=== PATIENT | female | born 1950 | race Caucasian/White ===

== ENCOUNTER 2016-10-04 10:08 | Outpatient (RCR) | payer MEDICARE, MEDICAID ==
[2016-10-04 09:54] LABS: BASOPHILS % (AUTO) 1 % (0-10); EOSINOPHILS # (AUTO) 0.1 10^3/uL (0.0-0.3); EOSINOPHILS % (AUTO) 2 % (0-10); LYMPHOCYTES # (AUTO) 0.9 X 10^3 (1.0-4.0); LYMPHOCYTES % (AUTO) 16 % (12-44); MEAN CORPUSCULAR HEMOGLOBIN 27 PG (25-34); MEAN CORPUSCULAR HGB CONC 33 G/DL (32-36); MEAN CORPUSCULAR VOLUME 83 FL (80-99); MEAN PLATELET VOLUME 10.7 FL (7.4-10.4); MONOCYTES # (AUTO) 0.4 X 10^3 (0.0-1.0); MONOCYTES % (AUTO) 6 % (0-12); NEUTROPHILS # (AUTO) 4.6 X 10^3 (1.8-7.8); NEUTROPHILS % (AUTO) 76 % (42-75); PLATELET COUNT 217 10^3/uL (130-400); RED BLOOD COUNT 4.31 10^6/uL (4.35-5.85); RED CELL DISTRIBUTION WIDTH 15.3 % (10.0-14.5); WHITE BLOOD COUNT 6.1 10^3/uL (4.3-11.0)
[~2016-10-04 10:08] MED LIST: ANAS1TAB7 PO; APIX5TAB PO; ASP81TEC PO; ASPI-86; ASPI-983 PO; ATOR20TA66 PO; BENA1TAB12 PO; BENA1TAB3; BENA20TA2 PO; BNZ40T PO; CEPH500C PO; CITA20TA12 PO; CLOP75TA28 PO; CRESTOR40 MG; CYCL-97 PO; DEXA6TAB PO; DIAZ5TAB3 PO; DILT-10 PO; DILT240C PO; DILT240C86 PO; ERGO400C PO; FERR-84 PO; FISH1CAP15 PO; HYDR-3816 PO; HYDR1CAP2 PO; HYDR1TAB8 PO; HYDR25TA4 PO; IRON PO; MAGN500C15 PO; MECL-124 PO; METO100T5 PO; MULT-974 PO; NF-ESOM40C PO; NF-VITD400 PO; OMEP20CA12 PO; OMEP40CA36 PO; ONDA8TAB9 PO; OXYC-471 PO; POTA10CA43 PO; RABE20TA PO; ROSU10TA12 PO; SIMV20TA3 PO; SUCR1TAB PO; TRAM-21 PO; VNL37.5T PO; beta blocker
[2016-10-04 10:27] LABS: ALANINE AMINOTRANSFERASE 15 U/L (0-55); ALBUMIN 4.5 G/DL (3.2-4.5); ANION GAP 13 MMOL/L (5-14); ASPARTATE AMINO TRANSFERASE 14 U/L (5-34); BILIRUBIN,TOTAL 0.4 MG/DL (0.1-1.0); BLOOD UREA NITROGEN 30 MG/DL (7-18); BUN/CREATININE RATIO 39; CALCIUM 9.9 MG/DL (8.5-10.1); CARBON DIOXIDE 22 MMOL/L (21-32); CHLORIDE 103 MMOL/L (98-107); CREATININE SERUM 0.76 MG/DL (0.60-1.30); GFR ESTIMATED > 60; GLUCOSE 108 MG/DL (70-105); POTASSIUM 3.9 MMOL/L (3.6-5.0); SODIUM 138 MMOL/L (135-145); TOTAL PROTEIN 7.3 G/DL (6.4-8.2)
== END 2016-10-25 | disposition home or self-care (01) ==
LOC: ONC 10:08
PROVIDERS: ATTEND Internal Medicine Hematology & Oncology
DX: C50.111 Malignant neoplasm of central portion of right female breast (principal); Z17.0 Estrogen receptor positive status [ER+]; I10 Essential (primary) hypertension; E78.5 Hyperlipidemia, unspecified; F32.9 Major depressive disorder, single episode, unspecified; E66.9 Obesity, unspecified; Z68.41 Body mass index [BMI] 40.0-44.9, adult; Z45.2 Encounter for adjustment and management of vascular access device
CPT/HCPCS: 36591; 80053; 82728; 83540; 85025; 86300; 96523; 99213

== ENCOUNTER → 2016-11-15 | Outpatient (CLI) | payer MEDICARE, MEDICAID ==
[2016-11-15 11:36] LABS: ALANINE AMINOTRANSFERASE 12 U/L (0-55); ALBUMIN 4.4 G/DL (3.2-4.5); ANION GAP 12 MMOL/L (5-14); ASPARTATE AMINO TRANSFERASE 13 U/L (5-34); BILIRUBIN,TOTAL 0.5 MG/DL (0.1-1.0); BLOOD UREA NITROGEN 25 MG/DL (7-18); BUN/CREATININE RATIO 32; CALCIUM 9.9 MG/DL (8.5-10.1); CARBON DIOXIDE 26 MMOL/L (21-32); CHLORIDE 98 MMOL/L (98-107); CHOLESTEROL 206 MG/DL (< 200); CREATININE SERUM 0.77 MG/DL (0.60-1.30); DIRECT LDL 122 MG/DL (1-129); GFR ESTIMATED > 60; GLUCOSE 93 MG/DL (70-105); POTASSIUM 3.6 MMOL/L (3.6-5.0); SODIUM 136 MMOL/L (135-145); TOTAL PROTEIN 7.3 G/DL (6.4-8.2); TRIGLYCERIDES 69 MG/DL (<150); VLDL CHOLESTEROL 14 MG/DL (5-40)
== END ==
LOC: LAB 10:20
PROVIDERS: ATTEND Internal Medicine Cardiovascular Disease
DX: E78.2 Mixed hyperlipidemia (principal); I10 Essential (primary) hypertension; I48.0 Paroxysmal atrial fibrillation
CPT/HCPCS: 80053; 80061

== ENCOUNTER 2016-11-23 09:20 | Outpatient (CLI) | payer MEDICARE, MEDICAID | END 2016-11-23 10:00 | LOC: SLEEP 09:20 | PROVIDERS: ATTEND Nurse Practitioner Family | DX: G47.33 Obstructive sleep apnea (adult) (pediatric) (principal) ==

== ENCOUNTER → 2016-12-08 | Outpatient (CLI) | payer MEDICARE, MEDICAID ==
--- NOTE | 2016-12-08 14:50 | Diagnostic Imaging Report ---
Right breast ultrasound. INDICATION: Breast CA. FINDINGS: At the lumpectomy site, there is a 5.2 x 1.2 x 3.1 cm fluid collection with surrounding thickened hypoechoic rim of tissue. This is similar when compared to prior exams and slightly smaller in size compared to 06/14/2016. No adverse development. No internal vascularity with color Doppler. IMPRESSION: Slightly smaller minimally complicated seroma with thickened rim suggestive of scarring seen at the lumpectomy site. No adverse development. ACR BI-RADS Category 2: Benign findings. Dictated by: Dictated on workstation # [id number]
--- NOTE | 2016-12-08 16:05 | Diagnostic Imaging Report ---
EXAMINATION: Bilateral breast digital diagnostic mammogram with CAD. The current study was also evaluated with a Computer Aided Detection (CAD) system. INDICATION: Breast cancer, status post lumpectomy and radiation in the right breast. COMPARISON: 06/14/2016. FINDINGS: Post lumpectomy changes are seen in the right breast. The left breast demonstrates a port projecting over the upper-central aspect of the left breast. There is interval decrease in the relatively large asymmetry/density within the right breast probably related to postoperative seroma and scarring. IMPRESSION: Decreased changes at the lumpectomy site in the right breast likely related to seroma and scarring. Follow-up ultrasound evaluation is pending. ACR BI-RADS Category 0: Incomplete. (Needs additional imaging evaluation). Result letter will be mailed to the patient. Note: At least 10% of breast cancer is not imaged by mammography. Dictated by: Dictated on workstation # [id number]
== END ==
LOC: RAD 12:51
PROVIDERS: ATTEND Internal Medicine Hematology & Oncology
DX: C50.311 Malignant neoplasm of lower-inner quadrant of right female breast (principal)
CPT/HCPCS: 77066

== ENCOUNTER 2017-01-05 14:15 | Outpatient (CLI) | payer MEDICARE, MEDICAID ==
[~2017-01-05] VITALS: Ht 157.5 cm; Wt 91.2 kg
== END 2017-01-05 16:00 ==
LOC: PREOP 14:15
PROVIDERS: ATTEND Surgery
DX: Z01.818 Encounter for other preprocedural examination (principal); Z85.3 Personal history of malignant neoplasm of breast; I48.91 Unspecified atrial fibrillation

== ENCOUNTER 2017-01-07 07:30 | Day surgery (SDC) | payer MEDICARE, MEDICAID ==
[~2017-01-07] VITALS: Ht 157.5 cm; Wt 91.2 kg
--- NOTE | 2017-01-07 08:09 | Discharge Inst-Simple/Standard ---
Discharge Inst-Standard Patient Instructions/Follow Up Plan of Care/Instructions/FU: Follow up with Dr. Morillo in clinic in 2 weeks. Apply ice to area for 15 mins on and 15 mins off x 48 hours Activity as Tolerated: No Discharge Diet: No Restrictions Other Inst to Patient Follow up Appt: Make appointment for 2 weeks. Apply ice to area for 15 mins on and 15 mins off Instructions: No lifting greater than 10 pounds. No strenuous activity. May shower in 24 hours, no tub bath or soaking. Use incentive spirometer at home as directed. No Smoking Skin/Wound Care: May remove bandages. You need leave the wound glue over incision on they will fall off on their own. Symptoms to Report: Appetite Changes, Extremity Discoloration, Numbness/Tingling, Swelling Increased , Bleeding Excessive, Eyesight Changes, Pain Increased, Urine Color Change, Constipation(Persistent), Fever over 101 degree F, Pain/Pressure in chest, Urinating Difficulty, Cough Up/Vomit Blood, Heart Beat Irreg/Pounding, Pain/ Pressure in jaw, Vaginal Bleeding Increase, Cramps in feet or legs, Lightheadedness, Pain/Pressure in shoulder, Diarrhea(Persistent), Memory Changes Suddenly, Questions/Concerns, Weight gain consecutive days, Dizziness/ Fainting, Nausea/Vomiting, Shortness of Breath, Weight gain over 2 pounds If questions or concerns contact your physician Or seek help at emergency department. FLAQUITA BYRD APRN Jan 07, 2017 8:09 am
[2017-01-07] MEDS ORDERED: ceFAZolin 2 GM/NS 50 ML IV ONE (08:30)
[2017-01-07] MEDS ORDERED: CATHETER FLUSH 10 ML SYR IV PRN (08:30)
[2017-01-07] MEDS ORDERED: BUPIVACAINE 0.5% 30 ML (SENSORCAINE) VIAL ONE (08:31)
[2017-01-07] MEDS ORDERED: LIDOCAINE 1% INJ 20 ML (XYLOCAINE) VIAL ONE (08:31)
[2017-01-07] MEDS ORDERED: LACTATED RINGERS 1,000 ML IV PRN (08:41)
[2017-01-07 08:45] VITALS: BP 133/58
[2017-01-07] MEDS ORDERED: proPOfol 200 MG/20 ML (DIPRIVAN) VIAL IV ONE (09:46)
[2017-01-07] MEDS ORDERED: MIDAZOLAM 2 MG/2 ML (VERSED) VIAL ONE (09:47)
--- NOTE | 2017-01-07 09:51 | Progress Note-Pre Operative ---
Pre-Operative Progress Note H&P Reviewed The H&P was reviewed, patient examined and no changes noted. Date H&P Reviewed: Jan 07, 2017 Time H&P Reviewed: 09:51 Pre-Operative Diagnosis: HISTORY BREAST CANCER JAZMIN WHITING DO Jan 07, 2017 9:51 am
[2017-01-07] MEDS ORDERED: fentaNYL INJECTION 100 MCG/2 ML AMP ONE (10:26)
[2017-01-07] MEDS ORDERED: morphine INJ 10 MG/ML 1ML (SYR OR VIAL) IVP PRN (11:00)
[2017-01-07 11:25] VITALS: BP 120/54
[2017-01-07 11:55] VITALS: BP 130/58
[2017-01-07 12:25] VITALS: BP 130/58
--- NOTE | 2017-01-10 13:21 | OPERATIVE REPORT ---
PROCEDURE PHYSICIAN: JAZMIN MORILLO DATE OF PROCEDURE: 01/07/2017 PREOPERATIVE DIAGNOSIS: History of breast cancer. POSTOPERATIVE DIAGNOSIS: History of breast cancer. PROCEDURE: Removal of port, loop recorder removal. SURGEON: Dr. Morillo. ANESTHESIA: MAC with local. ESTIMATED BLOOD LOSS: Minimal. COMPLICATIONS: None. INDICATIONS: The patient is a 66-year-old female who wishes to have her port removed and also her loop recorder. Dr. Perdue has okayed for her loop recorder to be removed and oncology has okayed her port to be removed. The patient understands risks and benefits of the procedure and wished to proceed with procedure. Consent signed on the chart. PROCEDURE: The patient was taken to the operating suite. She was prepped and draped in sterile fashion. A surgical pause was performed. Local anesthetic of 0.5% Marcaine 1% lidocaine 50:50 ratio was used to dissect the areas. A 15 blade scalpel used to make a small incision to the loop recorder. Hemostat was used to dissect down to grasp it and remove it in its entirety. Local anesthetic was infiltrated around the port. A 10 blade scalpel was used to make an incision through the existing scar. Cautery was used to dissect down to the port, grasped and elevate, and remove it in its entirety. Hemostasis was achieved. The wounds were then irrigated. The subcutaneous tissues were reapproximated using 3-0 Vicryl. Skin was then closed using 4-0 Vicryl in a running subcuticular fashion. The area was then washed and dried. Mastisol and Steri-Strips were applied and sterile bandages were applied. The patient tolerated the procedure well without any complications. She was taken to recovery room in stable condition. Job ID: [id number] Dictated Date: 01/07/2017 11:10:39 Ultrasound Coordinator Date: 01/10/2017 13:14:46 / vega
== END 2017-01-07 12:25 | disposition home or self-care (01) ==
LOC: SDC 07:30
PROVIDERS: ATTEND Surgery
DX: Z08 Encounter for follow-up examination after completed treatment for malignant neoplasm (principal); Z85.3 Personal history of malignant neoplasm of breast; I48.91 Unspecified atrial fibrillation
CPT/HCPCS: 87081

== ENCOUNTER 2017-02-07 10:55 | Outpatient (RCR) | payer MEDICARE, MEDICAID | END 2017-02-13 | disposition home or self-care (01) | LOC: ONC 10:55 | PROVIDERS: ATTEND Internal Medicine Hematology & Oncology | DX: C50.111 Malignant neoplasm of central portion of right female breast (principal); Z17.0 Estrogen receptor positive status [ER+]; I10 Essential (primary) hypertension; E78.5 Hyperlipidemia, unspecified; F32.9 Major depressive disorder, single episode, unspecified; E66.9 Obesity, unspecified; Z68.41 Body mass index [BMI] 40.0-44.9, adult; Z45.2 Encounter for adjustment and management of vascular access device | CPT/HCPCS: 36591 ==

== ENCOUNTER 2017-03-21 08:23 | Outpatient (RCR) | payer MEDICARE, MEDICAID ==
[2017-03-21 08:46] LABS: BASOPHILS % (AUTO) 0 % (0-10); EOSINOPHILS # (AUTO) 0.1 10^3/uL (0.0-0.3); EOSINOPHILS % (AUTO) 2 % (0-10); LYMPHOCYTES # (AUTO) 0.8 X 10^3 (1.0-4.0); LYMPHOCYTES % (AUTO) 15 % (12-44); MEAN CORPUSCULAR HEMOGLOBIN 29 PG (25-34); MEAN CORPUSCULAR HGB CONC 33 G/DL (32-36); MEAN CORPUSCULAR VOLUME 87 FL (80-99); MEAN PLATELET VOLUME 11.3 FL (7.4-10.4); MONOCYTES # (AUTO) 0.3 X 10^3 (0.0-1.0); MONOCYTES % (AUTO) 6 % (0-12); NEUTROPHILS # (AUTO) 4.1 X 10^3 (1.8-7.8); NEUTROPHILS % (AUTO) 77 % (42-75); PLATELET COUNT 191 10^3/uL (130-400); RED BLOOD COUNT 4.13 10^6/uL (4.35-5.85); RED CELL DISTRIBUTION WIDTH 14.6 % (10.0-14.5); WHITE BLOOD COUNT 5.4 10^3/uL (4.3-11.0)
[2017-03-21 08:56] LABS: ALBUMIN 4.4 GM/DL (3.2-4.5); BILIRUBIN,TOTAL 0.4 MG/DL (0.1-1.0); CREATININE SERUM 0.97 MG/DL (0.60-1.30); ICTERUS 0.2 (-100-1.9); POTASSIUM 4.1 MMOL/L (3.6-5.0); TOTAL PROTEIN 7.9 GM/DL (6.4-8.2)
[2017-04-30] MEDS ORDERED: APIX5TAB PO (09:55)
== END 2017-06-19 | disposition home or self-care (01) ==
LOC: ONC 08:23
PROVIDERS: ATTEND Internal Medicine Hematology & Oncology
DX: C50.111 Malignant neoplasm of central portion of right female breast (principal); Z17.0 Estrogen receptor positive status [ER+]; I10 Essential (primary) hypertension; E78.5 Hyperlipidemia, unspecified; F32.9 Major depressive disorder, single episode, unspecified; E66.9 Obesity, unspecified; Z68.41 Body mass index [BMI] 40.0-44.9, adult; Z79.899 Other long term (current) drug therapy
CPT/HCPCS: 36415; 80053; 85025; 86300; 99213

== ENCOUNTER → 2017-05-19 | Outpatient (CLI) | payer MEDICARE, MEDICAID ==
[2017-05-19 11:31] LABS: ALBUMIN 4.4 GM/DL (3.2-4.5); BILIRUBIN,DIRECT 0.2 MG/DL (0.0-0.3); BILIRUBIN,INDIRECT 0.2 MG/DL; BILIRUBIN,TOTAL 0.4 MG/DL (0.1-1.0); TOTAL PROTEIN 7.7 GM/DL (6.4-8.2)
== END ==
LOC: LAB 10:13
PROVIDERS: ATTEND Physician Assistant
DX: E78.2 Mixed hyperlipidemia (principal)
CPT/HCPCS: 36415; 80061; 80076

== ENCOUNTER → 2017-08-23 | Outpatient (CLI) | payer MEDICARE, MEDICAID | LOC: CARD 13:41 | PROVIDERS: ATTEND Physician Assistant | DX: I25.10 Atherosclerotic heart disease of native coronary artery without angina pectoris (principal); E78.2 Mixed hyperlipidemia; I10 Essential (primary) hypertension; I48.0 Paroxysmal atrial fibrillation | CPT/HCPCS: 93306 ==

== ENCOUNTER → 2017-08-24 | Outpatient (CLI) | payer MEDICARE, MEDICAID ==
[~2017-08-24] VITALS: Ht 157.5 cm; Wt 99.8 kg
[~2017-08-24] MED LIST changes: +CATHETER FLUSH 10 ML SYR IV PRN; +REGADENOSON 0.4 MG/5 ML SYR (LEXISCAN) IV ONE
[2017-08-24 09:35] VITALS: BP 197/74
--- NOTE | 2017-08-24 22:21 | STRESS TEST ---
DATE OF SERVICE: 08/24/2017 LEXISCAN MYOVIEW STRESS TEST REPORT REFERRING PHYSICIAN: Alycia Carpio DO Baseline heart rate is 73. Baseline blood pressure 120/70. Baseline EKG is sinus rhythm with no ischemic changes. SUMMARY: The patient was injected with 10.73 mCi of technetium-99 Myoview and the resting images were obtained. Then, the patient received 0.4 mg of Lexiscan followed by 31.7 mCi of technetium-99 Myoview. Throughout the test, there were no significant EKG changes. The resting and stress images were reviewed and compared in the short axis, horizontal long axis and vertical long axis views. Review of the images showed decreased uptake involving the whole anterior wall, anterolateral wall and anterior septum with mild reversibility at the distal anteroapical segment and anterolateral wall. Calculated SSS is 13, SDS 3, TID value 1.17. On the gated images, the left ventricle appeared to be in normal size with normal contractility. Calculated ejection fraction 79%. CONCLUSION: 1. The patient tolerated Lexiscan well. 2. Breast attenuation affecting the quality of the images with fixed defect involving the whole anterior wall and anterolateral wall with questionable ischemia involving the anteroapical segment and anterolateral wall . 3. Normal left ventricular size with calculated ejection fraction 79%. Job ID: [id number] DocumentID: [id number] Dictated Date: 08/24/2017 16:06:36 Regulator Operator Date: 08/24/2017 20:06:40 Dictated By: GINGER MORA MD
== END ==
LOC: CARD 07:41
PROVIDERS: ATTEND Physician Assistant
DX: I25.10 Atherosclerotic heart disease of native coronary artery without angina pectoris (principal); I10 Essential (primary) hypertension; I48.0 Paroxysmal atrial fibrillation; E78.2 Mixed hyperlipidemia
CPT/HCPCS: 78452; 93017

== ENCOUNTER 2017-08-31 07:29 | Day surgery (SDC) | payer MEDICARE, MEDICAID ==
[2017-08-31] VITALS (12 sets, daily range): BP systolic 105–144; BP diastolic 56–84
[~2017-08-31] VITALS: Ht 157.5 cm; Wt 100.7 kg
[~2017-08-31 07:29] MED LIST changes: -CATHETER FLUSH 10 ML SYR IV PRN; -REGADENOSON 0.4 MG/5 ML SYR (LEXISCAN) IV ONE
[2017-08-31] MEDS ORDERED: LIDOCAINE 1% INJ 50 ML (XYLOCAINE) VIAL ONE (07:55)
[2017-08-31] MEDS ORDERED: HEParin (CATH LAB) 2,000 ML IV ONE (07:55)
[2017-08-31] MEDS ORDERED: NS IV 1000 ML 1,000 ML ONE (07:55)
[2017-08-31] MEDS ORDERED: NS IV 1000 ML 1,000 ML IV SCH ×3 (08:00→10:23)
[2017-08-31 08:28] LABS: BILIRUBIN,URINE NEGATIVE (NEGATIVE); KETONES,URINE NEGATIVE (NEGATIVE); LEUKOCYTE ESTERASE ,URINE 1+ (NEGATIVE); NITRITE,URINE NEGATIVE (NEGATIVE); PH,URINE 6 (5-9); PROTEIN,URINE NEGATIVE (NEGATIVE); UROBILINOGEN,URINE NORMAL (NORMAL)
[2017-08-31 08:28] LABS: MEAN PLATELET VOLUME 10.7 FL (7.4-10.4); RED BLOOD COUNT 4.36 10^6/uL (4.35-5.85); WHITE BLOOD COUNT 7.1 10^3/uL (4.3-11.0)
[2017-08-31 08:37] LABS: INR 0.8 (0.8-1.4); PROTHROMBIN TIME PATIENT 11.6 SEC (12.2-14.7)
[2017-08-31 08:40] LABS: SQUAMOUS EPITHELIAL CELL,UR RARE /HPF; WBC,URINE RARE /HPF
--- NOTE | 2017-08-31 08:43 | Diagnostic Imaging Report ---
Portable upright radiograph of the chest. INDICATION: Abnormal stress test. Dyspnea. FINDINGS: The heart size is borderline enlarged. There is minimal vascular congestion. No effusion or pneumothorax. The mediastinum and vicky appear unremarkable. IMPRESSION: Borderline cardiac size with minimal vascular congestion. Dictated by: Dictated on workstation # [id number]
[2017-08-31 08:47] LABS: ALANINE AMINOTRANSFERASE 19 U/L (0-55); ALBUMIN 4.4 GM/DL (3.2-4.5); ANION GAP 13 MMOL/L (5-14); ASPARTATE AMINO TRANSFERASE 13 U/L (5-34); BILIRUBIN,TOTAL 0.3 MG/DL (0.1-1.0); BLOOD UREA NITROGEN 35 MG/DL (7-18); BUN/CREATININE RATIO 43; CALCIUM 10.1 MG/DL (8.5-10.1); CARBON DIOXIDE 26 MMOL/L (21-32); CHLORIDE 103 MMOL/L (98-107); CHOLESTEROL 199 MG/DL (< 200); CREATININE SERUM 0.82 MG/DL (0.60-1.30); DIRECT LDL 107 MG/DL (1-129); GFR ESTIMATED > 60; GLUCOSE 121 MG/DL (70-105); POTASSIUM 4.2 MMOL/L (3.6-5.0); SODIUM 142 MMOL/L (135-145); TRIGLYCERIDES 65 MG/DL (<150); VLDL CHOLESTEROL 13 MG/DL (5-40)
[2017-08-31] MEDS ORDERED: HYDR25TA4 PO (08:49)
[2017-08-31] MEDS ORDERED: ATOR40TA70 PO (08:49)
[2017-08-31] MEDS ORDERED: MULT-878 PO (08:49)
[2017-08-31] MEDS ORDERED: ASPI-983 PO (08:50)
[2017-08-31] MEDS ORDERED: CHOL400C9 PO ×2 (08:50)
[2017-08-31] MEDS ORDERED: APIX5TAB PO (08:50)
[2017-08-31] MEDS ORDERED: MAGN250T13 PO (08:50)
[2017-08-31] MEDS ORDERED: OMG1KC PO ×2 (08:50→08:51)
--- NOTE | 2017-08-31 09:54 | Cardiac Procedure Note-CS/ASA ---
Pre-Procedure Note Pre-Op Procedure Note H&P Reviewed The H&P was reviewed, patient examined and no changes noted. Date H&P Reviewed: Aug 31, 2017 Time H&P Reviewed: 09:53 Conscious Sedation Pre-Proced Time Reviewed: 09:53 ASA Class: 3 Airway Mallampati Classification: (tunica-biloxi appropriate class) I. II. III, IV Lungs Heart ASA score ASA 1: a normal healthy patient ASA 2: a patient with a mild systemic disease (mid diabetes, controlled hypertension, obesity x ASA 3: a patient with a severe systemic disease that limits activity (angina , COPD, prior Myocardial infarction) ASA 4: a patient with an incapacitating disease that is a constant threat to life (CHF, renal failure) ASA 5: a moribund patient not expected to survive 24 hrs. (ruptured aneurysm) ASA 6: a declared brain patient whose organs are being harvested. For emergent operations, add the letter E after the classification Grade 3 Sedation Plan: Analgesia, Amnesia, Plan communicated to team members, Discussed options with patient/fam, Discussed risks with patient/fam Note The patient is an appropriate candidate to undergo the planned procedure, sedation, and anesthesia. The patient immediately re-assessed prior to indication. GINGER MORA MD Aug 31, 2017 09:54
[2017-08-31] MEDS ORDERED: fentaNYL INJECTION 100 MCG/2 ML AMP ONE (09:55)
[2017-08-31] MEDS ORDERED: MIDAZOLAM 2 MG/2 ML (VERSED) VIAL ONE (09:55)
--- NOTE | 2017-08-31 10:25 | Discharge Inst-Post CATH ---
Discharge Inst-CATH Post Cardiac Cath D/C Inst Follow Up/Plan Appointment with Dr. Perdue's office in 2-4 weeks CARDIAC CATH DISCHARGE INSTRUCTIONS *Hold Metformin for 48 hours post heart cath. ACTIVITY * Go Home directly and rest. * Limit activity of the leg (or wrist if it was used) for 7 days including aerobics, swimming, jogging, bicycling, etc. * Restrict stair-climbing for 7 days if possible, if not, climb up with your non -cath leg, then bring together on the same step. * Avoid lifting, pushing, pulling or excessive movement of the affected extremity for 7 days. * Customary sexual activity may be resumed after 2 days-use caution not to use a position that strains or causes pain to the affected extremity. * No driving for 24 hours. * NO SMOKING. * Avoid straining for bowel movements for 7 days. * Gentle walking on level ground is allowed. * Returning to work will depend on the type of procedure and the results. Your doctor will discuss this with you. CALL YOUR DOCTOR FOR ANY OF THE FOLLOWING: *If bleeding from the puncture site occurs- Apply gentle pressure to site with clean cloth and call your doctor or EMS. * If a knot or lump forms under the skin, increases in size, or causes pain. * If bruising appears to be worsening or moving further down your leg instead of disappearing. * Temperature above 101 F. CARE OF YOUR GROIN INCISION; * Bruising or purple discoloration of the skin near the puncture site is common. * You may shower only, no bathtub bathing for 5 days. Be careful to avoid slipping as your leg may feel stiff. * If a closure device was used on your femoral artery, please see the attached guide regarding care of the device and your leg. * REMOVE the dressing from your groin the next day after your procedure in the shower. CARE OF YOUR WRIST INCISION; * Bruising or purple discoloration of the skin near the puncture site is common. * You may shower. * DO NOT submerge wrist. * Remove dressing in 24 hours. GINGER PERDUE MD Aug 31, 2017 10:25
--- NOTE | 2017-08-31 10:29 | Cardiac Cath Report ---
Cardiac Cath Report Physician (s)/Field Health Officer (s) Physician GINGER MORA MD Pre-Procedure Diagnosis Pre-Procedure Diagnosis: coronary artery disease Post-Procedure Note Procedure Start Date: Aug 31, 2017 Name of Procedure: left heart catheterization, left ventricular pressure Aortic arch angiogram Findings/Procedure Note PROCEDURE NOTE: After explaining the procedure to the patient, all pros and cons were explained, all questions were answered. The patient signed the consent and then she was placed on the cardiac catheterization laboratory. The patient was placed on the cardiac catheterization laboratory. Groin was prepped SL fashion local anesthesia was used. Sheath placed in the right femoral artery. Mercedes right and left catheter were used to access the coronary system. Pigtail was used to access the left ventricular cavity. Left ventriculogram was not done, pressure was measured Aortic arch angiogram was done At the end of the procedure the sheath was removed. Closure device was used FINDINGS: Hemodynamics LV 138/17, end-diastolic pressure of 17 Aorta 138/59 mean of 90 ANATOMY: Left Main is free of obstructive disease Left Anterior Descending has a patent stent at the midportion with small vessel disease distally nonobstructive disease Left Circumflex has mild disease nonobstructive disease Right Coronory Artery is mildly calcified with mild disease nonobstructive disease LV Gram was not done, pressure was measured Aortic arch angiogram was done showing the aortic arch is normal in size, no dissection or aneurysm, origin of the innominate artery, right carotid, left carotid and left subclavian appeared normal, slightly tortuous CONCLUSION: 1. Patent stent in the mid LAD, mild disease distally small vessel disease nonobstructive disease 2. Mildly calcified right coronary artery with mild disease nonobstructive disease 3. Normal aortic arch and great neck vessels, mildly calcified right carotid artery nonobstructive disease DISCUSSION AND RECOMMENDATION: Continue to maximize medical therapy, no intervention is warranted Anesthesia Type: Conscious Sedation Estimated blood loss (mL): 5 ml Contrast Amount: 30 ml Total Radiation Dose: 183 mGy Post-Procedure Diagnosis Post-operative diagnosis: Coronary artery disease Hypertension Hyperlipidemia Paroxysmal atrial fibrillation GINGER MORA MD Aug 31, 2017 10:29
[2017-08-31] MEDS ORDERED: PATIENT MAY USE OWN MEDS, ALL PO SCH (10:30)
[2017-08-31] MEDS ORDERED: INFLUENZA TRIvalent 2017-2018 0.5 ML/45 MCG SYR IM ONE (10:30)
== END 2017-08-31 15:20 | disposition home or self-care (01) ==
LOC: CATH 07:29 → SURG 10:38 → CATH 15:20
PROVIDERS: ATTEND Internal Medicine Cardiovascular Disease
DX: I25.10 Atherosclerotic heart disease of native coronary artery without angina pectoris (principal); I48.0 Paroxysmal atrial fibrillation; I10 Essential (primary) hypertension; E78.5 Hyperlipidemia, unspecified; I65.23 Occlusion and stenosis of bilateral carotid arteries; D64.9 Anemia, unspecified; G47.30 Sleep apnea, unspecified; E66.01 Morbid (severe) obesity due to excess calories; Z68.41 Body mass index [BMI] 40.0-44.9, adult; Z85.3 Personal history of malignant neoplasm of breast; Z79.01 Long term (current) use of anticoagulants; Z79.82 Long term (current) use of aspirin; Z79.899 Other long term (current) drug therapy; Z87.891 Personal history of nicotine dependence
CPT/HCPCS: 36221; 36415; 71010; 80053; 80061; 81000; 85027; 85610; 85730; 87081; 93458

== ENCOUNTER 2017-09-06 08:51 | Outpatient (RCR) | payer MEDICARE, MEDICAID ==
[~2017-09-06 08:51] MED LIST changes: +ATOR40TA70 PO; +CHOL400C9 PO; +HYDR-34 PO; -HYDR-3816 PO; +MAGN250T13 PO; +MULT-878 PO; +OMG1KC PO
[2017-09-06 09:14] LABS: BASOPHILS # (AUTO) 0.1 10^3/uL (0.0-0.1); BASOPHILS % (AUTO) 1 % (0-10); EOSINOPHILS # (AUTO) 0.1 10^3/uL (0.0-0.3); EOSINOPHILS % (AUTO) 2 % (0-10); HEMATOCRIT 37 % (35-52); HEMOGLOBIN 11.8 G/DL (11.5-16.0); LYMPHOCYTES # (AUTO) 0.9 X 10^3 (1.0-4.0); LYMPHOCYTES % (AUTO) 17 % (12-44); MEAN CORPUSCULAR HEMOGLOBIN 28 PG (25-34); MEAN CORPUSCULAR HGB CONC 32 G/DL (32-36); MEAN CORPUSCULAR VOLUME 87 FL (80-99); MONOCYTES # (AUTO) 0.3 X 10^3 (0.0-1.0); MONOCYTES % (AUTO) 5 % (0-12); NEUTROPHILS # (AUTO) 4.1 X 10^3 (1.8-7.8); NEUTROPHILS % (AUTO) 75 % (42-75); PLATELET COUNT 190 10^3/uL (130-400); RED BLOOD COUNT 4.24 10^6/uL (4.35-5.85); RED CELL DISTRIBUTION WIDTH 13.9 % (10.0-14.5); WHITE BLOOD COUNT 5.4 10^3/uL (4.3-11.0)
[2017-09-06 09:39] LABS: ALANINE AMINOTRANSFERASE 13 U/L (0-55); ALBUMIN 4.4 GM/DL (3.2-4.5); ALKALINE PHOSPHATASE 118 U/L (40-136); BILIRUBIN,TOTAL 0.4 MG/DL (0.1-1.0); BUN/CREATININE RATIO 25; CALCIUM 9.5 MG/DL (8.5-10.1); CARBON DIOXIDE 24 MMOL/L (21-32); CHLORIDE 99 MMOL/L (98-107); CREATININE SERUM 0.84 MG/DL (0.60-1.30); GFR ESTIMATED > 60; GLUCOSE 96 MG/DL (70-105); POTASSIUM 4.4 MMOL/L (3.6-5.0); SODIUM 136 MMOL/L (135-145); TOTAL PROTEIN 7.1 GM/DL (6.4-8.2)
== END 2017-12-05 | disposition home or self-care (01) ==
LOC: ONC 08:51
PROVIDERS: ATTEND Internal Medicine Hematology & Oncology
DX: C50.111 Malignant neoplasm of central portion of right female breast (principal); Z17.0 Estrogen receptor positive status [ER+]; I10 Essential (primary) hypertension; E78.5 Hyperlipidemia, unspecified; F32.9 Major depressive disorder, single episode, unspecified; E66.9 Obesity, unspecified; Z68.41 Body mass index [BMI] 40.0-44.9, adult; Z79.899 Other long term (current) drug therapy
CPT/HCPCS: 36415; 80053; 85025; 86300; 99213

== ENCOUNTER 2017-10-03 13:14 | Emergency (ER) | payer MEDICARE, MEDICAID ==
[~2017-10-03] VITALS: Ht 157.5 cm; Wt 99.8 kg
[~2017-10-03 13:14] MED LIST changes: -HYDR-34 PO; +HYDR-3816 PO
--- OUTSIDE RECORDS SUMMARY | 2017-10-03 13:24 | XMS REPORT ---
Author Author NAZANIN PONCE [facility] Address [address] [place] [address] Care Team Providers Care Laser Engraver Name Role Phone NAZANIN PONCE Unavailable PROBLEMS Type Condition ICD9-CM Code QOH38-SK Code Onset Dates Condition Status SNOMED Code Problem Esophageal reflux K21.9 Active 084087022 Problem Vitamin D deficiency E55.9 Active 15886631 Problem Episodic mood disorder F39 Active 28548584 Problem Dysmetabolic syndrome X E88.81 Active 831416729 Problem Paroxysmal atrial fibrillation I48.0 Active 454334159 Problem Coronary artery disease involving [place] coronary artery of [place] heart without angina pectoris I25.10 Active 4873004886824 Problem Hypertension I10 Active 21274757 Problem Other chronic pain G89.29 Active 78630220 Problem Malignant neoplasm of right female breast, unspecified estrogen receptor status, unspecified site of breast C50.911 Active 364389827 Problem Hyperlipemia E78.5 Active 81141536 ALLERGIES No Known Allergies SOCIAL HISTORY Never Assessed PLAN OF CARE Activity Details Follow Up 6 Months Reason:hypertension VITAL SIGNS Height 62 in 2016-11-11 Weight 210.3 lbs 2016-11-11 Temperature 98.2 degrees Fahrenheit 2016-11-11 Heart Rate 74 bpm 2016-11-11 Respiratory Rate 20 2016-11-11 BMI 38.46 kg/m2 2016-11-11 Blood pressure systolic 128 mmHg 2016-11-11 Blood pressure diastolic 76 mmHg 2016-11-11 MEDICATIONS Medication Instructions Dosage Frequency Start Date End Date Duration Status Taztia XT 240 MG Orally Once a day 1 capsule 24h 30 Active Ondansetron 8 MG Orally as needed 1 tablet on the tongue and allow to dissolve Active Benazepril HCl 20 mg Orally Once a day 1 tablet 24h Active Omeprazole 40 mg Orally Once a day 1 capsule 24h Active Hydrochlorothiazide 25 MG 1 tablet 24h Active Multivitamins Orally once a day one 24h Active Iron 325 (65 Fe) MG Orally Once a day 1 tablet 24h Active Fluticasone Propionate 50 MCG/ACT Nasally Once a day 1 spray in each nostril 24h Oct, 30 day(s) Active Vitamin D3 2,000 unit Orally 3 times a day 1 Capsule by Oral route 1 time per day 8h January, Active Fish Oil 1000 MG Orally 3 times a day 1 capsule 8h Active Atorvastatin Calcium 20 MG Orally Once a day 1 tablet 24h Active Venlafaxine HCl 37.5 MG Orally Twice a day 1 tablet with food 12h Active Retin-A 0.05 % 1 application to affected area in the evening to face 24h Aug, Active Anastrozole 1 MG Orally Once a day 1 tablet 24h Active Aspirin Adult Low Dose 81 MG Orally Once a day 1 tablet 24h Active Clopidogrel Bisulfate 75 MG Orally Once a day 1 tablet 24h Active RESULTS No Results PROCEDURES No Known procedures IMMUNIZATIONS No Known Immunizations MEDICAL (GENERAL) HISTORY Type Description Date Medical History Hypertension Medical History Respiratory disorder sleep apnea wears cpap last sleep test 2008 Medical History Post Cholecystectomy 04/2011 Medical History Hyperlipidemia Medical History Endocrine disorder insulin resistant Medical History breast cancer(right breast) Surgical History Hysterectomy total 1996 Surgical History Lumpectomy(right breast) 04/2015 Surgical History cholecystectomy Surgical History stent placed in heart 10/2015 Surgical History Linq insertion Surgical History broke her toes in her left foot 02/2016 Hospitalization History Surgery Hospitalization History Afib
--- OUTSIDE RECORDS SUMMARY | 2017-10-03 13:31 | XMS REPORT | Continuity of Care Document ---
Author Author [facility] Address Unknown Phone Unavailable Allergies Active Description Code Type Severity Reaction Onset Reported/Identified Relationship to Patient Clinical Status Yes No Known Drug Allergies [id number] Drug Allergy Mild N/A 04/04/2009 Yes No Known Drug Allergies [id number] Drug Allergy Unknown N/A 05/14/2015 Medications There is no data. Problems Date Dx Coded Attending Type Code Diagnosis Diagnosed By 08/25/1430 GINGER MORA MD, Ot Z48.812 ENCNTR FOR SURGICAL AFTCR FOLLOWING SURG 08/25/1430 GINGER MORA MD, Ot Z95.5 PRESENCE OF CORONARY ANGIOPLASTY IMPLANT 08/04/2011 272.4 HYPERLIPIDEMIA 08/04/2011 278.00 OBESITY 08/04/2011 401.1 HYPERTENSION, BENIGN ESSENTIAL 08/04/2011 272.4 HYPERLIPIDEMIA 08/04/2011 278.00 OBESITY 08/04/2011 401.1 HYPERTENSION, BENIGN ESSENTIAL 08/04/2011 272.4 HYPERLIPIDEMIA 08/04/2011 278.00 OBESITY 08/04/2011 401.1 HYPERTENSION, BENIGN ESSENTIAL 08/04/2011 272.4 HYPERLIPIDEMIA 08/04/2011 278.00 OBESITY 08/04/2011 401.1 HYPERTENSION, BENIGN ESSENTIAL 08/04/2011 272.4 HYPERLIPIDEMIA 08/04/2011 278.00 OBESITY 08/04/2011 401.1 HYPERTENSION, BENIGN ESSENTIAL 08/04/2011 272.4 HYPERLIPIDEMIA 08/04/2011 278.00 OBESITY 08/04/2011 401.1 HYPERTENSION, BENIGN ESSENTIAL 08/04/2011 272.4 HYPERLIPIDEMIA 08/04/2011 278.00 OBESITY 08/04/2011 401.1 HYPERTENSION, BENIGN ESSENTIAL 08/04/2011 KEN KUNZ MD 272.4 HYPERLIPIDEMIA 08/04/2011 KEN KUNZ MD 278.00 OBESITY 08/04/2011 KEN KUNZ MD 401.1 HYPERTENSION, BENIGN ESSENTIAL 08/04/2011 NAZANIN PONCE APRN 272.4 HYPERLIPIDEMIA 08/04/2011 KRIS 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, NAZANIN T 278.00 OBESITY 08/04/2011 KRIS JENSENN, NAZANIN T 401.1 HYPERTENSION, BENIGN ESSENTIAL 08/04/2011 KRIS JENSENN, NAZANIN T 272.4 HYPERLIPIDEMIA 08/04/2011 KRIS JENSENN, NAZANIN T 278.00 OBESITY 08/04/2011 KRIS 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, NAZANIN T 401.1 HYPERTENSION, BENIGN ESSENTIAL 08/04/2011 KEN KUNZ MD 272.4 HYPERLIPIDEMIA 08/04/2011 KEN KUNZ MD 278.00 OBESITY 08/04/2011 KEN KUNZ MD 401.1 HYPERTENSION, BENIGN ESSENTIAL 08/04/2011 KRIS JENSENN, NAZANIN T 272.4 HYPERLIPIDEMIA 08/04/2011 KRIS JENSENN, NAZANIN T 278.00 OBESITY 08/04/2011 KRIS JENSENN, NAZANIN T 401.1 HYPERTENSION, BENIGN ESSENTIAL 08/04/2011 JUNG DO, DOTTY K 272.4 HYPERLIPIDEMIA 08/04/2011 JUNG DO, DOTTY K 278.00 OBESITY 08/04/2011 JUNG DO, DOTTY K 401.1 HYPERTENSION, BENIGN ESSENTIAL 08/04/2011 MAD 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, KAVON L 272.4 HYPERLIPIDEMIA 08/04/2011 MAD 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, KAVON L 278.00 OBESITY 08/04/2011 MADL 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, KAVON L 401.1 HYPERTENSION, BENIGN ESSENTIAL 08/04/2011 KRIS JENSENN, NAZANIN T 272.4 HYPERLIPIDEMIA 08/04/2011 KRIS JENSENN, NAZANIN T 278.00 OBESITY 08/04/2011 KRIS PORTER, NAZANIN T 401.1 HYPERTENSION, BENIGN ESSENTIAL 08/04/2011 KRIS PORTER, NAZANIN T 272.4 HYPERLIPIDEMIA 08/04/2011 KRIS PORTER, NAZANIN T 278.00 OBESITY 08/04/2011 KRIS JENSENN, NAZANIN T 401.1 HYPERTENSION, BENIGN ESSENTIAL 08/04/2011 KRIS JENSENN, NAZANIN T 272.4 HYPERLIPIDEMIA 08/04/2011 KRIS 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, NAZANIN T 278.00 OBESITY 08/04/2011 KRIS JENSENN, NAZANIN T 401.1 HYPERTENSION, BENIGN ESSENTIAL 08/04/2011 PENG 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, KASSIDY A 272.4 HYPERLIPIDEMIA 08/04/2011 PENG 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, KASSIDY A 278.00 OBESITY 08/04/2011 PENG 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, KASSIDY A 401.1 HYPERTENSION, BENIGN ESSENTIAL 08/04/2011 PENG 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, KASSIDY A 272.4 HYPERLIPIDEMIA 08/04/2011 PENG PORTER, KASSIDY A 278.00 OBESITY 08/04/2011 BARBARA KHOURY APRNIDI A 401.1 HYPERTENSION, BENIGN ESSENTIAL 08/04/2011 KEN KUNZ MD 272.4 HYPERLIPIDEMIA 08/04/2011 KEN KUNZ MD 278.00 OBESITY 08/04/2011 KEN KUNZ MD 401.1 HYPERTENSION, BENIGN ESSENTIAL 08/04/2011 NAZANIN PONCE APRN 272.4 HYPERLIPIDEMIA 08/04/2011 NAZANIN PONCE APRN 278.00 OBESITY 08/04/2011 NAZANIN PONCE APRN 401.1 HYPERTENSION, BENIGN ESSENTIAL 08/04/2011 GREEN DDS, ARNAUD L 272.4 HYPERLIPIDEMIA 08/04/2011 GREEN DDS, ARNAUD L 278.00 OBESITY 08/04/2011 GREEN DDS, ARNAUD L 401.1 HYPERTENSION, BENIGN ESSENTIAL 08/29/2011 Ot 401.9 HYPERTENSION NOS 08/29/2011 Ot V58.69 OTH MED,LT, CURRENT USE 11/17/2011 V81.1 HYPERTENSION SCREENING 11/17/2011 V81.1 HYPERTENSION SCREENING 11/17/2011 V81.1 HYPERTENSION SCREENING 11/17/2011 V81.1 HYPERTENSION SCREENING 11/17/2011 V81.1 HYPERTENSION SCREENING 11/17/2011 V81.1 HYPERTENSION SCREENING 11/17/2011 V81.1 HYPERTENSION SCREENING 11/17/2011 KEN KUNZ MD V81.1 HYPERTENSION SCREENING 11/17/2011 NAZANIN PONCE APRN V81.1 HYPERTENSION SCREENING 11/17/2011 NAZANIN PONCE APRN V81.1 HYPERTENSION SCREENING 11/17/2011 KEN KUNZ MD V81.1 HYPERTENSION SCREENING 11/17/2011 NAZANIN PONCE APRN V81.1 HYPERTENSION SCREENING 11/17/2011 DOTTY JUNG DO V81.1 HYPERTENSION SCREENING 11/17/2011 KAVON LADD APRN V81.1 HYPERTENSION SCREENING 11/17/2011 NAZANIN PONCE APRN V81.1 HYPERTENSION SCREENING 11/17/2011 NAZANIN PONCE APRN V81.1 HYPERTENSION SCREENING 11/17/2011 NAZANIN PONCE APRN V81.1 HYPERTENSION SCREENING 11/17/2011 KASSIDY KHOURY APRN A V81.1 HYPERTENSION SCREENING 11/17/2011 KASSIDY KHOURY APRN V81.1 HYPERTENSION SCREENING 11/17/2011 KEN KUNZ MD V81.1 HYPERTENSION SCREENING 11/17/2011 NAZANIN PONCE APRN V81.1 HYPERTENSION SCREENING 11/17/2011 MICAH RODRIGUEZWIN [employer]uzanne Bryson V81.1 HYPERTENSION SCREENING 11/23/2011 268.9 VITAMIN D DEFICIENCY 11/23/2011 724.5 BACK PAIN, GENERAL 11/23/2011 268.9 VITAMIN D DEFICIENCY 11/23/2011 724.5 BACK PAIN, GENERAL 11/23/2011 268.9 VITAMIN D DEFICIENCY 11/23/2011 724.5 BACK PAIN, GENERAL 11/23/2011 268.9 VITAMIN D DEFICIENCY 11/23/2011 724.5 BACK PAIN, GENERAL 11/23/2011 268.9 VITAMIN D DEFICIENCY 11/23/2011 724.5 BACK PAIN, GENERAL 11/23/2011 268.9 VITAMIN D DEFICIENCY 11/23/2011 724.5 BACK PAIN, GENERAL 11/23/2011 268.9 VITAMIN D DEFICIENCY 11/23/2011 724.5 BACK PAIN, GENERAL 11/23/2011 KEN KUNZ MD 268.9 VITAMIN D DEFICIENCY 11/23/2011 KEN KUNZ MD 724.5 BACK PAIN, GENERAL 11/23/2011 NAZANIN PONCE APRN 268.9 VITAMIN D DEFICIENCY 11/23/2011 NAZANIN PONCE APRN 724.5 BACK PAIN, GENERAL 11/23/2011 NAZANIN PONCE APRN 268.9 VITAMIN D DEFICIENCY 11/23/2011 NAZANIN PONCE APRN 724.5 BACK PAIN, GENERAL 11/23/2011 KEN KUNZ MD 268.9 VITAMIN D DEFICIENCY 11/23/2011 KEN KNUZ MD 724.5 BACK PAIN, GENERAL 11/23/2011 NAZANIN PONCE APRN 268.9 VITAMIN D DEFICIENCY 11/23/2011 NAZANIN PONCE APRN 724.5 BACK PAIN, GENERAL 11/23/2011 JUNG DO, DOTTY K 268.9 VITAMIN D DEFICIENCY 11/23/2011 JUNG DO, DOTTY K 724.5 BACK PAIN, GENERAL 11/23/2011 KAVON LADD APRN 268.9 VITAMIN D DEFICIENCY 11/23/2011 KAVON LADD APRN 724.5 BACK PAIN, GENERAL 11/23/2011 NAZANIN PONCE APRN 268.9 VITAMIN D DEFICIENCY 11/23/2011 NAZANIN PONCE APRN 724.5 BACK PAIN, GENERAL 11/23/2011 NAZANIN PONCE APRN 268.9 VITAMIN D DEFICIENCY 11/23/2011 NAZANIN PONCE APRN T 724.5 BACK PAIN, GENERAL 11/23/2011 NAZANIN PONCE APRN T 268.9 VITAMIN D DEFICIENCY 11/23/2011 NAZANIN PONCE APRN T 724.5 BACK PAIN, GENERAL 11/23/2011 PENGCHANTALE PORTER, KASSIDY A 268.9 VITAMIN D DEFICIENCY 11/23/2011 PENGCHANTALE PORTER, KASSIDY A 724.5 BACK PAIN, GENERAL 11/23/2011 PENGCHANTALE PORTER, KASSIDY A 268.9 VITAMIN D DEFICIENCY 11/23/2011 PEGNCHANTALE PORTER, KASSIDY A 724.5 BACK PAIN, GENERAL 11/23/2011 KEN KUNZ MD 268.9 VITAMIN D DEFICIENCY 11/23/2011 KEN KUNZ MD 724.5 BACK PAIN, GENERAL 11/23/2011 NAZANIN PONCE APRN 268.9 VITAMIN D DEFICIENCY 11/23/2011 NAZANIN PONCE APRN 724.5 BACK PAIN, GENERAL 11/23/2011 GREEN DDS, ARNAUD L 268.9 VITAMIN D DEFICIENCY 11/23/2011 GREEN DDS, ARNAUD L 724.5 BACK PAIN, GENERAL 03/28/2012 Ot 785.1 PALPITATIONS 04/18/2012 V76.10 BREAST CANCER SCREENING 04/18/2012 V76.10 BREAST CANCER SCREENING 04/18/2012 V76.10 BREAST CANCER SCREENING 04/18/2012 V76.10 BREAST CANCER SCREENING 04/18/2012 V76.10 BREAST CANCER SCREENING 04/18/2012 V76.10 BREAST CANCER SCREENING 04/18/2012 V76.10 BREAST CANCER SCREENING 04/18/2012 KEN KUNZ MD V76.10 BREAST CANCER SCREENING 04/18/2012 NAZANIN PONCE APRN V76.10 BREAST CANCER SCREENING 04/18/2012 NAZANIN PONCE APRN V76.10 BREAST CANCER SCREENING 04/18/2012 KEN KUNZ MD V76.10 BREAST CANCER SCREENING 04/18/2012 NAZANIN PONCE APRN V76.10 BREAST CANCER SCREENING 04/18/2012 DOTTY JUNG DO V76.10 BREAST CANCER SCREENING 04/18/2012 KAVON LADD APRN V76.10 BREAST CANCER SCREENING 04/18/2012 NAZANIN PONCE APRN V76.10 BREAST CANCER SCREENING 04/18/2012 NAZANIN PONCE APRN V76.10 BREAST CANCER SCREENING 04/18/2012 NAZANIN PONCE APRN V76.10 BREAST CANCER SCREENING 04/18/2012 KASSIDY KHOURY APRN A V76.10 BREAST CANCER SCREENING 04/18/2012 KASSIDY KHOURY APRN A V76.10 BREAST CANCER SCREENING 04/18/2012 KEN KUNZ MD V76.10 BREAST CANCER SCREENING 04/18/2012 NAZANIN PONCE APRN V76.10 BREAST CANCER SCREENING 04/18/2012 ARNAUD OBRIEN DDS V76.10 BREAST CANCER SCREENING 07/05/2012 719.46 PAIN IN JOINT INVOLVING LOWER LEG 07/05/2012 719.46 PAIN IN JOINT INVOLVING LOWER LEG 07/05/2012 719.46 PAIN IN JOINT INVOLVING LOWER LEG 07/05/2012 719.46 PAIN IN JOINT INVOLVING LOWER LEG 07/05/2012 719.46 PAIN IN JOINT INVOLVING LOWER LEG 07/05/2012 719.46 PAIN IN JOINT INVOLVING LOWER LEG 07/05/2012 719.46 PAIN IN JOINT INVOLVING LOWER LEG 07/05/2012 KEN KUNZ MD 719.46 PAIN IN JOINT INVOLVING LOWER LEG 07/05/2012 NAZANIN PONCE APRN 719.46 PAIN IN JOINT INVOLVING LOWER LEG 07/05/2012 NAZANIN PONCE APRN 719.46 PAIN IN JOINT INVOLVING LOWER LEG 07/05/2012 KEN KUNZ MD 719.46 PAIN IN JOINT INVOLVING LOWER LEG 07/05/2012 NAZANIN PONCE APRN 719.46 PAIN IN JOINT INVOLVING LOWER LEG 07/05/2012 DOTTY JUNG DO 719.46 PAIN IN JOINT INVOLVING LOWER LEG 07/05/2012 KAVON LADD APRN 719.46 PAIN IN JOINT INVOLVING LOWER LEG 07/05/2012 NAZANIN PONCE APRN 719.46 PAIN IN JOINT INVOLVING LOWER LEG 07/05/2012 NAZANIN PONCE APRN 719.46 PAIN IN JOINT INVOLVING LOWER LEG 07/05/2012 NAZANIN PONCE APRN 719.46 PAIN IN JOINT INVOLVING LOWER LEG 07/05/2012 KASSIDY KHOURY APRN A 719.46 PAIN IN JOINT INVOLVING LOWER LEG 07/05/2012 KASSIDY KHOURY APRN 719.46 PAIN IN JOINT INVOLVING LOWER LEG 07/05/2012 KEN KUNZ MD 719.46 PAIN IN JOINT INVOLVING LOWER LEG 07/05/2012 NAZANIN PONCE APRN 719.46 PAIN IN JOINT INVOLVING LOWER LEG 07/05/2012 ARNAUD OBRIEN DDS 719.46 PAIN IN JOINT INVOLVING LOWER LEG 10/02/2012 535.50 GASTRITIS UNSPEC 10/02/2012 535.50 GASTRITIS UNSPEC 10/02/2012 535.50 Gastritis Unspec 10/02/2012 535.50 Gastritis Unspec 10/02/2012 535.50 Gastritis Unspec 10/02/2012 535.50 Gastritis Unspec 10/02/2012 535.50 Gastritis Unspec 10/02/2012 KEN KUNZ MD 535.50 Gastritis Unspec 10/02/2012 NAZANIN PONCE APRN 535.50 Gastritis Unspec 10/02/2012 NAZANIN PONCE APRN 535.50 Gastritis Unspec 10/02/2012 KEN KUNZ MD 535.50 Gastritis Unspec 10/02/2012 NAZANIN PONCE APRN 535.50 Gastritis Unspec 10/02/2012 ERICH MORA DOTTY [place] 535.50 Gastritis Unspec 10/02/2012 HAYDEN LADD APRNNYSuzanne Bryson 535.50 Gastritis Unspec 10/02/2012 NAZANIN PONCE APRN 535.50 Gastritis Unspec 10/02/2012 NAZANIN PONCE APRN 535.50 Gastritis Unspec 10/02/2012 NAZANIN PONCE APRN 535.50 Gastritis Unspec 10/02/2012 KASSIDY KHOURY APRN 535.50 Gastritis Unspec 10/02/2012 KASSIDY KHOURY APRN 535.50 Gastritis Unspec 10/02/2012 KEN KUNZ MD 535.50 Gastritis Unspec 10/02/2012 NAZANIN PONCE APRN 535.50 Gastritis Unspec 01/23/2013 380.4 CERUMEN IMPACTION 01/23/2013 465.9 UPPER RESPIRATORY INFECTION 01/23/2013 380.4 CERUMEN IMPACTION 01/23/2013 465.9 UPPER RESPIRATORY INFECTION 01/23/2013 380.4 CERUMEN IMPACTION 01/23/2013 465.9 UPPER RESPIRATORY INFECTION 01/23/2013 380.4 CERUMEN IMPACTION 01/23/2013 465.9 UPPER RESPIRATORY INFECTION 01/23/2013 KEN KUNZ MD 380.4 CERUMEN IMPACTION 01/23/2013 KEN KUNZ MD 465.9 UPPER RESPIRATORY INFECTION 01/23/2013 KRIS PORTER NAZANIN T 380.4 CERUMEN IMPACTION 01/23/2013 KRIS PORTER, NAZANIN T 465.9 UPPER RESPIRATORY INFECTION 01/23/2013 KRIS PORTER NAZANIN T 380.4 CERUMEN IMPACTION 01/23/2013 KRIS PORTER NAZANIN T 465.9 UPPER RESPIRATORY INFECTION 01/23/2013 KEN KUNZ MD 380.4 CERUMEN IMPACTION 01/23/2013 KEN KUNZ MD 465.9 UPPER RESPIRATORY INFECTION 01/23/2013 KRIS PORTER NAZANIN T 380.4 CERUMEN IMPACTION 01/23/2013 KRIS PORTER, NAZANIN T 465.9 UPPER RESPIRATORY INFECTION 01/23/2013 JUNG DO, DOTTY K 380.4 CERUMEN IMPACTION 01/23/2013 JUNG DO, DOTTY K 465.9 UPPER RESPIRATORY INFECTION 01/23/2013 MADL 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, KAVON L 380.4 CERUMEN IMPACTION 01/23/2013 MADL 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, KAVON L 465.9 UPPER RESPIRATORY INFECTION 01/23/2013 KRIS PORTER, NAZANIN T 380.4 CERUMEN IMPACTION 01/23/2013 KRIS PORTER, NAZANIN T 465.9 UPPER RESPIRATORY INFECTION 01/23/2013 KRIS PORTER, NAZANIN T 380.4 CERUMEN IMPACTION 01/23/2013 KRIS PORTER, NAZANIN T 465.9 UPPER RESPIRATORY INFECTION 01/23/2013 KRIS PORTER, NAZANIN T 380.4 CERUMEN IMPACTION 01/23/2013 KRIS PORTER, NAZANIN T 465.9 UPPER RESPIRATORY INFECTION 01/23/2013 PENG PORTER, KASSIDY A 380.4 CERUMEN IMPACTION 01/23/2013 PENG APRN, KASSIDY A 465.9 UPPER RESPIRATORY INFECTION 01/23/2013 PENG PORTER, KASSIDY A 380.4 CERUMEN IMPACTION 01/23/2013 PENG PORTER, KASSIDY A 465.9 UPPER RESPIRATORY INFECTION 01/23/2013 KEN KUNZ MD 380.4 CERUMEN IMPACTION 01/23/2013 KEN KUNZ MD 465.9 UPPER RESPIRATORY INFECTION 01/23/2013 NAZANIN PONCE APRN T 380.4 CERUMEN IMPACTION 01/23/2013 NAZANIN PONCE APRN 465.9 UPPER RESPIRATORY INFECTION 03/01/2013 462 ACUTE PHARYNGITIS 03/01/2013 462 ACUTE PHARYNGITIS 03/01/2013 462 ACUTE PHARYNGITIS 03/01/2013 KEN KUNZ MD 462 ACUTE PHARYNGITIS 03/01/2013 NAZANIN PONCE APRN 462 ACUTE PHARYNGITIS 03/01/2013 NAZANIN PONCE APRN 462 ACUTE PHARYNGITIS 03/01/2013 KEN KUNZ MD 462 ACUTE PHARYNGITIS 03/01/2013 NAZANIN PONCE APRN 462 ACUTE PHARYNGITIS 03/01/2013 DOTTY JUNG DO K 462 ACUTE PHARYNGITIS 03/01/2013 KAVON LADD APRN 462 ACUTE PHARYNGITIS 03/01/2013 NAZANIN PONCE APRN 462 ACUTE PHARYNGITIS 03/01/2013 NAZANIN PONCE APRN 462 ACUTE PHARYNGITIS 03/01/2013 NAZANIN PONCE APRN 462 ACUTE PHARYNGITIS 03/01/2013 KASSIDY KHOURY APRN A 462 ACUTE PHARYNGITIS 03/01/2013 KASSIDY KHOURY APRN A 462 ACUTE PHARYNGITIS 03/01/2013 KEN KUNZ MD 462 ACUTE PHARYNGITIS 03/01/2013 NAZANIN PONCE APRN 462 ACUTE PHARYNGITIS 07/16/2013 KEN KUNZ MD 790.29 HYPERGLYCEMIA 07/16/2013 NAZANIN PONCE APRN 790.29 HYPERGLYCEMIA 07/16/2013 NAZANIN PONCE APRN 790.29 HYPERGLYCEMIA 07/16/2013 KEN KUNZ MD 790.29 HYPERGLYCEMIA 07/16/2013 NAZANIN PONCE APRN 790.29 HYPERGLYCEMIA 07/16/2013 JUNG DOTTY MORA K 790.29 HYPERGLYCEMIA 07/16/2013 KAVON LADD APRN 790.29 HYPERGLYCEMIA 07/16/2013 NAZANIN PONCE APRN 790.29 HYPERGLYCEMIA 07/16/2013 NAZANIN PONCE APRN 790.29 HYPERGLYCEMIA 07/16/2013 NAZANIN PONCE APRN 790.29 HYPERGLYCEMIA 07/16/2013 BARBARA KHOURY APRNIDI A 790.29 HYPERGLYCEMIA 07/16/2013 PENG PORTER, KASSIDY A 790.29 HYPERGLYCEMIA 07/16/2013 KEN KUNZ MD 790.29 HYPERGLYCEMIA 07/16/2013 NAZANIN PONCE APRN 790.29 HYPERGLYCEMIA 07/20/2013 NAZANIN PONCE APRN T 277.7 METABOLIC SYNDROME 07/20/2013 NAZANIN PONCE APRN T 277.7 METABOLIC SYNDROME 07/20/2013 KEN KUNZ MD 277.7 METABOLIC SYNDROME 07/20/2013 NAZANIN PONCE APRN 277.7 METABOLIC SYNDROME 07/20/2013 JUNG DO, DOTTY K 277.7 METABOLIC SYNDROME 07/20/2013 KAVON LADD APRN L 277.7 METABOLIC SYNDROME 07/20/2013 NAZANIN PONCE APRN 277.7 METABOLIC SYNDROME 07/20/2013 NAZANIN PONCE APRN 277.7 METABOLIC SYNDROME 07/20/2013 NAZANIN PONCE APRN 277.7 METABOLIC SYNDROME 07/20/2013 KASSIDY KHOURY APRN A 277.7 METABOLIC SYNDROME 07/20/2013 PENG PORTER KASSIDY A 277.7 METABOLIC SYNDROME 07/20/2013 KEN KUNZ MD 277.7 METABOLIC SYNDROME 07/20/2013 NAZANIN PONCE APRN 277.7 METABOLIC SYNDROME 10/08/2013 NAZANIN PONCE APRN 530.81 GERD 10/08/2013 NAZANIN PONCE APRN 706.1 ACNE 10/08/2013 KEN KUNZ MD 530.81 GERD 10/08/2013 KEN KUNZ MD 706.1 ACNE 10/08/2013 NAZANIN PONCE APRN 530.81 GERD 10/08/2013 NAZANIN PONCE APRN 706.1 ACNE 10/08/2013 JUNG DO, DOTTY K 530.81 GERD 10/08/2013 JUNG DO, DOTTY K 706.1 ACNE 10/08/2013 TOBI LADD APRNWNYA L 530.81 GERD 10/08/2013 TOBI LADD APRNWNYA L 706.1 ACNE 10/08/2013 NAZANIN PONCE APRN T 530.81 GERD 10/08/2013 NAZANIN POCNE APRN 706.1 ACNE 10/08/2013 NAZANIN PONCE APRN 530.81 GERD 10/08/2013 NAZANIN PONCE APRN 706.1 ACNE 10/08/2013 NAZANIN PONCE APRN T 530.81 GERD 10/08/2013 NAZANIN PONCE APRN T 706.1 ACNE 10/08/2013 PENG GERMAN, KASSIDY A 530.81 GERD 10/08/2013 PENG 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, KASSIDY A 706.1 ACNE 10/08/2013 PENG GERMAN, KASSIDY A 530.81 GERD 10/08/2013 PENG APRN, KASSIDY A 706.1 ACNE 10/08/2013 KEN KUNZ MD 530.81 GERD 10/08/2013 KEN KUNZ MD 706.1 ACNE 10/08/2013 KRIS NAZANIN PORTER T 530.81 GERD 10/08/2013 NAZANIN PONCE APRN T 706.1 ACNE 11/05/2013 KEN KUNZ MD 296.90 MOOD DISORDER 11/05/2013 NAZANIN PONCE APRN 296.90 MOOD DISORDER 11/05/2013 DOTTY JUNG DO K 296.90 MOOD DISORDER 11/05/2013 KAVON LADD APRN L 296.90 MOOD DISORDER 11/05/2013 NAZANIN PONCE APRN 296.90 MOOD DISORDER 11/05/2013 NAZANIN PONCE APRN 296.90 MOOD DISORDER 11/05/2013 NAZANIN PONCE APRN T 296.90 MOOD DISORDER 11/05/2013 PENGBARBARA KENYON APRNIDI A 296.90 MOOD DISORDER 11/05/2013 PENGCHANTALE PORTER KASSIDY A 296.90 MOOD DISORDER 11/05/2013 KEN KUNZ MD 296.90 MOOD DISORDER 11/05/2013 NAZANIN PONCE APRN 296.90 MOOD DISORDER 02/11/2014 DEAN JUNG DOA K 919.4 INSECT BITE NONVENOMOUS OF OTHER MULTIPLE AND UNSPECIFIED SITES WITHOUT INFECTION 02/11/2014 KAVON LADD APRN L 919.4 INSECT BITE NONVENOMOUS OF OTHER MULTIPLE AND UNSPECIFIED SITES WITHOUT INFECTION 02/11/2014 NAZANIN PONCE APRN 919.4 INSECT BITE NONVENOMOUS OF OTHER MULTIPLE AND UNSPECIFIED SITES WITHOUT INFECTION 02/11/2014 NAZANIN PONCE APRN 919.4 INSECT BITE NONVENOMOUS OF OTHER MULTIPLE AND UNSPECIFIED SITES WITHOUT INFECTION 02/11/2014 NAZANIN PONCE APRN 919.4 INSECT BITE NONVENOMOUS OF OTHER MULTIPLE AND UNSPECIFIED SITES WITHOUT INFECTION 02/11/2014 KASSIDY KHOURY APRN A 919.4 INSECT BITE NONVENOMOUS OF OTHER MULTIPLE AND UNSPECIFIED SITES WITHOUT INFECTION 02/11/2014 KASSIDY KHOURY APRN A 919.4 INSECT BITE NONVENOMOUS OF OTHER MULTIPLE AND UNSPECIFIED SITES WITHOUT INFECTION 02/11/2014 KEN KUNZ MD 919.4 INSECT BITE NONVENOMOUS OF OTHER MULTIPLE AND UNSPECIFIED SITES WITHOUT INFECTION 02/11/2014 NAZANIN PONCE APRN 919.4 INSECT BITE NONVENOMOUS OF OTHER MULTIPLE AND UNSPECIFIED SITES WITHOUT INFECTION 10/07/2014 NAZANIN PONCE APRN 338.29 PAIN - CHRONIC 10/07/2014 NAZANIN PONCE APRN 780.79 FATIGUE 10/07/2014 KASSIDY KHOURY APRN A 338.29 PAIN - CHRONIC 10/07/2014 KASSIDY KHOURY APRN A 780.79 FATIGUE 10/07/2014 KASSIDY KHOURY APRN A 338.29 PAIN - CHRONIC 10/07/2014 KASSIDY KHOURY APRN A 780.79 FATIGUE 10/07/2014 KEN KUNZ MD 338.29 PAIN - CHRONIC 10/07/2014 KEN KUNZ MD 780.79 FATIGUE 10/07/2014 NAZANIN PONCE APRN 338.29 PAIN - CHRONIC 10/07/2014 NAZANIN PONCE APRN 780.79 FATIGUE 10/15/2014 Ot V76.12 10/15/2014 NANCY BAZAN Ot 465.9 ACUTE URI NOS 10/15/2014 NANCY BAZAN Ot 780.4 DIZZINESS AND GIDDINESS 10/15/2014 NANCY BAZAN Ot 784.0 HEADACHE 10/21/2014 Ot V76.12 12/09/2014 KASSIDY KHOURY APRN A 611.72 BREAST LUMP OR MASS 12/09/2014 KASSIDY KHOURY APRN A 611.72 BREAST LUMP OR MASS 12/09/2014 KEN KUNZ MD 611.72 BREAST LUMP OR MASS 12/09/2014 NAZANIN PONCE APRN 611.72 BREAST LUMP OR MASS 12/16/2014 Ot V76.12 12/19/2014 KASSIDY KHOURY APRN Ot 611.72 12/24/2014 KASSIDY KHOURY APRN Ot 611.72 12/24/2014 KASSIDY 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 Ot 611.72 12/26/2014 KASSIDY KHOURY APRN 174.9 MALIGNANT NEOPLASM OF BREAST (FEMALE) UNSPECIFIED SITE 12/26/2014 KEN KUNZ MD 174.9 MALIGNANT NEOPLASM OF BREAST (FEMALE) UNSPECIFIED SITE 12/26/2014 NAZANIN PONCE APRN 174.9 MALIGNANT NEOPLASM OF BREAST (FEMALE) UNSPECIFIED SITE 01/02/2015 KEN KUNZ MD 300.00 ANXIETY STATE UNSPECIFIED 01/02/2015 KEN KUNZ MD 558.9 OTHER AND UNSPECIFIED NONINFECTIOUS GASTROENTERITIS AND COLITIS 01/02/2015 NAZANIN PONCE APRN 300.00 ANXIETY STATE UNSPECIFIED 01/02/2015 NAZANIN PONCE APRN 558.9 OTHER AND UNSPECIFIED NONINFECTIOUS GASTROENTERITIS AND COLITIS 01/03/2015 Ot V76.12 01/03/2015 KASSIDY KHOURY APRN Ot 611.72 01/03/2015 KASSIDY KHOURY APRN Ot 174.9 01/14/2015 LAVONNE HURTADO DO Ot 174.9 MALIGN NEOPL BREAST NOS 01/15/2015 KHOA BENITO, MILADYS Ot 174.1 01/15/2015 KHOA BENITO, MILADYS Ot 272.4 01/15/2015 KHOA BENITO, MILADYS Ot 278.00 01/15/2015 KHOA BENITO, MILADYS Ot 311 01/15/2015 KHOA BENITO, MILADYS Ot 401.9 01/15/2015 KHOA BENITO, MILADYS Ot V85.41 01/15/2015 KHOA BENITO, MILADYS Ot V86.0 01/15/2015 KASSIDY KHOURY APRN Ot 174.9 01/15/2015 KHOA BENITO, MILADYS Ot 174.1 01/15/2015 KHOA BENITO, LUANNE-ETTA Ot 272.4 01/15/2015 KHOA BENITO, LUANNE-ETTA Ot 278.00 01/15/2015 KHOA BENITO, LUANNE-ETTA Ot 311 01/15/2015 KHOA BENITO, MILADYS Ot 401.9 01/15/2015 KHOA BENITO, MILADYS Ot V85.41 01/15/2015 KHOA BENITO, STROUD-ETTA Ot V86.0 01/15/2015 Ot V76.12 01/15/2015 KASSIDY 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 Ot 611.72 01/15/2015 KASSIDY KHOURY 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 Ot 174.9 01/15/2015 KHOA BENITO, LUANNE-ETTA Ot 174.1 01/15/2015 KHOA BENITO, STROUD-ETTA Ot 272.4 01/15/2015 KHOA BENITO, STROUD-ETTA Ot 278.00 01/15/2015 KHOA BENITO, STROUD-ETTA Ot 311 01/15/2015 KHOA BENITO, STROUD-ETTA Ot 401.9 01/15/2015 KHOA BENITO, STROUD-ETTA Ot V85.41 01/15/2015 KHOA BENITO, STROUD-ETTA Ot V86.0 01/15/2015 KHOA BENITO, STROUD-ETTA Ot 174.9 01/15/2015 KHOA BENITO, STROUD-ETTA Ot 174.9 01/15/2015 [facility] 174.9 01/15/2015 [facility] Ot V72.83 01/15/2015 GENESIS , [facility] Ot V74.8 01/15/2015 KHOA BENITO, STROUD-ETTA Ot 174.9 01/15/2015 KHOA BENITO, STROUD-ETTA Ot 174.9 01/15/2015 KHOA BENITO, STROUD-ETTA Ot 174.9 01/15/2015 KHOA BENITO, STROUD-ETTA Ot 174.1 01/15/2015 KHOA BENITO, STROUD-ETTA Ot 272.4 01/15/2015 KHOA BENITO, STROUD-ETTA Ot 278.00 01/15/2015 KHOA BENITO, STROUD-ETTA Ot 311 01/15/2015 KHOA BENITO, STROUD-ETTA Ot 401.9 01/15/2015 KHOA BENITO, STROUD-ETTA Ot V85.41 01/15/2015 KHOA BENITO, STROUD-ETTA Ot V86.0 01/15/2015 KHOA BENITO, STROUD-ETTA Ot 174.9 01/27/2015 SHERI WAHL ASSEMBLER KNIFE Ot 174.1 01/27/2015 SHERI WAHL ASSEMBLER KNIFE Ot V86.0 01/27/2015 Ot V76.12 01/27/2015 KASSIDY KHOURY 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 Ot 611.72 01/27/2015 KASSIDY KHOURY 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 Ot 174.9 01/27/2015 KHOA BENITO, STROUD-ETTA Ot 174.1 01/27/2015 KHOA BENITO, STROUDMOHSEN Ot 272.4 01/27/2015 KHOA BENITO, STROUD-ETTA Ot 278.00 01/27/2015 KHOA BENITO, STROUD-ETTA Ot 311 01/27/2015 KHOA BENITO, STROUDMOHSEN Ot 401.9 01/27/2015 KHOA BENITO, MILADYS Ot V85.41 01/27/2015 KHOA BENITO, STROUD-ETTA Ot V86.0 01/27/2015 KHOA BENITO, STROUD-ETTA Ot 174.9 01/27/2015 KHOA BENITO, STORUD-ETTA Ot 174.9 01/27/[address] [facility] DO, [facility] Ot 174.9 01/27/2015 [facility], [facility] Ot V72.83 01/27/2015 [facility], [facility] Ot V74.8 01/27/2015 SHERI WAHL Ot 174.1 01/27/2015 SHERI WAHL Ot V86.0 01/27/2015 Ot V76.12 01/27/2015 KASSIDY KHOURY 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 Ot 611.72 01/27/2015 KASSIDY KHOURY APRN Ot 174.9 01/27/2015 KHOA BENITO, STROUDMOHSEN Ot 174.1 01/27/2015 KHOA BENITO, MARYLUETTA Ot 272.4 01/27/2015 KHOA BENITO, STROUDMOHSEN Ot 278.00 01/27/2015 KHOA BENITO, MILADYS Ot 311 01/27/2015 KHOA BENITO, MARYLUETTA Ot 401.9 01/27/2015 KHOA BENITO, MARYLUETTA Ot V85.41 01/27/2015 KHOA BENITO, MARYLUETTA Ot V86.0 01/27/2015 KHOA BENITO, LUANNE-ETTA Ot 174.9 01/27/2015 KHOA BENITO, STROUD-ETTA Ot 174.9 01/27/2015 [facility], CHANDROUTIE Ot 174.9 01/27/2015 [facility], CHANDROUTIE Ot V72.83 01/27/[address] [facility] DO, CHANDROUTIE Ot V74.8 01/27/2015 SHERI WAHL ASSEMBLER KNIFE Ot 174.1 01/27/2015 SHERI WAHL ASSEMBLER KNIFE Ot V86.0 01/27/2015 KHOA BENITO, STROUD-ETTA Ot 174.9 01/27/2015 KHOA BENITO, STROUD-ETTA Ot 174.9 01/27/2015 KHOA BENITO, STROUD-ETTA Ot 174.1 01/27/2015 KHOA BENITO, STROUD-ETTA Ot 272.4 01/27/2015 KHOA BENITO, STROUD-ETTA Ot 278.00 01/27/2015 KHOA BENITO, STROUD-ETTA Ot 311 01/27/2015 KHOA BENITO, STROUD-ETTA Ot 401.9 01/27/2015 KHOA BENITO, STROUD-ETTA Ot V85.41 01/27/2015 KHOA BENITO, STROUD-ETTA Ot V86.0 01/27/2015 KHOA BENITO, STROUD-ETTA Ot 174.1 01/27/2015 KHOA BENITO, STROUD-ETTA Ot 272.4 01/27/2015 KHOA BENITO, STROUD-ETTA Ot 278.00 01/27/2015 KHOA BENITO, STROUD-ETTA Ot 311 01/27/2015 KHOA BENITO, STROUD-ETTA Ot 401.9 01/27/2015 KHOA BENITO, STROUD-ETTA Ot V85.41 01/27/2015 KHOA BENITO, STROUD-ETTA Ot V86.0 01/27/2015 Ot V76.12 01/27/2015 KASSIDY KHOURY APRN Ot 611.72 01/27/2015 KASSIDY KHOURY APRN Ot 174.9 01/27/2015 KHOA BENITO, STROUD-ETTA Ot 174.1 01/27/2015 KHOA BENITO, STROUD-ETTA Ot 272.4 01/27/2015 KHOA BENITO, STROUD-ETTA Ot 278.00 01/27/2015 KHOA BENITO, STROUD-ETTA Ot 311 01/27/2015 KHOA BENITO, STROUD-ETTA Ot 401.9 01/27/2015 KHOA BENITO, STROUD-ETTA Ot V85.41 01/27/2015 KHOA BENITO, STROUD-ETTA Ot V86.0 01/27/2015 KHOA BENITO, STROUD-ETTA Ot 174.9 01/27/2015 KHOA BENITO, STROUD-ETTA Ot 174.9 01/27/2015 LAVONNE HURTADO DO Ot 174.9 01/27/2015 LAVONNE HURTADO DO Ot V72.83 01/27/2015 [facility], [facility] Ot V74.8 01/27/2015 SHERI WAHL ASSEMBLER KNIFE Ot 174.1 01/27/2015 SHERI WAHL ASSEMBLER KNIFE Ot V86.0 01/27/2015 KHOA BENITO, MILADYS Ot 174.9 01/27/2015 KHOA BENITO, MILADYS Ot 174.9 01/27/2015 KHOA BENITO, MILADYS Ot 174.9 02/22/2015 SHERI WAHL ASSEMBLER KNIFE Ot 174.1 02/22/2015 SHERI WAHL ASSEMBLER KNIFE Ot V86.0 02/26/2015 Ot V76.12 02/26/2015 KASSIDY KHOURY 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 Ot 611.72 02/26/2015 KASSIDY KHOURY 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 Ot 174.9 02/26/2015 KHOA BENITO, MILADYS Ot 174.1 02/26/2015 KHOA BENITO, MILADYS Ot 272.4 02/26/2015 KHOA BENITO, MILADYS Ot 278.00 02/26/2015 KHOA BENITO, MILADYS Ot 311 02/26/2015 KHOA BENITO, MILADYS Ot 401.9 02/26/2015 KHOA BENITO, MILADYS Ot V85.41 02/26/2015 KHOA BENITO, MILADYS Ot V86.0 02/26/2015 KHOA BENITO, MILADYS Ot 174.9 02/26/2015 KHOA BENITO, MILADYS Ot 174.9 02/26/2015 [facility], [facility] Ot 174.9 02/26/2015 [facility], [facility] Ot V72.83 02/26/2015 [facility] Ot V74.8 02/26/2015 SHERI WAHL ASSEMBLER KNIFE Ot 174.1 02/26/2015 SHERI WAHL ASSEMBLER KNIFE Ot V86.0 02/26/2015 KHOA BENITO, MILADYS Ot 174.1 02/26/2015 KHOA BENITO, MILADYS Ot 272.4 02/26/2015 KHOA BENITO, MILADYS Ot 278.00 02/26/2015 KHOA BENITO, MILADYS Ot 311 02/26/2015 KHOA BENITO, MILADYS Ot 401.9 02/26/2015 KHOA BENITO, MILADYS Ot V85.41 02/26/2015 KHOA BENITO, LUANNE-ETTA Ot V86.0 03/06/2015 KHOA BENITO, LUANNE-ETTA Ot 174.1 03/06/2015 KHOA BENITO, LUANNE-ETTA Ot 272.4 03/06/2015 KHOA BENITO, LUANNE-ETTA Ot 278.00 03/06/2015 KHOA BENITO, LUANNE-ETTA Ot 311 03/06/2015 KHOA BENITO, MILADYS Ot 401.9 03/06/2015 KHOA BENITO, MILADYS Ot V85.41 03/06/2015 KHOA BENITO, LUANNE-ETTA Ot V86.0 03/11/2015 KHOA BENITO, MILADYS Ot 174.9 03/12/2015 KHOA BENITO, MILADYS Ot 174.9 03/31/2015 KHOA BENITO, MILADYS Ot 174.9 03/31/2015 KHOA BENITO, MILADYS Ot V58.69 03/31/2015 KHOA BENITO, MILADYS Ot V58.83 03/31/2015 KHOA BENITO, MILADYS Ot 174.9 04/03/2015 KHOA BENITO, MILADYS Ot 174.1 MAL JOSE L BREAST-CENTRAL 04/03/2015 KHOA BENITO, MILADYS Ot 272.4 HYPERLIPIDEMIA NEC/NOS 04/03/2015 KHOA BENITO, MILADYS Ot 278.00 OBESITY, NOS 04/03/2015 KHOA BENITO, MILADYS Ot 311 DEPRESSIVE DISORDER NEC 04/03/2015 KHOA BENITO, MILADYS Ot 401.9 HYPERTENSION NOS 04/03/2015 KHOA BENITO, MILADYS Ot V58.11 ENCOUNTER FOR ANTINEOPLASTIC CHEMOTHERAP 04/03/2015 KHOA BENITO, MILADYS Ot V85.41 BODY MASS INDEX 40.0-44.9, ADULT 04/03/2015 KHOA BENITO, MILADYS Ot V86.0 ESTROGEN RECEPTOR POSITIVE STATUS [ER+] 04/08/2015 KHOA BENITO, MILADYS Ot 174.1 04/08/2015 KHOA BENITO, MILADYS Ot 272.4 04/08/2015 KHOA BENITO, MILADYS Ot 278.00 04/08/2015 KHOA BENITO, MILADYS Ot 311 04/08/2015 KHOA BENITO, MILADYS Ot 401.9 04/08/2015 KHOA BENITO, STROUD-ETTA Ot V85.41 04/08/2015 KHOA BENITO, STROUD-ETTA Ot V86.0 04/09/2015 KHOA BENITO, STROUD-ETTA Ot 174.1 04/09/2015 KHOA BENITO, STROUD-ETTA Ot 272.4 04/09/2015 KHOA BENITO, STROUD-ETTA Ot 278.00 04/09/2015 KHOA BENITO, STROUD-ETTA Ot 311 04/09/2015 KHOA BENITO, STROUD-ETTA Ot 401.9 04/09/2015 KHOA BENITO, STROUD-ETTA Ot V85.41 04/09/2015 KHOA BENITO, STROUD-ETTA Ot V86.0 04/09/2015 KHOA BENITO, STROUD-ETTA Ot 174.1 04/09/2015 KHOA BENITO, STROUD-ETTA Ot 272.4 04/09/2015 KHOA BENITO, STROUD-ETTA Ot 278.00 04/09/2015 KHOA BENTIO, STROUD-ETTA Ot 311 04/09/2015 KHOA BENITO, STROUD-ETTA Ot 401.9 04/09/2015 KHOA BENITO, STROUD-ETTA Ot V85.41 04/09/2015 KHOA BENITO, STROUD-ETTA Ot V86.0 04/10/2015 KHOA BENITO, STROUD-ETTA Ot 174.1 04/10/2015 KHOA BENITO, STROUD-ETTA Ot 272.4 04/10/2015 KHOA BENITO, STROUD-ETTA Ot 278.00 04/10/2015 KHOA BENITO, STROUD-ETTA Ot 311 04/10/2015 KHOA BENITO, STROUD-ETTA Ot 401.9 04/10/2015 KHOA BENITO, STROUD-ETTA Ot V85.41 04/10/2015 KHOA BENITO, STROUD-ETTA Ot V86.0 04/11/2015 KHOA BENITO, STROUD-ETTA Ot 174.9 04/11/2015 KHOA BENITO, STROUD-ETTA Ot V58.69 04/11/2015 KHOA BENITO, STROUD-ETTA Ot V58.83 04/16/2015 KHOA BENITO, STROUD-ETTA Ot 174.1 04/16/2015 KHOA BENITO, STROUD-ETTA Ot 272.4 04/16/2015 KHOA BENITO, STROUD-ETTA Ot 278.00 04/16/2015 KHOA BENITO, STROUD-ETTA Ot 311 04/16/2015 KHOA BENITO, STROUD-ETTA Ot 401.9 04/16/2015 KHOA BENITO, STROUD-ETTA Ot V85.41 04/16/2015 KHOA BENITO, LUANNE-ETTA Ot V86.0 04/25/2015 KHOA BENITO, ULANNE-ETTA Ot 174.9 04/25/2015 KHOA BENITO, LUANNE-ETTA Ot V58.69 04/25/2015 KHOA BENITO, LUANNE-ETTA Ot V58.83 04/27/2015 ASHIA BENITO, SURAJ [place] Ot 174.9 MALIGN NEOPL BREAST NOS 04/27/2015 ASHIA BENITO, SURAJ [place] Ot 401.9 HYPERTENSION NOS 04/27/2015 ASHIA BENITO, SURAJ [place] Ot 427.31 ATRIAL FIBRILLATION 04/27/2015 ASHIA BENITO, SURAJ [place] Ot 785.1 PALPITATIONS 04/27/2015 ASHIA BENITO, SURAJ [place] Ot V58.69 OT MED,LT,CURRENT USE 05/13/2015 Ot V76.12 05/13/2015 KASSIDY KHOURY 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 Ot 611.72 05/13/2015 KASSIDY KHOURY 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 Ot 174.9 05/13/2015 KHOA BENITO, MILADYS Ot 174.9 05/13/2015 KHOA BENITO, MILADYS Ot 174.9 05/13/2015 LAVONNE HRUTADO DO Ot 174.9 05/13/2015 LASHAWN HURTADO DOROUTIE Ot V72.83 05/13/2015 GENESIS DO, CHANDROUTIE Ot V74.8 05/13/2015 SHERI WAHL ASSEMBLER KNIFE Ot 174.1 05/13/2015 SHERI WAHL ASSEMBLER KNIFE Ot V86.0 05/13/2015 KHOA BENITO, MILADYS Ot 174.9 05/13/2015 KHOA BENITO, MILADYS Ot V58.69 05/13/2015 KHOA BENITO, LUANNE-ETTA Ot V58.83 05/13/2015 KHOA BENITO, LUANNE-ETTA Ot 174.9 05/13/2015 KHOA BENITO, LUANNE-ETTA Ot 174.9 05/13/2015 KHOA BENITO, MILADYS Ot V58.69 05/13/2015 KHOA BENITO, LUANNE-ETTA Ot V58.83 05/13/2015 KHOA BENITO, MILADYS Ot 174.1 05/13/2015 KHOA BENITO, MILADYS Ot 272.4 05/13/2015 KHOA BENITO, MILADYS Ot 278.00 05/13/2015 KHOA BENITO, LUANNE-ETTA Ot 311 05/13/2015 KHOA BENITO, LUANNE-ETTA Ot 401.9 05/13/2015 HKOA BENITO, LUANNE-ETTA Ot V85.41 05/13/2015 KHOA BENITO, MILADYS Ot V86.0 05/13/2015 KHOA BENITO, MILADYS Ot 174.1 05/13/2015 KHOA BENITO, STROUDETTA Ot 272.4 05/13/2015 KHOA BENITO, LUANNE-ETTA Ot 278.00 05/13/2015 KHOA BENITO, LUANNE-ETTA Ot 311 05/13/2015 KHOA BENITO, MILADYS Ot 401.9 05/13/2015 KHOA BENITO, STROUDETTA Ot V85.41 05/13/2015 KHOA BENITO, STROUDETTA Ot V86.0 05/15/2015 LAVONNE HURTADO DO Ot 174.9 MALIGN NEOPL BREAST NOS 05/15/2015 LAVONNE HURTADO DO Ot 272.4 HYPERLIPIDEMIA NEC/NOS 05/15/2015 GENESISLAVONNE FLOREZ DO Ot 401.9 HYPERTENSION NOS 05/15/2015 GENESIS , BRYCETIE Ot 427.31 ATRIAL FIBRILLATION 05/15/2015 GENESISBRYCE FLOREZ DOTIE Ot V15.82 HISTORY OF TOBACCO USE 05/19/2015 Ot V76.12 05/19/2015 KASSIDY KHOURY 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 Ot 611.72 05/19/2015 KASSIDY KHOURY 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 Ot 174.9 05/19/2015 KHOA BENITO, MILADYS Ot 174.9 05/19/2015 [facility]9 05/19/2015 GENESISBRYCE FLOREZ DOTIE Ot 174.9 05/19/2015 GENESISLAVONNE FLOREZ DO Ot V72.83 05/19/2015 GENESISLAVONNE FLOREZ DO Ot V74.8 05/19/2015 SHERI WAHL ASSEMBLER KNIFE Ot 174.1 05/19/2015 SHERI WAHL ASSEMBLER KNIFE Ot V86.0 05/19/2015 KHOA BENITO, MILADYS Ot 174.9 05/19/2015 KHOA BENITO, MILADYS Ot V58.69 05/19/2015 KHOA BENITO, [facility] Ot V58.83 05/19/2015 KHOA BENITO, STROUD-ETTA Ot 174.9 05/19/2015 KHOA BENITO, STROUD-ETTA Ot 174.9 05/19/2015 KHOA BENITO, STROUD-ETTA Ot V58.69 05/19/2015 KHOA BENITO, STROUD-ETTA Ot V58.83 05/19/2015 KHOA BENITO, STROUD-ETTA Ot 174.1 05/19/2015 KHOA BENITO, STROUD-ETTA Ot 272.4 05/19/2015 KHOA BENITO, STROUD-ETTA Ot 278.00 05/19/2015 KHOA BENITO, STROUD-ETTA Ot 311 05/19/2015 KHOA BENITO, STROUD-ETTA Ot 401.9 05/19/2015 KHOA BENITO, STROUD-ETTA Ot V85.41 05/19/2015 KHOA BENITO, STROUD-ETTA Ot V86.0 06/10/2015 KHOA BENITO, STROUD-ETTA Ot 174.1 06/10/2015 KHOA BENITO, STROUD-ETTA Ot 272.4 06/10/2015 KHOA BENITO, LUANNE-ETTA Ot 278.00 06/10/2015 KHOA BENITO, STROUD-ETTA Ot 311 06/10/2015 KHOA BENITO, STROUD-ETTA Ot 401.9 06/10/2015 KHOA BENITO, STROUD-ETTA Ot V85.41 06/10/2015 KHOA BENITO, LUANNE-ETTA Ot V86.0 06/10/2015 KHOA BENITO, STROUD-ETTA Ot 174.1 06/10/2015 KHOA BENITO, STROUD-ETTA Ot 272.4 06/10/2015 KHOA BENITO, STROUD-ETTA Ot 278.00 06/10/2015 KHOA BENITO, STROUD-ETTA Ot 311 06/10/2015 KHOA BENITO, STROUD-ETTA Ot 401.9 06/10/2015 KHOA BENITO, STROUD-ETTA Ot V85.41 06/10/2015 KHOA BENITO, STROUD-ETTA Ot V86.0 06/25/2015 KHOA BENITO, LUANNE-ETTA Ot 174.1 MAL JOSE L BREAST-CENTRAL 06/25/2015 KHOA BENITO, LUANNE-ETTA Ot 272.4 HYPERLIPIDEMIA NEC/NOS 06/25/2015 KHOA BENITO, STROUD-ETTA Ot 278.00 OBESITY, NOS 06/25/2015 KHOA BENITO, STROUD-ETTA Ot 311 DEPRESSIVE DISORDER NEC 06/25/2015 KHOA BENITO, STROUD-ETTA Ot 401.9 HYPERTENSION NOS 06/25/2015 KHOA BENITO, STROUD-ETTA Ot V58.11 ENCOUNTER FOR ANTINEOPLASTIC CHEMOTHERAP 06/25/2015 KHOA BENITO, MILADYS Ot V85.41 BODY MASS INDEX 40.0-44.9, ADULT 06/25/2015 KHOA BENITO, MILADYS Ot V86.0 ESTROGEN RECEPTOR POSITIVE STATUS [ER+] 07/15/2015 KHOA BENITO, MILADYS Ot 174.1 07/15/2015 KHOA BENITO, MILADYS Ot 272.4 07/15/2015 KHOA BENITO, MILADYS Ot 278.00 07/15/2015 KHOA BENITO, MILADYS Ot 311 07/15/2015 KHOA BENITO, MILADYS Ot 401.9 07/15/2015 KHOA BENITO, MILADYS Ot V85.41 07/15/2015 KHOA BENITO, MILADYS Ot V86.0 08/01/2015 KHOA BENITO, MILADYS Ot 174.1 08/01/2015 KHOA BENITO, MILADYS Ot 272.4 08/01/2015 KHOA BENITO, MILADYS Ot 278.00 08/01/2015 KHOA BENITO, MILADYS Ot 311 08/01/2015 KHOA BENITO, MILADYS Ot 401.9 08/01/2015 KHOA BENITO, MILADYS Ot V85.41 08/01/2015 KHOA BENITO, MILADYS Ot V86.0 08/01/2015 Ot V76.12 08/01/2015 KASSIDY KHOURY APRN Ot 611.72 08/01/2015 KASSIDY KHOURY APRN Ot 174.9 08/01/2015 KHOA BENITO, MILADYS Ot 174.9 08/01/2015 KHOA BENITO, MILADYS Ot 174.9 08/01/2015 LAVONNE HURTADO DO Ot 174.9 08/01/2015 LAVONNE HURTADO DO Ot V72.83 08/01/2015 LAVONNE HURTADO DO Ot V74.8 08/01/2015 SHERI WAHL ASSEMBLER KNIFE Ot 174.1 08/01/2015 SHERI WAHL Ot V86.0 08/01/2015 KHOA BENITO, MILADYS Ot 174.9 08/01/2015 KHOA BENITO, MILADYS Ot V58.69 08/01/2015 KHOA BENITO, MILADYS Ot V58.83 08/01/2015 KHOA BENITO, MILADYS Ot 174.9 08/01/2015 KHOA BENITO, MILADYS Ot 174.9 08/01/2015 KHOA BENITO, MILADYS Ot V58.69 08/01/2015 KHOA BENITO, MILADYS Ot V58.83 08/01/2015 GENESIS DO, BRYCETIE Ot 174.9 08/01/[address] [facility] LAVONNE MORA Ot V72.84 08/01/2015 KHOA BENITO, MILADYS Ot C50.119 08/01/2015 KHOA BENITO, MILADYS Ot E66.9 08/01/2015 KHOA BENITO, MARYLUETTA Ot E78.5 08/01/2015 KHOA BENITO, MILADYS Ot F32.9 08/01/2015 KHOA BENITO, MILADYS Ot I10 08/01/2015 KHOA BENITO, MILADYS Ot Z17.0 08/01/2015 KHOA BENITO, MILADYS Ot Z51.0 08/01/2015 KHOA BENITO, MILADYS Ot Z51.11 08/01/2015 KHOA BENITO, MARYLUETTA Ot Z68.41 08/01/2015 SHERI WAHLP Ot C50.911 08/01/2015 SHERI WAHL ASSEMBLER KNIFE Ot C77.3 08/01/2015 SHERI WAHLP Ot I48.91 08/01/2015 SHERI WAHLP Ot Z17.0 08/01/2015 SHERI WAHL ASSEMBLER KNIFE Ot Z79.899 08/01/2015 Ot V76.12 08/01/2015 KASSIDY KHOURY APRN Ot 611.72 08/01/2015 KASSIDY KHOURY 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 Ot 174.9 08/01/2015 KHOA BENITO, MILADYS Ot 174.9 08/01/2015 KHOA BENITO, MILADYS Ot 174.9 08/01/2015 LAVONNE HURTADO DO Ot 174.9 08/01/2015 LAVONNE HURTADO DO Ot V72.83 08/01/[address] [facility] LAVONNE MORA Ot V74.8 08/01/2015 SHERI WAHLP Ot 174.1 08/01/2015 SHERI WAHL ASSEMBLER KNIFE Ot V86.0 08/01/2015 KHOA BENITO, MILADYS Ot 174.9 08/01/2015 KHOA BENITO, MILADYS Ot V58.69 08/01/2015 KHOA BENITO, MILADYS Ot V58.83 08/01/2015 KHOA BENITO, MILADYS Ot 174.9 08/01/2015 KHOA BENITO, MILADYS Ot 174.9 08/01/2015 KHOA BENITO, MILADYS Ot V58.69 08/01/2015 KHOA BENITO, MILADYS Ot V58.83 08/01/[address] [facility] DO, BRYCETIE Ot 174.9 08/01/[address] [facility] , [facility] Ot V72.84 08/01/2015 KHOA BENITO, MILADYS Ot C50.119 08/01/2015 KHOA BENITO, MARYLUETTA Ot E66.9 08/01/2015 KHOA BENITO, MARYLUETTA Ot E78.5 08/01/2015 KHOA BENITO, MILADYS Ot F32.9 08/01/2015 KHOA BENITO, MILADYS Ot I10 08/01/2015 KHOA BENITO, MILADYS Ot Z17.0 08/01/2015 KHOA BENITO, MILADYS Ot Z51.0 08/01/2015 KHOA BENITO, MILADYS Ot Z51.11 08/01/2015 KHOA BENITO, MILADYS Ot Z68.41 08/01/2015 SHERI WAHLP Ot C50.911 08/01/2015 SHERI WAHLP Ot C77.3 08/01/2015 SHERI WAHL ASSEMBLER KNIFE Ot I48.91 08/01/2015 SHERI WAHL ASSEMBLER KNIFE Ot Z17.0 08/01/2015 SHERI WAHLP Ot Z79.899 08/02/2015 DOTTY JUNG DO Ot C50.911 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 08/02/2015 DOTTY JUNG DO Ot D64.81 ANEMIA DUE TO ANTINEOPLASTIC CHEMOTHERAP 08/02/2015 DOTTY JUNG DO Ot E66.9 OBESITY, UNSPECIFIED 08/02/2015 DOTTY JUNG DO Ot E78.5 HYPERLIPIDEMIA, UNSPECIFIED 08/02/2015 DOTTY JUNG DO Ot F32.9 MAJOR DEPRESSIVE DISORDER, SINGLE EPISOD 08/02/2015 DOTTY JUNG DO Ot F41.9 ANXIETY DISORDER, UNSPECIFIED 08/02/2015 DOTTY JUNG DO Ot I10 ESSENTIAL (PRIMARY) HYPERTENSION 08/02/2015 DOTTY JUNG DO Ot I48.91 UNSPECIFIED ATRIAL FIBRILLATION 08/02/2015 DOTTY JUNG DO Ot K21.9 GASTRO-ESOPHAGEAL REFLUX DISEASE WITHOUT 08/02/2015 DOTTY JUNG DO Ot R73.09 OTHER ABNORMAL GLUCOSE 08/02/2015 DOTTY JUNG DO Ot Z68.42 BODY MASS INDEX (BMI) 45.0-49.9, ADULT 08/02/2015 DOTTY JUNG DO Ot Z79.899 OTHER FIBERGLASS INSULATION INSTALLER (CURRENT) DRUG THERAPY 08/02/2015 DOTTY JUNG DO Ot Z87.891 PERSONAL HISTORY OF NICOTINE DEPENDENCE 08/04/2015 SHERI WAHL ASSEMBLER KNIFE Ot C50.911 08/04/2015 SHERI WAHL ASSEMBLER KNIFE Ot C77.3 08/04/2015 SHERI WAHL ASSEMBLER KNIFE Ot I48.91 08/04/2015 SHERI WAHLP Ot Z17.0 08/04/2015 SHERI WAHL ASSEMBLER KNIFE Ot Z79.899 08/19/2015 KHOA BENITO, MILADYS Ot C50.119 08/19/2015 KHOA BENITO, MILADYS Ot E66.9 08/19/2015 KHOA BENITO, MILADYS Ot E78.5 08/19/2015 KHOA BENITO, MILADYS Ot F32.9 08/19/2015 KHOA BENITO, MILADYS Ot I10 08/19/2015 KHOA BENITO, MILADYS Ot Z17.0 08/19/2015 KHOA BENITO, MILADYS Ot Z51.0 08/19/2015 KHOA BENITO, MILADYS Ot Z51.11 08/19/2015 KHOA BENITO, MILADYS Ot Z68.41 08/27/2015 GINGER MORA MD Ot C50.919 MALIGNANT NEOPLASM OF UNSP SITE OF UNSPE 08/27/2015 GINGER MORA MD Ot D64.81 ANEMIA DUE TO ANTINEOPLASTIC CHEMOTHERAP 08/27/2015 GINGER MORA MD Ot E66.9 OBESITY, UNSPECIFIED 08/27/2015 GINGER MORA MD Ot E78.5 HYPERLIPIDEMIA, UNSPECIFIED 08/27/2015 GINGER MORA MD Ot I10 ESSENTIAL (PRIMARY) HYPERTENSION 08/27/2015 GINGER MORA MD Ot I48.0 PAROXYSMAL ATRIAL FIBRILLATION 08/27/2015 GINGER MORA MD Ot Z68.42 BODY MASS INDEX (BMI) 45.0-49.9, ADULT 08/27/2015 GINGER MORA MD Ot Z79.899 OTHER HALFWAY (CURRENT) DRUG THERAPY 08/27/2015 GINGER MORA MD, Ot Z87.891 PERSONAL HISTORY OF NICOTINE DEPENDENCE 09/22/2015 Ot V76.12 09/22/2015 KASSIDY KHOURY 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 Ot 611.72 09/22/2015 KASSIDY KHOURY 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 Ot 174.9 09/22/2015 KHOA BENITO, MILADYS Ot 174.9 09/22/2015 MILADYS COUCH MD Ot 174.9 09/22/2015 LAVONNE HURTADO DO Ot 174.9 09/22/2015 LAVONNE HURTADO DO Ot V72.83 09/22/2015 LAVONNE HURTADO DO Ot V74.8 09/22/2015 SHERI WAHL ASSEMBLER KNIFE Ot 174.1 09/22/2015 SHERI WAHL ASSEMBLER KNIFE Ot V86.0 09/22/2015 MILADYS COUCH MD Ot 174.9 09/22/2015 MILADYS COUCH MD Ot V58.69 09/22/2015 MILADYS COUCH MD Ot V58.83 09/22/2015 KHOA BENITO, MILADYS Ot 174.9 09/22/2015 MILADYS COUCH MD Ot 174.9 09/22/2015 MILADYS COUCH MD Ot V58.69 09/22/2015 MILADYS COUCH MD Ot V58.83 09/22/2015 LAVONNE HURTADO DO Ot 174.9 09/22/2015 LAVONNE HURTADO DO Ot V72.84 09/22/2015 MILADYS COUCH MD Ot C50.119 09/22/2015 KHOA BENITO, MILADYS Ot E66.9 09/22/2015 KHOA BENITO, MILADYS Ot E78.5 09/22/2015 KHOA BENITO, MILADYS Ot F32.9 09/22/2015 KHOA BENITO, MILADYS Ot I10 09/22/2015 KHOA BENITO, MILADYS Ot Z17.0 09/22/2015 KHOA BENITO, MILADYS Ot Z51.0 09/22/2015 KHOA BENITO, MILADYS Ot Z51.11 09/22/2015 KHOA BENITO, MILADYS Ot Z68.41 09/22/2015 SHERI WAHLP Ot C50.911 09/22/2015 SHERI WAHLP Ot C77.3 09/22/2015 SHERI WAHLP Ot I48.91 09/22/2015 SHERI WAHLP Ot Z17.0 09/22/2015 SHERI WAHLP Ot Z79.899 09/24/2015 KHOA BENITO, MILADYS Ot C50.119 MALIGNANT NEOPLASM OF CENTRAL PORTION OF 09/24/2015 KHOA BENITO, MILADYS Ot C50.411 MALIG NEOPLM OF UPPER-OUTER QUADRANT OF 09/24/2015 MILADYS COUCH MD Ot E66.9 OBESITY, UNSPECIFIED 09/24/2015 KHOA BENITO, MILADYS Ot E78.5 HYPERLIPIDEMIA, UNSPECIFIED 09/24/2015 KHOA BENITO, MILADYS Ot F32.9 MAJOR DEPRESSIVE DISORDER, SINGLE EPISOD 09/24/2015 MILADYS COUCH MD Ot I10 ESSENTIAL (PRIMARY) HYPERTENSION 09/24/2015 MILADYS COUCH MD Ot Z17.0 ESTROGEN RECEPTOR POSITIVE STATUS [ER+] 09/24/2015 MILADYS COUCH MD Ot Z51.0 ENCOUNTER FOR ANTINEOPLASTIC RADIATION T 09/24/2015 MILADYS COUCH MD Ot Z51.11 ENCOUNTER FOR ANTINEOPLASTIC CHEMOTHERAP 09/24/2015 MILADYS COUCH MD Ot Z68.41 BODY MASS INDEX (BMI) 40.0-44.9, ADULT 10/16/2015 HUGO PEACE Ot E78.5 10/16/2015 HUGO PEACE Ot I10 10/16/2015 HUGO PEACE Ot I48.91 10/16/2015 HUGO PEACE Ot R06.00 10/16/2015 GINGER MORA MD, Ot C50.911 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 10/16/2015 GINGER MORA MD Ot E66.9 OBESITY, UNSPECIFIED 10/16/2015 GINGER MORA MD, Ot E78.5 HYPERLIPIDEMIA, UNSPECIFIED 10/16/2015 GINGER MORA MD Ot I10 ESSENTIAL (PRIMARY) HYPERTENSION 10/16/2015 GINGER MORA MD, Ot I25.10 ATHSCL HEART DISEASE OF [place] CORONARY 10/16/2015 GINGER MORA MD, Ot I25.84 CORONARY ATHEROSCLEROSIS DUE TO CALCIFIE 10/16/2015 GINGER MORA MD, Ot I48.0 PAROXYSMAL ATRIAL FIBRILLATION 10/16/2015 GINGER MORA MD Ot R94.39 ABNORMAL RESULT OF OTHER CARDIOVASCULAR 10/16/2015 GINGER MORA MD Ot Z68.42 BODY MASS INDEX (BMI) 45.0-49.9, ADULT 10/16/2015 GINGER MORA MD, Ot Z79.01 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 10/16/2015 GINGER MORA MD, Ot Z79.899 OTHER HALFWAY (CURRENT) DRUG THERAPY 10/16/2015 GINGER MORA MD, Ot Z87.891 PERSONAL HISTORY OF NICOTINE DEPENDENCE 10/16/2015 GINGER MORA MD Ot Z92.3 PERSONAL HISTORY OF IRRADIATION 10/22/2015 MILADYS COUCH MD Ot C50.119 10/22/2015 MILADYS COUCH MD Ot E66.9 10/22/2015 KHOA BENITO, MILADYS Ot E78.5 10/22/2015 MILADYS COUCH MD Ot F32.9 10/22/2015 MILADYS COUCH MD Ot I10 10/22/2015 HKOA BENITO, MILADYS Ot Z17.0 10/22/2015 KHOA BENITO, MILADYS Ot Z51.0 10/22/2015 MILADYS COUCH MD Ot Z68.41 10/27/2015 HUGO PEACE Ot E78.5 10/27/2015 JOSÉ PUGA, HUGO [place] Ot I10 10/27/2015 JOSÉ PUGA, HUGO [place] Ot I48.91 10/27/2015 JOSÉ PUGA, HUGO [place] Ot R06.00 10/29/2015 Ot C50.911 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 10/29/2015 Ot R00.2 PALPITATIONS 10/29/2015 Ot Z79.02 FIBERGLASS INSULATION INSTALLER ( CURRENT) USE OF ANTITHROMBOTI 10/29/2015 Ot Z79.82 HALFWAY ( CURRENT) USE OF ASPIRIN 10/29/2015 Ot Z79.899 OTHER FIBERGLASS INSULATION INSTALLER (CURRENT) DRUG THERAPY 11/07/2015 KHOA BENITO, MILADYS Ot C50.119 11/07/2015 KHOA BENITO, LUANNE-ETTA Ot E66.9 11/07/2015 KHOA BENITO, LUANNE-ETTA Ot E78.5 11/07/2015 KHOA BENITO, MILADYS Ot F32.9 11/07/2015 KHOA BENITO, LUANNE-ETTA Ot I10 11/07/2015 KHOA BENITO, LUANNE-ETTA Ot Z17.0 11/07/2015 KHOA BENITO, STROUD-ETTA Ot Z51.0 11/07/2015 KHOA BENITO, LUANNE-ETTA Ot Z68.41 11/18/2015 KHOA BENITO, MILADYS Ot C50.119 11/18/2015 KHOA BENITO, LUANNE-ETTA Ot E66.9 11/18/2015 KHOA BENITO, LUANNE-ETTA Ot E78.5 11/18/2015 KHOA BENITO, LUANNE-ETTA Ot F32.9 11/18/2015 KHOA BENITO, LUANNE-ETTA Ot I10 11/18/2015 KHOA BENITO, LUANNE-ETTA Ot Z17.0 11/18/2015 KHOA BENITO, LUANNE-ETTA Ot Z51.0 11/18/2015 KHOA BENITO, LUANNE-ETTA Ot Z68.41 11/18/2015 KHOA BENITO, MILADYS Ot C50.119 11/18/2015 KHOA BENITO, LUANNE-ETTA Ot E66.9 11/18/2015 KHOA BENITO, LUANNE-ETTA Ot E78.5 11/18/2015 KHOA BENITO, LUANNE-ETTA Ot F32.9 11/18/2015 KHOA BENITO, MILADYS Ot I10 11/18/2015 KHOA BENITO, MILADYS Ot Z17.0 11/18/2015 KHOA BENITO, MILADYS Ot Z51.0 11/18/2015 KHOA BENITO, MILADYS Ot Z68.41 11/24/2015 Ot V76.12 11/24/2015 KASSIDY KHOURY 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 Ot 611.72 11/24/2015 KASSIDY KHOURY 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 Ot 174.9 11/24/2015 KHOA BENITO, MILADYS Ot 174.9 11/24/2015 KHOA BENITO, MILADYS Ot 174.9 11/24/2015 [facility] Ot 174.9 11/24/[address] [facility] LASHAWN MORAROUTIE Ot V72.83 11/24/[address] [facility] LASHAWN MORAROUTIE Ot V74.8 11/24/2015 SHERI WAHL ASSEMBLER KNIFE Ot 174.1 11/24/2015 SHERI WAHLP Ot V86.0 11/24/2015 KHOA BENITO, MILADYS Ot 174.9 11/24/2015 KHOA BENITO, MILADYS Ot V58.69 11/24/2015 KHOA BENITO, MILADYS Ot V58.83 11/24/2015 KHOA BENITO, MILADYS Ot 174.9 11/24/2015 KHOA BENITO, MILADYS Ot 174.9 11/24/2015 KHOA BENITO, MILADYS Ot V58.69 11/24/2015 KHOA BENITO, MILADYS Ot V58.83 11/24/2015 GENESIS LASHAWN MORAROUTIE Ot 174.9 11/24/2015 GENESISLASHAWN FLOREZ DOROUTIE Ot V72.84 11/24/2015 SHERI WAHLP Ot C50.911 11/24/2015 SHERI WAHLP Ot C77.3 11/24/2015 SHERI WAHLP Ot I48.91 11/24/2015 SHERI WAHLP Ot Z17.0 11/24/2015 SHERI WAHL ASSEMBLER KNIFE Ot Z79.899 11/24/2015 HUGO PEACE Ot E78.5 11/24/2015 HUGO PEACE Ot I10 11/24/2015 JOSÉ PUGA, HUGO [place] Ot I48.91 11/24/2015 JOSÉ PUGA, HUGO [place] Ot R06.00 11/24/2015 KHOA BENITO, MILADYS Ot C50.111 11/24/2015 KHOA BENITO, MILADYS Ot E66.9 11/24/2015 KHOA BENITO, MARYLUETTA Ot E78.5 11/24/2015 KHOA BENITO, MILADYS Ot F32.9 11/24/2015 KHOA BENITO, MILADYS Ot I10 11/24/2015 KHOA BENITO, MARYLUETTA Ot Z17.0 11/24/2015 KHOA BENITO, MARYLUETTA Ot Z51.0 11/24/2015 KHOA BENITO, MILADYS Ot Z68.41 11/27/2015 Ot V76.12 11/27/2015 KASSIDY KHOURY 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 Ot 611.72 11/27/2015 KASSIDY KHOURY 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 Ot 174.9 11/27/2015 KHOA BENITO, MILADYS Ot 174.9 11/27/2015 KHOA BENITO, MILADYS Ot 174.9 11/27/2015 LAVONNE HURTADO DO Ot 174.9 11/27/2015 LAVONNE HURTADO DO Ot V72.83 11/27/2015 LAVONNE HURTADO DO Ot V74.8 11/27/2015 SHERI WAHL ASSEMBLER KNIFE Ot 174.1 11/27/2015 SHERI WAHL Ot V86.0 11/27/2015 KHOA BENITO, MILADYS Ot 174.9 11/27/2015 KHOA BENITO, MARYLUETTA Ot V58.69 11/27/2015 KHOA BENITO, MILADYS Ot V58.83 11/27/2015 KHOA BENITO, MILADYS Ot 174.9 11/27/2015 KHOA BENITO, STROUD-ETTA Ot 174.9 11/27/2015 KHOA BENITO, MILADYS Ot V58.69 11/27/2015 KHOA BENITO, MILADYS Ot V58.83 11/27/2015 LAVONNE HURTADO DO Ot 174.9 11/27/2015 LAVONNE HURTADO DO Ot V72.84 11/27/2015 SHERI WAHL ASSEMBLER KNIFE Ot C50.911 11/27/2015 VISHSHERI ASSEMBLER KNIFE Ot C77.3 11/27/2015 VISHSHERI ASSEMBLER KNIFE Ot I48.91 11/27/2015 WAHLSHERI SotoP Ot Z17.0 11/27/2015 VISHSHERIP Ot Z79.899 11/27/2015 JOSÉ PA, HUGO [place] Ot E78.5 11/27/2015 JOSÉ PA, HUGO K Ot I10 11/27/2015 JOSÉ PA, HUGO K Ot I48.91 11/27/2015 JOSÉ PA, HUGO K Ot R06.00 11/27/2015 KHOA BENITO, MILADYS Ot C50.111 11/27/2015 KHOA BENITO, LUANNE-ETTA Ot E66.9 11/27/2015 KHOA BENITO, LUANNE-ETTA Ot E78.5 11/27/2015 KHOA BENITO, LUANNE-ETTA Ot F32.9 11/27/2015 KHOA BENITO, LUANNE-ETTA Ot I10 11/27/2015 KHOA BENITO, LUANNE-ETTA Ot Z17.0 11/27/2015 KHOA BENITO, LUANNE-ETTA Ot Z51.0 11/27/2015 KHOA BENITO, LUANNE-ETTA Ot Z68.41 11/27/2015 ABBY BENITO, GINGER Gandara Ot Z48.812 11/27/2015 ABBY BENITO, GINGER Gandara Ot Z95.5 12/08/2015 Ot V76.12 12/08/2015 KASSIDY KHOURY APRN Ot 611.72 12/08/2015 KASSIDY KHOURY APRN Ot 174.9 12/08/2015 KHOA BENITO, LUANNE-ETTA Ot 174.9 12/08/2015 KHOA BENITO, STROUD-ETTA Ot 174.9 12/08/2015 LAVONNE HURTADO DO Ot 174.9 12/08/2015 LAVONNE HURTADO DO Ot V72.83 12/08/2015 LAVONNE HURTADO DO Ot V74.8 12/08/2015 SHERI WAHLP Ot 174.1 12/08/2015 VISH SHERI Soto ASSEMBLER KNIFE Ot V86.0 12/08/2015 KHOA BENITO, MILADYS Ot 174.9 12/08/2015 KHOA BENITO, MILADYS Ot V58.69 12/08/2015 KHOA BENITO, MILADYS Ot V58.83 12/08/2015 KHOA BENITO, MLIADYS Ot 174.9 12/08/2015 KHOA BENITO, MILADYS Ot 174.9 12/08/2015 KHOA BENITO, MILADYS Ot V58.69 12/08/2015 KHOA BENITO, MILADYS Ot V58.83 12/08/2015 GENESIS DO, BRYCETIE Ot 174.9 12/08/[address] [facility] DO, [facility] Ot V72.84 12/08/2015 SHERI WAHLP Ot C50.911 12/08/2015 SHERI WAHL ASSEMBLER KNIFE Ot C77.3 12/08/2015 SHERI WAHLP Ot I48.91 12/08/2015 SHERI WAHLP Ot Z17.0 12/08/2015 SHERI WAHL ASSEMBLER KNIFE Ot Z79.899 12/08/2015 HUGO PEACE Ot E78.5 12/08/2015 JOSÉ PUGA, HUGO Milan Ot I10 12/08/2015 JOSÉ PUGA, HUGO K Ot I48.91 12/08/2015 JOSÉ PUGA, HUGO Milan Ot R06.00 12/08/2015 KHOA BENITO, MILADYS Ot C50.111 12/08/2015 KHOA BENITO, MILADYS Ot E66.9 12/08/2015 KHOA BENITO, MILADYS Ot E78.5 12/08/2015 KHOA BENITO, MILADYS Ot F32.9 12/08/2015 KHOA BENITO, STROUD-ETTA Ot I10 12/08/2015 KHOA BENITO, MARYLUETTA Ot Z17.0 12/08/2015 KHOA BENITO, STROUDMOHSEN Ot Z51.0 12/08/2015 KHOA BENITO, STROUD-ETTA Ot Z68.41 12/08/2015 ABBY BENITO, GINGER Gandara Ot Z48.812 12/08/2015 ABBY BENITO, GINGER Gandara Ot Z95.5 12/14/2015 KHOA BENITO, MILADYS Ot C50.311 12/22/2015 ABBY BENITO, GINGER Gandara Ot Z48.812 12/22/2015 ABBY BENITO, GINGER Gandara Ot Z95.5 12/24/2015 KHOA BENITO, MILADYS Ot C50.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 12/24/2015 KHOA BENITO, MILADYS Ot E66.9 OBESITY, UNSPECIFIED 12/24/2015 KHOA BENITO, MILADYS Ot E78.5 HYPERLIPIDEMIA, UNSPECIFIED 12/24/2015 KHOA BENITO, MILADYS Ot F32.9 MAJOR DEPRESSIVE DISORDER, SINGLE EPISOD 12/24/2015 KHOA BENITO, MILADYS Ot I10 ESSENTIAL (PRIMARY) HYPERTENSION 12/24/2015 KHOA BENITO, MILADYS Ot Z17.0 ESTROGEN RECEPTOR POSITIVE STATUS [ER+] 12/24/2015 KHOA BENITO, MILADYS Ot Z51.0 ENCOUNTER FOR ANTINEOPLASTIC RADIATION T 12/24/2015 MILADYS COUCH MD Ot Z68.41 BODY MASS INDEX (BMI) 40.0-44.9, ADULT 12/29/2015 Ot V76.12 12/29/2015 KASSIDY KHOURY 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 Ot 611.72 12/29/2015 KASSIDY KHOURY 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 Ot 174.9 12/29/2015 KHOA BENITO, MILADYS Ot 174.9 12/29/2015 KHOA BENITO, MILADYS Ot 174.9 12/29/[address] [facility] LAVONNE MORA Ot 174.9 12/29/[address] [facility] LAVONNE MORA Ot V72.83 12/29/[address] [facility] LAVONNE MORA Ot V74.8 12/29/2015 SHERI WAHL ASSEMBLER KNIFE Ot 174.1 12/29/2015 SHERI WAHL ASSEMBLER KNIFE Ot V86.0 12/29/2015 KHOA BENITO, MILADYS Ot 174.9 12/29/2015 KHOA BENITO, MILADYS Ot V58.69 12/29/2015 KHOA BENITO, MILADYS Ot V58.83 12/29/2015 KHOA BENITO, MILADYS Ot 174.9 12/29/2015 KHOA BENITO, MILADYS Ot 174.9 12/29/2015 KHOA BENITO, MILADYS Ot V58.69 12/29/2015 KHOA BENITO, MILADYS Ot V58.83 12/29/2015 BRYCE HURTADO DOLINDA Ot 174.9 12/29/2015 GENESISLAVONNE ROBERTS DO Ot V72.84 12/29/2015 WAHLSHERI SotoP Ot C50.911 12/29/2015 WAHLSHERI Soto ASSEMBLER KNIFE Ot C77.3 12/29/2015 VISHSHERIP Ot I48.91 12/29/2015 VISHSHERIP Ot Z17.0 12/29/2015 VISHSHERI ASSEMBLER KNIFE Ot Z79.899 12/29/2015 JOSÉ PUGA, HUGO Milan Ot E78.5 12/29/2015 JOSÉ PUGA, HUGO K Ot I10 12/29/2015 JOSÉ PUGA, HUGO K Ot I48.91 12/29/2015 JOSÉ PUGA, HUGO K Ot R06.00 12/29/2015 ABBY BENITO, GINGER Gandara Ot Z48.812 12/29/2015 ABBY BENITO, GINGER Gandara Ot Z95.5 12/29/2015 KHOA BENITO, MILADYS Ot C50.311 12/29/2015 KHOA BENITO, MILADYS Ot C50.111 12/29/2015 KHOA BENITO, MILADYS Ot E66.9 12/29/2015 KHOA BENITO, MILADYS Ot E78.5 12/29/2015 KHOA BENITO, MILADYS Ot F32.9 12/29/2015 KHOA BENITO, LUANNE-TETA Ot I10 12/29/2015 KHOA BENITO, MILADYS Ot Z17.0 12/29/2015 KHOA BENITO, MILADYS Ot Z51.0 12/29/2015 KHOA BENITO, MILADYS Ot Z68.41 12/29/2015 ABBY BENITO, GINGER Gandara Ot Z48.812 12/29/2015 ABBY BENITO, GINGER Gandara Ot Z95.5 12/30/2015 KHOA BENITO, MILADYS Ot C50.311 01/07/2016 KHOA BENITO, MILADYS Ot C50.311 02/18/2016 KHOA BENITO, MILADYS Ot C50.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 02/18/2016 MILADYS COUCH MD Ot E66.9 OBESITY, UNSPECIFIED 02/18/2016 MILADYS COUCH MD Ot E78.5 HYPERLIPIDEMIA, UNSPECIFIED 02/18/2016 MILADYS COUCH MD, Ot F32.9 MAJOR DEPRESSIVE DISORDER, SINGLE EPISOD 02/18/2016 MILADYS COUCH MD Ot I10 ESSENTIAL (PRIMARY) HYPERTENSION 02/18/2016 MILADYS COUCH MD Ot Z17.0 ESTROGEN RECEPTOR POSITIVE STATUS [ER+] 02/18/2016 MILADYS COUCH MD Ot Z45.2 ENCOUNTER FOR ADJUSTMENT AND MANAGEMENT 02/18/2016 MILADYS COUCH MD Ot Z68.41 BODY MASS INDEX (BMI) 40.0-44.9, ADULT 02/22/2016 GINGER MORA MD Ot Z48.812 ENCNTR FOR SURGICAL AFTCR FOLLOWING SURG 02/22/2016 GINGER MORA MD Ot Z95.5 PRESENCE OF CORONARY ANGIOPLASTY IMPLANT 02/25/2016 GINGER MORA MD Ot Z48.812 ENCNTR FOR SURGICAL AFTCR FOLLOWING SURG 02/25/2016 GINGER MORA MD Ot Z95.5 PRESENCE OF CORONARY ANGIOPLASTY IMPLANT 02/25/2016 GINGER MORA MD Ot Z48.812 ENCNTR FOR SURGICAL AFTCR FOLLOWING SURG 02/25/2016 GINGER MORA MD Ot Z95.5 PRESENCE OF CORONARY ANGIOPLASTY IMPLANT 02/25/2016 Ot V76.12 OTH SCREEN MAMMO-MALIGN NEOPLASM OF INGRID 02/25/2016 KASSIDY KHOURY APRN Ot 611.72 LUMP OR MASS IN BREAST 02/25/2016 KASSIDY KHOURY APRN Ot 174.9 MALIGN NEOPL BREAST NOS 02/25/2016 MILADYS COUCH MD Ot 174.9 MALIGN NEOPL BREAST NOS 02/25/2016 MILADYS COUCH MD Ot 174.9 MALIGN NEOPL BREAST NOS 02/25/2016 LAVONNE HURTADO DO Ot 174.9 MALIGN NEOPL BREAST NOS 02/25/2016 LAVONNE HURTADO DO Ot V72.83 EXAM PRE-OPERATIVE NEC 02/25/2016 LAVONNE HURTADO DO Ot V74.8 SCREEN-BACTERIAL DIS NEC 02/25/2016 WAHL, HILAH S ASSEMBLER KNIFE Ot 174.1 MAL JOSE L BREAST-CENTRAL 02/25/2016 SHERI WAHL ASSEMBLER KNIFE Ot V86.0 ESTROGEN RECEPTOR POSITIVE STATUS [ER+] 02/25/2016 MILADYS COUCH MD Ot 174.9 MALIGN NEOPL BREAST NOS 02/25/2016 MILADYS COUCH MD, Ot V58.69 OTH MED,LT,CURRENT USE 02/25/2016 MILADYS COUCH MD, Ot V58.83 ENCOUNTER FOR THERAPEUTIC DRUG MONITORIN 02/25/2016 MILADYS COUCH MD Ot 174.9 MALIGN NEOPL BREAST NOS 02/25/2016 MILADYS COUCH MD Ot 174.9 MALIGN NEOPL BREAST NOS 02/25/2016 MILADYS COUCH MD, Ot V58.69 OTH MED,LT,CURRENT USE 02/25/2016 MILADYS COUCH MD, Ot V58.83 ENCOUNTER FOR THERAPEUTIC DRUG MONITORIN 02/25/2016 LAVONNE HURTADO DO Ot 174.9 MALIGN NEOPL BREAST NOS 02/25/2016 LAVONNE HURTADO DO Ot V72.84 EXAM PRE-OPERATIVE NOS 02/25/2016 SHERI WAHLP Ot C50.911 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 02/25/2016 SHERI WAHLP Ot C77.3 SEC AND UNSP MALIG NEOPLASM OF AXILLA AN 02/25/2016 SHERI WAHL ASSEMBLER KNIFE Ot I48.91 UNSPECIFIED ATRIAL FIBRILLATION 02/25/2016 SHERI WAHL ASSEMBLER KNIFE Ot Z17.0 ESTROGEN RECEPTOR POSITIVE STATUS [ER+] 02/25/2016 SHERI WAHL ASSEMBLER KNIFE Ot Z79.899 OTHER HALFWAY (CURRENT) DRUG THERAPY 02/25/2016 HUGO PEACE Ot E78.5 HYPERLIPIDEMIA, UNSPECIFIED 02/25/2016 HUGO PEACE Ot I10 ESSENTIAL (PRIMARY) HYPERTENSION 02/25/2016 HUGO PEACE Ot I48.91 UNSPECIFIED ATRIAL FIBRILLATION 02/25/2016 HUGO PEACE Ot R06.00 DYSPNEA, UNSPECIFIED 02/25/2016 MILADYS COUCH MD Ot 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 02/25/2016 MILADYS COUCH MD, Ot C50.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 02/25/2016 MILADYS COUCH MD, Ot E66.9 OBESITY, UNSPECIFIED 02/25/2016 MILADYS COUCH MD, Ot E78.5 HYPERLIPIDEMIA, UNSPECIFIED 02/25/2016 MILADYS COUCH MD, Ot F32.9 MAJOR DEPRESSIVE DISORDER, SINGLE EPISOD 02/25/2016 MILADYS COUCH MD, Ot I10 ESSENTIAL (PRIMARY) HYPERTENSION 02/25/2016 MILADYS COUCH MD, Ot Z17.0 ESTROGEN RECEPTOR POSITIVE STATUS [ER+] 02/25/2016 MILADYS COUCH MD, Ot Z45.2 ENCOUNTER FOR ADJUSTMENT AND MANAGEMENT 02/25/2016 MILADYS COUCH MD, Ot Z68.41 BODY MASS INDEX (BMI) 40.0-44.9, ADULT 02/25/2016 GINGER MORA MD Ot Z48.812 ENCNTR FOR SURGICAL AFTCR FOLLOWING SURG 02/25/2016 GINGER MORA MD Ot Z95.5 PRESENCE OF CORONARY ANGIOPLASTY IMPLANT 02/25/2016 GINGER MORA MD Ot Z48.812 ENCNTR FOR SURGICAL AFTCR FOLLOWING SURG 02/25/2016 GINGER MORA MD Ot Z95.5 PRESENCE OF CORONARY ANGIOPLASTY IMPLANT 02/25/2016 GINGER MORA MD Ot Z48.812 ENCNTR FOR SURGICAL AFTCR FOLLOWING SURG 02/25/2016 GINGER MORA MD Ot Z95.5 PRESENCE OF CORONARY ANGIOPLASTY IMPLANT 02/26/2016 NIRAV PENA DO, Ot S92.222A DISP FX OF LATERAL CUNEIFORM OF LEFT BENNETT 02/26/2016 NIRAV PENA DO, Ot S92.242A DISP FX OF MEDIAL CUNEIFORM OF LEFT FOOT 02/26/2016 NIRAV PENA DO, Ot S93.325A DISLOCATION OF TARSOMETATARSAL JOINT OF 02/26/2016 NIRAV PENA DO, Ot X58.XXXA EXPOSURE TO OTHER SPECIFIED FACTORS, INI 02/26/2016 NIRAV PENA DO, Ot Y93.K1 ACTIVITY, WALKING AN ANIMAL 02/26/2016 NIRAV PENA DO, Ot Y99.8 OTHER EXTERNAL CAUSE STATUS 02/27/2016 JEAN DO, NIRAV K Ot S92.222A DISP FX OF LATERAL CUNEIFORM OF LEFT BENNETT 02/27/2016 JEAN DO, NIRAV Milan Ot S92.242A DISP FX OF MEDIAL CUNEIFORM OF LEFT FOOT 02/27/2016 JEAN , NIRAV Bjorn Ot S93.325A DISLOCATION OF TARSOMETATARSAL JOINT OF 02/27/2016 JEAN MORA, NIRAV Milan Ot X58.XXXA EXPOSURE TO OTHER SPECIFIED FACTORS, INI 02/27/2016 JEAN MORA, NIRAV Bjorn Ot Y93.K1 ACTIVITY, WALKING AN ANIMAL 02/27/2016 JEAN MORA, NIRAV Milan Ot Y99.8 OTHER EXTERNAL CAUSE STATUS 03/03/2016 PHILLIPHO DPM, KEN Velasquez Ot S92.902A UNSP FRACTURE OF LEFT FOOT, INIT ENCNTR 03/03/2016 PHILLIPHO DPBob, KEN Velasquez Ot X58.XXXA EXPOSURE TO OTHER SPECIFIED FACTORS, INI 03/03/2016 PHILLIPHO DPMKEN Ot Y99.8 OTHER EXTERNAL CAUSE STATUS 03/03/2016 PHILLIPHO ANNETTE, KEN Velasquez Ot Z01.818 ENCOUNTER FOR OTHER PREPROCEDURAL EXAMIN 03/06/2016 MILADYS COUCH MD Ot C50.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 03/06/2016 MILADYS COUCH MD Ot E66.9 OBESITY, UNSPECIFIED 03/06/2016 MILADYS COUCH MD Ot E78.5 HYPERLIPIDEMIA, UNSPECIFIED 03/06/2016 MILADYS COUCH MD Ot F32.9 MAJOR DEPRESSIVE DISORDER, SINGLE EPISOD 03/06/2016 MILADYS COUCH MD Ot I10 ESSENTIAL (PRIMARY) HYPERTENSION 03/06/2016 MILADYS COUCH MD Ot Z17.0 ESTROGEN RECEPTOR POSITIVE STATUS [ER+] 03/06/2016 MILADYS COUCH MD Ot Z45.2 ENCOUNTER FOR ADJUSTMENT AND MANAGEMENT 03/06/2016 MILADYS COUCH MD Ot Z68.41 BODY MASS INDEX (BMI) 40.0-44.9, ADULT 03/06/2016 PHILLIPHO DPM, KEN Velasquez Ot S92.222A DISP FX OF LATERAL CUNEIFORM OF LEFT BENNETT 03/06/2016 PHILLIPHO DPKEN Rojas Ot S92.242A DISP FX OF MEDIAL CUNEIFORM OF LEFT FOOT 03/06/2016 BLANCHO DPM, KEN Velasquez Ot S93.325A DISLOCATION OF TARSOMETATARSAL JOINT OF 03/06/2016 PHILLIPHO DPM, KEN Velasquez Ot X58.XXXA EXPOSURE TO OTHER SPECIFIED FACTORS, INI 03/06/2016 PHILLIPHO DPM, KEN Velasquez Ot Y93.K1 ACTIVITY, WALKING AN ANIMAL 03/06/2016 BLAELMERHO DPM, KEN Velasquez Ot Y99.8 OTHER EXTERNAL CAUSE STATUS 03/09/2016 SPARKLENCHO DPM, KEN Velasquez Ot S92.902A UNSP FRACTURE OF LEFT FOOT, INIT ENCNTR 03/09/2016 PHILLIPHO DPM, KEN Velasquez Ot X58.XXXA EXPOSURE TO OTHER SPECIFIED FACTORS, INI 03/09/2016 PHILLIPHO DPM, KNE Velasquez Ot Y99.8 OTHER EXTERNAL CAUSE STATUS 03/09/2016 PHILLIPHO DPM, KEN Velasquez Ot Z01.818 ENCOUNTER FOR OTHER PREPROCEDURAL EXAMIN 03/15/2016 MILADYS COUCH MD Ot C50.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 03/15/2016 MILADYS COUCH MD Ot E66.9 OBESITY, UNSPECIFIED 03/15/2016 MILADYS COUCH MD Ot E78.5 HYPERLIPIDEMIA, UNSPECIFIED 03/15/2016 MILADYS COUCH MD Ot F32.9 MAJOR DEPRESSIVE DISORDER, SINGLE EPISOD 03/15/2016 MILADYS COUCH MD Ot I10 ESSENTIAL (PRIMARY) HYPERTENSION 03/15/2016 MILADYS COUCH MD Ot Z17.0 ESTROGEN RECEPTOR POSITIVE STATUS [ER+] 03/15/2016 MILADYS COUCH MD Ot Z45.2 ENCOUNTER FOR ADJUSTMENT AND MANAGEMENT 03/15/2016 MILADYS COUCH MD Ot Z68.41 BODY MASS INDEX (BMI) 40.0-44.9, ADULT 03/24/2016 BLANCHO DPM, KEN Velasquez Ot S92.222A DISP FX OF LATERAL CUNEIFORM OF LEFT BENNETT 03/24/2016 BLANCHO DPM, KEN Ron Ot S92.242A DISP FX OF MEDIAL CUNEIFORM OF LEFT FOOT 03/24/2016 BLANCHO DPM, KEN Velasquez Ot S93.325A DISLOCATION OF TARSOMETATARSAL JOINT OF 03/24/2016 SPARKELNCHO DPM, KEN Velasquez Ot X58.XXXA EXPOSURE TO OTHER SPECIFIED FACTORS, INI 03/24/2016 SPARKLENCHO DPM, KEN Velasquez Ot Y93.K1 ACTIVITY, WALKING AN ANIMAL 03/24/2016 BLANCHO DPM, KEN Velasquez Ot Y99.8 OTHER EXTERNAL CAUSE STATUS 03/24/2016 SPARKLENCHO DPM, KEN Velasquez Ot S92.222A DISP FX OF LATERAL CUNEIFORM OF LEFT BENNETT 03/24/2016 BLANCHO DPM, KEN Velasquez Ot S92.242A DISP FX OF MEDIAL CUNEIFORM OF LEFT FOOT 03/24/2016 BLANCHO DPM, KEN Velasquez Ot S93.325A DISLOCATION OF TARSOMETATARSAL JOINT OF 03/24/2016 BLANCHO DPM, KEN Velasquez Ot X58.XXXA EXPOSURE TO OTHER SPECIFIED FACTORS, INI 03/24/2016 BLANCHO DPM, KEN Velasquez Ot Y93.K1 ACTIVITY, WALKING AN ANIMAL 03/24/2016 PHILLIPHO DPM, KEN Velasquez Ot Y99.8 OTHER EXTERNAL CAUSE STATUS 04/04/2016 MILADYS COUCH MD, Ot C50.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 04/04/2016 MILADYS COUCH MD, Ot E66.9 OBESITY, UNSPECIFIED 04/04/2016 MILADYS COUCH MD, Ot E78.5 HYPERLIPIDEMIA, UNSPECIFIED 04/04/2016 MILADYS COUCH MD, Ot F32.9 MAJOR DEPRESSIVE DISORDER, SINGLE EPISOD 04/04/2016 MILADYS COUCH MD, Ot I10 ESSENTIAL (PRIMARY) HYPERTENSION 04/04/2016 MILADYS CUOCH MD, Ot Z17.0 ESTROGEN RECEPTOR POSITIVE STATUS [ER+] 04/04/2016 MILADYS COUCH MD, Ot Z45.2 ENCOUNTER FOR ADJUSTMENT AND MANAGEMENT 04/04/2016 MILADYS COUCH MD, Ot Z68.41 BODY MASS INDEX (BMI) 40.0-44.9, ADULT 04/08/2016 MILADYS COUCH MD, Ot C50.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 04/08/2016 MILADYS COUCH MD, Ot E66.9 OBESITY, UNSPECIFIED 04/08/2016 MILADYS COUCH MD, Ot E78.5 HYPERLIPIDEMIA, UNSPECIFIED 04/08/2016 MILADYS COUCH MD, Ot F32.9 MAJOR DEPRESSIVE DISORDER, SINGLE EPISOD 04/08/2016 MILADYS COUCH MD, Ot I10 ESSENTIAL (PRIMARY) HYPERTENSION 04/08/2016 MILADYS COUCH MD Ot Z17.0 ESTROGEN RECEPTOR POSITIVE STATUS [ER+] 04/08/2016 MILADYS COUCH MD Ot Z45.2 ENCOUNTER FOR ADJUSTMENT AND MANAGEMENT 04/08/2016 MILADYS COUCH MD Ot Z68.41 BODY MASS INDEX (BMI) 40.0-44.9, ADULT 05/19/2016 GINGER MORA MD Ot E78.2 MIXED HYPERLIPIDEMIA 05/19/2016 GINGER MORA MD Ot G47.33 OBSTRUCTIVE SLEEP APNEA (ADULT) (PEDIATR 05/19/2016 GINGER MORA MD Ot I10 ESSENTIAL (PRIMARY) HYPERTENSION 05/19/2016 GINGER MORA MD Ot I48.0 PAROXYSMAL ATRIAL FIBRILLATION 05/21/2016 MILADYS COUCH MD Ot C50.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 05/21/2016 MILADYS COUCH MD Ot E66.9 OBESITY, UNSPECIFIED 05/21/2016 MILADYS COUCH MD, Ot E78.5 HYPERLIPIDEMIA, UNSPECIFIED 05/21/2016 MILADYS COUCH MD Ot F32.9 MAJOR DEPRESSIVE DISORDER, SINGLE EPISOD 05/21/2016 MILADYS COUCH MD Ot I10 ESSENTIAL (PRIMARY) HYPERTENSION 05/21/2016 MILADYS COUCH MD Ot Z17.0 ESTROGEN RECEPTOR POSITIVE STATUS [ER+] 05/21/2016 MILADYS COUCH MD Ot Z68.41 BODY MASS INDEX (BMI) 40.0-44.9, ADULT 05/25/2016 GINGER MORA MD Ot E78.2 MIXED HYPERLIPIDEMIA 05/25/2016 GINGER MORA MD Ot G47.33 OBSTRUCTIVE SLEEP APNEA (ADULT) (PEDIATR 05/25/2016 GINGER MORA MD Ot I10 ESSENTIAL (PRIMARY) HYPERTENSION 05/25/2016 GINGER MORA MD Ot I48.0 PAROXYSMAL ATRIAL FIBRILLATION 05/25/2016 GINGER MORA MD Ot E78.2 MIXED HYPERLIPIDEMIA 05/25/2016 ABBY BENITO, GINGER J Ot G47.33 OBSTRUCTIVE SLEEP APNEA (ADULT) (PEDIATR 05/25/2016 GINGER MORA MD J Ot I10 ESSENTIAL (PRIMARY) HYPERTENSION 05/25/2016 ABBY BENITO, GINGER J Ot I48.0 PAROXYSMAL ATRIAL FIBRILLATION 05/25/2016 GINGER MORA MD Ot E78.2 MIXED HYPERLIPIDEMIA 05/25/2016 GINGER MORA MD Ot G47.33 OBSTRUCTIVE SLEEP APNEA (ADULT) (PEDIATR 05/25/2016 GINGER MORA MD Ot I10 ESSENTIAL (PRIMARY) HYPERTENSION 05/25/2016 GINGER MORA MD Ot I48.0 PAROXYSMAL ATRIAL FIBRILLATION 05/25/2016 GINGER MORA MD Ot E78.2 MIXED HYPERLIPIDEMIA 05/25/2016 ABBY BENITO, GINGER Gandara Ot G47.33 OBSTRUCTIVE SLEEP APNEA (ADULT) (PEDIATR 05/25/2016 GINGER MORA MD Ot I10 ESSENTIAL (PRIMARY) HYPERTENSION 05/25/2016 GINGER MORA MD Ot I48.0 PAROXYSMAL ATRIAL FIBRILLATION 05/25/2016 GINGER MORA MD Ot E78.2 MIXED HYPERLIPIDEMIA 05/25/2016 ABBY BENITO, GINGER Gandara Ot G47.33 OBSTRUCTIVE SLEEP APNEA (ADULT) (PEDIATR 05/25/2016 GINGER MORA MD Ot I10 ESSENTIAL (PRIMARY) HYPERTENSION 05/25/2016 ABBY BENITO, GINGER Gandara Ot I48.0 PAROXYSMAL ATRIAL FIBRILLATION 06/02/2016 MILADYS COUCH MD Ot C50.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 06/02/2016 MILADYS COUCH MD Ot E66.9 OBESITY, UNSPECIFIED 06/02/2016 MILADYS COUCH MD Ot E78.5 HYPERLIPIDEMIA, UNSPECIFIED 06/02/2016 MILADYS COUCH MD Ot F32.9 MAJOR DEPRESSIVE DISORDER, SINGLE EPISOD 06/02/2016 MILADYS COUCH MD Ot I10 ESSENTIAL (PRIMARY) HYPERTENSION 06/02/2016 MILADYS COUCH MD Ot Z17.0 ESTROGEN RECEPTOR POSITIVE STATUS [ER+] 06/02/2016 MILADYS COUCH MD Ot Z68.41 BODY MASS INDEX (BMI) 40.0-44.9, ADULT 06/11/2016 GINGER MORA MD Ot E78.2 MIXED HYPERLIPIDEMIA 06/11/2016 GINGER MORA MD Ot G47.33 OBSTRUCTIVE SLEEP APNEA (ADULT) (PEDIATR 06/11/2016 GINGER MORA MD Ot I10 ESSENTIAL (PRIMARY) HYPERTENSION 06/11/2016 ABBY BENITO, GINGER Gandara Ot I48.0 PAROXYSMAL ATRIAL FIBRILLATION 06/15/2016 MILADYS COUCH MD Ot 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 06/15/2016 MILADYS COUCH MD, Ot 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 06/17/2016 GINGER MORA MD Ot E78.2 MIXED HYPERLIPIDEMIA 06/17/2016 ABBY BENITO, GINGER Gandara Ot G47.33 OBSTRUCTIVE SLEEP APNEA (ADULT) (PEDIATR 06/17/2016 GINGER MORA MD Ot I10 ESSENTIAL (PRIMARY) HYPERTENSION 06/17/2016 GINGER MORA MD Ot I48.0 PAROXYSMAL ATRIAL FIBRILLATION 06/24/2016 MILADYS COUCH MD, Ot 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 07/05/2016 MILADYS COUCH MD Ot C50.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 07/05/2016 MILADYS COUCH MD Ot E66.9 OBESITY, UNSPECIFIED 07/05/2016 MILADYS COUCH MD Ot E78.5 HYPERLIPIDEMIA, UNSPECIFIED 07/05/2016 MILADYS COUCH MD Ot F32.9 MAJOR DEPRESSIVE DISORDER, SINGLE EPISOD 07/05/2016 MILADYS COUCH MD Ot I10 ESSENTIAL (PRIMARY) HYPERTENSION 07/05/2016 MILADYS COUCH MD Ot Z17.0 ESTROGEN RECEPTOR POSITIVE STATUS [ER+] 07/05/2016 MILADYS COUCH MD Ot Z68.41 BODY MASS INDEX (BMI) 40.0-44.9, ADULT 07/07/2016 MILADYS COUCH MD Ot C50.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 07/07/2016 MILADYS COUCH MD Ot E66.9 OBESITY, UNSPECIFIED 07/07/2016 MILADYS COUCH MD Ot E78.5 HYPERLIPIDEMIA, UNSPECIFIED 07/07/2016 MILADYS COUCH MD Ot F32.9 MAJOR DEPRESSIVE DISORDER, SINGLE EPISOD 07/07/2016 MILADYS COUCH MD Ot I10 ESSENTIAL (PRIMARY) HYPERTENSION 07/07/2016 MILADYS COUCH MD Ot Z17.0 ESTROGEN RECEPTOR POSITIVE STATUS [ER+] 07/07/2016 MILADYS COUCH MD Ot Z68.41 BODY MASS INDEX (BMI) 40.0-44.9, ADULT 07/11/2016 MILADYS COUCH MD Ot C50.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 07/11/2016 MILADYS COUCH MD Ot E66.9 OBESITY, UNSPECIFIED 07/11/2016 KHOA BENITO, MILADYS Ot E78.5 HYPERLIPIDEMIA, UNSPECIFIED 07/11/2016 MILADYS COUCH MD Ot F32.9 MAJOR DEPRESSIVE DISORDER, SINGLE EPISOD 07/11/2016 MILADYS COUCH MD Ot I10 ESSENTIAL (PRIMARY) HYPERTENSION 07/11/2016 MILADYS COUCH MD Ot Z17.0 ESTROGEN RECEPTOR POSITIVE STATUS [ER+] 07/11/2016 MILADYS COUCH MD Ot Z68.41 BODY MASS INDEX (BMI) 40.0-44.9, ADULT 07/15/2016 MILADYS COUCH MD Ot C50.411 MALIG NEOPLM OF UPPER-OUTER QUADRANT OF 07/15/2016 MILADYS COUCH MD Ot E66.9 OBESITY, UNSPECIFIED 07/15/2016 MILADYS COUCH MD Ot E78.5 HYPERLIPIDEMIA, UNSPECIFIED 07/15/2016 MILADYS COUCH MD Ot F32.9 MAJOR DEPRESSIVE DISORDER, SINGLE EPISOD 07/15/2016 MILADYS COUCH MD Ot I10 ESSENTIAL (PRIMARY) HYPERTENSION 07/15/2016 MILADYS COUCH MD Ot Z17.0 ESTROGEN RECEPTOR POSITIVE STATUS [ER+] 07/15/2016 MILADYS COUCH MD Ot Z51.0 ENCOUNTER FOR ANTINEOPLASTIC RADIATION T 07/15/2016 MILADYS COUCH MD Ot Z51.11 ENCOUNTER FOR ANTINEOPLASTIC CHEMOTHERAP 07/15/2016 MILADYS COUCH MD Ot Z68.41 BODY MASS INDEX (BMI) 40.0-44.9, ADULT 09/09/2016 MILADYS COUCH MD Ot 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 09/23/2016 MILADYS COUCH MD Ot C50.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 09/23/2016 MILADYS COUCH MD Ot E66.9 OBESITY, UNSPECIFIED 09/23/2016 MILADYS COUCH MD Ot E78.5 HYPERLIPIDEMIA, UNSPECIFIED 09/23/2016 MILADYS COUCH MD Ot F32.9 MAJOR DEPRESSIVE DISORDER, SINGLE EPISOD 09/23/2016 MILADYS COUCH MD Ot I10 ESSENTIAL (PRIMARY) HYPERTENSION 09/23/2016 MILADYS COUCH MD Ot Z17.0 ESTROGEN RECEPTOR POSITIVE STATUS [ER+] 09/23/2016 MILADYS COUCH MD Ot Z45.2 ENCOUNTER FOR ADJUSTMENT AND MANAGEMENT 09/23/2016 MILADYS COUCH MD Ot Z68.41 BODY MASS INDEX (BMI) 40.0-44.9, ADULT 09/23/2016 MILADYS COUCH MD, Ot C50.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 09/23/2016 MILADYS COUCH MD Ot E66.9 OBESITY, UNSPECIFIED 09/23/2016 MILADYS COUCH MD Ot E78.5 HYPERLIPIDEMIA, UNSPECIFIED 09/23/2016 MILADYS COUCH MD Ot F32.9 MAJOR DEPRESSIVE DISORDER, SINGLE EPISOD 09/23/2016 MILADYS COUCH MD Ot I10 ESSENTIAL (PRIMARY) HYPERTENSION 09/23/2016 MILADYS COUCH MD Ot Z17.0 ESTROGEN RECEPTOR POSITIVE STATUS [ER+] 09/23/2016 MILADYS COUCH MD Ot Z45.2 ENCOUNTER FOR ADJUSTMENT AND MANAGEMENT 09/23/2016 MILADYS COUCH MD Ot Z68.41 BODY MASS INDEX (BMI) 40.0-44.9, ADULT 10/25/2016 MILADYS COUCH MD, Ot C50.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 10/25/2016 MILADYS COUCH MD Ot E66.9 OBESITY, UNSPECIFIED 10/25/2016 MILADYS COUCH MD Ot E78.5 HYPERLIPIDEMIA, UNSPECIFIED 10/25/2016 MILADYS COUCH MD Ot F32.9 MAJOR DEPRESSIVE DISORDER, SINGLE EPISOD 10/25/2016 MILADYS COUCH MD Ot I10 ESSENTIAL (PRIMARY) HYPERTENSION 10/25/2016 MILADYS COUCH MD Ot Z17.0 ESTROGEN RECEPTOR POSITIVE STATUS [ER+] 10/25/2016 MILADYS COUCH MD Ot Z45.2 ENCOUNTER FOR ADJUSTMENT AND MANAGEMENT 10/25/2016 MILADYS COUCH MD Ot Z68.41 BODY MASS INDEX (BMI) 40.0-44.9, ADULT 11/15/2016 GINGER MORA MD Ot E78.2 MIXED HYPERLIPIDEMIA 11/15/2016 GINGER MORA MD Ot E78.2 MIXED HYPERLIPIDEMIA 11/15/2016 GINGER MORA MD Ot E78.2 MIXED HYPERLIPIDEMIA 11/15/2016 GINGER MORA MD Ot E78.2 MIXED HYPERLIPIDEMIA 11/16/2016 MILADYS COUCH MD, Ot C50.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 11/16/2016 MILADYS COUCH MD Ot E66.9 OBESITY, UNSPECIFIED 11/16/2016 MILADYS COUCH MD, Ot E78.5 HYPERLIPIDEMIA, UNSPECIFIED 11/16/2016 MILADYS COUCH MD, Ot F32.9 MAJOR DEPRESSIVE DISORDER, SINGLE EPISOD 11/16/2016 MILADYS COUCH MD, Ot I10 ESSENTIAL (PRIMARY) HYPERTENSION 11/16/2016 MILADYS COUCH MD, Ot Z17.0 ESTROGEN RECEPTOR POSITIVE STATUS [ER+] 11/16/2016 MILADYS COUCH MD, Ot Z45.2 ENCOUNTER FOR ADJUSTMENT AND MANAGEMENT 11/16/2016 MILADYS COUCH MD, Ot Z68.41 BODY MASS INDEX (BMI) 40.0-44.9, ADULT 11/23/2016 MARICEL RODRIGEZ Ot G47.33 OBSTRUCTIVE SLEEP APNEA (ADULT) (PEDIATR 11/23/2016 Ot V76.12 OTH SCREEN MAMMO-MALIGN NEOPLASM OF INGRID 11/23/2016 KASSIDY KHOURY APRN Ot 611.72 LUMP OR MASS IN BREAST 11/23/2016 KASSIDY KHOURY 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 Ot 174.9 MALIGN NEOPL BREAST NOS 11/23/2016 MILADYS COUCH MD Ot 174.9 MALIGN NEOPL BREAST NOS 11/23/2016 MILADYS COUCH MD Ot 174.9 MALIGN NEOPL BREAST NOS 11/23/2016 LAVONNE HURTADO DO Ot 174.9 MALIGN NEOPL BREAST NOS 11/23/2016 LAVONNE HURTADO DO Ot V72.83 EXAM PRE-OPERATIVE NEC 11/23/2016 LAVONNE HURTADO DO Ot V74.8 SCREEN-BACTERIAL DIS NEC 11/23/2016 SHERI WAHL ASSEMBLER KNIFE Ot 174.1 MAL JOSE L BREAST-CENTRAL 11/23/2016 SHERI WAHLP Ot V86.0 ESTROGEN RECEPTOR POSITIVE STATUS [ER+] 11/23/2016 MILADYS COUCH MD Ot 174.9 MALIGN NEOPL BREAST NOS 11/23/2016 MILADYS COUCH MD, Ot V58.69 OTH MED,LT,CURRENT USE 11/23/2016 MILADYS COUCH MD Ot V58.83 ENCOUNTER FOR THERAPEUTIC DRUG MONITORIN 11/23/2016 MILADYS COUCH MD Ot 174.9 MALIGN NEOPL BREAST NOS 11/23/2016 MILADYS COUCH MD Ot 174.9 MALIGN NEOPL BREAST NOS 11/23/2016 MILADYS COUCH MD, Ot V58.69 OTH MED,LT,CURRENT USE 11/23/2016 MILADYS COUCH MD Ot V58.83 ENCOUNTER FOR THERAPEUTIC DRUG MONITORIN 11/23/2016 LAVONNE HURTADO DO Ot 174.9 MALIGN NEOPL BREAST NOS 11/23/2016 LAVONNE HURTADO DO Ot V72.84 EXAM PRE-OPERATIVE NOS 11/23/2016 SHERI WAHL Ot C50.911 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 11/23/2016 SHERI WAHLP Ot C77.3 SEC AND UNSP MALIG NEOPLASM OF AXILLA AN 11/23/2016 SHERI WAHL Ot I48.91 UNSPECIFIED ATRIAL FIBRILLATION 11/23/2016 SHERI WAHLP Ot Z17.0 ESTROGEN RECEPTOR POSITIVE STATUS [ER+] 11/23/2016 SHERI WAHLP Ot Z79.899 OTHER FIBERGLASS INSULATION INSTALLER (CURRENT) DRUG THERAPY 11/23/2016 HUGO PEACE Ot E78.5 HYPERLIPIDEMIA, UNSPECIFIED 11/23/2016 HUGO PEACE Ot I10 ESSENTIAL (PRIMARY) HYPERTENSION 11/23/2016 HUGO PEACE Ot I48.91 UNSPECIFIED ATRIAL FIBRILLATION 11/23/2016 HUGO PEACE Ot R06.00 DYSPNEA, UNSPECIFIED 11/23/2016 MILADYS COUCH MD Ot 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 11/23/2016 MILADYS COUCH MD Ot 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 11/23/2016 GINGER MORA MD Ot E78.2 MIXED HYPERLIPIDEMIA 11/23/2016 GINGER MORA MD Ot G47.33 OBSTRUCTIVE SLEEP APNEA (ADULT) (PEDIATR 11/23/2016 GINGER MORA MD Ot I10 ESSENTIAL (PRIMARY) HYPERTENSION 11/23/2016 GINGER MORA MD Ot I48.0 PAROXYSMAL ATRIAL FIBRILLATION 11/23/2016 MILADYS COUCH MD Ot C50.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 11/23/2016 MILADYS COUCH MD, Ot E66.9 OBESITY, UNSPECIFIED 11/23/2016 MILADYS COUCH MD, Ot E78.5 HYPERLIPIDEMIA, UNSPECIFIED 11/23/2016 MILADYS COUCH MD, Ot F32.9 MAJOR DEPRESSIVE DISORDER, SINGLE EPISOD 11/23/2016 MILADYS COUCH MD, Ot I10 ESSENTIAL (PRIMARY) HYPERTENSION 11/23/2016 MILADYS COUCH MD, Ot Z17.0 ESTROGEN RECEPTOR POSITIVE STATUS [ER+] 11/23/2016 MILADYS COUCH MD, Ot Z45.2 ENCOUNTER FOR ADJUSTMENT AND MANAGEMENT 11/23/2016 MILADYS COUCH MD, Ot Z68.41 BODY MASS INDEX (BMI) 40.0-44.9, ADULT 11/23/2016 GINGER MORA MD Ot E78.2 MIXED HYPERLIPIDEMIA 11/23/2016 GINGER MORA MD Ot I10 ESSENTIAL (PRIMARY) HYPERTENSION 11/23/2016 GINGER MORA MD Ot I48.0 PAROXYSMAL ATRIAL FIBRILLATION 11/24/2016 MARICEL RODRIGEZP Ot G47.33 OBSTRUCTIVE SLEEP APNEA (ADULT) (PEDIATR 11/29/2016 MARICEL RODRIGEZP Ot G47.33 OBSTRUCTIVE SLEEP APNEA (ADULT) (PEDIATR 12/07/2016 GINGER MORA MD Ot E78.2 MIXED HYPERLIPIDEMIA 12/07/2016 GINGER MORA MD Ot I10 ESSENTIAL (PRIMARY) HYPERTENSION 12/07/2016 GINGER MORA MD Ot I48.0 PAROXYSMAL ATRIAL FIBRILLATION 12/08/2016 MILADYS COUCH MD, Ot 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 12/09/2016 MILADYS COUCH MD, Ot 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 12/09/2016 MILADYS COUCH MD, Ot 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 12/29/2016 MILADYS COUCH MD, Ot 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 01/06/2017 MILADYS COUCH MD, Ot C50.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 01/06/2017 MILADYS COUCH MD, Ot E66.9 OBESITY, UNSPECIFIED 01/06/2017 MILADYS COUCH MD, Ot E78.5 HYPERLIPIDEMIA, UNSPECIFIED 01/06/2017 MILADYS COUCH MD, Ot F32.9 MAJOR DEPRESSIVE DISORDER, SINGLE EPISOD 01/06/2017 MILADYS COUCH MD, Ot I10 ESSENTIAL (PRIMARY) HYPERTENSION 01/06/2017 MILADYS COUCH MD, Ot Z17.0 ESTROGEN RECEPTOR POSITIVE STATUS [ER+] 01/06/2017 MILADYS COUCH MD, Ot Z45.2 ENCOUNTER FOR ADJUSTMENT AND MANAGEMENT 01/06/2017 MILADYS COUCH MD, Ot Z68.41 BODY MASS INDEX (BMI) 40.0-44.9, ADULT 01/07/2017 Ot V76.12 OTH SCREEN MAMMO-MALIGN NEOPLASM OF INGRID 01/07/2017 KASSIDY KHOURY 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 Ot 611.72 LUMP OR MASS IN BREAST 01/07/2017 KASSIDY KHOURY 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 Ot 174.9 MALIGN NEOPL BREAST NOS 01/07/2017 MILADYS COUCH MD Ot 174.9 MALIGN NEOPL BREAST NOS 01/07/2017 MILADYS COUCH MD Ot 174.9 MALIGN NEOPL BREAST NOS 01/07/2017 LAVONNE HURTADO DO Ot 174.9 MALIGN NEOPL BREAST NOS 01/07/2017 LAVONNE HURTADO DO Ot V72.83 EXAM PRE-OPERATIVE NEC 01/07/2017 LAVONNE HURTADO DO Ot V74.8 SCREEN-BACTERIAL DIS NEC 01/07/2017 SHERI WAHL Ot 174.1 MAL JOSE L BREAST-CENTRAL 01/07/2017 SHERI WAHL Ot V86.0 ESTROGEN RECEPTOR POSITIVE STATUS [ER+] 01/07/2017 MILADYS COUCH MD Ot 174.9 MALIGN NEOPL BREAST NOS 01/07/2017 MILADYS COUCH MD, Ot V58.69 OTH MED,LT,CURRENT USE 01/07/2017 MILADYS COUCH MD Ot V58.83 ENCOUNTER FOR THERAPEUTIC DRUG MONITORIN 01/07/2017 MILADYS COUCH MD Ot 174.9 MALIGN NEOPL BREAST NOS 01/07/2017 MILADYS COUCH MD Ot 174.9 MALIGN NEOPL BREAST NOS 01/07/2017 MILADYS COUCH MD Ot V58.69 OT MED,LT,CURRENT USE 01/07/2017 MILADYS COUCH MD Ot V58.83 ENCOUNTER FOR THERAPEUTIC DRUG MONITORIN 01/07/2017 LAVONNE HURTADO DO Ot 174.9 MALIGN NEOPL BREAST NOS 01/07/2017 LAVONNE HURTADO DO Ot V72.84 EXAM PRE-OPERATIVE NOS 01/07/2017 SHERI WAHLP Ot C50.911 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 01/07/2017 SHERI WAHLP Ot C77.3 SEC AND UNSP MALIG NEOPLASM OF AXILLA AN 01/07/2017 SHERI WAHL ASSEMBLER KNIFE Ot I48.91 UNSPECIFIED ATRIAL FIBRILLATION 01/07/2017 SHERI WAHL ASSEMBLER KNIFE Ot Z17.0 ESTROGEN RECEPTOR POSITIVE STATUS [ER+] 01/07/2017 SHERI WAHL ASSEMBLER KNIFE Ot Z79.899 OTHER HALFWAY (CURRENT) DRUG THERAPY 01/07/2017 HUGO PEACE Ot E78.5 HYPERLIPIDEMIA, UNSPECIFIED 01/07/2017 HUGO PEACE Ot I10 ESSENTIAL (PRIMARY) HYPERTENSION 01/07/2017 HUGO PEACE Ot I48.91 UNSPECIFIED ATRIAL FIBRILLATION 01/07/2017 HUGO PEACE Ot R06.00 DYSPNEA, UNSPECIFIED 01/07/2017 MILADYS COUCH MD Ot 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 01/07/2017 MILADYS COUCH MD Ot 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 01/07/2017 GINGER MORA MD Ot E78.2 MIXED HYPERLIPIDEMIA 01/07/2017 GINGER MORA MD Ot G47.33 OBSTRUCTIVE SLEEP APNEA (ADULT) (PEDIATR 01/07/2017 ABBY MD, BASHAR J Ot I10 ESSENTIAL (PRIMARY) HYPERTENSION 01/07/2017 ABBY BENITO, GINGER Gandara Ot I48.0 PAROXYSMAL ATRIAL FIBRILLATION 01/07/2017 MILADYS COUCH MD Ot C50.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 01/07/2017 MILADYS COUCH MD Ot E66.9 OBESITY, UNSPECIFIED 01/07/2017 MILADYS COUCH MD Ot E78.5 HYPERLIPIDEMIA, UNSPECIFIED 01/07/2017 MILADYS COUCH MD, Ot F32.9 MAJOR DEPRESSIVE DISORDER, SINGLE EPISOD 01/07/2017 MILADYS COUCH MD, Ot I10 ESSENTIAL (PRIMARY) HYPERTENSION 01/07/2017 MILADYS COUCH MD, Ot Z17.0 ESTROGEN RECEPTOR POSITIVE STATUS [ER+] 01/07/2017 MILADYS COUCH MD, Ot Z45.2 ENCOUNTER FOR ADJUSTMENT AND MANAGEMENT 01/07/2017 MILADYS COUCH MD Ot Z68.41 BODY MASS INDEX (BMI) 40.0-44.9, ADULT 01/07/2017 GINGER MORA MD Ot E78.2 MIXED HYPERLIPIDEMIA 01/07/2017 GINGER MORA MD J Ot I10 ESSENTIAL (PRIMARY) HYPERTENSION 01/07/2017 ABBY BENITO, GINGER Gandara Ot I48.0 PAROXYSMAL ATRIAL FIBRILLATION 01/07/2017 MILADYS COUCH MD Ot 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 01/07/2017 JAZMIN WHITING DO Ot I48.91 UNSPECIFIED ATRIAL FIBRILLATION 01/07/2017 JAZMIN WHITING DO Ot Z08 ENCNTR FOR FOLLOW-UP EXAM AFTER TRTMT FO 01/07/2017 JAZMIN WHITING DO Ot Z85.3 PERSONAL HISTORY OF MALIGNANT NEOPLASM O 01/11/2017 JAZMIN WHITING DO Ot I48.91 UNSPECIFIED ATRIAL FIBRILLATION 01/11/2017 JAZMIN WHITING DO Ot Z08 ENCNTR FOR FOLLOW-UP EXAM AFTER TRTMT FO 01/11/2017 JAZMIN WHITING DO Ot Z85.3 PERSONAL HISTORY OF MALIGNANT NEOPLASM O 01/13/2017 MILADYS COUCH MD Ot 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 01/13/2017 MILADYS COUCH MD, Ot 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 01/21/2017 MILADYS COUCH MD, Ot C50.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 01/21/2017 MILADYS COUCH MD, Ot E66.9 OBESITY, UNSPECIFIED 01/21/2017 MILADYS COUCH MD Ot E78.5 HYPERLIPIDEMIA, UNSPECIFIED 01/21/2017 MILADYS COUCH MD, Ot F32.9 MAJOR DEPRESSIVE DISORDER, SINGLE EPISOD 01/21/2017 MILADYS COUCH MD Ot I10 ESSENTIAL (PRIMARY) HYPERTENSION 01/21/2017 MILADYS COUCH MD, Ot Z17.0 ESTROGEN RECEPTOR POSITIVE STATUS [ER+] 01/21/2017 MILADYS COUCH MD, Ot Z45.2 ENCOUNTER FOR ADJUSTMENT AND MANAGEMENT 01/21/2017 MILADYS COUCH MD, Ot Z68.41 BODY MASS INDEX (BMI) 40.0-44.9, ADULT 02/13/2017 MILADYS COUCH MD, Ot C50.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 02/13/2017 MILADYS COUCH MD, Ot E66.9 OBESITY, UNSPECIFIED 02/13/2017 MILADYS COUCH MD, Ot E78.5 HYPERLIPIDEMIA, UNSPECIFIED 02/13/2017 MILADYS COUCH MD, Ot F32.9 MAJOR DEPRESSIVE DISORDER, SINGLE EPISOD 02/13/2017 MILADYS COUCH MD, Ot I10 ESSENTIAL (PRIMARY) HYPERTENSION 02/13/2017 MILADYS COUCH MD, Ot Z17.0 ESTROGEN RECEPTOR POSITIVE STATUS [ER+] 02/13/2017 MILADYS COUCH MD, Ot Z45.2 ENCOUNTER FOR ADJUSTMENT AND MANAGEMENT 02/13/2017 MILADYS COUCH MD, Ot Z68.41 BODY MASS INDEX (BMI) 40.0-44.9, ADULT 03/18/2017 MILADYS COUCH MD, Ot C50.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 03/18/2017 MILADYS COUCH MD, Ot E66.9 OBESITY, UNSPECIFIED 03/18/2017 MILADYS COUCH MD, Ot E78.5 HYPERLIPIDEMIA, UNSPECIFIED 03/18/2017 MILADYS COUCH MD Ot F32.9 MAJOR DEPRESSIVE DISORDER, SINGLE EPISOD 03/18/2017 MILADYS COUCH MD Ot I10 ESSENTIAL (PRIMARY) HYPERTENSION 03/18/2017 XUN MD, STROUD-ETTA Ot Z17.0 ESTROGEN RECEPTOR POSITIVE STATUS [ER+] 03/18/2017 MILADYS COUCH MD, Ot Z45.2 ENCOUNTER FOR ADJUSTMENT AND MANAGEMENT 03/18/2017 MILADYS COUCH MD, Ot Z68.41 BODY MASS INDEX (BMI) 40.0-44.9, ADULT 03/22/2017 MILADYS COUCH MD, Ot C50.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 03/22/2017 MILADYS COUCH MD Ot E66.9 OBESITY, UNSPECIFIED 03/22/2017 MILADYS COUCH MD Ot E78.5 HYPERLIPIDEMIA, UNSPECIFIED 03/22/2017 MILADYS COUCH MD Ot F32.9 MAJOR DEPRESSIVE DISORDER, SINGLE EPISOD 03/22/2017 MILADYS COUCH MD, Ot I10 ESSENTIAL (PRIMARY) HYPERTENSION 03/22/2017 MILADYS COUCH MD, Ot Z17.0 ESTROGEN RECEPTOR POSITIVE STATUS [ER+] 03/22/2017 MILADYS COUCH MD, Ot Z45.2 ENCOUNTER FOR ADJUSTMENT AND MANAGEMENT 03/22/2017 MILADYS COUCH MD, Ot Z68.41 BODY MASS INDEX (BMI) 40.0-44.9, ADULT 03/22/2017 MILADYS COUCH MD, Ot C50.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 03/22/2017 MILADYS COUCH MD, Ot E66.9 OBESITY, UNSPECIFIED 03/22/2017 MILADYS COUCH MD Ot E78.5 HYPERLIPIDEMIA, UNSPECIFIED 03/22/2017 MILADYS COUCH MD, Ot F32.9 MAJOR DEPRESSIVE DISORDER, SINGLE EPISOD 03/22/2017 MILADYS COUCH MD Ot I10 ESSENTIAL (PRIMARY) HYPERTENSION 03/22/2017 MILADYS COUCH MD Ot Z17.0 ESTROGEN RECEPTOR POSITIVE STATUS [ER+] 03/22/2017 MILADYS COUCH MD, Ot Z45.2 ENCOUNTER FOR ADJUSTMENT AND MANAGEMENT 03/22/2017 MILADYS COUCH MD, Ot Z68.41 BODY MASS INDEX (BMI) 40.0-44.9, ADULT 03/24/2017 GINGER MORA MD Ot E78.2 MIXED HYPERLIPIDEMIA 03/24/2017 GINGER MORA MD Ot I10 ESSENTIAL (PRIMARY) HYPERTENSION 03/24/2017 GINGER MORA MD Ot I48.0 PAROXYSMAL ATRIAL FIBRILLATION 04/01/2017 MILADYS COUCH MD, Ot C50.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 04/01/2017 MILADYS COUCH MD Ot E66.9 OBESITY, UNSPECIFIED 04/01/2017 MILADYS COUCH MD Ot E78.5 HYPERLIPIDEMIA, UNSPECIFIED 04/01/2017 MILADYS COUCH MD Ot F32.9 MAJOR DEPRESSIVE DISORDER, SINGLE EPISOD 04/01/2017 MILADYS CUOCH MD Ot I10 ESSENTIAL (PRIMARY) HYPERTENSION 04/01/2017 MILADYS COUCH MD Ot Z17.0 ESTROGEN RECEPTOR POSITIVE STATUS [ER+] 04/01/2017 MILADYS COUCH MD, Ot Z68.41 BODY MASS INDEX (BMI) 40.0-44.9, ADULT 04/01/2017 MILADYS COUCH MD, Ot Z79.899 OTHER HALFWAY (CURRENT) DRUG THERAPY 04/22/2017 MILADYS COUCH MD, Ot C50.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 04/22/2017 MILADYS COUCH MD Ot E66.9 OBESITY, UNSPECIFIED 04/22/2017 MILADYS COUCH MD Ot E78.5 HYPERLIPIDEMIA, UNSPECIFIED 04/22/2017 MILADYS COUCH MD, Ot F32.9 MAJOR DEPRESSIVE DISORDER, SINGLE EPISOD 04/22/2017 MILADYS COUCH MD Ot I10 ESSENTIAL (PRIMARY) HYPERTENSION 04/22/2017 MILADYS COUCH MD Ot Z17.0 ESTROGEN RECEPTOR POSITIVE STATUS [ER+] 04/22/2017 MILADYS COUCH MD Ot Z68.41 BODY MASS INDEX (BMI) 40.0-44.9, ADULT 04/22/2017 MILADYS COUCH MD, Ot Z79.899 OTHER HALFWAY (CURRENT) DRUG THERAPY 04/30/2017 TOR BOLDEN MD Ot E66.9 OBESITY, UNSPECIFIED 04/30/2017 TOR BOLDEN MD Ot E78.5 HYPERLIPIDEMIA, UNSPECIFIED 04/30/2017 TOR BOLDEN MD Ot F32.9 MAJOR DEPRESSIVE DISORDER, SINGLE EPISOD 04/30/2017 TOR BOLDEN MD Ot F41.9 ANXIETY DISORDER, UNSPECIFIED 04/30/2017 TOR BOLDEN MD Ot G47.30 SLEEP APNEA, UNSPECIFIED 04/30/2017 TOR BOLDEN MD, Ot I10 ESSENTIAL (PRIMARY) HYPERTENSION 04/30/2017 TOR BOLDEN MD, Ot I25.10 ATHSCL HEART DISEASE OF [place] CORONARY 04/30/2017 TOR BOLDEN MD, Ot I48.0 PAROXYSMAL ATRIAL FIBRILLATION 04/30/2017 TOR BOLDEN MD, Ot K21.9 GASTRO-ESOPHAGEAL REFLUX DISEASE WITHOUT 04/30/2017 TOR BOLDEN MD, Ot Z68.39 BODY MASS INDEX (BMI) 39.0-39.9, ADULT 04/30/2017 TOR BOLDEN MD, Ot Z85.3 PERSONAL HISTORY OF MALIGNANT NEOPLASM O 04/30/2017 TOR BOLDEN MD, Ot Z87.891 PERSONAL HISTORY OF NICOTINE DEPENDENCE 04/30/2017 TOR BOLDEN MD, Ot Z95.5 PRESENCE OF CORONARY ANGIOPLASTY IMPLANT 05/02/2017 MILADYS COUCH MD, Ot C50.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 05/02/2017 MILADYS COUCH MD, Ot E66.9 OBESITY, UNSPECIFIED 05/02/2017 MILADYS COUCH MD Ot E78.5 HYPERLIPIDEMIA, UNSPECIFIED 05/02/2017 MILADYS COUCH MD, Ot F32.9 MAJOR DEPRESSIVE DISORDER, SINGLE EPISOD 05/02/2017 MILADYS COUCH MD, Ot I10 ESSENTIAL (PRIMARY) HYPERTENSION 05/02/2017 MILADYS COUCH MD, Ot Z17.0 ESTROGEN RECEPTOR POSITIVE STATUS [ER+] 05/02/2017 MILADYS COUCH MD, Ot Z68.41 BODY MASS INDEX (BMI) 40.0-44.9, ADULT 05/02/2017 MILADYS COUCH MD, Ot Z79.899 OTHER HALFWAY (CURRENT) DRUG THERAPY 05/02/2017 MILADYS COUCH MD, Ot C50.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 05/02/2017 MILADYS COUCH MD, Ot E66.9 OBESITY, UNSPECIFIED 05/02/2017 MILADYS COUCH MD, Ot E78.5 HYPERLIPIDEMIA, UNSPECIFIED 05/02/2017 MILADYS COUCH MD, Ot F32.9 MAJOR DEPRESSIVE DISORDER, SINGLE EPISOD 05/02/2017 MILADYS COUCH MD, Ot I10 ESSENTIAL (PRIMARY) HYPERTENSION 05/02/2017 MILADYS COUCH MD Ot Z17.0 ESTROGEN RECEPTOR POSITIVE STATUS [ER+] 05/02/2017 MILADYS COUCH MD Ot Z68.41 BODY MASS INDEX (BMI) 40.0-44.9, ADULT 05/02/2017 MILADYS COUCH MD Ot Z79.899 OTHER FIBERGLASS INSULATION INSTALLER (CURRENT) DRUG THERAPY 05/23/2017 MILADYS COUCH MD Ot C50.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 05/23/2017 MLIADYS COUCH MD Ot E66.9 OBESITY, UNSPECIFIED 05/23/2017 KHOA BENITO, MILADYS Ot E78.5 HYPERLIPIDEMIA, UNSPECIFIED 05/23/2017 MILADYS COUCH MD Ot F32.9 MAJOR DEPRESSIVE DISORDER, SINGLE EPISOD 05/23/2017 MILADYS COUCH MD Ot I10 ESSENTIAL (PRIMARY) HYPERTENSION 05/23/2017 MILADYS COUCH MD Ot Z17.0 ESTROGEN RECEPTOR POSITIVE STATUS [ER+] 05/23/2017 MILADYS COUCH MD Ot Z68.41 BODY MASS INDEX (BMI) 40.0-44.9, ADULT 05/23/2017 MILADYS COUCH MD Ot Z79.899 OTHER HALFWAY (CURRENT) DRUG THERAPY 06/10/2017 HUGO PEACE Ot E78.2 MIXED HYPERLIPIDEMIA 06/19/2017 MILADYS COUCH MD Ot C50.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 06/19/2017 MILADYS COUCH MD Ot E66.9 OBESITY, UNSPECIFIED 06/19/2017 MILADYS COUCH MD Ot E78.5 HYPERLIPIDEMIA, UNSPECIFIED 06/19/2017 MILADYS COUCH MD Ot F32.9 MAJOR DEPRESSIVE DISORDER, SINGLE EPISOD 06/19/2017 MILADYS COUCH MD Ot I10 ESSENTIAL (PRIMARY) HYPERTENSION 06/19/2017 MILADYS COUCH MD Ot Z17.0 ESTROGEN RECEPTOR POSITIVE STATUS [ER+] 06/19/2017 MILADYS COUCH MD Ot Z68.41 BODY MASS INDEX (BMI) 40.0-44.9, ADULT 06/19/2017 MILADYS COUCH MD Ot Z79.899 OTHER HALFWAY (CURRENT) DRUG THERAPY 06/20/2017 HUGO PEACE Ot E78.2 MIXED HYPERLIPIDEMIA 06/20/2017 MILADYS COUCH MD Ot C50.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 06/20/2017 MILADYS COUCH MD, Ot E66.9 OBESITY, UNSPECIFIED 06/20/2017 MILADYS COUCH MD, Ot E78.5 HYPERLIPIDEMIA, UNSPECIFIED 06/20/2017 MILADYS COUCH MD Ot F32.9 MAJOR DEPRESSIVE DISORDER, SINGLE EPISOD 06/20/2017 MILADYS COUCH MD Ot I10 ESSENTIAL (PRIMARY) HYPERTENSION 06/20/2017 MILADYS COUCH MD, Ot Z17.0 ESTROGEN RECEPTOR POSITIVE STATUS [ER+] 06/20/2017 MILADYS COUCH MD, Ot Z68.41 BODY MASS INDEX (BMI) 40.0-44.9, ADULT 06/20/2017 MILADYS COUCH MD, Ot Z79.899 OTHER FIBERGLASS INSULATION INSTALLER (CURRENT) DRUG THERAPY 08/26/2017 HUGO PEACE Ot E78.2 MIXED HYPERLIPIDEMIA 08/26/2017 HUGO PEACE Ot I10 ESSENTIAL (PRIMARY) HYPERTENSION 08/26/2017 HUGO PEACE Ot I25.10 ATHSCL HEART DISEASE OF [place] CORONARY 08/26/2017 HUGO PEACE Ot I48.0 PAROXYSMAL ATRIAL FIBRILLATION 08/31/2017 GINGER MORA MD Ot D64.9 ANEMIA, UNSPECIFIED 08/31/2017 GINGER MORA MD Ot E66.01 MORBID (SEVERE) OBESITY DUE TO EXCESS CA 08/31/2017 GINGER MORA MD Ot E78.5 HYPERLIPIDEMIA, UNSPECIFIED 08/31/2017 GINGER MORA MD Ot G47.30 SLEEP APNEA, UNSPECIFIED 08/31/2017 GINGER MORA MD Ot I10 ESSENTIAL (PRIMARY) HYPERTENSION 08/31/2017 GINGER MORA MD Ot I25.10 ATHSCL HEART DISEASE OF [place] CORONARY 08/31/2017 GINGER MORA MD Ot I48.0 PAROXYSMAL ATRIAL FIBRILLATION 08/31/2017 GINGER MORA MD Ot 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 08/31/2017 GINGER MORA MD Ot Z68.41 BODY MASS INDEX (BMI) 40.0-44.9, ADULT 08/31/2017 GINGER MORA MD Ot Z79.01 HALFWAY (CURRENT) USE OF ANTICOAGULANT 08/31/2017 GINGER MORA MD Ot Z79.82 FIBERGLASS INSULATION INSTALLER (CURRENT) USE OF ASPIRIN 08/31/2017 GINGER MORA MD Ot Z79.899 OTHER HALFWAY (CURRENT) DRUG THERAPY 08/31/2017 GINGER MORA MD Ot Z85.3 PERSONAL HISTORY OF MALIGNANT NEOPLASM O 08/31/2017 GINGER MORA MD Ot Z87.891 PERSONAL HISTORY OF NICOTINE DEPENDENCE 09/05/2017 GINGER MORA MD Ot D64.9 ANEMIA, UNSPECIFIED 09/05/2017 GINGER MORA MD Ot E66.01 MORBID (SEVERE) OBESITY DUE TO EXCESS CA 09/05/2017 GINGER MORA MD Ot E78.5 HYPERLIPIDEMIA, UNSPECIFIED 09/05/2017 GINGER MORA MD Ot G47.30 SLEEP APNEA, UNSPECIFIED 09/05/2017 GINGER MORA MD Ot I10 ESSENTIAL (PRIMARY) HYPERTENSION 09/05/2017 GINGER MORA MD Ot I25.10 ATHSCL HEART DISEASE OF [place] CORONARY 09/05/2017 GINGER MORA MD Ot I48.0 PAROXYSMAL ATRIAL FIBRILLATION 09/05/2017 GINGER MORA MD Ot 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 09/05/2017 GINGER MORA MD Ot Z68.41 BODY MASS INDEX (BMI) 40.0-44.9, ADULT 09/05/2017 GINGER MORA MD Ot Z79.01 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 09/05/2017 GINGER MORA MD Ot Z79.82 HALFWAY (CURRENT) USE OF ASPIRIN 09/05/2017 GINGER MORA MD, Ot Z79.899 OTHER HALFWAY (CURRENT) DRUG THERAPY 09/05/2017 GINGER MORA MD Ot Z85.3 PERSONAL HISTORY OF MALIGNANT NEOPLASM O 09/05/2017 GINGER MORA MD, Ot Z87.891 PERSONAL HISTORY OF NICOTINE DEPENDENCE 09/08/2017 MILADYS COUCH MD Ot C50.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 09/08/2017 MILADYS COUCH MD Ot E66.9 OBESITY, UNSPECIFIED 09/08/2017 MILADYS COUCH MD Ot E78.5 HYPERLIPIDEMIA, UNSPECIFIED 09/08/2017 MILADYS COUCH MD Ot F32.9 MAJOR DEPRESSIVE DISORDER, SINGLE EPISOD 09/08/2017 MILADYS COUCH MD Ot I10 ESSENTIAL (PRIMARY) HYPERTENSION 09/08/2017 MILADYS COUCH MD Ot Z17.0 ESTROGEN RECEPTOR POSITIVE STATUS [ER+] 09/08/2017 MILADYS COUCH MD Ot Z68.41 BODY MASS INDEX (BMI) 40.0-44.9, ADULT 09/08/2017 MILADYS COUCH MD Ot Z79.899 OTHER FIBERGLASS INSULATION INSTALLER (CURRENT) DRUG THERAPY 09/13/2017 HUGO PEACE K Ot E78.2 MIXED HYPERLIPIDEMIA 09/13/2017 JOSÉ PUGA HUGO K Ot I10 ESSENTIAL (PRIMARY) HYPERTENSION 09/13/2017 JOAO PEACEDITH K Ot I25.10 ATHSCL HEART DISEASE OF [place] CORONARY 09/13/2017 JOSÉ PUGA HUGO K Ot I48.0 PAROXYSMAL ATRIAL FIBRILLATION 09/14/2017 JOSÉ PUGA HUGO K Ot E78.2 MIXED HYPERLIPIDEMIA 09/14/2017 JOSÉ PUGA HUGO K Ot I10 ESSENTIAL (PRIMARY) HYPERTENSION 09/14/2017 JOSÉ PUGA HUGO K Ot I25.10 ATHSCL HEART DISEASE OF [place] CORONARY 09/14/2017 JOSÉ PUGA HUGO K Ot I48.0 PAROXYSMAL ATRIAL FIBRILLATION 09/23/2017 JOSÉ PUGA HUGO K Ot E78.2 MIXED HYPERLIPIDEMIA 09/23/2017 JOSÉ PUGA, HUGO K Ot I10 ESSENTIAL (PRIMARY) HYPERTENSION 09/23/2017 JOSÉ PUGA HUGO K Ot I25.10 ATHSCL HEART DISEASE OF [place] CORONARY 09/23/2017 JOSÉ PUGA HUGO K Ot I48.0 PAROXYSMAL ATRIAL FIBRILLATION 09/23/2017 JOSÉ PUGA HUGO K Ot E78.2 MIXED HYPERLIPIDEMIA 09/23/2017 JOSÉ PUGA, HUGO K Ot I10 ESSENTIAL (PRIMARY) HYPERTENSION 09/23/2017 JOSÉ PUGA HUGO K Ot I25.10 ATHSCL HEART DISEASE OF [place] CORONARY 09/23/2017 HUGO PEACE Ot I48.0 PAROXYSMAL ATRIAL FIBRILLATION Procedures Code Description [place] [id number] H PYLORI (IN-HOUSE) 10/02/2012 [id number] ROUTINE VENIPUNCTURE 11/13/2012 17415 CBC 11/13/2012 44112 LIPID PANEL 11/13/2012 38081 CMP 11/13/2012 [id number] GFR CALC (RESULT ONLY) 11/13/2012 97126 TSH 11/13/2012 55409 CERUMEN REMOVAL 01/23/2013 51540 STREP A (IN-HOUSE) 03/01/2013 24265 ROUTINE VENIPUNCTURE 03/14/2013 37425 A1C (IN-HOUSE) 03/14/2013 35853 CBC 03/14/2013 39617 CMP 03/14/2013 67739 LIPID PANEL 03/14/2013 11859 VITAMIN D 25-HYDROXY (D2,D3 , TOTAL) 03/14/2013 55667 TSH 03/14/2013 34867 ROUTINE VENIPUNCTURE 07/16/2013 82038 A1C (IN-HOUSE) 07/16/2013 27595 ROUTINE VENIPUNCTURE 04/15/2014 37284 VITAMIN D 25-HYDROXY (D2,D3 , TOTAL) 04/15/2014 13498 TSH 04/15/2014 11235 CBC 04/15/2014 18474 CMP 04/15/2014 70758 LIPID PANEL 04/15/2014 [id number] GFR CALC (RESULT ONLY) 04/15/2014 60589 ROUTINE VENIPUNCTURE 10/07/2014 43080 CPK 10/07/2014 13293 A1C (RML) 10/07/2014 18455 MYOGLOBIN 10/07/2014 54302 TSH 10/07/2014 91432 CRP 10/07/2014 70979 CBC 10/07/2014 [id number] GFR CALC (RESULT ONLY) 10/07/2014 25952 CMP 10/07/2014 25904 LIPID PANEL 10/07/2014 28081 US GUIDE FOR BIOPSY 12/18/2014 MEDICAL O VIA [facility], 12/26/2014 Results Test Result Range Liver function panel (serum or plasma alk phos, alb, total and direct bili, total protein, ALT, AST) - 05/18/16 10:10 Serum or plasma total bilirubin measurement (mass/volume) 0.3 mg/dL 0.1-1.0 Serum or plasma alkaline phosphatase measurement (enzymatic activity/volume) 104 U/L 40-136 Serum or plasma aspartate aminotransferase measurement (enzymatic activity/ volume) 13 U/L 5-34 Serum or plasma alanine aminotransferase measurement (enzymatic activity/volume ) 16 U/L 0-55 Serum or plasma protein measurement (mass/volume) 7.4 g/dL 6.4-8.2 Serum or plasma albumin measurement (mass/volume) 4.4 g/dL 3.2-4.5 Bilirubin direct 0.1 mg/dL 0.0-0.3 Serum or plasma indirect bilirubin measurement (mass/volume) 0.2 mg/ dL [facility] Lipid 1996 panel - 05/18/16 10:10 Serum or plasma triglyceride measurement (mass/volume) 104 mg/dL <150 Serum or plasma cholesterol measurement (mass/volume) 197 mg/dL < 200 Serum or plasma cholesterol in HDL measurement (mass/volume) 57 mg/ dL 40-60 Cholesterol in LDL [mass/volume] in serum or plasma by direct assay 117 mg/dL 1-129 Serum or plasma cholesterol in VLDL measurement (mass/volume) 21 mg/ dL 5-40 Methicillin resistant Staphylococcus aureus (MRSA) screening culture - 08:30 Methicillin resistant Staphylococcus aureus (MRSA) screening culture NEG [facility] Complete blood count (CBC) with automated white blood cell (WBC) differential - 04/29/17 13:35 Blood leukocytes automated count (number/volume) 8.0 10*3/uL 4.3-11.0 Blood erythrocytes automated count (number/volume) 4.33 10*6/uL 4.35-5.85 Venous blood hemoglobin measurement (mass/volume) 12.1 g/dL 11.5-16.0 Blood hematocrit (volume fraction) 38 % 35-52 Automated erythrocyte mean corpuscular volume 88 [foz_us] 80-99 Automated erythrocyte mean corpuscular hemoglobin (mass per erythrocyte) 28 pg 25-34 Automated erythrocyte mean corpuscular hemoglobin concentration measurement ( mass/volume) 32 g/dL 32-36 Automated erythrocyte distribution width ratio 14.1 % 10.0-14.5 Automated blood platelet count (count/volume) 201 10*3/uL 130-400 Automated blood platelet mean volume measurement 11.1 [foz_us] 7.4-10.4 Automated blood neutrophils/100 leukocytes 76 % 42-75 Automated blood lymphocytes/100 leukocytes 15 % 12-44 Blood monocytes/100 leukocytes 7 % 0-12 Automated blood eosinophils/100 leukocytes 2 % 0-10 Automated blood basophils/100 leukocytes 0 % 0-10 Blood neutrophils automated count (number/volume) 6.1 10*3 1.8-7.8 Blood lymphocytes automated count (number/volume) 1.2 10*3 1.0-4.0 Blood monocytes automated count (number/volume) 0.5 10*3 0.0-1.0 Automated eosinophil count 0.1 10*3/uL 0.0-0.3 Automated blood basophil count (count/volume) 0.0 10*3/uL 0.0-0.1 Comprehensive metabolic panel - 04/29/17 13:35 Serum or plasma sodium measurement (moles/volume) 142 mmol/L 135-145 Serum or plasma potassium measurement (moles/volume) 3.5 mmol/L 3.6-5.0 Serum or plasma chloride measurement (moles/volume) 106 mmol/L 98-107 Carbon dioxide 21 mmol/L 21-32 Serum or plasma anion gap determination (moles/volume) 15 mmol/L 5-14 Serum or plasma urea nitrogen measurement (mass/volume) 27 mg/dL 7-18 Serum or plasma creatinine measurement (mass/volume) 0.77 mg/dL 0.60-1.30 Serum or plasma urea nitrogen/creatinine mass ratio 35 NRG Serum or plasma creatinine measurement with calculation of estimated glomerular filtration rate > NRG Serum or plasma glucose measurement (mass/volume) 96 mg/dL 70-105 Serum or plasma calcium measurement (mass/volume) 10.3 mg/dL 8.5-10.1 Serum or plasma total bilirubin measurement (mass/volume) 0.5 mg/dL 0.1-1.0 Serum or plasma alkaline phosphatase measurement (enzymatic activity/volume) 105 U/L 40-136 Serum or plasma aspartate aminotransferase measurement (enzymatic activity/ volume) 14 U/L 5-34 Serum or plasma alanine aminotransferase measurement (enzymatic activity/volume ) 14 U/L 0-55 Serum or plasma protein measurement (mass/volume) 7.5 g/dL 6.4-8.2 Serum or plasma albumin measurement (mass/volume) 4.5 g/dL 3.2-4.5 Magnesium - 04/29/17 13:35 Magnesium 1.6 mg/dL 1.8-2.4 PT panel in platelet poor plasma by coagulation assay - 04/29/17 13:35 Prothrombin time (PT) in platelet poor plasma by coagulation assay 12.3 s 12.2-14.7 INR in platelet poor plasma or blood by coagulation assay 0.9 0.8-1.4 Activated partial thromboplastin time (aPTT) in platelet poor plasma bycoagulation assay - 04/29/17 13:35 Activated partial thromboplastin time (aPTT) in platelet poor plasma bycoagulation assay 31 s 24-35 Serum or plasma troponin i.cardiac measurement (mass/volume) - 04/29/17 13:35 Serum or plasma troponin i.cardiac measurement (mass/volume) < ng/ mL <0.30 Serum or plasma lithium measurement (moles/volume) - 04/29/17 13:35 BNP level 112.6 pg/mL <100.0 Serum or plasma troponin i.cardiac measurement (mass/volume) - 04/29/17 19:54 Serum or plasma troponin i.cardiac measurement (mass/volume) < ng/ mL <0.30 Serum or plasma troponin i.cardiac measurement (mass/volume) - 04/30/17 01:41 Serum or plasma troponin i.cardiac measurement (mass/volume) < ng/ mL <0.30 Complete blood count (CBC) with automated white blood cell (WBC) differential - 04/30/17 03:21 Blood leukocytes automated count (number/volume) 5.7 10*3/uL 4.3-11.0 Blood erythrocytes automated count (number/volume) 4.03 10*6/uL 4.35-5.85 Venous blood hemoglobin measurement (mass/volume) 11.4 g/dL 11.5-16.0 Blood hematocrit (volume fraction) 35 % 35-52 Automated erythrocyte mean corpuscular volume 88 [foz_us] 80-99 Automated erythrocyte mean corpuscular hemoglobin (mass per erythrocyte) 28 pg 25-34 Automated erythrocyte mean corpuscular hemoglobin concentration measurement ( mass/volume) 32 g/dL 32-36 Automated erythrocyte distribution width ratio 13.9 % 10.0-14.5 Automated blood platelet count (count/volume) 189 10*3/uL 130-400 Automated blood platelet mean volume measurement 11.1 [foz_us] 7.4-10.4 Automated blood neutrophils/100 leukocytes 72 % 42-75 Automated blood lymphocytes/100 leukocytes 19 % 12-44 Blood monocytes/100 leukocytes 7 % 0-12 Automated blood eosinophils/100 leukocytes 2 % 0-10 Automated blood basophils/100 leukocytes 1 % 0-10 Blood neutrophils automated count (number/volume) 4.1 10*3 1.8-7.8 Blood lymphocytes automated count (number/volume) 1.1 10*3 1.0-4.0 Blood monocytes automated count (number/volume) 0.4 10*3 0.0-1.0 Automated eosinophil count 0.1 10*3/uL 0.0-0.3 Automated blood basophil count (count/volume) 0.0 10*3/uL 0.0-0.1 Comprehensive metabolic panel - 04/30/17 03:21 Serum or plasma sodium measurement (moles/volume) 141 mmol/L 135-145 Serum or plasma potassium measurement (moles/volume) 3.8 mmol/L 3.6-5.0 Serum or plasma chloride measurement (moles/volume) 107 mmol/L 98-107 Carbon dioxide 22 mmol/L 21-32 Serum or plasma anion gap determination (moles/volume) 12 mmol/L 5-14 Serum or plasma urea nitrogen measurement (mass/volume) 22 mg/dL 7-18 Serum or plasma creatinine measurement (mass/volume) 0.64 mg/dL 0.60-1.30 Serum or plasma urea nitrogen/creatinine mass ratio 34 NRG Serum or plasma creatinine measurement with calculation of estimated glomerular filtration rate > NRG Serum or plasma glucose measurement (mass/volume) 97 mg/dL 70-105 Serum or plasma calcium measurement (mass/volume) 9.8 mg/dL 8.5-10.1 Serum or plasma total bilirubin measurement (mass/volume) 0.5 mg/dL 0.1-1.0 Serum or plasma alkaline phosphatase measurement (enzymatic activity/volume) 93 U/L 40-136 Serum or plasma aspartate aminotransferase measurement (enzymatic activity/ volume) 13 U/L 5-34 Serum or plasma alanine aminotransferase measurement (enzymatic activity/volume ) 14 U/L 0-55 Serum or plasma protein measurement (mass/volume) 6.8 g/dL 6.4-8.2 Serum or plasma albumin measurement (mass/volume) 3.9 g/dL 3.2-4.5 Magnesium - 04/30/17 03:21 Magnesium 1.9 mg/dL 1.8-2.4 Lipid 1996 panel - 04/30/17 03:21 Serum or plasma triglyceride measurement (mass/volume) 71 mg/dL <150 Serum or plasma cholesterol measurement (mass/volume) 189 mg/dL < 200 Serum or plasma cholesterol in HDL measurement (mass/volume) 59 mg/ dL 40-60 Cholesterol in LDL [mass/volume] in serum or plasma by direct assay 110 mg/dL 1-129 Serum or plasma cholesterol in VLDL measurement (mass/volume) 14 mg/ dL 5-40 Complete urinalysis with reflex to culture - 08/31/17 08:06 Urine color determination YELLOW NRG Urine clarity determination CLEAR NRG Urine pH measurement by test strip 6 5-9 Specific gravity of urine by test strip 1.015 1.016- 1.022 Urine protein assay by test strip, semi-quantitative NEGATIVE NEGATIVE Urine glucose detection by automated test strip NEGATIVE NEGATIVE Erythrocytes detection in urine sediment by light microscopy NEGATIVE NEGATIVE Urine ketones detection by automated test strip NEGATIVE NEGATIVE Urine nitrite detection by test strip NEGATIVE NEGATIVE Urine total bilirubin detection by test strip NEGATIVE NEGATIVE Urine urobilinogen measurement by automated test strip (mass/volume) NORMAL NORMAL Urine leukocyte esterase detection by dipstick 1+ NEGATIVE Automated urine sediment erythrocyte count by microscopy (number/high power field) NONE NRG Automated urine sediment leukocyte count by microscopy (number/high power field ) RARE NRG Bacteria detection in urine sediment by light microscopy NEGATIVE NRG Squamous epithelial cells detection in urine sediment by light microscopy RARE NRG Crystals detection in urine sediment by light microscopy NONE NRG Casts detection in urine sediment by light microscopy NONE NRG Mucus detection in urine sediment by light microscopy NEGATIVE NRG Complete urinalysis with reflex to culture NO NRG Automated blood complete blood count (hemogram) panel - 08/31/17 08:16 Blood leukocytes automated count (number/volume) 7.1 10*3/uL 4.3-11.0 Blood erythrocytes automated count (number/volume) 4.36 10*6/uL 4.35-5.85 Venous blood hemoglobin measurement (mass/volume) 12.2 g/dL 11.5-16.0 Blood hematocrit (volume fraction) 37 % 35-52 Automated erythrocyte mean corpuscular volume 86 [foz_us] 80-99 Automated erythrocyte mean corpuscular hemoglobin (mass per erythrocyte) 28 pg 25-34 Automated erythrocyte mean corpuscular hemoglobin concentration measurement ( mass/volume) 33 g/dL 32-36 Automated erythrocyte distribution width ratio 14.0 % 10.0-14.5 Automated blood platelet count (count/volume) 214 10*3/uL 130-400 Automated blood platelet mean volume measurement 10.7 [foz_us] 7.4-10.4 PT panel in platelet poor plasma by coagulation assay - 08/31/17 08:16 Prothrombin time (PT) in platelet poor plasma by coagulation assay 11.6 s 12.2-14.7 INR in platelet poor plasma or blood by coagulation assay 0.8 0.8-1.4 Activated partial thromboplastin time (aPTT) in platelet poor plasma bycoagulation assay - 08/31/17 08:16 Activated partial thromboplastin time (aPTT) in platelet poor plasma bycoagulation assay 32 s 24-35 Comprehensive metabolic panel - 08/31/17 08:16 Serum or plasma sodium measurement (moles/volume) 142 mmol/L 135-145 Serum or plasma potassium measurement (moles/volume) 4.2 mmol/L 3.6-5.0 Serum or plasma chloride measurement (moles/volume) 103 mmol/L 98-107 Carbon dioxide 26 mmol/L 21-32 Serum or plasma anion gap determination (moles/volume) 13 mmol/L 5-14 Serum or plasma urea nitrogen measurement (mass/volume) 35 mg/dL 7-18 Serum or plasma creatinine measurement (mass/volume) 0.82 mg/dL 0.60-1.30 Serum or plasma urea nitrogen/creatinine mass ratio 43 NRG Serum or plasma creatinine measurement with calculation of estimated glomerular filtration rate > NRG Serum or plasma glucose measurement (mass/volume) 121 mg/dL 70-105 Serum or plasma calcium measurement (mass/volume) 10.1 mg/dL 8.5-10.1 Serum or plasma total bilirubin measurement (mass/volume) 0.3 mg/dL 0.1-1.0 Serum or plasma alkaline phosphatase measurement (enzymatic activity/volume) 116 U/L 40-136 Serum or plasma aspartate aminotransferase measurement (enzymatic activity/ volume) 13 U/L 5-34 Serum or plasma alanine aminotransferase measurement (enzymatic activity/volume ) 19 U/L 0-55 Serum or plasma protein measurement (mass/volume) 8.0 g/dL 6.4-8.2 Serum or plasma albumin measurement (mass/volume) 4.4 g/dL 3.2-4.5 Lipid 1996 panel - 08/31/17 08:16 Serum or plasma triglyceride measurement (mass/volume) 65 mg/dL <150 Serum or plasma cholesterol measurement (mass/volume) 199 mg/dL < 200 Serum or plasma cholesterol in HDL measurement (mass/volume) 69 mg/ dL 40-60 Cholesterol in LDL [mass/volume] in serum or plasma by direct assay 107 mg/dL 1-129 Serum or plasma cholesterol in VLDL measurement (mass/volume) 13 mg/ dL 5-40 Methicillin resistant Staphylococcus aureus (MRSA) screening culture - 08:16 Methicillin resistant Staphylococcus aureus (MRSA) screening culture NEG NRG Encounters ACCT No. Visit Date/Time Discharge Status Pt. Type Provider Facility Loc./Unit Complaint [id number] 01/10/2015 09:44:00 01/10/2015 23:59:59 CLS Outpatient NAZANIN PONCE APRN [id number] 01/02/2015 10:35:00 01/02/2015 23:59:59 CLS Outpatient KEN KUNZ MD [id number] 12/26/2014 10:38:00 12/26/2014 23:59:59 CLS Outpatient KASSIDY KHOURY APRN [id number] 12/10/2014 10:16:00 12/10/2014 23:59:59 CLS Outpatient KASSIDY KHOURY APRN [id number] 10/07/2014 08:48:00 10/07/2014 23:59:59 CLS Outpatient NAZANIN PONCE APRN [id number] 08/26/2014 08:28:00 08/26/2014 23:59:59 CLS Outpatient NAZANIN PONCE APRN [id number] 04/19/2014 12:21:00 04/19/2014 23:59:59 CLS Outpatient NAZANIN PONCE APRN [id number] 04/15/2014 08:06:00 04/15/2014 23:59:59 CLS Outpatient KAVON LADD APRN [id number] 02/11/2014 09:04:00 02/11/2014 23:59:59 CLS Outpatient DOTTY JUNG DO [id number] 12/03/2013 11:11:00 12/03/2013 23:59:59 CLS Outpatient NAZANIN PONCE APRN [id number] 11/05/2013 08:47:00 11/05/2013 23:59:59 CLS Outpatient KEN KUNZ MD [id number] 10/08/2013 14:39:00 10/08/2013 23:59:59 CLS Outpatient NAZANIN PONCE APRN [id number] 07/20/2013 09:05:00 07/20/2013 23:59:59 CLS Outpatient KRIS JENSENBrigida NAZANIN Unique [id number] 07/16/2013 08:19:00 07/16/2013 23:59:59 CLS Outpatient KEN KUNZ MD [id number] 11/15/2012 14:39:00 11/15/2012 23:59:59 CLS Outpatient [id number] 11/13/2012 09:19:00 11/13/2012 23:59:59 CLS Outpatient [id number] 10/02/2012 11:09:00 10/02/2012 23:59:59 CLS Outpatient [id number] 08/02/2012 12:58:00 08/02/2012 23:59:59 CLS Outpatient ARNAUD OBRIEN DDS [id number] 03/20/2013 15:34:00 Document Registration [id number] 03/14/2013 08:34:00 Document Registration [id number] 03/01/2013 09:37:00 Document Registration [id number] 01/23/2013 15:38:00 Document Registration [id number] 09/06/2017 08:51:00 09/06/2017 23:59:59 CLS Outpatient KHOA BENITO, MILADYS [facility] ONC [id number] 08/31/2017 07:29:00 08/31/2017 15:20:00 DIS Outpatient ABBY BENITO, GINGER Gandara [facility] CATH ABNORMAL STRESS TEST, DYSPNEA,CAD,HTN [id number] 08/24/2017 07:41:00 08/24/2017 23:59:59 CLS Outpatient HUGO PEACE [facility] CARD PAF [id number] 08/23/2017 13:41:00 08/23/2017 23:59:59 CLS Outpatient HUGO PEACE [facility] CARD PAF [id number] 03/21/2017 08:23:00 06/19/2017 00:01:00 DIS Outpatient MILADYS COUCH MD [facility] ONC [id number] 05/19/2017 10:13:00 05/19/2017 23:59:59 CLS Outpatient HUGO PEACE [facility] LAB [id number] 04/29/2017 14:15:00 04/30/2017 12:50:00 DIS Inpatient TOR BOLDEN MD [facility] ICU A-FIB W RVR [id number] 02/07/2017 10:55:00 02/13/2017 00:01:00 DIS Outpatient MILADYS COUCH MD [facility] ONC [id number] 01/07/2017 07:30:00 01/07/2017 12:25:00 DIS Outpatient JAZMIN WHITING DO [facility] SDC HISTORY OF BREAST CARCINOMA [id number] 01/05/2017 14:15:00 01/05/2017 16:00:00 DIS Outpatient JAZMIN WHITING DO [facility] PREOP HX BREAST CA [id number] 01/05/2017 09:30:00 01/05/2017 09:30:00 CAN Preadmit GINGER MORA MD [facility] CATH PRE SURGICAL REMOVAL, HTN,HLP [id number] 12/08/2016 12:51:00 12/08/2016 23:59:59 CLS Outpatient MILADYS COUCH MD [facility] RAD BREAST CA [id number] 11/23/2016 09:20:00 11/23/2016 10:00:00 DIS Outpatient MARICEL RODRIGEZ 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 DEVELOPER MANAGER [facility] SLEEP DEDE [id number] 11/15/2016 10:20:00 11/15/2016 23:59:59 CLS Outpatient GINGER MORA MD [facility] LAB [id number] 10/04/2016 10:08:00 10/25/2016 00:01:00 DIS Outpatient MILADYS COUCH MD [facility] ONC [id number] 06/18/2016 09:41:00 07/05/2016 00:01:00 DIS Outpatient MILADYS COUCH MD [facility] ONC [id number] 06/14/2016 09:19:00 06/14/2016 23:59:59 CLS Outpatient MILADYS COUCH MD [facility] RAD BREAST CA [id number] 05/18/2016 10:04:00 05/18/2016 23:59:59 CLS Outpatient GINGER MORA MD [facility] LAB [id number] 02/24/2016 08:46:00 04/04/2016 00:01:00 DIS Outpatient MILADYS COUCH MD [facility] ONC [id number] 03/05/2016 10:33:00 03/06/2016 11:37:00 DIS Outpatient BLANCHO DPMKEN [facility] SDC LEFT FOOT FX [id number] 03/03/2016 10:27:00 03/03/2016 10:56:00 DIS Outpatient BLANCHO DPMKEN [facility] PREOP LEFT FOOT FX [id number] 02/26/2016 13:16:00 02/26/2016 17:40:00 DIS Emergency NIRAV PENA DO [facility] ER FALL/LEFT FOOT INJURY [id number] 02/25/2016 07:17:00 02/25/2016 14:31:00 DIS Outpatient GINGER MORA MD [facility] CR PTCA [id number] 02/20/2016 11:57:00 02/22/2016 00:01:00 DIS Outpatient GINGER MORA MD [facility] CR PTCA [id number] 11/24/2015 09:15:00 12/24/2015 00:01:00 DIS Outpatient MILADYS COUCH MD [facility] ONC [id number] 12/08/2015 13:49:00 12/08/2015 23:59:59 CLS Outpatient MILADYS COUCH MD [facility] RAD BREAST CA [id number] 10/15/2015 06:45:00 10/15/2015 23:59:59 CLS Outpatient GINGER MORA MD [facility] CATH ABNORMAL STRESS TEST,HTN ,HLP,AFIB [id number] 09/24/2015 08:24:00 09/24/2015 00:01:00 DIS Outpatient MILADYS COUCH MD [facility] ONC [id number] 09/22/2015 08:00:00 09/22/2015 23:59:59 CLS Outpatient HUGO PEACE [facility] CARD A-FIB [id number] 08/27/2015 07:54:00 08/27/2015 10:15:00 DIS Outpatient GINGER MORA MD [facility] CATH PAF [id number] 08/01/2015 19:30:00 08/02/2015 16:15:00 DIS Inpatient DOTTY JUNG DO [facility] ICU PAROXYSMAL ATRIAL FIBRILLATION [id number] 07/15/2015 14:10:00 07/15/2015 23:59:59 CLS Outpatient SHERI WAHL [facility] ONC [id number] 06/24/2015 10:43:00 06/25/2015 00:01:00 DIS Outpatient MILADYS COUCH MD [facility] ONC [id number] 05/14/2015 06:40:00 05/15/2015 13:20:00 DIS Outpatient LAVONNE HURTADO DO [facility] RAD RIGHT BREAST CANCER [id number] 05/12/2015 13:59:00 05/12/2015 23:59:59 CLS Outpatient LAVONNE HURTADO DO [facility] PREOP RIGHT BREAST CANCER [id number] 04/27/2015 09:42:00 04/27/2015 12:18:00 DIS Emergency SURAJ ANG MD [facility] ER IRR HEART RATE [id number] 04/10/2015 14:00:00 04/10/2015 23:59:59 CLS Outpatient MILADYS COUCH MD [facility] CARD BREAST CA, MONITORING CARDIOTOXIC CHEMO [id number] 04/02/2015 13:26:00 04/03/2015 00:01:00 DIS Outpatient MILADYS COUCH MD [facility] ONC [id number] 03/11/2015 13:55:00 03/11/2015 23:59:59 CLS Outpatient MILADYS COUCH MD [facility] RAD BREAST CANCER [id number] 03/10/2015 12:51:00 03/10/2015 23:59:59 CLS Outpatient MILADYS COUCH MD [facility] CARD BREAST CANCER CARDIOTOXIC CHEMO [id number] 01/16/2015 10:06:00 01/16/2015 23:59:59 CLS Outpatient SHERI WAHL [facility] ONC [id number] 01/14/2015 11:00:00 01/14/2015 16:07:00 DIS Outpatient LAVONNE HURTADO DO [facility] SDC BREAST CANCER [id number] 01/10/2015 12:08:00 01/10/2015 23:59:59 CLS Outpatient LAVONNE HURTADO DO [facility] PREOP BREAST CANCER [id number] 01/08/2015 12:34:00 01/08/2015 23:59:59 CLS Outpatient MILADYS COUCH MD [facility] CARD BREAST CANCER [id number] 01/07/2015 11:36:00 01/07/2015 23:59:59 CLS Outpatient MILADYS COUCH MD [facility] RAD BREAST CANCER [id number] 12/18/2014 08:41:00 12/18/2014 23:59:59 CLS Outpatient KASSIDY KHOURY APRN [facility] RAD RT BREAST [id number] 12/17/2014 12:29:00 12/17/2014 23:59:59 CLS Outpatient KASSIDY KHOURY APRN [facility] RAD RIGHT BREAST LUMP [id number] 10/15/2014 14:51:00 10/15/2014 16:39:00 DIS Emergency NANCY BAZAN [facility] ER DIZZINESS/HEADACHE [id number] 10/29/2015 21:53:00 Document Registration [id number] 04/19/2012 10:02:00 Document Registration [id number] 03/28/2012 15:17:00 Document Registration [id number] 08/29/2011 12:23:00 Document Registration
[2017-10-03] MEDS ORDERED: meTOprolol 5 MG/5 ML (LOPRESSOR) VIAL IV ONE ×2 (13:45→15:00)
[2017-10-03] MEDS ORDERED: NS IV 500 ML 500 ML IV SCH (13:45)
--- NOTE | 2017-10-03 13:45 | ED Cardiac General ---
History of Present Illness General Stated Complaint: A-FIB Source: patient Exam Limitations: no limitations History of Present Illness Time seen by provider: 13:44 Initial Comments To ER with reports of atrial fibrillation. Patient has known atrial fibrillation and is on Cardizem and Eliquis she denies chest pain or shortness of breath and feels her heart beating quickly. She has not missed any doses of medications. She states she does not want to stay in the hospital she only wants her heart rate down. Timing/Duration: changing over time Severity: moderate Prior CP/Workup: cardiac cath NTG SL [employer]ER TENDERS SUPERVISOR: No ASA po B[employer] TEND[employer] SUPERVISOR: No Associated Systoms: No Chest Pain, No Cough Allergies and Home Medications Allergies Coded Allergies: No Known Drug Allergies (Unverified , 05/14/15) Home Medications Anastrozole 1 Mg Tablet, 1 MG PO HS, (Reported) Apixaban 5 Mg Tablet, 5 MG PO BID, (Reported) Aspirin 81 Mg Tablet.dr, 81 MG PO DAILY, (Reported) Atorvastatin Calcium 40 Mg Tablet, 40 MG PO HS, (Reported) Benazepril HCl 20 Mg Tablet, 20 MG PO DAILY, (Reported) Cholecalciferol (Vitamin D3) 400 Unit Capsule, 800 UNIT PO DAILY, (Reported) Cholecalciferol (Vitamin D3) 400 Unit Capsule, 400 UNIT PO HS, (Reported) Diltiazem HCl 240 Mg Capsule.er, 240 MG PO DAILY, (Reported) Ferrous Sulfate 325 Mg Tablet, 325 MG PO DAILY, (Reported) Hydrochlorothiazide 25 Mg Tablet, 25 MG PO DAILY, (Reported) Magnesium Oxide 250 Mg Tablet, 250 MG PO DAILY, (Reported) Multivitamins-Min/FA/Ginkgo 1 Each Tablet, 1 TAB PO DAILY, (Reported) [place] 3 Polyunsat Fatty Acids 1,000 Mg Cap, 1,000 MG PO HS, (Reported) [place] 3 Polyunsat Fatty Acids 1,000 Mg Cap, 2,000 MG PO DAILY, (Reported) Omeprazole 40 Mg Capsule.dr, 40 MG PO DAILY, (Reported) Venlafaxine HCl 37.5 Mg Tab, 37.5 MG PO BID, (Reported) Review of Systems Constitutional: see HPI EENTM: No Symptoms Reported Respiratory: See HPI, Cough Cardiovascular: Denies See HPI, Denies Chest Pain, Denies Irregular Heart Rate , Denies Palpitations Gastrointestinal: No Symptoms Reported Genitourinary: No Symptoms Reported Musculoskeletal: no symptoms reported Skin: no symptoms reported Psychiatric/Neurological: No Symptoms Reported Endocrine: No Symptoms Reported Past Bdgzqzm-Jzahbw-Dqsjzl Hx Patient Social History Type Used: Cigarettes Former Smoker, Quit: Aug 31, 2015 2nd Hand Smoke Exposure: No Recent Foreign Travel: No Contact w/Someone Who Travel: No Recent Hopitalizations: No Immunizations Up To Date Tetanus Booster (TDap): Unknown Date of Pneumonia Vaccine: Aug 31, 2009 Seasonal Allergies Seasonal Allergies: No Surgeries History of Surgeries: Yes (breast lumpectomy, port, loop recorder, foot sx) Surgeries: Breast, Cardiac, Coronary Stent, Gallbladder, Hysterectomy, Lumpectomy, Oophorectomy, Vascular Surgery Respiratory History of Respiratory Disorde: Yes Respiratory Disorders: Sleep Apnea Currently Using CPAP: Yes Cardiovascular History of Cardiac Disorders: Yes (STENT X 1) Cardiac Disorders: Atrial Fibrillation, Coronary Artery Disease, High Cholesterol, Hypertension, Palpitations Neurological History of Neurological Disord: No Reproductive System Hx Reproductive Disorders: No Sexually Transmitted Disease: No CORE SHAPER SIDES History: Hysterectomy Gastrointestinal History of Gastrointestinal Di: Yes Gastrointestinal Disorders: Gastroesophageal Reflux Musculoskeletal History of Musculoskeletal Dis: Yes Musculoskeletal Disorders: Arthritis Endocrine History of Endocrine Disorders: Yes ("PRE-DIABETIC" ; ) HEENT Loss of Vision: Denies Hearing Impairment: Denies Cancer History of Cancer: Yes (DX 12/2014--S/P RIGHT LUMPECTOMY, CHEMO AND RADIATION) Cancer: Breast Psychosocial History of Psychiatric Problem: Yes Behavioral Health Disorders: Anxiety, Depression Integumentary History of Skin or Integumenta: No Blood Transfusions History of Blood Disorders: Yes (anemia) Adverse Reaction to a Blood Tr: No Family Medical History Significant Family History: Heart Disease, Diabetes Family Medial History: Cardiovascular disease 19 MOTHER Cataracts G8 SISTER Diabetes mellitus 19 FATHER G8 SISTER Hypertrophic cardiomyopathy 19 MOTHER Thyroid disease G8 SISTER Physical Exam Vital Signs Vital Sign - Last 12Hours 10/03/17 13:25 Temp 98.0 Pulse 159 Resp 18 B/P (MAP) 137/68 (91) Pulse Ox 95 O2 Delivery Room Air Capillary Refill : General Appearance: No Apparent Distress, WD/WN HEENT: PERRL/EOMI, TMs Normal Neck: Full Range of Motion, Normal Inspection Respiratory: Normal Breath Sounds, No Accessory Muscle Use, No Respiratory Distress Cardiovascular: Normal Peripheral Pulses, Irregularly Irregular (rate of 140) Gastrointestinal: Non Tender, Soft Extremity: Normal Capillary Refill, Normal Inspection Neurologic/Psychiatric: Alert, Oriented x3, No Motor/Sensory Deficits Progress/Results/Core Measures Results/Orders Lab Results Laboratory Tests Test 10/03/17 13:45 Range/Units White Blood Count 5.2 4.3-11.0 10^3/uL Red Blood Count 4.14 L 4.35-5.85 10^6/uL Hemoglobin 11.2 L 11.5-16.0 G/DL Hematocrit 38 35-52 % Mean Corpuscular Volume 92 80-99 FL Mean Corpuscular Hemoglobin 27 25-34 PG Mean Corpuscular Hemoglobin Concent 30 L 32-36 G/DL Red Cell Distribution Width 14.5 10.0-14.5 % Platelet Count 170 130-400 10^3/uL Mean Platelet Volume 11.4 H 7.4-10.4 FL Neutrophils (%) (Auto) 71 42-75 % Lymphocytes (%) (Auto) 18 12-44 % Monocytes (%) (Auto) 8 0-12 % Eosinophils (%) (Auto) 3 0-10 % Basophils (%) (Auto) 1 0-10 % Neutrophils # (Auto) 3.7 1.8-7.8 X 10^3 Lymphocytes # (Auto) 0.9 L 1.0-4.0 X 10^3 Monocytes # (Auto) 0.4 0.0-1.0 X 10^3 Eosinophils # (Auto) 0.1 0.0-0.3 10^3/uL Basophils # (Auto) 0.0 0.0-0.1 10^3/uL Sodium Level 141 135-145 MMOL/L Potassium Level 4.0 3.6-5.0 MMOL/L Chloride Level 102 98-107 MMOL/L Carbon Dioxide Level 24 21-32 MMOL/L Anion Gap 15 H 5-14 MMOL/L Blood Urea Nitrogen 33 H 7-18 MG/DL Creatinine 0.80 0.60-1.30 MG/DL Estimat Glomerular Filtration Rate > 60 BUN/Creatinine Ratio 41 Glucose Level 99 70-105 MG/DL Calcium Level 9.9 8.5-10.1 MG/DL Magnesium Level 1.6 L 1.8-2.4 MG/DL Total Bilirubin 0.3 0.1-1.0 MG/DL Aspartate Amino Transf (AST/SGOT) 18 5-34 U/L Alanine Aminotransferase (ALT/SGPT) 20 0-55 U/L Alkaline Phosphatase 96 40-136 U/L Troponin I < 0.30 <0.30 NG/ML Total Protein 7.3 6.4-8.2 GM/DL Albumin 4.1 3.2-4.5 GM/DL Thyroid Stimulating Hormone (TSH) 4.15 0.35-4.94 UIU/ML My Orders Orders - MOLLY DUBOSE APRN Cbc With Automated Diff (10/03/17 13:32) Comprehensive Metabolic Panel (10/03/17 13:32) Magnesium (10/03/17 13:32) Thyroid Stimulating Hormone (10/03/17 13:32) Troponin I (10/03/17 13:32) Ekg Tracing (10/03/17 13:32) Metoprolol Tartrate Injection (Lopressor (10/03/17 13:45) Ns Iv 500 Ml (Sodium Chloride 0.9%) (10/03/17 13:45) Diltiazem Cd 24 Hr Capsule (Cardizem Cd (10/03/17 14:30) Ekg Tracing (10/03/17 14:33) Medications Given in ED Current Medications Medications Dose Ordered Sig/Aletha Route Start Time Stop Time Status Last Admin Dose Admin Metoprolol Tartrate 5 mg ONCE ONCE IV 10/03/17 13:45 10/03/17 13:46 DC 10/03/17 13:55 5 MG Vital Signs/I&O Vital Sign - Last 12Hours 10/03/17 13:25 Temp 98.0 Pulse 159 Resp 18 B/P (MAP) 137/68 (91) Pulse Ox 95 O2 Delivery Room Air Departure Communication (Admissions) Progress Notes 1437- was given 5 mg of Lopressor IV. Heart rate slowed from 148 down to 100. She was given an extra Cardizem CD 120 mg. I spoke with Dr. Perdue. He agrees with plan of care and will see the patient in his clinic tomorrow morning. Impression Impression: Primary Impression: Atrial fibrillation with rapid ventricular response Disposition: HOME, SELF-CARE Condition: Improved Departure-Patient Inst. Decision time for Depature: 14:52 Referrals: DOTTY JUNG DO (PCP/Family) Primary Care Physician Patient Instructions: Atrial Fibrillation (DC) Add. Discharge Instructions: 1. Return to ER for any concerns 2. Otherwise see Dr. Perdue tomorrow morning in his clinic. Call today to make an appointment to be seen. Copy Copies To 1: GINGER PERDUE MD, PETER J APRN Oct 03, 2017 13:45
[2017-10-03 14:08] LABS: HEMATOCRIT 38 % (35-52); HEMOGLOBIN 11.2 G/DL (11.5-16.0); MEAN CORPUSCULAR HEMOGLOBIN 27 PG (25-34); MEAN CORPUSCULAR VOLUME 92 FL (80-99); RED BLOOD COUNT 4.14 10^6/uL (4.35-5.85); WHITE BLOOD COUNT 5.2 10^3/uL (4.3-11.0)
[2017-10-03 14:09] LABS: BASOPHILS % (AUTO) 1 % (0-10); EOSINOPHILS # (AUTO) 0.1 10^3/uL (0.0-0.3); EOSINOPHILS % (AUTO) 3 % (0-10); LYMPHOCYTES # (AUTO) 0.9 X 10^3 (1.0-4.0); LYMPHOCYTES % (AUTO) 18 % (12-44); MEAN CORPUSCULAR HGB CONC 30 G/DL (32-36); MEAN PLATELET VOLUME 11.4 FL (7.4-10.4); MONOCYTES # (AUTO) 0.4 X 10^3 (0.0-1.0); MONOCYTES % (AUTO) 8 % (0-12); NEUTROPHILS # (AUTO) 3.7 X 10^3 (1.8-7.8); NEUTROPHILS % (AUTO) 71 % (42-75); PLATELET COUNT 170 10^3/uL (130-400); RED CELL DISTRIBUTION WIDTH 14.5 % (10.0-14.5)
[2017-10-03 14:24] LABS: ALANINE AMINOTRANSFERASE 20 U/L (0-55); ALBUMIN 4.1 GM/DL (3.2-4.5); ALKALINE PHOSPHATASE 96 U/L (40-136); BILIRUBIN,TOTAL 0.3 MG/DL (0.1-1.0); BUN/CREATININE RATIO 41; CALCIUM 9.9 MG/DL (8.5-10.1); CARBON DIOXIDE 24 MMOL/L (21-32); CHLORIDE 102 MMOL/L (98-107); GFR ESTIMATED > 60; GLUCOSE 99 MG/DL (70-105); MAGNESIUM 1.6 MG/DL (1.8-2.4); SODIUM 141 MMOL/L (135-145); TOTAL PROTEIN 7.3 GM/DL (6.4-8.2)
[2017-10-03] MEDS ORDERED: DILTIAZEM 120 MG (CARDIZEM CD) CAP PO SCH (14:30)
[2017-10-03 15:33] VITALS: BP 130/72
== END 2017-10-03 15:33 | disposition home or self-care (01) ==
LOC: EDUNIT# 13:14 → ER 13:16
DX: I48.0 Paroxysmal atrial fibrillation (principal); G47.30 Sleep apnea, unspecified; I25.10 Atherosclerotic heart disease of native coronary artery without angina pectoris; E78.00 Pure hypercholesterolemia, unspecified; I10 Essential (primary) hypertension; K21.9 Gastro-esophageal reflux disease without esophagitis; F41.9 Anxiety disorder, unspecified; F32.9 Major depressive disorder, single episode, unspecified; Z82.49 Family history of ischemic heart disease and other diseases of the circulatory system; Z79.01 Long term (current) use of anticoagulants; Z79.82 Long term (current) use of aspirin; Z90.11 Acquired absence of right breast and nipple; Z92.21 Personal history of antineoplastic chemotherapy; Z87.891 Personal history of nicotine dependence; Z95.5 Presence of coronary angioplasty implant and graft; Z90.710 Acquired absence of both cervix and uterus
CPT/HCPCS: 36415; 80053; 83735; 84443; 84484; 85025; 93005; 96374; 96376

== ENCOUNTER → 2017-12-12 | Outpatient (CLI) | payer MEDICARE, MEDICAID ==
[~2017-12-12] MED LIST changes: +HYDR-34 PO; -HYDR-3816 PO
--- NOTE | 2017-12-12 09:53 | Diagnostic Imaging Report ---
INDICATION: Right breast carcinoma status post lumpectomy. Correlation is made with prior exam from 12/08/2016 and 06/14/2016. The current study was also evaluated with a Computer Aided Detection (CAD) system. Architectural distortion and post-lumpectomy changes in the right breast appear stable. There are some benign calcifications at the lumpectomy site. No new mass is identified. The axillae are unremarkable. Previously noted port on the left has been removed. IMPRESSION: No mammographic features suspicious for malignancy are identified. ACR BI-RADS Category 2: Benign findings. Result letter will be mailed to the patient. Note: At least 10% of breast cancer is not imaged by mammography. Dictated by: Dictated on workstation # [id number]
== END ==
LOC: RAD 08:24
PROVIDERS: ATTEND Internal Medicine Hematology & Oncology
DX: Z85.3 Personal history of malignant neoplasm of breast (principal); Z90.12 Acquired absence of left breast and nipple
CPT/HCPCS: 77066

== ENCOUNTER → 2018-02-21 | Outpatient (CLI) | payer MEDICARE, MEDICAID ==
--- NOTE | 2018-02-21 12:50 | Diagnostic Imaging Report ---
INDICATION: Shortness of breath COMPARISON: 08/31/2017 FINDINGS: Two views of the chest were obtained. Heart size is normal. The pulmonary vessels appear unremarkable. There is no pneumothorax, mediastinal widening or pleural fluid. The lungs are clear. There is no acute osseous abnormality. IMPRESSION: No radiographic evidence of an acute cardiopulmonary abnormality. No interval change from the prior study. Dictated by: Dictated on workstation # [id number]
== END ==
LOC: RAD 08:47
PROVIDERS: ATTEND Internal Medicine Hematology & Oncology
DX: R06.02 Shortness of breath (principal)
CPT/HCPCS: 71046

== ENCOUNTER 2018-04-26 09:04 | Outpatient (RCR) | payer MEDICARE, MEDICAID ==
[2018-02-14 11:12] LABS: BASOPHILS % (AUTO) 0 % (0-10); EOSINOPHILS # (AUTO) 0.1 10^3/uL (0.0-0.3); EOSINOPHILS % (AUTO) 2 % (0-10); HEMATOCRIT 34 % (35-52); HEMOGLOBIN 11.2 G/DL (11.5-16.0); LYMPHOCYTES % (AUTO) 18 % (12-44); MEAN CORPUSCULAR HEMOGLOBIN 28 PG (25-34); MEAN CORPUSCULAR HGB CONC 33 G/DL (32-36); MEAN CORPUSCULAR VOLUME 85 FL (80-99); MEAN PLATELET VOLUME 10.6 FL (7.4-10.4); MONOCYTES # (AUTO) 0.4 X 10^3 (0.0-1.0); MONOCYTES % (AUTO) 7 % (0-12); NEUTROPHILS # (AUTO) 4.1 X 10^3 (1.8-7.8); NEUTROPHILS % (AUTO) 73 % (42-75); PLATELET COUNT 185 10^3/uL (130-400); RED BLOOD COUNT 4.01 10^6/uL (4.35-5.85); RED CELL DISTRIBUTION WIDTH 14.1 % (10.0-14.5); WHITE BLOOD COUNT 5.6 10^3/uL (4.3-11.0)
[2018-02-14 11:37] LABS: ALANINE AMINOTRANSFERASE 16 U/L (0-55); ALBUMIN 4.3 GM/DL (3.2-4.5); ALKALINE PHOSPHATASE 119 U/L (40-136); BILIRUBIN,TOTAL 0.4 MG/DL (0.1-1.0); BUN/CREATININE RATIO 23; CARBON DIOXIDE 21 MMOL/L (21-32); CHLORIDE 100 MMOL/L (98-107); CREATININE SERUM 0.75 MG/DL (0.60-1.30); GFR ESTIMATED > 60; GLUCOSE 100 MG/DL (70-105); POTASSIUM 4.2 MMOL/L (3.6-5.0); SODIUM 134 MMOL/L (135-145); TOTAL PROTEIN 7.3 GM/DL (6.4-8.2)
[2018-04-26 09:32] LABS: BASOPHILS % (AUTO) 1 % (0-10); EOSINOPHILS # (AUTO) 0.2 10^3/uL (0.0-0.3); EOSINOPHILS % (AUTO) 3 % (0-10); HEMATOCRIT 36 % (35-52); HEMOGLOBIN 11.8 G/DL (11.5-16.0); LYMPHOCYTES # (AUTO) 1.1 X 10^3 (1.0-4.0); LYMPHOCYTES % (AUTO) 19 % (12-44); MEAN CORPUSCULAR HEMOGLOBIN 28 PG (25-34); MEAN CORPUSCULAR HGB CONC 33 G/DL (32-36); MEAN CORPUSCULAR VOLUME 86 FL (80-99); MONOCYTES # (AUTO) 0.4 X 10^3 (0.0-1.0); MONOCYTES % (AUTO) 6 % (0-12); NEUTROPHILS # (AUTO) 4.1 X 10^3 (1.8-7.8); NEUTROPHILS % (AUTO) 71 % (42-75); PLATELET COUNT 202 10^3/uL (130-400); RED BLOOD COUNT 4.17 10^6/uL (4.35-5.85); RED CELL DISTRIBUTION WIDTH 14.3 % (10.0-14.5); WHITE BLOOD COUNT 5.7 10^3/uL (4.3-11.0)
[2018-04-26 09:55] LABS: ALANINE AMINOTRANSFERASE 17 U/L (0-55); ALBUMIN 4.4 GM/DL (3.2-4.5); ALKALINE PHOSPHATASE 106 U/L (40-136); BILIRUBIN,TOTAL 0.4 MG/DL (0.1-1.0); BUN/CREATININE RATIO 21; CARBON DIOXIDE 26 MMOL/L (21-32); CHLORIDE 101 MMOL/L (98-107); CREATININE SERUM 0.76 MG/DL (0.60-1.30); GFR ESTIMATED > 60; GLUCOSE 118 MG/DL (70-105); POTASSIUM 4.1 MMOL/L (3.6-5.0); SODIUM 138 MMOL/L (135-145); TOTAL PROTEIN 7.4 GM/DL (6.4-8.2)
== END 2018-05-09 10:17 | disposition home or self-care (01) ==
LOC: ONC 09:04
PROVIDERS: ATTEND Internal Medicine Hematology & Oncology
DX: C50.111 Malignant neoplasm of central portion of right female breast (principal); Z17.0 Estrogen receptor positive status [ER+]; I10 Essential (primary) hypertension; E78.5 Hyperlipidemia, unspecified; F32.9 Major depressive disorder, single episode, unspecified; E66.9 Obesity, unspecified; Z68.41 Body mass index [BMI] 40.0-44.9, adult; Z79.899 Other long term (current) drug therapy
CPT/HCPCS: 36415; 80053; 85025; 99213

== ENCOUNTER → 2018-04-26 | Outpatient (CLI) | payer MEDICARE, MEDICAID ==
[~2018-04-26] MED LIST changes: -BENA20TA2 PO; +BENA20TA7 PO
[2018-04-26 10:10] LABS: ALANINE AMINOTRANSFERASE 18 U/L (0-55); ALBUMIN 4.4 GM/DL (3.2-4.5); ALKALINE PHOSPHATASE 107 U/L (40-136); BILIRUBIN,TOTAL 0.4 MG/DL (0.1-1.0); BUN/CREATININE RATIO 21; CARBON DIOXIDE 26 MMOL/L (21-32); CHLORIDE 101 MMOL/L (98-107); CHOLESTEROL 179 MG/DL (< 200); CREATININE SERUM 0.76 MG/DL (0.60-1.30); GFR ESTIMATED > 60; GLUCOSE 119 MG/DL (70-105); HDL CHOLESTEROL 63 MG/DL (40-60); POTASSIUM 4.1 MMOL/L (3.6-5.0); SODIUM 138 MMOL/L (135-145); TOTAL PROTEIN 7.4 GM/DL (6.4-8.2); TRIGLYCERIDES 68 MG/DL (<150); VLDL CHOLESTEROL 14 MG/DL (5-40)
== END ==
LOC: LAB 09:06
PROVIDERS: ATTEND Internal Medicine Cardiovascular Disease
DX: I10 Essential (primary) hypertension (principal); E78.2 Mixed hyperlipidemia
CPT/HCPCS: 36415; 80053; 80061

== ENCOUNTER 2018-05-09 10:23 | Outpatient (RCR) | payer MEDICARE, MEDICAID ==
[2018-05-09 11:10] LABS: BASOPHILS % (AUTO) 0 % (0-10); EOSINOPHILS # (AUTO) 0.1 10^3/uL (0.0-0.3); EOSINOPHILS % (AUTO) 3 % (0-10); HEMATOCRIT 37 % (35-52); HEMOGLOBIN 11.6 G/DL (11.5-16.0); LYMPHOCYTES # (AUTO) 0.8 X 10^3 (1.0-4.0); LYMPHOCYTES % (AUTO) 17 % (12-44); MEAN CORPUSCULAR HEMOGLOBIN 27 PG (25-34); MEAN CORPUSCULAR HGB CONC 32 G/DL (32-36); MEAN CORPUSCULAR VOLUME 86 FL (80-99); MEAN PLATELET VOLUME 10.8 FL (7.4-10.4); MONOCYTES # (AUTO) 0.3 X 10^3 (0.0-1.0); MONOCYTES % (AUTO) 6 % (0-12); NEUTROPHILS # (AUTO) 3.3 X 10^3 (1.8-7.8); NEUTROPHILS % (AUTO) 74 % (42-75); PLATELET COUNT 176 10^3/uL (130-400); RED BLOOD COUNT 4.24 10^6/uL (4.35-5.85); RED CELL DISTRIBUTION WIDTH 14.7 % (10.0-14.5); WHITE BLOOD COUNT 4.5 10^3/uL (4.3-11.0)
[2018-05-09 11:31] LABS: ALANINE AMINOTRANSFERASE 17 U/L (0-55); ALBUMIN 4.3 GM/DL (3.2-4.5); ALKALINE PHOSPHATASE 122 U/L (40-136); BILIRUBIN,TOTAL 0.4 MG/DL (0.1-1.0); BUN/CREATININE RATIO 31; CALCIUM 10.2 MG/DL (8.5-10.1); CARBON DIOXIDE 23 MMOL/L (21-32); CHLORIDE 105 MMOL/L (98-107); CREATININE SERUM 0.77 MG/DL (0.60-1.30); GFR ESTIMATED > 60; GLUCOSE 103 MG/DL (70-105); POTASSIUM 3.8 MMOL/L (3.6-5.0); SODIUM 140 MMOL/L (135-145); TOTAL PROTEIN 7.5 GM/DL (6.4-8.2)
== END 2018-05-26 | disposition home or self-care (01) ==
LOC: ONC 10:23
PROVIDERS: ATTEND Internal Medicine Hematology & Oncology
DX: C50.111 Malignant neoplasm of central portion of right female breast (principal); Z17.0 Estrogen receptor positive status [ER+]; I10 Essential (primary) hypertension; E78.5 Hyperlipidemia, unspecified; F32.9 Major depressive disorder, single episode, unspecified; E66.9 Obesity, unspecified; Z68.41 Body mass index [BMI] 40.0-44.9, adult; Z79.899 Other long term (current) drug therapy
CPT/HCPCS: 80053; 85025; 99213

== ENCOUNTER → 2018-07-19 | Outpatient (CLI) | payer MEDICARE, MEDICAID ==
--- NOTE | 2018-07-19 20:06 | Diagnostic Imaging Report ---
INDICATION: Palpable lump in the right breast. Patient does have history of right breast carcinoma status post lumpectomy. COMPARISON: Correlation is made with prior mammograms from 12/12/2017 through 12/08/2016. EXAMINATION: 2D and 3D unilateral right diagnostic mammography was performed. A BB marker was placed at the area of palpable abnormality in the upper right breast. There is post therapeutic changes of lumpectomy in the right breast with architectural distortion and benign calcifications. No discrete mass is seen. No malignant appearing microcalcifications are identified. The right axilla is unremarkable. IMPRESSION: Stable right mammogram with no mammographic features suspicious for malignancy. Even so, directed sonographic interrogation of the area of palpable abnormality in the right breast is recommended and will be performed this morning. ACR BI-RADS Category 0: Incomplete. (Needs additional imaging evaluation). Result letter will be mailed to the patient. Note: At least 10% of breast cancer is not imaged by mammography. Dictated by: Dictated on workstation # [id number]
--- NOTE | 2018-07-19 20:07 | Diagnostic Imaging Report ---
INDICATION: Right breast carcinoma status post lumpectomy. Patient feels new lump in the right breast. FINDINGS: Sonographic interrogation over the area of lump at the 12 o'clock location was performed. This corresponds to the patient's scar. There is an area of elongated hypoechogenicity measuring 4.6 x 0.9 x 1.1 cm. No internal vascularity is seen. This is suggestive of scar. No fluid collection is seen. IMPRESSION: Probable scar tissue is seen at the area of palpable abnormality at the 12 o'clock location of the right breast. Even so, follow-up right mammogram and right breast ultrasound in six months is recommended to confirm stability. ACR BI-RADS Category 3: Probably benign findings. Dictated by: Dictated on workstation # [id number]
== END ==
LOC: RAD 08:33
PROVIDERS: ATTEND Internal Medicine Hematology & Oncology
DX: C50.411 Malignant neoplasm of upper-outer quadrant of right female breast (principal); Z90.11 Acquired absence of right breast and nipple

== ENCOUNTER → 2018-11-30 | Outpatient (CLI) | payer MEDICARE, MEDICAID | LOC: CARD 11:48 | PROVIDERS: ATTEND Physician Assistant | DX: I25.10 Atherosclerotic heart disease of native coronary artery without angina pectoris (principal); E78.5 Hyperlipidemia, unspecified; I10 Essential (primary) hypertension; I48.0 Paroxysmal atrial fibrillation; I08.0 Rheumatic disorders of both mitral and aortic valves | CPT/HCPCS: 93306 ==

== ENCOUNTER → 2018-12-13 | Outpatient (CLI) | payer MEDICARE, MEDICAID ==
--- NOTE | 2018-12-13 12:57 | Diagnostic Imaging Report ---
INDICATION: Right breast carcinoma. Correlation is made with prior mammograms from 07/19/2018 and 12/12/2017. Bilateral 2-D and 3-D diagnostic mammography was performed with Computer-Aided Detection (CAD) system. FINDINGS: Scattered fibroglandular densities are identified bilaterally. There are post lumpectomy changes in the right breast. Lumpectomy site appears to be stable. There are dystrophic calcifications at the lumpectomy site. Benign calcifications in both breasts are seen. No malignant-appearing microcalcifications are identified. No discrete mass is seen. Axillae are unremarkable. IMPRESSION: Stable bilateral mammograms with post lumpectomy changes on the right. Ultrasound of the right breast to further evaluate previously noted region of scarring and hypoechogenicity is recommended and will be performed today. ACR BI-RADS Category 0: Incomplete. (Needs additional imaging evaluation). Result letter will be mailed to the patient. Note: At least 10% of breast cancer is not imaged by mammography. Dictated by: Dictated on workstation # [id number]
--- NOTE | 2018-12-13 14:15 | Diagnostic Imaging Report ---
INDICATION: Right breast carcinoma. COMPARISON: Correlation is made with the prior right breast ultrasound from 07/19/2018 as well as the diagnostic mammogram from earlier this same day. FINDINGS: The previously noted area of elongated hypoechogenicity at the 12 o'clock location of the right breast persists. This measures identical to the prior exam at approximately 4.6 x 0.9 x 1.1 cm. No internal vascularity is seen. This most likely represents an area of scarring from prior lumpectomy. IMPRESSION: Stable right breast ultrasound when compared with the examination from 07/19/2018 with a probable area of scarring at the 12 o'clock location. Continued followup of the right breast ultrasound and diagnostic mammogram in 6 months is recommended to show continued stability. ACR BI-RADS Category 3: Probably benign findings. Dictated by: Dictated on workstation # [id number]
== END ==
LOC: RAD 08:48
PROVIDERS: ATTEND Internal Medicine Hematology & Oncology
DX: C50.411 Malignant neoplasm of upper-outer quadrant of right female breast (principal); Z98.890 Other specified postprocedural states
CPT/HCPCS: 77066

== ENCOUNTER → 2018-12-13 | Outpatient (CLI) | payer MEDICARE, MEDICAID ==
[~2018-12-13] VITALS: Ht 157.5 cm; Wt 115.2 kg
[~2018-12-13] MED LIST changes: +CATHETER FLUSH 10 ML SYR IV PRN; +REGADENOSON 0.4 MG/5 ML SYR (LEXISCAN) IV ONE
[2018-12-13 10:12] LABS: ALANINE AMINOTRANSFERASE 14 U/L (0-55); ALBUMIN 4.4 GM/DL (3.2-4.5); ALKALINE PHOSPHATASE 99 U/L (40-136); BILIRUBIN,TOTAL 0.4 MG/DL (0.1-1.0); BUN/CREATININE RATIO 30; CALCIUM 10.1 MG/DL (8.5-10.1); CARBON DIOXIDE 25 MMOL/L (21-32); CHLORIDE 104 MMOL/L (98-107); CHOLESTEROL 177 MG/DL (< 200); CREATININE SERUM 0.79 MG/DL (0.60-1.30); GFR ESTIMATED > 60; GLUCOSE 113 MG/DL (70-105); HDL CHOLESTEROL 55 MG/DL (40-60); POTASSIUM 4.1 MMOL/L (3.6-5.0); SODIUM 141 MMOL/L (135-145); TOTAL PROTEIN 7.6 GM/DL (6.4-8.2); TRIGLYCERIDES 105 MG/DL (<150); VLDL CHOLESTEROL 21 MG/DL (5-40)
[2018-12-13 13:00] VITALS: BP 145/54
[2018-12-13 13:04] VITALS: BP 156/59
--- NOTE | 2018-12-13 17:09 | STRESS TEST ---
DATE OF SERVICE: 12/13/2018 LEXISCAN MYOVIEW STRESS TEST REPORT REFERRING PHYSICIAN: Dr. Alycia Carpio. Baseline heart rate is 77, baseline blood pressure 156/80. Baseline EKG is sinus rhythm with no ischemic changes. In summary, the patient was injected with 10.06 mCi of technetium-99 Myoview and the resting images were obtained. Then, the patient received 0.4 mg of Lexiscan, followed by 29.7 mCi of technetium-99 Myoview. Throughout the test, there were no EKG changes. The resting and stress images were reviewed and compared in the short axis, horizontal long axis, and vertical long axis views. Review of the images showed breast attenuation with mild decreased uptake involving the mid to apical anterior wall and anterolateral wall with mild reversibility. SSS is 9, SDS 2, TID value 1.37, which is increased. On the gated images, the left ventricle appeared to be normal in size with normal contractility. Calculated ejection fraction 72%. CONCLUSION: 1. The patient tolerated Lexiscan well. 2. Breast attenuation with reversible ischemia involving the mid to apical anterior wall and anterolateral wall. 3. Transient ischemic dilatation with TID value 1.37. 4. Normal left ventricular size with normal contractility. Calculated ejection fraction 72%. Job ID: [id number] DocumentID: [id number] Dictated Date: 12/13/2018 15:34:29 [employer] Machine Date: 12/13/2018 17:09:22 Dictated By: GINGER MORA MD
== END ==
LOC: CARD 08:50
PROVIDERS: ATTEND Physician Assistant
DX: E78.5 Hyperlipidemia, unspecified (principal); I25.10 Atherosclerotic heart disease of native coronary artery without angina pectoris; I10 Essential (primary) hypertension
CPT/HCPCS: 36415; 78452; 80053; 80061; 93017

== ENCOUNTER 2018-12-27 06:39 | Day surgery (SDC) | payer MEDICARE, MEDICAID ==
[~2018-12-27] VITALS: Ht 157.5 cm; Wt 115.2 kg
[2018-12-27] VITALS (13 sets, daily range): BP systolic 143–160; BP diastolic 52–83
[~2018-12-27 06:39] MED LIST changes: -CATHETER FLUSH 10 ML SYR IV PRN; -REGADENOSON 0.4 MG/5 ML SYR (LEXISCAN) IV ONE
--- OUTSIDE RECORDS SUMMARY | 2018-12-27 06:43 | XMS REPORT ---
Author Author Migration, Doctor Organization [facility] Address Unknown Phone Unavailable Care Team Providers [employer]ricator Name Role Phone Migration, Doctor Unavailable Unavailable PROBLEMS Type Condition ICD9-CM Code YNH38-GM Code Onset Dates Condition Status SNOMED Code Problem Other chronic pain G89.29 Active 26504585 Problem Esophageal reflux K21.9 Active 014269446 Problem Episodic mood disorder F39 Active 52521250 Problem Paroxysmal atrial fibrillation I48.0 Active 656433245 Problem Vitamin D deficiency E55.9 Active 86460750 Problem Arthritis M19.90 Active 0245410 Problem Dysmetabolic syndrome X E88.81 Active 060195101 Problem Hyperlipemia E78.5 Active 75089983 Problem Hypertension I10 Active 16568963 Problem Malignant neoplasm of right female breast, unspecified estrogen receptor status, unspecified site of breast C50.911 Active 702594880 Problem 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 Active [id number] ALLERGIES No Information ENCOUNTERS Encounter Location Date Diagnosis [place] [id number] [place] [address] Dec, [place] [address] [id number] [address] Oct, [place] [address] [place] [id number] [place] [address] 02147- 1039 Jun, Arthritis M19.90 [place] [address] [place] [id number] [place] [address] 82141- 7865 13 Feb, 2018 Medicare annual wellness visit, initial Z00.00 ; Hyperlipemia E78.5 ; Hypertension I10 ; Paroxysmal atrial fibrillation I48.0 ; Malignant neoplasm of right female breast, unspecified estrogen receptor status , unspecified site of breast C50.911 ; Episodic mood disorder F39 and Esophageal reflux K21.9 [place] [address] [id number] [place] [address] Nov, 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 and Paroxysmal atrial fibrillation I48.0 [place] [address] [place] [id number] [place] [address]10- 8222 Sep, BMI 40.0-44.9, adult Z68.41 [place] [address] [address] Jul, BMI 40.0-44.9, adult Z68.41 ; 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 ; Hypertension I10 and Episodic mood disorder F39 [place] [address] [place] [id number] [place] [address] 18204- 5535 Jul, Hypertension I10 [place] [address] [place] [address] [id number] [place] [address] 10121- 9335 Jun, Hypertension I10 and Malignant neoplasm of female breast, unspecified laterality, unspecified site of breast C50.919 [place] [address] [place] [id number] [place] [address] 99691- 5234 May, [place] [address] [place] [address] [id number] [place] [address] 86237- 7864 Oct, Hypertension I10 [place] [address] [place] [address] [id number] [place] [address] 49790- 8066 Nov, Malignant neoplasm of female breast, unspecified laterality , unspecified site of breast C50.919 [place] [id number] [place] [address] 30360- 0239 Aug, [place] [address] [place] [id number] [place] [address] 66562- 2901 Jul, [place] [address] [place] [id number] [place] [address] 24626- 4038 11 May, 2015 Tachycardia 785.0 [place] [address] [address]- [address] May, [facility] [place] [facility] [address] [id number] [place] [address] Apr, [facility] [place] [facility] [address] [id number] [place] [address]- 7094 Apr, [facility] [place] [facility] [address] [id number] [place] [address] 6966 January, [facility] [place] [facility] [address] [id number] [place] [address]- 6639 Dec, [facility] [place] [facility] [address] [id number] [place] [address]- 7528 Dec, [facility] [place] [facility] [address] [id number] [place] [address]- 4629 Nov, [facility] [place] [facility] [address] [id number] [place] [address]- 1066 Nov, [facility] [place] [facility] [address] [id number] [place] [address]- 5409 Nov, [facility] [place] [facility] [address] [id number] [place] [address]- 6799 Nov, [facility] [place] [facility] [address] [id number] [place] [address]- 4573 Nov, [facility] [place] [facility] [address] [id number] [place] [address]- 2353 Nov, [facility] [place] [facility] [address] [id number] [place] [address]- 7045 Sep, [facility] [place] [facility] [address] [id number] [place] [address]- 6710 Sep, [facility] [place] [facility] [address] [id number] [place] [address]- 3657 Sep, [facility] [place] [facility] [address] [id number] [place] [address]- 5138 Sep, [facility] [place] [facility] [address] [id number] [place] [address]- 3845 Sep, [facility] [place] [facility] [address] [id number] [place] [address] Aug, [facility] [place] [facility] [address] [id number] [place] [address]- 4832 Aug, [facility] [place] [facility] [address] [id number] [place] [address]- 8915 Aug, [facility] [place] [facility] [address] [id number] [place] [address]- 2304 Aug, [facility] [place] [facility] [address] [id number] [place] [address]- 9990 May, [facility] [place] [facility] [address] [id number] [place] [address]- 6177 May, [facility] [place] [facility] [address] [id number] [place] [address]- 9498 Mar, [facility] [place] [facility] [address] [id number] [place] [address]- 0065 Mar, [facility] [place] [facility] [address] [id number] [place] [address]- 7929 Mar, [facility] [place] [facility] [address] [id number] [place] [address]- 6032 Mar, [facility] [place] [facility] [address] [id number] [place] [address]- 1234 Mar, [facility] [place] [facility] [address] [id number] [place] [address]- 9822 Mar, [facility] [place] [facility] [address] [id number] [place] [address]- 3906 Mar, [facility] [place] [facility] [address] [id number] [place] [address]- 2316 Mar, [facility] [place] [facility] [address] [id number] [place] [address]- 9089 Feb, [facility] [place] [facility] [address] [id number] [place] [address]- 0740 Feb, [facility] [place] [facility] [address] [id number] [place] [address]- 0044 January, [facility] [place] [facility] [address] [id number] [place] [address]- 1649 January, [facility] [place] [facility] [address] [id number] [place] [address]- 5735 Dec, [facility] [place] [facility] [address] [id number] [place] [address]- 3278 Dec, [facility] [place] [facility] [address] [id number] [place] [address]- 3011 Nov, [facility] [place] [facility] [address] [id number] [place] [address]- 3300 Nov, [facility] [place] [facility] [address] [id number] [place] [address]- 2106 Oct, [facility] [place] [facility] [address] [id number] [place] [address]- 6622 Oct, [facility] [place] [facility] [address] [id number] [place] [address]- 2479 Oct, [facility] [place] [facility] [address] [id number] [place] [address]- 6090 Oct, [facility] [place] [facility] [address] [id number], [place] [address]- 1612 Sep, [facility] [place] [facility] [address] [id number] [place] [address]- 2282 Sep, [facility] [place] [facility] [address] [id number] [address] Jun, [facility] [place] [facility] [address] [id number] [place] [address]- 4938 Jun, [facility] [place] [facility] [address] [id number] [place] [address]- 0792 Jun, [facility] [address] [id number] [place] [address]- 3008 Jun, [facility] [place] [facility] [address] [id number] [place] [address]- 0536 Jun, [facility] [address] [id number] [place] [address]- 2128 Jun, [facility] [place] [facility] [address] [id number] [place] [address]- 5144 Jun, [facility] [place] [facility] [address] [id number] [place] [address]- 9480 Feb, [facility] [place] [facility] [address] [id number] [place] [address]- 5545 Feb, [facility] [place] [facility] [address] [id number] [place] [address]- 7437 Feb, [facility] [place] [facility] [address] [id number] [place] [address]- 8429 Feb, [facility] [place] [facility] [address] [id number] [place] [address]- 2472 Dec, [facility] [place] [facility] [address] [facility] [id number] [place] [address]- 1729 Oct, [facility] [place] [facility] [address] [id number] [place] [address]- 5764 Oct, [facility] [place] [facility] [address] [id number] [place] [address]- 0824 Sep, [facility] [place] [facility] [address] [id number] [place] [address] Jul, [facility] [place] [facility] [address] [id number] [place] [address]- 5710 Jul, [facility] [place] [facility] [address] [id number] [place] [address]- 2484 16 Jul, 2012 [facility] [place] [facility] [address] [id number] [place] [address]- 7741 16 Jul, 2012 [facility] [place] [facility] [address] [id number] [place] [address]- 9772 10 Jun, 2012 [facility] [place] [facility] [address] [id number] [place] [address]- 5033 10 Jun, 2012 [facility] [place] [facility] [address] [id number] [place] [address]- 2667 05 Jun, 2012 [facility] [place] [facility] [address] [id number] [place] [address]- 6370 24 May, 2012 [facility] [place] [facility] [address] [id number] [place] [address]- 7214 May, [facility] [place] [facility] [address] [id number] [place] [address]- 5667 Mar, [facility] [place] [facility] [address] [id number] [place] [address]- 3951 Mar, [facility] [place] [facility] [address] [id number] [place] [address]- 5994 Mar, [facility] [place] [facility] [address] [id number] [place] [address]- 9312 Feb, [facility] [place] [facility] [address] [id number] [place] [address]- 8533 Feb, [facility] [place] [facility] [address] [id number], [place] [address]- 9033 Dec, [facility] [place] [facility] [address] [id number] [place] [address]- 7266 Oct, [facility] [place] [facility] [address] [id number] [place] [address]- 2926 Oct, [facility] [place] [facility] [address] [id number] [place] [address]- 3516 Oct, [facility] [place] [facility] [address] [id number], [place] [address]- 1662 14 Oct, 2011 [facility] [address] [facility] [id number], [place] [address]- 1379 Oct, [facility] [address] [facility] [id number], [place] [address]- 4172 Oct, [facility] [address] [facility] [id number], [place] [address]- 3741 Aug, [facility] [address] [facility] [id number][id number] 6[address] Jul, IMMUNIZATIONS No Known Immunizations SOCIAL HISTORY Never Assessed REASON FOR VISIT EMR-[facility] PLAN OF CARE VITAL SIGNS MEDICATIONS Unknown Medications RESULTS No Results PROCEDURES No Known procedures INSTRUCTIONS MEDICATIONS ADMINISTERED No Known Medications MEDICAL (GENERAL) HISTORY Type Description Date Medical History Hypertension Medical History Respiratory disorder sleep apnea wears cpap last sleep test 2008 Medical History Post Cholecystectomy 04/2011 Medical History Hyperlipidemia Medical History Endocrine disorder insulin resistant Medical History breast cancer(right breast) Medical History Afib Surgical History Hysterectomy total 1996 Surgical History Lumpectomy(right breast) 04/2015 Surgical History cholecystectomy Surgical History stent placed in heart 10/2015 Surgical History Linq insertion Surgical History broke her toes in her left foot 02/2016 Hospitalization History Surgery Hospitalization History Afib 04/2017
--- OUTSIDE RECORDS SUMMARY | 2018-12-27 06:43 | XMS REPORT ---
Author Author NAZANIN PONCE Organization [facility] Address [address] [place] [address] Care Team Providers Care Defensive Line Coach Name Role Phone NAZANIN PONCE Unavailable PROBLEMS Type Condition ICD9-CM Code VNY91-XL Code Onset Dates Condition Status SNOMED Code Problem Other chronic pain G89.29 Active 95536183 Problem Episodic mood disorder F39 Active 48457844 Problem Esophageal reflux K21.9 Active 396852756 Problem Dysmetabolic syndrome X E88.81 Active 167737556 Problem Vitamin D deficiency E55.9 Active 46847560 Problem Arthritis M19.90 Active 3227135 Problem Paroxysmal atrial fibrillation I48.0 Active 643786841 Problem Hypertension I10 Active 12404334 Problem Hyperlipemia E78.5 Active 03606360 Problem Coronary 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 Active 2038682011683 Problem Malignant neoplasm of right female breast, unspecified estrogen receptor status, unspecified site of breast C50.911 Active 858318325 ALLERGIES No Known Allergies ENCOUNTERS Encounter Location Date Diagnosis [facility] [id number] [place] [address] 51028- 2356 Jun, Arthritis M19.90 [place] [id number] [place] [id number] [place] [address] 98690- 1766 Feb, Medicare annual wellness visit, initial Z00.00 ; Hyperlipemia E78.5 ; Hypertension I10 ; Paroxysmal atrial fibrillation I48.0 ; Malignant neoplasm of right female breast, unspecified estrogen receptor status , unspecified site of breast C50.911 ; Episodic mood disorder F39 and Esophageal reflux K21.9 [place] [id number] [place] [address] 20767- 1412 Nov, Coronary 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 and Paroxysmal atrial fibrillation I48.0 [place] [address] [place] [id number] [place] [address] 78985- 1170 Sep, BMI 40.0-44.9, adult Z68.41 [place] [address] [place] [id number] [place] [address] 09914- 0699 Jul, BMI 40.0-44.9, adult Z68.41 ; Coronary 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 ; Hypertension I10 and Episodic mood disorder F39 [place] [address] [place] [id number] [place] [address] 60465- 2858 Jul, Hypertension I10 [place] [address] [place] [id number] [place] [address] 36680- 7635 Jun, Hypertension I10 and Malignant neoplasm of female breast, unspecified laterality, unspecified site of breast C50.919 [place] [address] [place] [id number] [place] [address] 03063- 8905 May, [place] [address] [place] [id number] [place] [address] 57483- 7117 Oct, Hypertension I10 [place] [address] [place] [id number] [place] [address] 80798- 5690 Nov, Malignant neoplasm of female breast, unspecified laterality , unspecified site of breast C50.919 [place] [address] [place] [id number] [place] [address] 13356- 3838 Aug, [place] [address] [place] [id number] [place] [address] 20988- 1286 Jul, [place] [address] [place] [id number] [place] [address] 16509- 8433 May, Tachycardia 785.0 [place] [address] [place] [id number] [place] [address] 82499- 3472 May, [place] [address] [place] [id number] [place] [address] 50052- 4913 Apr, [facility] [place] [facility] [address] [id number] [place] [address] 0243 Apr, [facility] [place] [facility] [address] [id number] [place] [address] 4118 January, [facility] [place] [facility] [address] [id number] [place] [address]- 6607 Dec, [facility] [place] [facility] [address] [id number] [place] [address]- 0101 Dec, [facility] [place] [facility] [address] [id number] [place] [address]- 4257 Nov, [facility] [place] [facility] [address] [id number] [place] [address]- 7125 24 Nov, 2014 [facility] [place] [facility] [address] [id number] [place] [address]- 8988 Nov, [facility] [place] [facility] [address] [id number] [place] [address]- 3950 Nov, [facility] [place] [facility] [address] [id number] [place] [address]- 4232 Nov, [facility] [place] [facility] [address] [id number] [place] [address]- 4047 Nov, [facility] [place] [facility] [address] [id number] [place] [address]- 6928 Sep, [facility] [place] [facility] [address] [id number] [place] [address]- 1542 Sep, [facility] [place] [facility] [address] [id number] [place] [address]- 1956 Sep, [facility] [place] [facility] [address] [id number] [place] [address]- 3887 Sep, [facility] [place] [facility] [address] [id number] [place] [address]- 2504 Sep, [facility] [place] [facility] [address] [id number] [place] [address] Aug, [facility] [place] [facility] [address] [id number] [place] [address]- 0390 Aug, [facility] [place] [facility] [address] [id number] [place] [address]- 0758 Aug, [facility] [place] [facility] [address] [id number] [place] [address] Aug, [facility] [place] [facility] [address] [id number] [place] [address] May, [facility] [place] [facility] [address] [id number] [place] [address]- 4251 May, [facility] [place] [facility] [address] [id number] [place] [address]- 7294 Mar, [facility] [place] [facility] [address] [id number] [place] [address]- 8956 Mar, [facility] [place] [facility] [address] [id number] [place] [address]- 6491 Mar, [facility] [place] [facility] [address] [id number] [place] [address]- 4318 Mar, [facility] [place] [facility] [address] [id number] [place] [address]- 2116 Mar, [facility] [place] [facility] [address] [id number] [place] [address]- 3763 Mar, [facility] [place] [facility] [address] [id number] [place] [address]- 0615 Mar, [facility] [place] [facility] [address] [id number] [place] [address]- 3860 Mar, [facility] [place] [facility] [address] [id number] [place] [address]- 2074 Feb, [facility] [place] [facility] [address] [id number] [place] [address]- 0080 Feb, [facility] [place] [facility] [address] [id number] [place] [address]- 9525 January, [facility] [place] [facility] [address] [id number] [place] [address]- 2528 January, [facility] [place] [facility] [address] [id number] [place] [address]- 6386 Dec, [facility] [place] [facility] [address] [id number] [place] [address]- 6296 Dec, [facility] [place] [facility] [address] [id number] [place] [address]- 5513 Nov, [facility] [place] [facility] [address] [id number] [place] [address]- 7997 Nov, [facility] [place] [facility] [address] [id number] [place] [address]- 1844 Oct, [facility] [place] [facility] [address] [id number] [place] [address]- 5206 Oct, [facility] [place] [facility] [address] [id number] [place] [address]- 2020 Oct, [facility] [place] [facility] [address] [id number] [place] [address]- 9757 Oct, [facility] [place] [facility] [address] [id number] [place] [address]- 6283 Sep, [facility] [place] [facility] [address] [id number] [place] [address]- 9824 Sep, [facility] [place] [facility] [address] [id number] [place] [address]- 2272 Jun, [facility] [place] [facility] [address] [id number] [place] [address]- 3066 Jun, [facility] [place] [facility] [address] [id number] [place] [address]- 8317 Jun, [facility] [place] [facility] [address] [id number] [place] [address]- 7701 Jun, [facility] [place] [facility] [address] [id number] [place] [address]- 4074 Jun, [facility] [place] [facility] [address] [id number] [place] [address]- 0681 Jun, [facility] [place] [facility] [address] [id number] [place] [address]344 Jun, [facility] [place] [facility] [address] [id number] [place] [address]- 0686 Feb, [facility] [place] [facility] [address] [id number] [place] [address]- 4108 Feb, [facility] [place] [facility] [address] [id number] [place] [address]- 9885 Feb, [facility] [place] [facility] [address] [id number] [place] [address]- 0108 Feb, [facility] [place] [facility] [address] [id number] [place] [address]- 1364 Dec, [facility] [place] [facility] [address] [id number] [place] [address]- 9612 Oct, [facility] [place] [facility] [address] [id number] [place] [address]- 4957 Oct, [facility] [place] [facility] [address] [id number], [place] [address]- 5578 Sep, [facility] [place] [facility] [address] [id number], [place] [address]- 4778 Jul, [facility] [place] [facility] [address] [id number] [place] [address]- 8746 Jul, [facility] [place] [facility] [address] [id number] [place] 8708 Jul, [facility] [place] [facility] [address] [id number] [place] [address]991 Jul, [facility] [place] [facility] [address] [id number] [place] [address]- 9565 10 Jun, 2012 [facility] [place] [facility] [address] [id number] [place] [address]- 1116 10 Jun, 2012 [facility] [place] [facility] [address] [id number] [place] [address] 2546 05 Jun, 2012 [facility] [place] [facility] [address] [id number] [place] [address]- 2971 24 May, 2012 [facility] [place] [facility] [address] [id number] [place] [address]- 8341 18 May, 2012 [facility] [place] [facility] [address] [id number] [place] [address]- 0636 Mar, [facility] [place] [facility] [address] [id number] [place] [address]- 6488 Mar, [facility] [place] [facility] [address] [id number] [place] [address]- 9212 Mar, [facility] [place] [facility] [address] [id number] [place] [address]- 6145 Feb, [facility] [place] [facility] [address] [id number] [place] [address]- 3660 Feb, [facility] [place] [facility] [address] [facility] [id number] [place] [address]- 8883 Dec, [facility] [place] [facility] [address] [id number] [place] [address]- 0285 28 Oct, 2011 [facility] [place] [facility] [address] [id number] [place] [address]- 4276 27 Oct, 2011 [facility] [place] [facility] [address] [id number] [place] [address]- 7276 22 Oct, 2011 [facility] [place] [facility] [address] [id number] [place] [address]- 3596 14 Oct, 2011 [facility] [place] [facility] [address] [id number] [place] [address]- 2522 Oct, [facility] [address] [facility] [id number] [place] [address]- 2546 Oct, [facility] [address] [facility] [id number], [place] [address]- 2546 Aug, [facility] [address] [facility] [id number] [place] [address]- 2546 Jul, IMMUNIZATIONS No Known Immunizations SOCIAL HISTORY Never Assessed REASON FOR VISIT Mood disorder -Arnav [place] PLAN OF CARE VITAL SIGNS Height 62 in 2018-07-26 Weight 228 lbs 2018-07-26 Temperature 97.7 degrees Fahrenheit 2018-07-26 Heart Rate 76 bpm 2018-07-26 Respiratory Rate 20 2018-07-26 Oximetry 97 % 2018-07-26 BMI 41.70 kg/m2 2018-07-26 Blood pressure systolic 130 mmHg 2018-07-26 Blood pressure diastolic 68 mmHg 2018-07-26 MEDICATIONS Medication Instructions Dosage Frequency Start Date End Date Duration Status Venlafaxine HCl 37.5 MG Orally Twice a day 1 tablet with food 12h Active Clopidogrel Bisulfate 75 MG Orally Once a day 1 tablet 24h Active Retin-A 0.05 % Externally Once a day 1 application to affected area in the evening to face 24h Aug, 30 days Active Atorvastatin Calcium 20 MG Orally Once a day 1 tablet 24h Active Omeprazole 40 MG TAKE ONE CAPSULE BY MOUTH ONCE DAILY 90 Active Ondansetron 8 MG Orally as needed 1 tablet on the tongue and allow to dissolve Not-Taking Vitamin D3 2,000 unit Orally 3 times a day 1 Capsule by Oral route 1 time per day 8h January, Active Hydrochlorothiazide 25 MG Orally Once a day 1 tablet 24h 90 days Active Benazepril HCl 20 mg Orally Once a day 1 tablet 24h Active Taztia XT 240 MG Orally Once a day 1 capsule 24h 30 days Active Multivitamins Orally once a day one 24h Active Iron 325 (65 Fe) MG Orally Once a day 1 tablet 24h Active Eliquis 5 MG Orally 2 times a day 1 tablet 12h Active Aspirin Adult Low Dose 81 MG Orally Once a day 1 tablet 24h Active Fish Oil 1000 MG Orally 3 times a day 1 capsule 8h Active Anastrozole 1 MG Orally Once a day 1 tablet 24h Active Fluticasone Propionate 50 MCG/ACT Nasally Once a day 1 spray in each nostril 24h Oct, 30 day(s) Not-Taking RESULTS No Results PROCEDURES Procedure Date Ordered Result Body Site [facility] VISIT ESTABLISHED PATIENT Jul 26, 2018 INSTRUCTIONS MEDICATIONS ADMINISTERED No Known Medications MEDICAL [...]
--- OUTSIDE RECORDS SUMMARY | 2018-12-27 06:43 | XMS REPORT ---
Author Author Migration, Doctor Organization [facility] Address Unknown Phone Unavailable Care Team Providers Care Physics Tutor Name Role Phone Migration, Doctor Unavailable Unavailable PROBLEMS Type Condition ICD9-CM Code AIF04-YH Code Onset Dates Condition Status SNOMED Code Problem Other chronic pain G89.29 Active 97571422 Problem Esophageal reflux K21.9 Active 177331705 Problem Episodic mood disorder F39 Active 52010790 Problem Paroxysmal atrial fibrillation I48.0 Active 303090120 Problem Vitamin D deficiency E55.9 Active 33919427 Problem Arthritis M19.90 Active 3293115 Problem Dysmetabolic syndrome X E88.81 Active 383536363 Problem Hyperlipemia E78.5 Active 84149345 Problem Hypertension I10 Active 90524218 Problem Malignant neoplasm of right female breast, unspecified estrogen receptor status, unspecified site of breast C50.911 Active 501735653 Problem Coronary artery disease involving [place] coronary artery of [place] heart without angina pectoris I25.10 Active [id number] ALLERGIES No Information ENCOUNTERS Encounter Location Date Diagnosis [place] [id number] [place] [address]35[address] Dec, [place] [address] [place] [id number] [address] Oct, [place] [address] [place] [id number] [place] [address] 97882- 2273 Jun, Arthritis M19.90 [place] [address] [id number] [place] [address]239- 3326 13 Feb, 2018 Medicare annual wellness visit, initial Z00.00 ; Hyperlipemia E78.5 ; Hypertension I10 ; Paroxysmal atrial fibrillation I48.0 ; Malignant neoplasm of right female breast, unspecified estrogen receptor status , unspecified site of breast C50.911 ; Episodic mood disorder F39 and Esophageal reflux K21.9 [place] [address] [place] [id number] [place] [address] Nov, Coronary artery disease involving [place] coronary artery of [place] heart without angina pectoris I25.10 and Paroxysmal atrial fibrillation I48.0 [place] [address] [place] [id number] [place] [address]36- 9081 Sep, BMI 40.0-44.9, adult Z68.41 [place] [address] [address] Jul, BMI 40.0-44.9, adult Z68.41 ; Coronary artery disease involving [place] coronary artery of [place] heart without angina pectoris I25.10 ; Hypertension I10 and Episodic mood disorder F39 [place] [address] [place] [id number] [place] [address] 40706- 7571 Jul, Hypertension I10 [place] [address] [place] [id number] [place] [address] 69[address]- 9229 Jun, Hypertension I10 and Malignant neoplasm of female breast, unspecified laterality, unspecified site of breast C50.919 [place] [address] [place] [id number] [place] [address] 78416- 2962 May, [place] [address] [place] [id number] [place] [address] 53265- 2077 Oct, Hypertension I10 [place] [address] [place] [id number] [place] [address] 68061- 8432 Nov, Malignant neoplasm of female breast, unspecified laterality , unspecified site of breast C50.919 [place] [id number] [place] [address] 51652- 1433 Aug, [place] [address] [place] [id number] [place] [address] 59234- 6998 Jul, [place] [address] [place] [id number] [place] [address] 18928- 0909 11 May, 2015 Tachycardia 785.0 [place] [address] [address]- [address] May, [facility] [place] [facility] [address] [id number] [place] [address] Apr, [facility] [place] [facility] [address] [id number] [place] [address]- 5800 Apr, [facility] [place] [facility] [address] [id number] [place] [address]- 1681 January, [facility] [place] [facility] [address] [id number] [place] [address]- 6649 Dec, [facility] [place] [facility] [address] [id number] [place] [address]- 4212 Dec, [facility] [place] [facility] [address] [id number] [place] [address]- 0546 Nov, [facility] [place] [facility] [address] [id number] [place] [address]- 4872 Nov, [facility] [place] [facility] [address] [id number] [place] [address]- 2335 Nov, [facility] [place] [facility] [address] [id number] [place] [address]- 6189 Nov, [facility] [place] [facility] [address] [id number] [place] [address]- 3993 Nov, [facility] [place] [facility] [address] [id number] [place] [address]- 0287 Nov, [facility] [place] [facility] [address] [id number] [place] [address]- 8011 Sep, [facility] [place] [facility] [address] [id number] [place] [address]- 3071 Sep, [facility] [place] [facility] [address] [id number] [place] [address]- 9493 Sep, [facility] [place] [facility] [address] [id number] [place] [address]- 9215 Sep, [facility] [place] [facility] [address] [id number] [place] [address]- 9315 Sep, [facility] [place] [facility] [address] [id number] [place] [address] Aug, [facility] [place] [facility] [address] [id number] [place] [address]- 0604 Aug, [facility] [place] [facility] [address] [id number] [place] [address]- 4775 Aug, [facility] [place] [facility] [address] [id number] [place] [address]- 5177 Aug, [facility] [place] [facility] [address] [id number] [place] [address]- 0133 May, [facility] [place] [facility] [address] [id number] [place] [address]- 2362 May, [facility] [place] [facility] [address] [id number] [place] [address]- 0881 Mar, [facility] [place] [facility] [address] [id number] [place] [address]- 0897 Mar, [facility] [place] [facility] [address] [id number] [place] [address]- 7735 Mar, [facility] [place] [facility] [address] [id number] [place] [address]- 7540 Mar, [facility] [place] [facility] [address] [id number] [place] [address]- 4524 Mar, [facility] [place] [facility] [address] [id number] [place] [address]- 7532 Mar, [facility] [place] [facility] [address] [id number] [place] [address]- 1458 Mar, [facility] [place] [facility] [address] [id number] [place] [address]- 9211 Mar, [facility] [place] [facility] [address] [id number] [place] [address]- 1577 Feb, [facility] [place] [facility] [address] [id number] [place] [address]- 5049 Feb, [facility] [place] [facility] [address] [id number] [place] [address]- 7148 January, [facility] [place] [facility] [address] [id number] [place] [address]- 9432 January, [facility] [place] [facility] [address] [id number] [place] [address]- 0236 Dec, [facility] [place] [facility] [address] [id number] [place] [address]- 6640 Dec, [facility] [place] [facility] [address] [id number] [place] [address]- 5047 Nov, [facility] [place] [facility] [address] [id number] [place] [address]- 8247 Nov, [facility] [place] [facility] [address] [id number] [place] [address]- 5065 Oct, [facility] [place] [facility] [address] [id number] [place] [address]- 5161 Oct, [facility] [place] [facility] [address] [id number] [place] [address]- 1327 Oct, [facility] [place] [facility] [address] [id number] [place] [address]- 5939 Oct, [facility] [place] [facility] [address] [id number], [place] [address]- 6333 Sep, [facility] [place] [facility] [address] [id number] [place] [address]- 6273 Sep, [facility] [place] [facility] [address] [id number] [address] Jun, [facility] [place] [facility] [address] [id number] [place] [address]- 3019 Jun, [facility] [place] [facility] [address] [id number] [place] [address]- 9142 Jun, [facility] [address] [id number] [place] [address]- 6804 Jun, [facility] [place] [facility] [address] [id number] [place] [address]- 9580 Jun, [facility] [address] [id number] [place] [address]- 4985 Jun, [facility] [place] [facility] [address] [id number] [place] [address]- 1154 Jun, [facility] [place] [facility] [address] [id number] [place] [address]- 7559 Feb, [facility] [place] [facility] [address] [id number] [place] [address]- 5359 Feb, [facility] [place] [facility] [address] [id number] [place] [address]- 6196 Feb, [facility] [place] [facility] [address] [id number] [place] [address]- 0199 Feb, [facility] [place] [facility] [address] [id number] [place] [address]- 7496 Dec, [facility] [place] [facility] [address] [facility] [id number] [place] [address]- 8131 Oct, [facility] [place] [facility] [address] [id number] [place] [address]- 8465 Oct, [facility] [place] [facility] [address] [id number] [place] [address]- 6307 Sep, [facility] [place] [facility] [address] [id number] [place] [address] Jul, [facility] [place] [facility] [address] [id number] [place] [address]- 0744 Jul, [facility] [place] [facility] [address] [id number] [place] [address]- 3741 16 Jul, 2012 [facility] [place] [facility] [address] [id number] [place] [address]- 3138 16 Jul, 2012 [facility] [place] [facility] [address] [id number] [place] [address]- 9992 10 Jun, 2012 [facility] [place] [facility] [address] [id number] [place] [address]- 4893 10 Jun, 2012 [facility] [place] [facility] [address] [id number] [place] [address]- 8199 05 Jun, 2012 [facility] [place] [facility] [address] [id number] [place] [address]- 2853 24 May, 2012 [facility] [place] [facility] [address] [id number] [place] [address]- 1993 May, [facility] [place] [facility] [address] [id number] [place] [address]- 0415 Mar, [facility] [place] [facility] [address] [id number] [place] [address]- 8653 Mar, [facility] [place] [facility] [address] [id number] [place] [address]- 9550 Mar, [facility] [place] [facility] [address] [id number] [place] [address]- 1530 Feb, [facility] [place] [facility] [address] [id number] [place] [address]- 3094 Feb, [facility] [place] [facility] [address] [id number], [place] [address]- 5588 Dec, [facility] [place] [facility] [address] [id number] [place] [address]- 4379 Oct, [facility] [place] [facility] [address] [id number] [place] [address]- 7496 Oct, [facility] [place] [facility] [address] [id number] [place] [address]- 7796 Oct, [facility] [place] [facility] [address] [id number], [place] [address]- 6457 14 Oct, 2011 [facility] [address] [facility] [id number] 5314 Oct, [facility] [address] [facility] [id number], [place] [address]- 6830 13 Oct, 2011 [facility] [address] [facility] [id number], [place] [address]- 3408 Aug, [facility] [address] [facility] [id number] [address]47 Jul, IMMUNIZATIONS No Known Immunizations SOCIAL HISTORY Never Assessed REASON FOR VISIT [facility] PLAN OF CARE VITAL SIGNS MEDICATIONS Medication Instructions Dosage Frequency Start Date End Date Duration Status Vitamin D3 2,000 unit 1 Capsule by Oral route 1 time per day January, Active Aciphex 20 mg 1 tablet by Oral route 1 time per day Mar, Active Nasonex 50 mcg/actuation spray 2 sprays in each nostril by intranasal route once daily in each nostril Jun, Active Doxycycline Hyclate 100 mg 1 tablet by Oral route 2 times per day for 14 days VOUCHER January, Active Retin-A 0.05 % apply 1 application to the affected area(s) by Topical route 1 time per day Aug, Active Proctosol HC 2.5 % apply 1 Application to the affected area(s) by Topical route 2 times per day 114 grams Aug, Active benazepril 40 mg 1 tablet by Oral route 1 time per day Mar, Active Augmentin 875-125 mg 1 tablet by Oral route 2 times per day for 10 day(s) Feb, Active Celexa 20 mg 1 tablet by Oral route 1 time per day Nov, Active RESULTS No Results PROCEDURES No Known [...]
--- OUTSIDE RECORDS SUMMARY | 2018-12-27 06:44 | XMS REPORT ---
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 Name Role Phone NAZANIN PONCE Unavailable PROBLEMS Type Condition ICD9-CM Code YLW94-NV Code Onset Dates Condition Status SNOMED Code Problem Esophageal reflux K21.9 Active 304508876 Problem Vitamin D deficiency E55.9 Active 99955766 Problem Episodic mood disorder F39 Active 09626447 Problem Dysmetabolic syndrome X E88.81 Active 335367241 Problem Paroxysmal atrial fibrillation I48.0 Active 064606311 Problem Coronary artery disease involving [place] coronary artery of [place] heart without angina pectoris I25.10 Active 1226906582184 Problem Hypertension I10 Active 39709491 Problem Other chronic pain G89.29 Active 66778392 Problem Malignant neoplasm of right female breast, unspecified estrogen receptor status, unspecified site of breast C50.911 Active 261900128 Problem Hyperlipemia E78.5 Active 21398566 ALLERGIES No Known Allergies ENCOUNTERS Encounter Location Date Diagnosis [place] [id number] [place] [address]17- 2872 Feb, [place] [address] [place] [id number] [place] [address] 00619- 0718 Nov, Coronary artery disease involving [place] coronary artery of [place] heart without angina pectoris I25.10 and Paroxysmal atrial fibrillation I48.0 [place] [id number] [place] [address] 80444- 6970 Sep, BMI 40.0-44.9, adult Z68.41 [place] [address] [place] [id number] [place] [address] 05978- 5426 Jul, BMI 40.0-44.9, adult Z68.41 ; Coronary artery disease involving [place] coronary artery of [place] heart without angina pectoris I25.10 ; Hypertension I10 and Episodic mood disorder F39 [facility] [place] [address] [address] 1140 Jul, Hypertension I10 [facility] [place] [address] [place] [id number] [place] [address] 03222- 0427 Jun, Hypertension I10 and Malignant neoplasm of female breast, unspecified laterality, unspecified site of breast C50.919 [facility] [place] [address] [place] [id number] [place] [address] 15042- 9135 May, [facility] [place] [address] [place] [id number] [place] [address] 06479- 4209 Oct, Hypertension I10 [facility] [place] [address] [place] [address] [id number] [place] [address] 47528- 2636 Nov, Malignant neoplasm of female breast, unspecified laterality , unspecified site of breast C50.919 [facility] [place] [address] [place] [address] [id number] [place] [address] 49511- 8637 Aug, [facility] [place] [address] [place] [address] [id number] [place] [address] 68469- 9178 Jul, [facility] [place] [address] [place] [address] [id number] [place] [address] 11997- 4216 May, Tachycardia 785.0 [facility] [place] [address] [place] [address] [id number] [place] [address] 34838- 0457 May, [facility] [place] [address] [place] [address] [id number] [place] [address] 70823- 3828 Apr, [facility] [place] [address] [place] [address] 43757- 1668 Apr, [facility] [place] [address] [place] [id number] [place] [address] 385950- 7186 January, [facility] [place] [address] [address] Dec, [facility] [place] [address] [place] [address] [id number] [place] [address] 87504- 8088 13 Dec, 2014 [facility] [place] [facility] [address] [id number] [place] [address]- 9627 24 Nov, 2014 [facility] [place] [facility] [address] [id number] [place] [address]- 7793 24 Nov, 2014 [facility] [place] [facility] [address] [id number] [place] [address]- 1642 17 Nov, 2014 [facility] [place] [facility] [address] [id number] [place] [address]- 2707 17 Nov, 2014 [facility] [place] [facility] [address] [id number] [place] [address]- 8788 16 Nov, 2014 [facility] [place] [facility] [address] [id number] [place] [address]- 0580 16 Nov, 2014 [facility] [place] [facility] [address] [id number] [place] [address]- 4510 Sep, [facility] [place] [facility] [address] [id number] [place] [address]- 2468 Sep, [facility] [place] [facility] [address] [id number] [place] [address]- 4677 Sep, [facility] [place] [facility] [address] [facility] [id number] [place] [address]- 4910 Sep, [facility] [place] [facility] [address] [id number] [place] [address]- 1472 Sep, [facility] [place] [facility] [address] [id number], [place] [address] 9678 Aug, [facility] [place] [facility] [address] [id number] [place] [address]- 1343 Aug, [facility] [place] [facility] [address] [facility] [id number] [place] [address]- 4893 Aug, [facility] [place] [facility] [address] [facility] [id number] [place] [address]- 9997 Aug, [facility] [place] [facility] [address] [id number] [place] [address]- 9302 May, [facility] [place] [facility] [address] [id number] [place] [address]105 May, [facility] [place] [facility] [address] [id number] [place] [address]- 0000 Mar, [facility] [place] [facility] [address] [id number] [place] [address]- 0348 Mar, [facility] [place] [facility] [address] [id number] [place] [address]- 2123 Mar, [facility] [place] [facility] [address] [id number] [place] [address]- 2283 Mar, [facility] [place] [facility] [address] [id number] [place] [address]- 6984 Mar, [facility] [place] [facility] [address] [id number] [place] [address]- 9177 Mar, [facility] [place] [facility] [address] [id number] [place] [address]- 3564 Mar, [facility] [place] [facility] [address] [id number] [place] [address]- 9521 Mar, [facility] [place] [facility] [address] [id number] [place] [address]- 0605 Feb, [facility] [place] [facility] [address] [id number] [place] [address]- 3733 Feb, [facility] [place] [facility] [address] [id number] [place] [address]- 7919 January, [facility] [place] [facility] [address] [id number] [place] [address]- 0077 January, [facility] [place] [facility] [address] [id number] [place] [address]- 6375 Dec, [facility] [place] [facility] [address] [id number] [place] [address]- 6485 Dec, [facility] [place] [facility] [address] [id number] [place] [address]- 3628 Nov, [facility] [place] [facility] [address] [id number] [place] [address]- 3616 Nov, [facility] [place] [facility] [address] [id number] [place] [address]- 5162 Oct, [facility] [place] [facility] [address] [id number] [place] [address]- 0295 Oct, [facility] [place] [facility] [address] [id number] [place] [address]- 1211 Oct, [facility] [place] [facility] [address] [id number] [place] [address]- 2602 Oct, [facility] [place] [facility] [address] [id number] [place] [address]- 6882 Sep, [facility] [place] [facility] [address] [id number] [place] [address]- 2302 Sep, [facility] [place] [facility] [address] [id number] [place] [address]- 0924 Jun, [facility] [place] [facility] [address] [id number] [place] [address]- 9054 Jun, [facility] [place] [facility] [address] [id number] [place] [address]- 9943 Jun, [facility] [place] [facility] [address] [id number], [place] [address]- 2174 Jun, [facility] [place] [facility] [address] [id number] [place] [address]- 3027 Jun, [facility] [place] [facility] [address] [id number] [place] [address]- 6624 Jun, [facility] [place] [facility] [address] [id number] [place] [address]- 3947 Jun, [facility] [place] [facility] [address] [id number] [place] [address]- 7396 Feb, [facility] [place] [facility] [address] [id number] [place] [address]- 6992 Feb, [facility] [place] [facility] [address] [id number] [place] [address]- 3721 Feb, [facility] [place] [facility] [address] [id number] [place] [address]- 9553 Feb, [facility] [place] [facility] [address] [id number] [place] [address]- 6882 Dec, [facility] [place] [facility] [address] [id number] [place] [address]- 0428 Oct, [facility] [place] [facility] [address] [facility] [id number] [place] [address]- 6373 Oct, [facility] [place] [facility] [address] [id number] [place] [address]- 9860 Sep, [facility] [place] [facility] [address] [id number] [place] [address]- 8293 Jul, [facility] [place] [facility] [address] [id number] [place] [address]- 7844 Jul, [facility] [place] [facility] [address] [facility] [id number] [place] [address]- 7989 Jul, [facility] [place] [facility] [address] [id number] [place] [address]- 0672 Jul, [facility] [place] [facility] [address] [id number] [place] [address]- 7388 Jun, [facility] [place] [facility] [address] [id number] [place] [address]- 6326 Jun, [facility] [place] [facility] [address] [facility] [id number] [place] [address] 2546 05 Jun, 2012 [facility] [place] [facility] [address] [id number] [place] [address]- 1820 24 May, 2012 [facility] [address] [place] [address]- 6419 18 May, 2012 [facility] [id number] [place] [address]- 2346 Mar, [facility] [id number] [place] [address]- 9677 Mar, [facility] [address], [place] [address]- 2282 Mar, [facility] [id number] 4700 Feb, [facility] [address], [place] [address]- 9526 Feb, [facility] [id number] [place] [address]- 6146 Dec, [facility] [address] [address]- 4227 28 Oct, 2011 [facility] [address] [address]22 Oct, [facility] [address] [address] [address] 22 Oct, 2011 [facility] [place] [address] [place] [address]- 1215 14 Oct, 2011 [facility] [address], [place] [address]- 9150 Oct, [facility] [address] [place] [address]- 2496 Oct, [facility] [address] [place] [address]- 1226 Aug, [facility] [address] [place] [address]- 0386 Jul, IMMUNIZATIONS No Known Immunizations SOCIAL HISTORY Never Assessed REASON FOR VISIT mood disorder, sinus problems, throat scratchy, ears sore. CBrumbackRN PLAN OF CARE VITAL SIGNS Height 62 in 2017-08-22 Weight 226.9 lbs 2017-08-22 Temperature 98.3 degrees Fahrenheit 2017-08-22 Heart Rate 74 bpm 2017-08-22 Respiratory Rate 18 2017-08-22 BMI 41.50 kg/m2 2017-08-22 Blood pressure systolic 116 mmHg 2017-08-22 Blood pressure diastolic 76 mmHg 2017-08-22 MEDICATIONS Medication Instructions Dosage Frequency Start Date End Date Duration Status Ondansetron 8 MG Orally as needed 1 tablet on the tongue and allow to dissolve Not-Taking Multivitamins Orally once a day one 24h Active Hydrochlorothiazide 25 MG Orally Once a day 1 tablet 24h 90 days Active Iron 325 (65 Fe) MG Orally Once a day 1 tablet 24h Active Benazepril HCl 20 mg Orally Once a day 1 tablet 24h Active Venlafaxine HCl 37.5 MG Orally Twice a day 1 tablet with food 12h Active Atorvastatin Calcium 20 MG Orally Once a day 1 tablet 24h Active Taztia XT 240 MG Orally Once a day 1 capsule 24h 90 days Active Clopidogrel Bisulfate 75 MG Orally Once a day 1 tablet 24h Not- Taking Anastrozole 1 MG Orally Once a day 1 tablet 24h Active Vitamin D3 2,000 unit Orally 3 times a day 1 Capsule by Oral route 1 time per day 8h January, Active Eliquis 5 MG Orally 2 times a day 1 tablet 12h Active Fluticasone Propionate 50 MCG/ACT Nasally Once a day 1 spray in each nostril 24h Oct, 30 day(s) Active Fish Oil 1000 MG Orally 3 times a day 1 capsule 8h Active Retin-A 0.05 % Externally Once a day 1 application to affected area in the evening to face 24h Aug, 30 days Active Omeprazole 40 mg Orally Once a day 1 capsule 24h Active Aspirin Adult Low Dose 81 [...]
--- OUTSIDE RECORDS SUMMARY | 2018-12-27 06:44 | XMS REPORT ---
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 Name Role Phone NAZANIN PONCE Unavailable PROBLEMS Type Condition ICD9-CM Code KDZ85-FO Code Onset Dates Condition Status SNOMED Code Problem Esophageal reflux K21.9 Active 238609988 Problem Vitamin D deficiency E55.9 Active 46710975 Problem Episodic mood disorder F39 Active 30302136 Problem Dysmetabolic syndrome X E88.81 Active 379096530 Problem Paroxysmal atrial fibrillation I48.0 Active 312779549 Problem Coronary artery disease involving circle coronary artery of circle heart without angina pectoris I25.10 Active 3439735572641 Problem Hypertension I10 Active 92108848 Problem Other chronic pain G89.29 Active 14792245 Problem Malignant neoplasm of right female breast, unspecified estrogen receptor status, unspecified site of breast C50.911 Active 845899191 Problem Hyperlipemia E78.5 Active 11998170 ALLERGIES No Known Allergies ENCOUNTERS Encounter Location Date Diagnosis [place] [id number] [place] [address]- [address] Feb, Medicare annual wellness visit, initial Z00.00 ; Hyperlipemia E78.5 ; Hypertension I10 ; Paroxysmal atrial fibrillation I48.0 ; Malignant neoplasm of right female breast, unspecified estrogen receptor status , unspecified site of breast C50.911 ; Episodic mood disorder F39 and Esophageal reflux K21.9 [facility] [id number] [place] [address]- [address]339 Nov, Coronary artery disease involving circle coronary artery of circle heart without angina pectoris I25.10 and Paroxysmal atrial fibrillation I48.0 [place] [address] [place] [id number] [address] Sep, BMI 40.0-44.9, adult Z68.41 [facility] [id number] [address] Jul, 2017 BMI 40.0-44.9, adult Z68.41 ; Coronary artery disease involving circle coronary artery of circle heart without angina pectoris I25.10 ; Hypertension I10 and Episodic mood disorder F39 [facility] [address] [id number] [place] [address] 41900- 4960 Jul, Hypertension I10 [facility] [id number] [place] [address] 18260- 6118 Jun, Hypertension I10 and Malignant neoplasm of female breast, unspecified laterality, unspecified site of breast C50.919 [facility] [address] [place] [id number] [place] [address] 65520- 6882 May, [facility] [address] [id number] [place] [address] 69471- 8107 Oct, Hypertension I10 [facility] [id number] [place] [address] 68436- 1343 Nov, Malignant neoplasm of female breast, unspecified laterality , unspecified site of breast C50.919 [facility] [address] [place] [id number] [place] [address] 32374- 7149 Aug, [facility] [id number] [address] Jul, [facility] [address] [place] [id number] [place] [address] 13250- 7218 May, Tachycardia 785.0 [facility] [address] [id number] [place] [address] 84171- 2659 May, [facility] [address] [id number] [place] [address] 33521- 0804 Apr, [facility] [address] [place] [id number] [place] [address] 69308- 3711 Apr, [facility] [address] [place] [address] January, [facility] [place] [facility] [address] [id number] [place] [address]752 14 Dec, 2014 [facility] [place] [facility] [address] [id number] [place] [address] 5977 Dec, [facility] [place] [facility] [address] [id number] [place] [address]- 7520 24 Nov, 2014 [facility] [place] [facility] [address] [id number] [place] [address]- 4573 24 Nov, 2014 [facility] [place] [facility] [address] [id number] [place] [address] 3323 17 Nov, 2014 [facility] [place] [facility] [address] [id number] [place] [address]- 6522 17 Nov, 2014 [facility] [place] [facility] [address] [id number] [place] [address]- 3871 16 Nov, 2014 [facility] [place] [facility] [address] [id number] [place] [address]- 5254 16 Nov, 2014 [facility] [place] [facility] [address] [id number] [place] [address]- 6404 Sep, [facility] [place] [facility] [address] [id number] [place] [address]- 8883 Sep, [facility] [place] [facility] [address] [id number] [place] [address]- 6694 Sep, [facility] [place] [facility] [address] [id number] [place] [address]- 0474 Sep, [facility] [place] [facility] [address] [id number] [place] [address]- 3412 Sep, [facility] [place] [facility] [address] [id number] [place] [address]- 8672 Aug, [facility] [place] [facility] [address] [id number] [place] [address]- 6659 Aug, [facility] [place] [facility] [address] [id number] [place] [address]- 0289 Aug, [facility] [place] [facility] [address] [id number] [place] [address]- 2329 Aug, [facility] [place] [facility] [address] [id number] [place] [address]- 6208 May, [facility] [place] [facility] [address] [id number] [place] [address]- 7412 May, [facility] [place] [facility] [address] [id number] [place] [address]- 9487 Mar, [facility] [place] [facility] [address] [id number] [place] [address]- 8768 Mar, [facility] [place] [facility] [address] [id number] [place] [address]- 9935 Mar, [facility] [place] [facility] [address] [id number] [place] [address]- 5642 Mar, [facility] [place] [facility] [address] [id number] [place] [address]- 2519 Mar, [facility] [place] [facility] [address] [id number] [place] [address]- 3484 Mar, [facility] [place] [facility] [address] [id number] [place] [address]- 2560 Mar, [facility] [place] [facility] [address] [id number] [place] [address]- 0333 Mar, [facility] [place] [facility] [address] [id number] [place] [address]- 6479 Feb, [facility] [place] [facility] [address] [id number] [place] [address]- 2390 Feb, [facility] [place] [facility] [address] [id number] [place] [address]- 2581 January, [facility] [place] [facility] [address] [id number], [place] [address] 1847 January, [facility] [place] [facility] [address] [id number] [place] [address]- 9927 Dec, [facility] [place] [facility] [address] [id number] [place] [address] Dec, [facility] [place] [facility] [address] [facility] [id number] [place] [address]- 9170 Nov, [facility] [place] [facility] [address] [id number] [place] [address]- 1991 Nov, [facility] [place] [facility] [address] [id number] [place] [address]- 8074 Oct, [facility] [place] [facility] [address] [id number] [place] [address]- 2716 Oct, [facility] [place] [facility] [address] [facility] [id number] [place] [address]- 2744 Oct, [facility] [place] [facility] [address] [id number] [place] [address]- 2550 Oct, [facility] [place] [facility] [address] [facility] [id number] [place] [address]- 2748 Sep, [facility] [place] [facility] [address] [facility] [id number] [place] [address]- 3632 Sep, [facility] [place] [facility] [address] [id number], [place] [address]- 2194 Jun, [facility] [place] [facility] [address] [id number], [place] [address]- 3814 Jun, [facility] [place] [facility] [address] [id number] [place] [address]- 7152 Jun, [facility] [place] [facility] [address] [id number] [place] [address]- 4138 Jun, [facility] [place] [facility] [address] [facility] [id number] [place] [address]- 3814 Jun, [facility] [place] [facility] [address] [id number] [place] [address]- 2226 Jun, [facility] [place] [facility] [address] [id number] [place] [address]- 6938 Jun, [facility] [place] [facility] [address] [id number] [place] [address]- 0416 Feb, [facility] [place] [facility] [address] [id number] [place] [address]- 8296 Feb, [facility] [place] [facility] [address] [id number] [place] [address]- 7411 Feb, [facility] [place] [facility] [address] [id number] [place] [address]- 7846 Feb, [facility] [place] [facility] [address] [id number] [place] [address]- 0788 Dec, [facility] [place] [facility] [address] [id number] [place] [address]- 0520 Oct, [facility] [place] [facility] [address] [id number] [place] [address]- 1883 Oct, [facility] [place] [facility] [address] [id number] [place] [address]- 6489 Sep, [facility] [place] [facility] [address] [id number] [place] [address]- 9139 Jul, [facility] [place] [facility] [address] [id number] [place] [address]- 0695 Jul, [facility] [place] [facility] [address] [id number] [place] [address]- 2986 16 Jul, 2012 [facility] [place] [facility] [address] [id number] [place] [address] 2546 16 Jul, 2012 [facility] [place] [facility] [address] [id number] [place] [address] 2544 10 Jun, 2012 [facility] [place] [facility] [address] [id number] [place] [address]- 8765 10 Jun, 2012 [facility] [place] [facility] [address] [id number] [place] [address]- 0342 05 Jun, 2012 [facility] [place] [facility] [address] [id number] [place] [address]- 4266 24 May, 2012 [facility] [place] [facility] [address] [facility] [id number] [place] [address]- 8866 18 May, 2012 [facility] [place] [facility] [address] [id number] [place] [address]- 7732 Mar, [facility] [place] [facility] [address] [id number] [place] [address]- 6148 Mar, [facility] [place] [facility] [address] [facility] [id number] [place] [address]- 3089 Mar, [facility] [place] [facility] [address] [facility] [id number] [place] [address]- 8873 Feb, [facility] [place] [facility] [address] [facility] [id number] [place] [address]- 9479 04 Feb, 2012 [facility] [place] [facility] [address] [place] [id number] [place] [address]- 7182 Dec, [facility] [place] [facility] [address] [facility] [id number] [place] [address]- 5452 28 Oct, 2011 [facility] [place] [facility] [address] [place] [id number] [place] [address]- 0955 27 Oct, 2011 [facility] [place] [facility] [address] [facility] [id number] [place] [address]- 5613 22 Oct, 2011 [facility] [place] [facility] [address] [id number] [place] [address]- 1656 14 Oct, 2011 [facility] [place] [facility] [address] [facility] [id number] [place] [address]- 4273 13 Oct, 2011 [facility] [place] [facility] [address] [facility] [id number] [place] [address]- 3256 13 Oct, 2011 [facility] [place] [facility] [address] [facility] [id number] [place] [address]- 9742 Aug, [facility] [address] [facility] [id number], [place] [address]- 5285 Jul, IMMUNIZATIONS No Known Immunizations SOCIAL HISTORY Never Assessed REASON FOR VISIT Medicare AWV - Initial Visit -Arnav POMPA PLAN OF CARE Activity Details Follow Up 1 Year Reason: VITAL SIGNS Height 62 in 2018-03-08 Weight 231.8 lbs 2018-03-08 Temperature 97.1 degrees Fahrenheit 2018-03-08 Heart Rate 78 bpm 2018-03-08 Respiratory Rate 20 2018-03-08 Oximetry on room air:97 % 2018-03-08 BMI 42.39 kg/m2 2018-03-08 Blood pressure systolic 130 mmHg 2018-03-08 Blood pressure diastolic 72 mmHg 2018-03-08 MEDICATIONS Medication Instructions Dosage Frequency Start Date End Date Duration Status Taztia XT 240 MG Orally Once a day 1 capsule 24h 30 days Active Fish Oil 1000 MG Orally 3 times a day 1 capsule 8h Active Ondansetron 8 MG Orally as needed 1 tablet on the tongue and allow to dissolve Not-Taking Fluticasone Propionate 50 MCG/ACT Nasally Once a day 1 spray in each nostril 24h Oct, 30 day(s) Not-Taking Iron 325 (65 Fe) MG Orally Once a day 1 tablet 24h Active Eliquis 5 MG Orally 2 times a day 1 tablet 12h Active Retin-A 0.05 % Externally Once a day 1 application to affected area in the evening to face 24h Aug, 30 days Active Vitamin D3 2,000 unit Orally 3 times a day 1 Capsule by Oral route 1 time per day 8h January, Active Anastrozole 1 MG Orally Once a day 1 tablet 24h Active Multivitamins Orally once a day one 24h Active Benazepril HCl 20 mg Orally Once a day 1 tablet 24h Active Aspirin Adult Low Dose 81 MG Orally Once a day 1 tablet 24h Active Omeprazole 40 MG TAKE ONE CAPSULE BY MOUTH ONCE DAILY 90 Active Clopidogrel Bisulfate 75 MG Orally Once a day 1 tablet 24h Active Atorvastatin Calcium 20 MG Orally Once a day 1 tablet 24h Active Hydrochlorothiazide 25 MG Orally Once a day 1 tablet 24h 90 days Active Venlafaxine HCl 37.5 MG Orally Twice a day 1 tablet with food 12h Active RESULTS No Results PROCEDURES Procedure Date Ordered Result Body Site [facility] VISIT IPPE/AWV March 08, 2018 ANNUAL HARRY VST; PERSNL PPS INIT March 08, 2018 PT TOBACCO SCREEN RCVD TLK March 08, 2018 FALL RISK ASSESSMENT DOCD March 08, 2018 NEG SCR D PT NOT ELIG F/U/PLN DOC March 08, 2018 INSTRUCTIONS MEDICATIONS ADMINISTERED No Known Medications [...]
--- OUTSIDE RECORDS SUMMARY | 2018-12-27 06:44 | XMS REPORT ---
Author Author NAZANIN PONCE Organization [facility] Address [address] [place] [address] Care Team Providers Care Railroad Hand Name Role Phone NAZANIN PONCE Unavailable PROBLEMS Type Condition ICD9-CM Code VJT89-OF Code Onset Dates Condition Status SNOMED Code Problem Esophageal reflux K21.9 Active 784259969 Problem Vitamin D deficiency E55.9 Active 32625250 Problem Episodic mood disorder F39 Active 23490036 Problem Dysmetabolic syndrome X E88.81 Active 957799807 Problem Paroxysmal atrial fibrillation I48.0 Active 854466181 Problem Coronary artery disease involving [place] coronary artery 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.10 Active 5788211780616 Problem Hypertension I10 Active 50019704 Problem Other chronic pain G89.29 Active 08934987 Problem Malignant neoplasm of right female breast, unspecified estrogen receptor status, unspecified site of breast C50.911 Active 115155068 Problem Hyperlipemia E78.5 Active 79030038 ALLERGIES No Known Allergies ENCOUNTERS Encounter Location Date Diagnosis [place] [id number] [place] [address]23- 3836 Feb, Medicare annual wellness visit, initial Z00.00 ; Hyperlipemia E78.5 ; Hypertension I10 ; Paroxysmal atrial fibrillation I48.0 ; Malignant neoplasm of right female breast, unspecified estrogen receptor status , unspecified site of breast C50.911 ; Episodic mood disorder F39 and Esophageal reflux K21.9 [facility] [id number] [place] [address] 93002- 5535 Nov, Coronary artery disease involving [place] coronary artery 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.10 and Paroxysmal atrial fibrillation I48.0 [place] [address] [place] [id number] [address] Sep, BMI 40.0-44.9, adult Z68.41 [facility] [id number] [address] Jul, 2017 BMI 40.0-44.9, adult Z68.41 ; Coronary artery disease involving [place] coronary artery 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.10 ; Hypertension I10 and Episodic mood disorder F39 [facility] [id number] [place] [address] 53897- 0228 Jul, Hypertension I10 [facility] [id number] [place] [address] 30220- 6477 Jun, Hypertension I10 and Malignant neoplasm of female breast, unspecified laterality, unspecified site of breast C50.919 [facility] [id number] [place] [address] 36420- 0433 May, [facility] [id number] [place] [address] 76822- 4930 Oct, Hypertension I10 [facility] [id number] [place] [address] 65684- 7758 Nov, Malignant neoplasm of female breast, unspecified laterality , unspecified site of breast C50.919 [facility] [id number] [place] [address] 14090- 7170 Aug, [facility] [id number] [address]- 2299 Jul, [facility] [id number] [place] [address] 23618- 7121 May, Tachycardia 785.0 [facility] [id number] [place] [address] 44677- 8996 May, [facility] [id number] [place] [address] 37184- 0561 Apr, [facility] [id number] [place] [address] 32317- 9609 Apr, [facility] [address] [place] [address] 50[address] January, [facility] [place] [facility] [address] [id number] [place] [address]- 9812 14 Dec, 2014 [facility] [place] [facility] [address] [id number] [place] [address]- 7118 Dec, [facility] [place] [facility] [address] [id number] [place] [address]- 6965 24 Nov, 2014 [facility] [place] [facility] [address] [id number] [place] [address]- 5713 24 Nov, 2014 [facility] [place] [facility] [address] [id number] [place] [address]- 2931 17 Nov, 2014 [facility] [place] [facility] [address] [id number] [place] [address]- 6014 17 Nov, 2014 [facility] [place] [facility] [address] [id number] [place] [address]- 5880 16 Nov, 2014 [facility] [place] [facility] [address] [id number] [place] [address]- 0254 16 Nov, 2014 [facility] [place] [facility] [address] [id number] [place] [address]- 8675 Sep, [facility] [place] [facility] [address] [id number] [place] [address]- 6287 Sep, [facility] [place] [facility] [address] [id number] [place] [address]- 7611 Sep, [facility] [place] [facility] [address] [id number] [place] [address]- 9536 Sep, [facility] [place] [facility] [address] [id number] [place] [address]- 2109 Sep, [facility] [place] [facility] [address] [id number] [place] [address]- 8207 Aug, [facility] [place] [facility] [address] [id number] [place] [address]- 1882 Aug, [facility] [place] [facility] [address] [id number] [place] [address]- 0849 Aug, [facility] [place] [facility] [address] [id number] [place] [address]- 2768 Aug, [facility] [place] [facility] [address] [id number] [place] [address]- 6111 May, [facility] [place] [facility] [address] [id number] [place] [address]- 2854 May, [facility] [place] [facility] [address] [id number] [place] [address]- 3635 Mar, [facility] [place] [facility] [address] [id number] [place] [address]- 3085 Mar, [facility] [place] [facility] [address] [id number] [place] [address]- 3403 Mar, [facility] [place] [facility] [address] [id number] [place] [address]- 5582 Mar, [facility] [place] [facility] [address] [id number] [place] [address]- 6561 Mar, [facility] [place] [facility] [address] [id number] [place] [address]- 8641 Mar, [facility] [place] [facility] [address] [id number] [place] [address]- 7883 Mar, [facility] [place] [facility] [address] [id number] [place] [address]- 6276 Mar, [facility] [place] [facility] [address] [id number] [place] [address]- 2494 Feb, [facility] [place] [facility] [address] [id number] [place] [address]- 5738 Feb, [facility] [place] [facility] [address] [id number] [place] [address]- 8275 January, [facility] [place] [facility] [address] [id number], [place] [address]- 0113 January, [facility] [place] [facility] [address] [id number] [place] [address]- 9282 Dec, [facility] [place] [facility] [address] [id number] [place] [address] Dec, [facility] [place] [facility] [address] [facility] [id number] [place] [address]- 3553 Nov, [facility] [place] [facility] [address] [id number] [place] [address]- 5482 Nov, [facility] [place] [facility] [address] [id number] [place] [address]- 8514 Oct, [facility] [place] [facility] [address] [id number] [place] [address]- 2218 Oct, [facility] [place] [facility] [address] [facility] [id number] [place] [address]- 2705 Oct, [facility] [place] [facility] [address] [id number] [place] [address]- 4386 Oct, [facility] [place] [facility] [address] [facility] [id number] [place] [address]- 8662 Sep, [facility] [place] [facility] [address] [facility] [id number] [place] [address]- 8807 Sep, [facility] [place] [facility] [address] [id number], [place] [address]- 3419 Jun, [facility] [place] [facility] [address] [id number], [place] [address]- 8843 Jun, [facility] [place] [facility] [address] [id number] [place] [address]- 4328 Jun, [facility] [place] [facility] [address] [id number] [place] [address]- 0722 Jun, [facility] [place] [facility] [address] [facility] [id number] [place] [address]- 6228 Jun, [facility] [place] [facility] [address] [id number] [place] [address]- 7166 Jun, [facility] [place] [facility] [address] [id number] [place] [address]- 6637 Jun, [facility] [place] [facility] [address] [id number] [place] [address]- 2867 Feb, [facility] [place] [facility] [address] [id number] [place] [address]- 6848 Feb, [facility] [place] [facility] [address] [id number] [place] [address]- 2093 Feb, [facility] [place] [facility] [address] [id number] [place] [address]- 5738 Feb, [facility] [place] [facility] [address] [id number] [place] [address]- 1664 Dec, [facility] [place] [facility] [address] [id number] [place] [address]- 6968 Oct, [facility] [place] [facility] [address] [id number] [place] [address]- 6856 Oct, [facility] [place] [facility] [address] [id number] [place] [address]- 9791 Sep, [facility] [place] [facility] [address] [id number] [place] [address]- 2757 Jul, [facility] [place] [facility] [address] [id number] [place] [address]- 4188 Jul, [facility] [place] [facility] [address] [id number] [place] [address]- 8323 16 Jul, 2012 [facility] [place] [facility] [address] [id number] [place] [address] 2546 16 Jul, 2012 [facility] [place] [facility] [address] [id number] [place] [address] 254 10 Jun, 2012 [facility] [place] [facility] [address] [id number] [place] [address]- 7543 10 Jun, 2012 [facility] [place] [facility] [address] [id number] [place] [address]- 2196 05 Jun, 2012 [facility] [place] [facility] [address] [id number] [place] [address]- 3356 24 May, 2012 [facility] [place] [facility] [address] [facility] [id number] [place] [address]- 6436 18 May, 2012 [facility] [place] [facility] [address] [id number] [place] [address]- 5781 Mar, [facility] [place] [facility] [address] [id number] [place] [address]- 7721 Mar, [facility] [place] [facility] [address] [facility] [id number] [place] [address]- 0436 Mar, [facility] [place] [facility] [address] [facility] [id number] [place] [address]- 9150 Feb, [facility] [place] [facility] [address] [facility] [id number] [place] [address]- 0339 04 Feb, 2012 [facility] [place] [facility] [address] [id number] [address]- 5559 Dec, [facility] [place] [facility] [address] [facility] [id number] [place] [address]- 7663 28 Oct, 2011 [facility] [place] [facility] [address] [place] [id number] [address]- 7991 27 Oct, 2011 [facility] [place] [facility] [address] [facility] [id number] [place] [address]- 7617 22 Oct, 2011 [facility] [place] [facility] [address] [id number] [place] [address]- 7116 14 Oct, 2011 [facility] [place] [facility] [address] [facility] [id number] [place] [address]- 6725 13 Oct, 2011 [facility] [place] [facility] [address] [facility] [id number] [place] [address]- 2106 13 Oct, 2011 [facility] [place] [facility] [address] [facility] [id number] [place] [address]- 2546 Aug, [facility] [address] [facility] [id number], [place] [address]- 2326 Jul, IMMUNIZATIONS No Known Immunizations SOCIAL HISTORY Never Assessed REASON FOR VISIT mood follow up -Arnav POMPA PLAN OF CARE VITAL SIGNS Height 62 in 2017-11-28 Weight 233.4 lbs 2017-11-28 Temperature 98.5 degrees Fahrenheit 2017-11-28 Heart Rate 64 bpm 2017-11-28 Respiratory Rate 20 2017-11-28 BMI 42.68 kg/m2 2017-11-28 Blood pressure systolic 115 mmHg 2017-11-28 Blood pressure diastolic 75 mmHg 2017-11-28 MEDICATIONS Medication Instructions Dosage Frequency Start Date End Date Duration Status Multivitamins Orally once a day one 24h Active Retin-A 0.05 % Externally Once a day 1 application to affected area in the evening to face 24h Aug, 30 days Active Atorvastatin Calcium 20 MG Orally Once a day 1 tablet 24h Active Anastrozole 1 MG Orally Once a day 1 tablet 24h Active Eliquis 5 MG Orally 2 times a day 1 tablet 12h Active Taztia XT 240 MG Orally Once a day 1 capsule 24h 30 days Active Ondansetron 8 MG Orally as needed 1 tablet on the tongue and allow to dissolve Not-Taking Omeprazole 40 mg Orally Once a day 1 capsule 24h Active Fluticasone Propionate 50 MCG/ACT Nasally Once a day 1 spray in each nostril 24h Oct, 30 day(s) Not-Taking Venlafaxine HCl 37.5 MG Orally Twice a day 1 tablet with food 12h Active Vitamin D3 2,000 unit Orally 3 times a day 1 Capsule by Oral route 1 time per day 8h January, Active Hydrochlorothiazide 25 MG Orally Once a day 1 tablet 24h 90 days Active Aspirin Adult Low Dose 81 MG Orally Once a day 1 tablet 24h Active Iron 325 (65 Fe) MG Orally Once a day 1 tablet 24h Active Benazepril HCl 20 mg Orally Once a day 1 tablet 24h Active Fish Oil 1000 MG Orally 3 times a day 1 capsule 8h Active Clopidogrel Bisulfate 75 MG Orally Once [...]
[2018-12-27] MEDS ORDERED: NS IV 1000 ML 1,000 ML IV SCH ×2 (06:45→09:54)
--- OUTSIDE RECORDS SUMMARY | 2018-12-27 06:45 | XMS REPORT ---
Author Author NAZANIN PONCE Organization [facility] Address [address] [place] [address] Care Team Providers Care Pediatric Assistant Name Role Phone NAZANIN PONCE Unavailable PROBLEMS Type Condition ICD9-CM Code LSG33-UC Code Onset Dates Condition Status SNOMED Code Problem Esophageal reflux K21.9 Active 189391610 Problem Vitamin D deficiency E55.9 Active 55528048 Problem Episodic mood disorder F39 Active 90893224 Problem Dysmetabolic syndrome X E88.81 Active 939535272 Problem Paroxysmal atrial fibrillation I48.0 Active 235030868 Problem Coronary artery disease involving [place] coronary artery of [place] heart without angina pectoris I25.10 Active 3287017210898 Problem Hypertension I10 Active 00281013 Problem Other chronic pain G89.29 Active 57668483 Problem Malignant neoplasm of right female breast, unspecified estrogen receptor status, unspecified site of breast C50.911 Active 925999904 Problem Hyperlipemia E78.5 Active 05153477 ALLERGIES No Information ENCOUNTERS Encounter Location Date Diagnosis [place] [id number] [place] [address] 26478- 6443 Nov, Coronary artery disease involving [place] coronary artery of [place] heart without angina pectoris I25.10 and Paroxysmal atrial fibrillation I48.0 [facility] [address] [place] [address] 10120- 8865 Sep, BMI 40.0-44.9, adult Z68.41 [place] [address] [place] [id number] [place] [address] 91105- 1651 Jul, BMI 40.0-44.9, adult Z68.41 ; Coronary artery disease involving [place] coronary artery of [place] heart without angina pectoris I25.10 ; Hypertension I10 and Episodic mood disorder F39 [place] [address] [place] [id number] [place] [address] 43126- 1936 Jul, Hypertension I10 [facility] [id number] [place] [address] 38358- 0494 Jun, Hypertension I10 and Malignant neoplasm of female breast, unspecified laterality, unspecified site of breast C50.919 [facility] [address], [place] [address]- 8006 May, [facility] [id number] [place] [address] 84192- 1603 Oct, Hypertension I10 [facility] [id number] [place] [address] 70094- 2262 Nov, Malignant neoplasm of female breast, unspecified laterality , unspecified site of breast C50.919 [facility] [id number] [place] [address] 30744- 6336 Aug, [facility] [id number] [place] [address] 23198- 9104 Jul, [facility] [id number] [place] [address] 34810- 6796 May, Tachycardia 785.0 [facility] [id number] [place] [address] 92967- 0524 May, [facility] [address], [place] [address]- 2749 Apr, [facility] [id number] [place] [address] 72583- 1469 Apr, [facility] [address] [place] [address] 67558- 4976 January, [facility] [id number] [place] [address] 48352- 9746 14 Dec, 2014 [facility] [address] [address]- 0716 13 Dec, 2014 [facility] [id number] [place] [address] 67795- 2609 24 Nov, 2014 [facility] [place] [facility] [address] [id number] [place] [address]- 1610 24 Nov, 2014 [facility] [place] [facility] [address] [id number] [place] [address]- 4908 17 Nov, 2014 [facility] [place] [facility] [address] [id number] [place] [address]- 6094 17 Nov, 2014 [facility] [place] [facility] [address] [id number] [place] [address]- 9763 16 Nov, 2014 [facility] [place] [facility] [address] [id number] [place] [address]- 8813 16 Nov, 2014 [facility] [place] [facility] [address] [id number] [place] [address]- 6291 16 Sep, 2014 [facility] [place] [facility] [address] [id number] [place] [address]- 4505 Sep, [facility] [place] [facility] [address] [id number] [place] [address]- 0787 Sep, [facility] [place] [facility] [address] [id number] [place] [address]- 9568 Sep, [facility] [place] [facility] [address] [facility] [id number] [place] [address]- 4946 Sep, [facility] [place] [facility] [address] [id number], [place] [address]- 2680 Aug, [facility] [place] [facility] [address] [id number] [place] [address]- 2087 Aug, [facility] [place] [facility] [address] [id number] [place] [address]- 3386 Aug, [facility] [place] [facility] [address] [id number] [place] [address]- 4324 Aug, [facility] [place] [facility] [address] [facility] [id number] [place] [address]- 9980 May, [facility] [place] [facility] [address] [id number] [place] [address]- 4377 May, [facility] [place] [facility] [address] [id number] [place] [address]- 4731 Mar, [facility] [place] [facility] [address] [id number] [place] [address]- 0620 Mar, [facility] [place] [facility] [address] [id number] [place] [address]- 0464 Mar, [facility] [place] [facility] [address] [id number] [place] [address]- 9068 Mar, [facility] [place] [facility] [address] [id number] [place] [address]- 8000 Mar, [facility] [place] [facility] [address] [id number] [place] [address]- 3508 Mar, [facility] [place] [facility] [address] [id number] [place] [address]- 7299 Mar, [facility] [place] [facility] [address] [id number] [place] [address]- 2521 Mar, [facility] [place] [facility] [address] [id number] [place] [address]- 6884 Feb, [facility] [place] [facility] [address] [id number] [place] [address]- 8044 Feb, [facility] [place] [facility] [address] [id number] [place] [address]- 9034 January, [facility] [place] [facility] [address] [id number] [place] [address]- 7520 January, [facility] [place] [facility] [address] [id number] [place] [address]- 8856 Dec, [facility] [place] [facility] [address] [id number] [place] [address]- 0286 Dec, [facility] [place] [facility] [address] [id number] [place] [address]- 1026 Nov, [facility] [place] [facility] [address] [id number] [place] [address]- 2226 Nov, [facility] [place] [facility] [address] [id number] [place] [address]- 5179 Oct, [facility] [place] [facility] [address] [id number] [place] [address]- 5236 Oct, [facility] [place] [facility] [address] [id number] [place] [address]- 9241 Oct, [facility] [place] [facility] [address] [id number] [place] [address]- 0497 Oct, [facility] [place] [facility] [address] [id number] [place] [address] Sep, [facility] [place] [facility] [address] [id number] [place] [address] Sep, [facility] [place] [facility] [address] [id number] [place] [address] Jun, [facility] [place] [facility] [address] [id number] [place] [address] Jun, [facility] [place] [facility] [address] [id number] [place] [address] Jun, [facility] [place] [facility] [address] [id number] [place] [address] Jun, [facility] [place] [facility] [address] [id number] [place] [address] Jun, [facility] [place] [facility] [address] [id number] [place] [address] Jun, [facility] [place] [facility] [address] [id number] [place] [address] Jun, [facility] [place] [facility] [address] [id number] [place] [address] Feb, [facility] [place] [facility] [address] [id number] [place] [address] Feb, [facility] [address] [id number] [place] [address] Feb, [facility] [place] [facility] [address] [id number] [place] [address] 06 Feb, 2013 [facility] [place] [facility] [address] [id number] [place] [address] 30 Dec, 2012 [facility] [place] [facility] [address] [id number] [place] [address] Oct, [facility] [place] [facility] [address] [id number] [place] [address] Oct, [facility] [place] [facility] [address] [id number] [place] [address] Sep, [facility] [place] [facility] [address] [id number] [place] [address] Jul, [facility] [address] [id number] [place] [address] Jul, [facility] [place] [facility] [address] [facility] [id number] [place] [address] 16 Jul, 2012 [facility] [address] [facility] [id number] [place] [address] 16 Jul, 2012 [facility] [place] [facility] [address] [id number] [place] [address] 10 Jun, 2012 [facility] [place] [facility] [address] [id number] [place] [address] 10 Jun, 2012 [facility] [place] [facility] [address] [id number] [place] [address] 05 Jun, 2012 [facility] [place] [facility] [address] [id number] [place] [address]46 24 May, 2012 [facility] [place] [facility] [address] [id number] [place] [address] May, [facility] [id number] [place] [address] Mar, [facility] [id number] [place] [address] Mar, [facility] [id number] [place] [address] Mar, [facility] [id number] [place] [address] Feb, [facility] [id number] [place] [address]- [address] Feb, [facility] [id number] [place] [address]- [address]66 Dec, [facility] [id number] [place] [address]- [address] Oct, [facility] [id number] [place] [address]- 4866 Oct, [facility] [id number] [place] [address]- [address] Oct, [facility] [id number] [place] [address] 14 Oct, 2011 [facility] [id number] [place] [address] Oct, [facility] [id number] [place] [address] Oct, [facility] [id number] [place] [address] Aug, [facility] [id number], [place] [address] Jul, IMMUNIZATIONS No Known Immunizations SOCIAL HISTORY Never Assessed REASON FOR VISIT Refill request PLAN OF CARE VITAL SIGNS MEDICATIONS No Known Medications RESULTS No Results PROCEDURES No Known [...]
--- OUTSIDE RECORDS SUMMARY | 2018-12-27 06:45 | XMS REPORT ---
Author Author NAZANIN PONCE Organization [facility] Address [address] [place] [address] Care Team Providers Care Line Pilot Name Role Phone NAZANIN PONCE Unavailable PROBLEMS Type Condition ICD9-CM Code VON01-OC Code Onset Dates Condition Status SNOMED Code Problem Esophageal reflux K21.9 Active 426335320 Problem Vitamin D deficiency E55.9 Active 88111776 Problem Episodic mood disorder F39 Active 42255816 Problem Dysmetabolic syndrome X E88.81 Active 713132191 Problem Paroxysmal atrial fibrillation I48.0 Active 140828084 Problem Coronary artery disease involving [place] coronary artery of [place] heart without angina pectoris I25.10 Active 0369586962409 Problem Hypertension I10 Active 74444751 Problem Other chronic pain G89.29 Active 54948285 Problem Malignant neoplasm of right female breast, unspecified estrogen receptor status, unspecified site of breast C50.911 Active 304322616 Problem Hyperlipemia E78.5 Active 31026682 ALLERGIES No Information ENCOUNTERS Encounter Location Date Diagnosis [place] [id number] [place] [address]47- 8377 Feb, Medicare annual wellness visit, initial Z00.00 ; Hyperlipemia E78.5 ; Hypertension I10 ; Paroxysmal atrial fibrillation I48.0 ; Malignant neoplasm of right female breast, unspecified estrogen receptor status , unspecified site of breast C50.911 ; Episodic mood disorder F39 and Esophageal reflux K21.9 [facility] [id number] [place] [address]166- 7137 Nov, Coronary artery disease involving [place] coronary artery of [place] heart without angina pectoris I25.10 and Paroxysmal atrial fibrillation I48.0 [place] [id number] [place] [address] 96039- 5282 Sep, BMI 40.0-44.9, adult Z68.41 [facility] [address] [place] [id number] [place] [address] 69235- 9841 Jul, 2017 BMI 40.0-44.9, adult Z68.41 ; Coronary artery disease involving [place] coronary artery of [place] heart without angina pectoris I25.10 ; Hypertension I10 and Episodic mood disorder F39 [facility] [address] [place] [id number] [place] [address] 17745- 0637 Jul, Hypertension I10 [facility] [address] [address] Jun, Hypertension I10 and Malignant neoplasm of female breast, unspecified laterality, unspecified site of breast C50.919 [facility] [address] [place] [id number] [place] [address] 24798- 2126 May, [facility] [address] [place] [id number] [place] [address] 87939- 2496 Oct, Hypertension I10 [facility] [address] [place] [id number] [place] [address] 03444- 1399 Nov, Malignant neoplasm of female breast, unspecified laterality , unspecified site of breast C50.919 [facility] [address] [place] [id number] [place] [address] 58767- 0228 Aug, [facility] [address] [place] [id number] [place] [address] 69678- 3857 Jul, [facility] [address] [place] [id number] [place] [address] 65555- 1781 May, Tachycardia 785.0 [facility] [address] [place] [id number] [place] [address] 81193- 2642 May, [facility] [address] [place] [id number] [place] [address] 67281- 7640 Apr, [facility] [address] [place] [id number] [place] [address] 34316- 3158 Apr, [facility] [address] [place] [address] January, [facility] [place] [facility] [address] [id number] [place] [address] 6468 14 Dec, 2014 [facility] [place] [facility] [address] [id number] [place] [address]- 4329 Dec, [facility] [place] [facility] [address] [id number] [place] [address]- 1025 24 Nov, 2014 [facility] [place] [facility] [address] [id number] [place] [address]- 5602 24 Nov, 2014 [facility] [place] [facility] [address] [id number] [place] [address]- 1828 17 Nov, 2014 [facility] [place] [facility] [address] [id number] [place] [address]- 3280 17 Nov, 2014 [facility] [place] [facility] [address] [id number] [place] [address]- 9779 16 Nov, 2014 [facility] [place] [facility] [address] [id number] [place] [address]- 6337 16 Nov, 2014 [facility] [place] [facility] [address] [id number] [place] [address]- 6189 Sep, [facility] [place] [facility] [address] [id number] [place] [address]- 1819 Sep, [facility] [place] [facility] [address] [id number] [place] [address]- 4819 Sep, [facility] [place] [facility] [address] [id number] [place] [address]- 5350 Sep, [facility] [place] [facility] [address] [id number] [place] [address]- 9824 Sep, [facility] [place] [facility] [address] [id number] [place] [address]- 8749 Aug, [facility] [place] [facility] [address] [id number] [place] [address]- 1003 Aug, [facility] [place] [facility] [address] [id number] [place] [address]- 8967 Aug, [facility] [place] [facility] [address] [id number] [place] [address]- 6212 Aug, [facility] [place] [facility] [address] [id number] [place] [address]- 8436 May, [facility] [place] [facility] [address] [id number] [place] [address]- 3514 May, [facility] [place] [facility] [address] [id number] [place] [address]- 9391 Mar, [facility] [place] [facility] [address] [id number] [place] [address]- 5676 Mar, [facility] [place] [facility] [address] [id number] [place] [address]- 3646 Mar, [facility] [place] [facility] [address] [id number] [place] [address]- 0785 Mar, [facility] [place] [facility] [address] [id number] [place] [address]- 3812 Mar, [facility] [place] [facility] [address] [id number] [place] [address]- 8528 Mar, [facility] [place] [facility] [address] [id number] [place] [address]- 0767 Mar, [facility] [place] [facility] [address] [id number] [place] [address]- 3678 Mar, [facility] [place] [facility] [address] [id number] [place] [address]- 4132 Feb, [facility] [place] [facility] [address] [id number] [place] [address]- 3621 Feb, [facility] [place] [facility] [address] [id number] [place] [address]- 4994 January, [facility] [place] [facility] [address] [id number] [place] [address]- 5212 January, [facility] [place] [facility] [address] [id number] [place] [address]- 2227 Dec, [facility] [place] [facility] [address] [id number] [place] [address] Dec, [facility] [place] [facility] [address] [id number] [place] [address]- 7348 Nov, [facility] [place] [facility] [address] [id number] [place] [address]- 0985 Nov, [facility] [place] [facility] [address] [id number] [place] [address]- 9361 Oct, [facility] [place] [facility] [address] [id number] [place] [address]- 7596 Oct, [facility] [place] [facility] [address] [id number] [place] [address]- 6441 Oct, [facility] [place] [facility] [address] [id number] [place] [address]- 2406 Oct, [facility] [place] [facility] [address] [id number] [place] [address]- 9285 Sep, [facility] [place] [facility] [address] [id number] [place] [address]- 1397 Sep, [facility] [place] [facility] [address] [id number], [place] [address]- 4969 Jun, [facility] [place] [facility] [address] [id number], [place] [address]- 1248 Jun, [facility] [place] [facility] [address] [id number] [place] [address]- 3106 Jun, [facility] [place] [facility] [address] [id number] [place] [address]- 7618 Jun, [facility] [place] [facility] [address] [id number] [place] [address]- 0498 Jun, [facility] [place] [facility] [address] [id number] [place] [address]- 2629 Jun, [facility] [place] [facility] [address] [id number] [place] [address]- 6406 Jun, [facility] [place] [facility] [address] [id number] [place] [address]- 4691 Feb, [facility] [place] [facility] [address] [id number] [place] [address]- 4164 Feb, [facility] [place] [facility] [address] [id number] [place] [address]- 0731 Feb, [facility] [place] [facility] [address] [id number] [place] [address]- 9285 Feb, [facility] [place] [facility] [address] [id number] [place] [address]- 4051 Dec, [facility] [place] [facility] [address] [id number] [place] [address]- 6589 Oct, [facility] [place] [facility] [address] [id number] [place] [address]- 4235 Oct, [facility] [place] [facility] [address] [id number] [place] [address]- 1055 Sep, [facility] [place] [facility] [address] [id number] [place] [address]- 5293 Jul, [facility] [place] [facility] [address] [id number] [place] [address]- 0184 Jul, [facility] [place] [facility] [address] [id number] [place] [address]- 7298 Jul, [facility] [place] [facility] [address] [id number] [place] [address]448 16 Jul, 2012 [facility] [place] [facility] [address] [id number] [place] [address]- 7683 10 Jun, 2012 [facility] [place] [facility] [address] [id number] [place] [address]- 3135 10 Jun, 2012 [facility] [place] [facility] [address] [id number] [place] [address]- 2205 05 Jun, 2012 [facility] [place] [facility] [address] [id number] [place] [address]- 5400 24 May, 2012 [facility] [place] [facility] [address] [id number] [place] [address]- 5854 18 May, 2012 [facility] [place] [facility] [address] [id number] [place] [address]- 2800 Mar, [facility] [place] [facility] [address] [id number] [place] [address]- 0489 Mar, [facility] [place] [facility] [address] [id number] [place] [address]- 4640 Mar, [facility] [place] [facility] [address] [id number] [place] [address]- 2179 Feb, [facility] [place] [facility] [address] [id number] [place] [address]- 7730 04 Feb, 2012 [facility] [place] [facility] [address] [id number] [place] [address]- 2688 Dec, [facility] [place] [facility] [address] [place] [id number] [place] [address]- 6995 28 Oct, 2011 [facility] [place] [facility] [address] [id number] [place] [address]- 4550 27 Oct, 2011 [facility] [place] [facility] [address] [id number] [place] [address]- 2871 22 Oct, 2011 [facility] [place] [facility] [address] [id number] [place] [address]- 9725 14 Oct, 2011 [facility] [place] [facility] [address] [id number] [place] [address]- 9232 13 Oct, 2011 [facility] [place] [facility] [address] [id number] [place] [address]- 7766 13 Oct, 2011 [facility] [place] [facility] [address] [facility] [id number] [place] [address]22 Aug, [facility] [address] [facility] [id number] [place] [address]- 2502 Jul, IMMUNIZATIONS No Known Immunizations SOCIAL HISTORY Never Assessed REASON FOR VISIT Medication refill request PLAN OF CARE VITAL SIGNS MEDICATIONS Medication Instructions Dosage Frequency Start Date End Date Duration Status Taztia XT 240 MG Orally Once a day 1 capsule 24h 30 days Active RESULTS No Results PROCEDURES No Known [...]
[2018-12-27] MEDS ORDERED: HEParin 1000 UNIT/ML (10ML VIAL) FOR BOLUS ONE (06:46)
[2018-12-27] MEDS ORDERED: LIDOCAINE 1% INJ 20 ML 20 ML VIAL ONE (06:46)
--- OUTSIDE RECORDS SUMMARY | 2018-12-27 06:55 | XMS REPORT | Continuity of Care Document ---
Author Author [facility] Address Unknown Phone Unavailable Allergies Active Description Code Type Severity Reaction Onset Reported/Identified Relationship to Patient Clinical Status Yes No Known Drug Allergies [id number] Drug Allergy Mild N/A 04/04/2009 Yes No Known Drug Allergies [id number] Drug Allergy Unknown N/A 05/14/2015 Medications There is no data. 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 08/25/1016 MILADYS COUCH MD, Ot E66.9 OBESITY, UNSPECIFIED 08/25/1016 MILADYS COUCH MD, Ot E78.5 HYPERLIPIDEMIA, UNSPECIFIED 08/25/1016 MILADYS COUCH MD, Ot F32.9 MAJOR DEPRESSIVE DISORDER, SINGLE EPISOD 08/25/1016 IMLADYS COUCH MD, Ot I10 ESSENTIAL (PRIMARY) HYPERTENSION 08/25/1016 MILADYS COUCH MD, Ot Z17.0 ESTROGEN RECEPTOR POSITIVE STATUS [ER+] 08/25/1016 MILADYS COUCH MD, Ot Z68.41 BODY MASS INDEX (BMI) 40.0-44.9, ADULT 08/25/1016 MILADYS COUCH MD, Ot Z79.899 OTHER LONGTERM (CURRENT) DRUG THERAPY 08/25/1430 GINGER MORA MD, Ot Z48.812 ENCNTR FOR SURGICAL AFTCR FOLLOWING SURG 08/25/1430 GINGER MORA MD Ot Z95.5 PRESENCE OF [...] HYPERTENSION, BENIGN ESSENTIAL 08/04/2011 NAZANIN PONCE APRN T 272.4 HYPERLIPIDEMIA 08/04/2011 NAZANIN PONCE APRN T 278.00 OBESITY 08/04/2011 NAZANIN PONCE APRN T 401.1 HYPERTENSION, BENIGN ESSENTIAL 08/04/2011 NAZANIN PONCE APRN T 272.4 HYPERLIPIDEMIA 08/04/2011 KRIS PORTER NAZANIN T 278.00 OBESITY 08/04/2011 NAZANIN PONCE APRN T 401.1 HYPERTENSION, BENIGN ESSENTIAL 08/04/2011 KEN KUNZ MD 272.4 HYPERLIPIDEMIA 08/04/2011 KEN KUNZ MD 278.00 OBESITY 08/04/2011 KEN KUNZ MD 401.1 HYPERTENSION, BENIGN ESSENTIAL 08/04/2011 NAZANIN PONCE APRN T 272.4 HYPERLIPIDEMIA 08/04/2011 NAZANIN PONCE APRN T 278.00 OBESITY 08/04/2011 NAZANIN PONCE APRN T 401.1 HYPERTENSION, BENIGN ESSENTIAL 08/04/2011 JUNG DO, DOTTY K 272.4 HYPERLIPIDEMIA 08/04/2011 JUNG DO, DOTTY K 278.00 OBESITY 08/04/2011 JUNG DO, DOTTY K 401.1 HYPERTENSION, BENIGN ESSENTIAL 08/04/2011 MADAdelaide PORTER, KAVON L 272.4 HYPERLIPIDEMIA 08/04/2011 MADAdelaide PORTER, KAVON L 278.00 OBESITY 08/04/2011 MADAdelaide PORTER, KAVON L 401.1 HYPERTENSION, BENIGN ESSENTIAL 08/04/2011 NAZANIN PONCE APRN T 272.4 HYPERLIPIDEMIA 08/04/2011 KRIS PORTER NAZANIN T 278.00 OBESITY 08/04/2011 KRIS PORTER, NAZANIN T 401.1 HYPERTENSION, BENIGN ESSENTIAL 08/04/2011 KRIS JENSENN, NAZANIN T 272.4 HYPERLIPIDEMIA 08/04/2011 KRIS JENSNEN, NAZANIN T 278.00 OBESITY 08/04/2011 KRIS JENSENN, NAZANIN T 401.1 HYPERTENSION, BENIGN ESSENTIAL 08/04/2011 KRIS JENSENN, NAZANIN T 272.4 HYPERLIPIDEMIA 08/04/2011 KRIS JENSENN, NAZANIN T 278.00 OBESITY 08/04/2011 KRIS JENSENN, NAZANIN T 401.1 HYPERTENSION, BENIGN ESSENTIAL 08/04/2011 PENG PROCESS LABORATORY SPECIALIST, KASSIDY A 272.4 HYPERLIPIDEMIA 08/04/2011 PENG PROCESS LABORATORY SPECIALIST, KASSIDY A 278.00 OBESITY 08/04/2011 PENG PROCESS LABORATORY SPECIALIST, KASSIDY A 401.1 HYPERTENSION, BENIGN ESSENTIAL 08/04/2011 PENG PROCESS LABORATORY SPECIALIST, KASSIDY A 272.4 HYPERLIPIDEMIA 08/04/2011 PENG PROCESS LABORATORY SPECIALIST, KASSIDY A 278.00 OBESITY 08/04/2011 PENG PROCESS LABORATORY SPECIALIST, KASSIDY A 401.1 HYPERTENSION, BENIGN ESSENTIAL 08/04/2011 KEN KUNZ MD 272.4 HYPERLIPIDEMIA 08/04/2011 KEN KUNZ MD 278.00 OBESITY 08/04/2011 KEN KUNZ MD 401.1 HYPERTENSION, BENIGN ESSENTIAL 08/04/2011 KRIS JENSENN, NAZANIN T 272.4 HYPERLIPIDEMIA 08/04/2011 KRIS PORTER, NAZANIN T 278.00 OBESITY 08/04/2011 KRIS JENSENBrigida NAZANIN T 401.1 HYPERTENSION, BENIGN ESSENTIAL 08/04/2011 GREEN DDS, [...] V81.1 HYPERTENSION SCREENING 11/17/2011 DOTTY JUNG DO K V81.1 HYPERTENSION SCREENING 11/17/2011 KAVON LADD APRN V81.1 HYPERTENSION SCREENING 11/17/2011 NAZANIN PONCE APRN V81.1 HYPERTENSION SCREENING 11/17/2011 NAZANIN PONCE APRN V81.1 HYPERTENSION SCREENING 11/17/2011 NAZANIN PONCE APRN V81.1 HYPERTENSION SCREENING 11/17/2011 KASSIDY KHOURY APRN A V81.1 HYPERTENSION SCREENING 11/17/2011 BARBARA KHOURY APRNIDI A V81.1 HYPERTENSION SCREENING 11/17/2011 KEN KUNZ MD V81.1 HYPERTENSION SCREENING 11/17/2011 NAZANIN PONCE APRN V81.1 HYPERTENSION SCREENING 11/17/2011 ARNAUD OBRIEN DDS L V81.1 HYPERTENSION SCREENING 11/23/2011 268.9 VITAMIN D [...] APRN T 724.5 BACK PAIN, GENERAL 11/23/2011 JUNG DO, DOTTY K 268.9 VITAMIN D DEFICIENCY 11/23/2011 JUNG DO, DOTTY K 724.5 BACK PAIN, GENERAL 11/23/2011 TOBI LADD APRNWNYA L 268.9 VITAMIN D DEFICIENCY 11/23/2011 JULEE PORTER KAVON L 724.5 BACK PAIN, GENERAL 11/23/2011 NAZANIN PONCE APRN 268.9 VITAMIN D DEFICIENCY 11/23/2011 NAZANIN PONCE APRN 724.5 BACK PAIN, GENERAL 11/23/2011 NAZANIN PONCE APRN 268.9 VITAMIN D DEFICIENCY 11/23/2011 NAZANIN PONCE APRN 724.5 BACK PAIN, GENERAL 11/23/2011 NAZANIN PONCE APRN 268.9 VITAMIN D DEFICIENCY 11/23/2011 NAZANIN PONCE APRN 724.5 BACK PAIN, GENERAL 11/23/2011 KASSIDY KHOURY APRN A 268.9 VITAMIN D DEFICIENCY 11/23/2011 KASSIDY KHOURY APRN A 724.5 BACK PAIN, GENERAL 11/23/2011 KASSIDY KHOURY APRN A 268.9 VITAMIN D DEFICIENCY 11/23/2011 BARBARA KHOURY APRNIDI A 724.5 BACK PAIN, GENERAL 11/23/2011 KEN [...] BREAST CANCER SCREENING 04/18/2012 NAZANIN PONCE APRN T V76.10 BREAST CANCER SCREENING 04/18/2012 NAZANIN PONCE APRN T V76.10 BREAST CANCER SCREENING 04/18/2012 KEN KUNZ MD V76.10 BREAST CANCER SCREENING 04/18/2012 NAZANIN PONCE APRN V76.10 BREAST CANCER SCREENING 04/18/2012 DOTTY JUNG DO K V76.10 BREAST CANCER SCREENING 04/18/2012 KAVON LADD APRN V76.10 BREAST CANCER SCREENING 04/18/2012 NAZANIN PONCE APRN V76.10 BREAST CANCER SCREENING 04/18/2012 NAZANIN PONCE APRN T V76.10 BREAST CANCER SCREENING 04/18/2012 NAZANIN PONCE APRN T V76.10 BREAST CANCER SCREENING 04/18/2012 KASSIDY KHOURY APRN A V76.10 BREAST CANCER SCREENING 04/18/2012 BARBARA KHOURY APRNIDI A V76.10 BREAST CANCER SCREENING 04/18/2012 KEN KUNZ MD V76.10 BREAST CANCER SCREENING 04/18/2012 NAZANIN PONCE APRN T V76.10 BREAST CANCER SCREENING 04/18/2012 MICAH RODRIGUEZS ARNAUD L V76.10 BREAST CANCER SCREENING 07/05/2012 719.46 PAIN [...] PAIN IN JOINT INVOLVING LOWER LEG 07/05/2012 MICAH RODRIGUEZSARNAUD 719.46 PAIN IN JOINT INVOLVING LOWER LEG [...] NAZANIN PONCE APRN 535.50 Gastritis Unspec 10/02/2012 DOTTY JUNG DO 535.50 Gastritis Unspec 10/02/2012 KAVON LADD APRN 535.50 Gastritis Unspec 10/02/2012 NAZANIN PONCE APRN 535.50 Gastritis Unspec 10/02/2012 NAZANIN PONCE APRN 535.50 Gastritis Unspec 10/02/2012 NAZANIN PONCE APRN 535.50 Gastritis Unspec 10/02/2012 PENGCHANTALE PORTERBARBARAKASSIDY A 535.50 Gastritis Unspec 10/02/2012 PENG PORTER KASSIDY A 535.50 Gastritis Unspec 10/02/2012 KEN KUNZ MD [...] UPPER RESPIRATORY INFECTION 01/23/2013 NAZANIN PONCE APRN 380.4 CERUMEN IMPACTION 01/23/2013 NAZANIN PONCE APRN 465.9 UPPER RESPIRATORY INFECTION 01/23/2013 NAZANIN PONCE APRN 380.4 CERUMEN IMPACTION 01/23/2013 NAZANIN PONCE APRN 465.9 UPPER RESPIRATORY INFECTION 01/23/2013 KEN KUNZ MD 380.4 CERUMEN IMPACTION 01/23/2013 KEN KUNZ MD 465.9 UPPER RESPIRATORY INFECTION 01/23/2013 NAZANIN PONCE APRN 380.4 CERUMEN IMPACTION 01/23/2013 NAZANIN PONCE APRN 465.9 UPPER RESPIRATORY INFECTION 01/23/2013 JUNG DO, DOTTY K 380.4 CERUMEN IMPACTION 01/23/2013 JUNG DO, DOTTY K 465.9 UPPER RESPIRATORY INFECTION 01/23/2013 TOBI LADD APRNWNYA L 380.4 CERUMEN IMPACTION 01/23/2013 TOBI LADD APRNWNYA L 465.9 UPPER RESPIRATORY INFECTION 01/23/2013 NAZANIN PONCE APRN 380.4 CERUMEN IMPACTION 01/23/2013 NAZANIN PONCE APRN 465.9 UPPER RESPIRATORY INFECTION 01/23/2013 NAZANIN PONCE APRN 380.4 CERUMEN IMPACTION 01/23/2013 NAZANIN PONCE APRN 465.9 UPPER RESPIRATORY INFECTION 01/23/2013 NAZANIN PONCE APRN 380.4 CERUMEN IMPACTION 01/23/2013 NAZANIN PONCE APRN T 465.9 UPPER RESPIRATORY INFECTION 01/23/2013 PENG PROCESS LABORATORY SPECIALIST, KASSIDY A 380.4 CERUMEN IMPACTION 01/23/2013 PENG PROCESS LABORATORY SPECIALIST, KASSIDY A 465.9 UPPER RESPIRATORY INFECTION 01/23/2013 PENG PROCESS LABORATORY SPECIALIST, KASSIDY A 380.4 CERUMEN IMPACTION 01/23/2013 PENG PROCESS LABORATORY SPECIALIST, KASSIDY A 465.9 UPPER RESPIRATORY INFECTION 01/23/2013 KEN KUNZ MD 380.4 CERUMEN IMPACTION 01/23/2013 KEN KUNZ MD 465.9 UPPER RESPIRATORY INFECTION 01/23/2013 NAZANIN PONCE APRN 380.4 CERUMEN IMPACTION 01/23/2013 NAZANIN PONCE APRN 465.9 UPPER RESPIRATORY INFECTION 03/01/2013 462 ACUTE PHARYNGITIS 03/01/2013 462 ACUTE PHARYNGITIS 03/01/2013 462 ACUTE PHARYNGITIS 03/01/2013 KEN KUNZ MD 462 ACUTE PHARYNGITIS 03/01/2013 NAZANIN PONCE APRN 462 ACUTE PHARYNGITIS 03/01/2013 NAZANIN PONCE APRN 462 ACUTE PHARYNGITIS 03/01/2013 KEN KUNZ MD 462 ACUTE PHARYNGITIS 03/01/2013 NAZANIN PONCE APRN 462 ACUTE PHARYNGITIS 03/01/2013 ERICH MORA, DOTTY K 462 ACUTE PHARYNGITIS 03/01/2013 KAVON LADD APRN 462 ACUTE PHARYNGITIS 03/01/2013 NAZANIN PONCE APRN 462 ACUTE PHARYNGITIS 03/01/2013 NAZANIN PONCE APRN 462 ACUTE PHARYNGITIS 03/01/2013 NAZANIN PONCE APRN 462 ACUTE PHARYNGITIS 03/01/2013 PENG PORTER, KASSIDY A 462 ACUTE PHARYNGITIS 03/01/2013 PENG APRN, KASSIDY A 462 ACUTE PHARYNGITIS 03/01/2013 KEN KUNZ MD 462 ACUTE PHARYNGITIS 03/01/2013 KRIS PROCESS LABORATORY SPECIALIST, NAZANIN T 462 ACUTE PHARYNGITIS 07/16/2013 KEN KUNZ MD 790.29 HYPERGLYCEMIA 07/16/2013 NAZANIN PONCE APRN T 790.29 HYPERGLYCEMIA 07/16/2013 KRIS PORTER NAZANIN T 790.29 HYPERGLYCEMIA 07/16/2013 KEN KUNZ MD 790.29 HYPERGLYCEMIA 07/16/2013 NAZANIN PONCE APRN T 790.29 HYPERGLYCEMIA 07/16/2013 JUNG DO, DOTTY K 790.29 HYPERGLYCEMIA 07/16/2013 MADAdelaide PORTER KAVON L 790.29 HYPERGLYCEMIA 07/16/2013 NAZANIN PONCE APRN T 790.29 HYPERGLYCEMIA 07/16/2013 KRIS PORTER NAZANIN T 790.29 HYPERGLYCEMIA 07/16/2013 KRIS PORTER NAZANIN T 790.29 HYPERGLYCEMIA 07/16/2013 PENG PORTER KASSIDY A 790.29 HYPERGLYCEMIA 07/16/2013 PENG PORTER KASSIDY A 790.29 HYPERGLYCEMIA 07/16/2013 KEN KUNZ MD 790.29 HYPERGLYCEMIA 07/16/2013 NAZANIN PONCE APRN T 790.29 HYPERGLYCEMIA 07/20/2013 NAZANIN PONCE APRN T 277.7 METABOLIC SYNDROME 07/20/2013 NAZANIN PONCE APRN T 277.7 METABOLIC SYNDROME 07/20/2013 KEN KUNZ MD 277.7 METABOLIC SYNDROME 07/20/2013 NAZANIN PONCE APRN T 277.7 METABOLIC SYNDROME 07/20/2013 JUNG DO, DOTTY K 277.7 METABOLIC SYNDROME 07/20/2013 JULEE PORTER KAVON L 277.7 METABOLIC SYNDROME 07/20/2013 NAZANIN PONCE APRN T 277.7 METABOLIC SYNDROME 07/20/2013 NAZANIN PONCE APRN T 277.7 METABOLIC SYNDROME 07/20/2013 NAZANIN PONCE APRN T 277.7 METABOLIC SYNDROME 07/20/2013 PENG PORTER KASSIDY A 277.7 METABOLIC SYNDROME 07/20/2013 PENG PORTER KASSIDY A 277.7 METABOLIC SYNDROME 07/20/2013 KEN KUNZ MD 277.7 METABOLIC SYNDROME 07/20/2013 NAZANIN PONCE APRN T 277.7 METABOLIC SYNDROME 10/08/2013 NAZANIN PONCE APRN T 530.81 GERD 10/08/2013 NAZANIN PONCE APRN T 706.1 ACNE 10/08/2013 KEN KUNZ MD 530.81 GERD 10/08/2013 KEN KUNZ MD 706.1 ACNE 10/08/2013 KRIS PORTER, NAZANIN T 530.81 GERD 10/08/2013 KRIS PORTER, NAZANIN T 706.1 ACNE 10/08/2013 JUNG DO, DOTTY K 530.81 GERD 10/08/2013 JUNG DO, DOTTY K 706.1 ACNE 10/08/2013 MADL PROCESS LABORATORY SPECIALIST, KAVON L 530.81 GERD 10/08/2013 MADL PROCESS LABORATORY SPECIALIST, KAVON L 706.1 ACNE 10/08/2013 KRIS PORTER, NAZANIN T 530.81 GERD 10/08/2013 KRIS GERMAN, NAZANIN T 706.1 ACNE 10/08/2013 KRIS PORTER, NAZANIN T 530.81 GERD 10/08/2013 NAZANIN PONCE APRN T 706.1 ACNE 10/08/2013 NAZANIN PONCE APRN T 530.81 GERD 10/08/2013 NAZANIN PONCE APRN T 706.1 ACNE 10/08/2013 PENGBARBARA KENYON APRNIDI A 530.81 GERD 10/08/2013 PENGCHANTALE PORTER KASSIDY A 706.1 ACNE 10/08/2013 PENG APRN, KASSIDY A 530.81 GERD 10/08/2013 PENGCHANTALE PORTER, KASSIDY A 706.1 ACNE 10/08/2013 KEN KUNZ MD 530.81 GERD 10/08/2013 KEN KUNZ MD 706.1 ACNE 10/08/2013 KRIS PORTER NAZANIN T 530.81 GERD 10/08/2013 NAZANIN PONCE APRN T 706.1 ACNE 11/05/2013 KEN KUNZ MD 296.90 MOOD DISORDER 11/05/2013 NAZANIN PONCE APRN T 296.90 MOOD DISORDER 11/05/2013 JUNG DO, DOTTY K 296.90 MOOD DISORDER 11/05/2013 NIHARIKA LADD APRNA L 296.90 MOOD DISORDER 11/05/2013 NAZANIN PONCE APRN T 296.90 MOOD DISORDER 11/05/2013 NAZANIN PONCE APRN T 296.90 MOOD DISORDER 11/05/2013 NAZANIN PONCE APRN T 296.90 MOOD DISORDER 11/05/2013 KASSIDY KHOURY APRN A 296.90 MOOD DISORDER 11/05/2013 KASSIDY KHOURY APRN A 296.90 MOOD DISORDER 11/05/2013 KEN KUNZ MD 296.90 MOOD DISORDER 11/05/2013 NAZANIN PONCE APRN 296.90 MOOD DISORDER 02/11/2014 DOTTY JUNG DO K 919.4 INSECT BITE NONVENOMOUS OF OTHER MULTIPLE AND UNSPECIFIED SITES WITHOUT INFECTION 02/11/2014 JULEE GERMAN KAVON L 919.4 INSECT BITE NONVENOMOUS OF OTHER [...] APRN 338.29 PAIN - CHRONIC 10/07/2014 NAZANIN PONEC APRN 780.79 FATIGUE 10/07/2014 KASSIDY KHOURY APRN A 338.29 PAIN - CHRONIC 10/07/2014 KASSIDY KHOURY APRN A 780.79 FATIGUE 10/07/2014 BARBARA KHOURY APRNIDI A 338.29 PAIN - CHRONIC 10/07/2014 KASSIDY [...] KHOURY APRN Ot 611.72 12/24/2014 KASSIDY KHOURY A GERMAN Ot 611.72 12/24/2014 KASSIDY KHOURY APRN Ot 611.72 12/26/2014 KASSIDY KHOURY APRN A 174.9 MALIGNANT NEOPLASM OF BREAST (FEMALE) UNSPECIFIED [...] COLITIS 01/03/2015 Ot V76.12 01/03/2015 KASSIDY KHOURY A GERMAN Ot 611.72 01/03/2015 KASSIDY KHOURY A GERMAN Ot 174.9 01/14/2015 LAVONNE HURTADO DO Ot 174.9 MALIGN NEOPL BREAST NOS 01/15/2015 KHOA BENITO, MILADYS Ot 174.1 01/15/2015 MILADYS COUCH MD Ot 272.4 01/15/2015 MILADYS COUCH MD Ot 278.00 01/15/2015 KHOA BENITO, STROUD-ETTA Ot 311 01/15/2015 KHOA BENITO, STROUD-ETTA Ot 401.9 01/15/2015 KHOA BENITO, STROUD-ETTA Ot V85.41 01/15/2015 KHOA BENITO, STROUD-ETTA Ot V86.0 01/15/2015 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 Ot 174.9 01/15/2015 KHOA BENITO, STROUD-ETTA Ot 174.1 01/15/2015 KHOA BENITO, STROUD-ETTA Ot 272.4 01/15/2015 KHOA BENITO, STROUD-ETTA Ot 278.00 01/15/2015 KHOA BENITO, STROUD-ETTA Ot 311 01/15/2015 KHOA BENITO, STROUD-ETTA Ot 401.9 01/15/2015 KHOA BENITO, STROUD-ETTA Ot V85.41 01/15/2015 KHOA BENITO, STROUD-ETTA Ot V86.0 01/15/2015 Ot V76.12 01/15/2015 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 Ot 611.72 01/15/2015 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 Ot 174.9 01/15/2015 KHOA BENITO, STROUD-ETTA Ot 174.1 01/15/2015 KHOA BENITO, STROUD-ETTA Ot 272.4 01/15/2015 KHOA BENITO, STROUD-ETAT Ot 278.00 01/15/2015 KHOA BENITO, STROUD-ETTA Ot 311 01/15/2015 KHOA BENITO, STROUD-ETTA Ot 401.9 01/15/2015 KHOA BENITO, STROUD-ETTA Ot V85.41 01/15/2015 KHOA BENITO, STROUD-ETTA Ot V86.0 01/15/2015 KHOA BENITO, STROUD-ETTA Ot 174.9 01/15/2015 KHOA BENITO, STROUD-ETTA Ot 174.9 01/15/2015 GENESIS MORA, LAVONNE Ot 174.9 01/15/2015 GENESIS MORA, LAVONNE Ot V72.83 01/15/2015 LAVONNE HURTADO DO Ot V74.8 01/15/2015 KHOA BENITO, STROUD-ETTA Ot [...] BENITO, STROUD-ETTA Ot 174.9 01/27/2015 SHERI WAHL 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 Ot 174.1 01/27/2015 SHERI WAHLP Ot V86.0 01/27/2015 Ot V76.12 01/27/2015 KASSIDY KHOURY APRN Ot 611.72 01/27/2015 KASSIDY KHOURY APRN Ot 174.9 01/27/2015 KHOA BENITO, MILADYS Ot 174.1 01/27/2015 KHOA BENITO, MILADYS Ot 272.4 01/27/2015 KHOA BENITO, MILADYS Ot 278.00 01/27/2015 KHOA BENITO, STROUD-ETTA Ot 311 01/27/2015 KHOA BENITO, STROUD-ETTA Ot 401.9 01/27/2015 KHOA BENITO, MILADYS Ot V85.41 01/27/2015 KHOA BENITO, STROUD-ETTA Ot V86.0 01/27/2015 KHOA BENITO, STROUD-ETTA Ot 174.9 01/27/2015 KHOA BENITO, STROUD-ETTA Ot 174.9 01/27/[facility]2015 [facility] Ot V72.83 01/27/2015 [facility] Ot V74.8 01/27/2015 SHERI WAHL 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 Ot 174.1 01/27/2015 SHERI WAHL 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 Ot V86.0 01/27/2015 Ot V76.12 01/27/2015 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 Ot 611.72 01/27/2015 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 Ot 174.9 01/27/2015 KHOA BENITO, MILADYS Ot 174.1 01/27/2015 KHOA BENITO, STROUD-ETTA Ot 272.4 01/27/2015 KHOA BENITO, STROUD-ETTA Ot 278.00 01/27/2015 KHOA BENITO, STROUD-ETTA Ot 311 01/27/2015 KHOA BENITO, STROUD-ETTA Ot 401.9 01/27/2015 KHOA BENITO, STROUD-ETTA Ot V85.41 01/27/2015 KHOA BENITO, STROUD-ETTA Ot V86.0 01/27/2015 KHOA BENITO, STROUD-ETTA Ot 174.9 01/27/2015 KHOA BENITO, STROUD-ETTA Ot 174.9 01/27/2015 [facility] DO, [facility] Ot 174.9 01/27/2015 [facility], [facility] Ot V72.83 01/27/2015 [facility], [facility] Ot V74.8 01/27/2015 SHERI WAHL 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 Ot 174.1 01/27/2015 SHERI WAHL 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 Ot V86.0 01/27/2015 KHOA BENITO, STROUD-ETTA Ot 174.9 01/27/2015 KHOA BENITO, STROUD-ETTA Ot 174.9 01/27/2015 KHOA BENITO, STROUD-ETTA Ot 174.1 01/27/2015 KHOA BENITO, STROUD-ETTA Ot 272.4 01/27/2015 KHOA BENITO, STROUD-ETTA Ot 278.00 01/27/2015 KHOA BENTIO, STROUD-ETTA Ot 311 01/27/2015 KHOA BENITO, STROUD-ETTA [...] BENITO, STROUD-ETTA Ot 174.1 01/27/2015 KHOA BENITO, MILADYS Ot 272.4 01/27/2015 KHOA BENITO, MILADYS Ot 278.00 01/27/2015 KHOA BENITO, STROUD-ETTA Ot 311 01/27/2015 KHOA BENITO, STROUD-ETTA Ot 401.9 01/27/2015 KHOA BENITO, MILADYS Ot V85.41 01/27/2015 KHOA BENITO, MILADYS Ot V86.0 01/27/2015 KHOA BENITO, STROUD-ETTA Ot 174.9 01/27/2015 KHOA BENITO, STROUD-ETTA Ot 174.9 01/27/2015 [facility] 174.9 01/27/2015 [facility], [facility] Ot V72.83 01/27/2015 [facility], [facility] Ot V74.8 01/27/2015 SHERI WALH 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 Ot 174.1 01/27/2015 SHERI WAHL 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 Ot V86.0 01/27/2015 KHOA BENITO, MILADYS Ot 174.9 01/27/2015 KHOA BENITO, STROUD-ETTA Ot 174.9 01/27/2015 KHOA BENITO, STROUD-ETTA Ot 174.9 02/22/2015 SHERI WAHL 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 Ot 174.1 02/22/2015 SHERI WAHL 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 Ot V86.0 02/26/2015 Ot V76.12 02/26/2015 KASSIDY KHOURY APRN Ot 611.72 02/26/2015 KASSIDY KHOURY APRN Ot 174.9 02/26/2015 KHOA BENITO, MILADYS Ot 174.1 02/26/2015 KHOA BENITO, MILADYS Ot 272.4 02/26/2015 KHOA BENITO, MILADYS Ot 278.00 02/26/2015 KHOA BENITO, MILADYS Ot 311 02/26/2015 KHOA BENITO, MILADYS Ot 401.9 02/26/2015 KHOA BENITO, MILADYS Ot V85.41 02/26/2015 KHOA BENITO, MILADYS Ot V86.0 02/26/2015 KHOA BENITO, LUANNE-TETA Ot 174.9 02/26/2015 KHOA BENITO, STROUD-ETTA Ot 174.9 02/26/2015 [facility] DO, LASHAWNROUTIE Ot 174.9 02/26/2015 [facility] DO, LASHAWNROUTIE Ot V72.83 02/26/2015 [facility] DO, LASHAWNROUTIE Ot V74.8 02/26/2015 SHERI WAHL 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 Ot 174.1 02/26/2015 SHERI WAHL 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 Ot V86.0 02/26/2015 KHO[facility] BENITO, LUANNE-ETTA Ot 174.1 02/26/2015 KHOA BENITO, LUANNE-ETTA Ot 272.4 02/26/2015 KHOA BENITO, LUANNE-ETTA Ot 278.00 02/26/2015 KHOA BENITO, LUANNE-ETTA Ot 311 02/26/2015 KHOA BENITO, MILADYS Ot 401.9 02/26/2015 KHOA BENITO, MILADYS Ot V85.41 02/26/2015 KHOA BENITO, LUANNE-ETTA Ot V86.0 03/06/2015 KHOA BENITO, LUANNE-ETTA Ot 174.1 03/06/2015 KHOA BENITO, MILADYS Ot 272.4 03/06/2015 KHOA BENITO, LUANNE-ETTA Ot 278.00 03/06/2015 KHOA BENITO, MILADYS Ot 311 03/06/2015 KHOA BENITO, MILADYS Ot 401.9 03/06/2015 KHOA BENITO, LUANNE-ETTA Ot V85.41 03/06/2015 KHOA BENITO, LUANNE-ETTA Ot V86.0 03/11/2015 KHOA BENITO, MILADYS Ot 174.9 03/12/2015 KHOA BENITO, LUANNE-ETTA Ot 174.9 03/31/2015 KHOA BENITO, LUANNE-ETTA Ot 174.9 03/31/2015 KHOA BENITO, LUANNE-ETTA Ot V58.69 03/31/2015 KHOA BENITO, LUANNE-ETTA Ot V58.83 03/31/2015 KHOA BENITO, LUANNE-ETTA Ot 174.9 04/03/2015 KHOA BENITO, LUANNE-ETTA Ot 174.1 MAL JOSE L BREAST-CENTRAL 04/03/2015 [...] RECEPTOR POSITIVE STATUS [ER+] 04/08/2015 KHOA BENITO, LUANNE-ETTA Ot 174.1 04/08/2015 KHOA BENITO, LUANNE-ETTA Ot 272.4 04/08/2015 KHOA BENITO, LUANNE-ETTA Ot 278.00 04/08/2015 KHOA BENITO, LUANNE-ETTA Ot 311 04/08/2015 KHOA BENITO, LUANNE-ETTA Ot 401.9 04/08/2015 KHOA BENITO, MILADYS Ot V85.41 04/08/2015 KHOA BENITO, MILADYS Ot V86.0 04/09/2015 KHOA BENITO, MILADYS Ot 174.1 04/09/2015 KHOA EBNITO, MILADYS Ot 272.4 04/09/2015 [facility]HOA BENITO, LUANNE-ETTA Ot 278.00 04/09/2015 KHOA BENITO, LUANNE-ETTA Ot 311 04/09/2015 KHOA BENITO, MILADYS Ot 401.9 04/09/2015 KHOA BENITO, MILADYS Ot V85.41 04/09/2015 KHOA BENITO, MILADYS Ot V86.0 04/09/2015 KHOA BENITO, MILADYS Ot 174.1 04/09/2015 KHOA BENITO, LUANNE-ETTA Ot 272.4 04/09/2015 KHOA BENITO, LUANNE-ETTA Ot 278.00 04/09/2015 KHOA BENITO, LUANNE-ETTA Ot 311 04/09/2015 KHOA BENITO, LUANNE-ETTA Ot 401.9 04/09/2015 KHOA BENITO, LUANNE-ETTA Ot V85.41 04/09/2015 KHOA BENITO, LUANNE-ETTA Ot V86.0 04/10/2015 KHOA BENITO, LUANNE-ETTA Ot 174.1 04/10/2015 KHOA BENITO, STROUD-ETTA Ot 272.4 04/10/2015 KHOA BENITO, STROUD-ETTA Ot 278.00 04/10/2015 KHOA BENITO, STROUD-ETTA Ot 311 04/10/2015 KHOA BENITO, STROUD-ETTA Ot 401.9 04/10/2015 KHOA BENITO, LUANNE-ETTA Ot V85.41 04/10/2015 KHOA BENITO, LUANNE-ETTA Ot V86.0 04/11/2015 KHOA BENITO, LUANNE-ETTA Ot 174.9 04/11/2015 KHOA BENITO, LUANNE-ETTA Ot V58.69 04/11/2015 KHOA BENITO, STROUD-ETTA Ot V58.83 04/16/2015 KHOA BENITO, LUANNE-ETTA Ot 174.1 04/16/2015 KHOA BENITO, STROUD-ETTA Ot 272.4 04/16/2015 KHOA BENITO, STROUD-ETTA Ot 278.00 04/16/2015 KHOA BENITO, STROUD-ETTA Ot 311 04/16/2015 KHOA BENITO, LUANNE-ETTA Ot 401.9 04/16/2015 KHOA BENITO, LUANNE-ETTA Ot V85.41 04/16/2015 KHOA BENITO, STROUDMOHSEN Ot V86.0 04/25/2015 KHOA BENITO, STROUDMOHSEN Ot 174.9 04/25/2015 KHOA BENITO, STROUDMOHSEN Ot V58.69 04/25/2015 KHOA BENITO, MILADYS Ot V58.83 04/27/2015 SURAJ ANG MD Ot 174.9 MALIGN NEOPL BREAST NOS 04/27/2015 SURAJ ANG MD Ot 401.9 HYPERTENSION NOS 04/27/2015 SURAJ ANG MD Ot 427.31 ATRIAL FIBRILLATION 04/27/2015 SURAJ ANG MD Ot 785.1 PALPITATIONS 04/27/2015 SURAJ ANG MD Ot V58.69 OT MED,LT,CURRENT USE 05/13/2015 Ot V76.12 05/13/2015 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 Ot 611.72 05/13/2015 KASSIDY KHOURY APRN Ot 174.9 05/13/2015 KHOA BENITO, MILADYS Ot 174.9 05/13/2015 KHOA BENITO, MILADYS Ot 174.9 05/13/2015 LAVONNE HURTADO DO Ot 174.9 05/13/2015 LAVONNE HURTADO DO Ot V72.83 05/13/2015 LAVONNE HURTADO DO Ot V74.8 05/13/2015 SEHRI WAHL Ot 174.1 05/13/2015 SHERI WAHL 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 Ot V86.0 05/13/2015 KHOA BENITO, STROUD-ETTA Ot 174.9 05/13/2015 KHOA BENITO, STROUD-ETTA Ot V58.69 05/13/2015 KHOA BENITO, STROUD-ETTA Ot V58.83 05/13/2015 KHOA BENITO, STROUD-ETTA Ot 174.9 05/13/2015 KHOA BENITO, STROUD-ETTA Ot 174.9 05/13/2015 KHOA BENITO, STROUD-ETTA Ot V58.69 05/13/2015 KHOA BENITO, STROUD-ETTA Ot V58.83 05/13/2015 KHOA BENITO, STROUD-ETTA Ot 174.1 05/13/2015 KHOA BENITO, STROUD-ETTA Ot 272.4 05/13/2015 KHOA BENITO, STROUD-ETTA Ot 278.00 05/13/2015 KHOA BENITO, STROUD-ETTA Ot 311 05/13/2015 KHOA BENITO, STROUDETTA Ot 401.9 05/13/2015 KHOA BENITO, STROUDETTA Ot V85.41 05/13/2015 KHOA BENITO, STROUD-ETTA Ot V86.0 05/13/2015 KHOA BENITO, STROUD-ETTA Ot 174.1 05/13/2015 KHOA BENITO, MILADYS Ot 272.4 05/13/2015 KHOA BENITO, MILADYS Ot 278.00 05/13/2015 KHOA BENITO, STROUD-ETTA Ot 311 05/13/2015 KHOA BENITO, STROUD-ETTA Ot 401.9 05/13/2015 [facility].41 05/13/2015 KHOA BENITO, STROUD-ETTA Ot V86.0 05/15/2015 LAVONNE HURTADO DO Ot 174.9 MALIGN NEOPL BREAST NOS 05/15/2015 LAVONNE HURTADO DO Ot 272.4 HYPERLIPIDEMIA NEC/NOS 05/15/2015 LAVONNE HURTADO DO Ot 401.9 HYPERTENSION NOS 05/15/2015 LAVONNE HURTADO DO Ot 427.31 ATRIAL FIBRILLATION 05/15/2015 LAVONNE HURTADO DO Ot V15.82 HISTORY OF TOBACCO USE 05/19/2015 Ot V76.12 05/19/2015 KASSIDY KHOURY APRN Ot 611.72 05/19/2015 PENG KASSIDYSERA Palacios APRN Ot 174.9 05/19/2015 KHOA BENITO, STROUD-ETTA Ot 174.9 05/19/2015 KHOA BENITO, STROUD-ETTA Ot 174.9 05/19/2015 [facility] DO, CHANDROUTIE Ot 174.9 05/19/2015 [facility] DO, CHANDROUTIE Ot V72.83 05/19/2015 [facility] DO, CHANDROUTIE Ot V74.8 05/19/2015 SHERI WAHL 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 Ot 174.1 05/19/2015 SHERI WAHL Ot V86.0 05/19/2015 KHOA BENITO, STROUD-ETTA Ot 174.9 05/19/2015 KHOA BENITO, STROUD-ETTA Ot V58.69 05/19/2015 KHOA BENITO, STROUD-ETTA Ot V58.83 05/19/2015 KHOA BENITO, STROUD-ETTA Ot 174.9 05/19/2015 KHOA BENITO, STROUD-ETTA Ot 174.9 05/19/2015 KOHA BENITO, STROUD-ETTA Ot V58.69 05/19/2015 KHOA BENITO, [...] V85.41 06/10/2015 KHOA BENITO, STROUD-ETTA Ot V86.0 06/10/2015 KHOA BENITO, STROUD-ETTA Ot 174.1 06/10/2015 KHOA BENITO, STROUD-ETTA Ot 272.4 06/10/2015 KHOA BENITO, LUANNE-ETTA Ot 278.00 06/10/2015 KHOA BENITO, LUANNE-ETTA Ot 311 06/10/2015 KHOA BENITO, MILADYS Ot 401.9 06/10/2015 KHOA BENITO, MILADYS Ot V85.41 06/10/2015 KHOA BENITO, MILADYS Ot V86.0 06/25/2015 KHOA BENITO, MILADYS Ot 174.1 MAL JOSE L BREAST-CENTRAL 06/25/2015 KHOA BENITO, MILADYS Ot 272.4 HYPERLIPIDEMIA NEC/NOS 06/25/2015 KHOA BENITO, MILADYS Ot 278.00 OBESITY, NOS 06/25/2015 KHOA BENITO, MILADYS Ot 311 DEPRESSIVE DISORDER NEC 06/25/2015 KHOA BENITO, MILADYS Ot 401.9 HYPERTENSION NOS 06/25/2015 KHOA BENITO, MILADYS Ot V58.11 ENCOUNTER FOR ANTINEOPLASTIC CHEMOTHERAP 06/25/2015 KHOA BENITO, MILADYS Ot V85.41 BODY MASS INDEX 40.0-44.9, ADULT 06/25/2015 KHOA BENITO, MILADYS Ot V86.0 ESTROGEN RECEPTOR POSITIVE STATUS [ER+] 07/15/2015 KHOA BENITO, MILADYS Ot 174.1 07/15/2015 KHOA BENITO, MILADYS Ot 272.4 07/15/2015 KHOA BENITO, MILADYS Ot 278.00 07/15/2015 KHOA BENITO, MILADYS Ot 311 07/15/2015 KHOA BENITO, MILADYS Ot 401.9 07/15/2015 KHOA BENITO, LUANNE-ETTA Ot V85.41 07/15/2015 KHOA BENITO, MILADYS Ot V86.0 08/01/2015 KHOA BENITO, MILADYS Ot 174.1 08/01/2015 KHOA BENITO, MILADYS Ot 272.4 08/01/2015 KHOA BENITO, MILADYS Ot 278.00 08/01/2015 KHOA BENITO, MILADYS Ot 311 08/01/2015 KHOA BENITO, MILADYS Ot 401.9 08/01/2015 KHOA BENITO, MILADYS Ot V85.41 08/01/2015 KHOA BENITO, MILADYS Ot V86.0 08/01/2015 Ot V76.12 08/01/2015 BARBARA KHOURYIDI A PROCESS LABORATORY SPECIALIST Ot 611.72 08/01/2015 PENG, KASSIDY Palacios PROCESS LABORATORY SPECIALIST Ot 174.9 08/01/2015 KHOA BENITO, MILADYS Ot 174.9 08/01/2015 KHOA BENITO, MILADYS Ot 174.9 08/01/2015 [facility] Ot 174.9 08/01/2015 [facility], LAVONNE Ot V72.83 08/01/2015 [facility], [facility] Ot V74.8 08/01/2015 SHERI WHAL Ot 174.1 08/01/2015 SHERI WAHL Ot V86.0 08/01/2015 KHOA BENITO, MILADYS Ot 174.9 08/01/2015 KHOA BENITO, MARYLUETTA Ot V58.69 08/01/2015 KHOA BENITO, MARYLUETTA Ot V58.83 08/01/2015 KHOA BENITO, LUANNE-ETTA Ot 174.9 08/01/2015 KHOA BENITO, MILADYS Ot 174.9 08/01/2015 KHOA BENITO, LUANNE-ETTA Ot V58.69 08/01/2015 KHOA BENITO, LUANNE-ETTA Ot V58.83 08/01/2015 [facility] Ot 174.9 08/01/2015 [facility] Ot V72.84 08/01/2015 KHOA BENITO, MILADYS Ot C50.119 08/01/2015 KHOA BENITO, MILADYS Ot E66.9 08/01/2015 KHOA BENITO, MILADYS Ot E78.5 08/01/2015 KHOA BENITO, MARYLUETTA Ot F32.9 08/01/2015 KHOA BENITO, MILADYS Ot I10 08/01/2015 KHOA BENITO, MARYLUETTA Ot Z17.0 08/01/2015 KHOA BENITO, MARYLUETTA Ot Z51.0 08/01/2015 KHOA BENITO, MARYLUETTA Ot Z51.11 08/01/2015 KHOA BENITO, STROUD-ETTA Ot Z68.41 08/01/2015 SHERI WAHLP Ot C50.911 08/01/2015 SHERI WAHLP Ot C77.3 08/01/2015 SHERI WAHL Ot I48.91 08/01/2015 WAHLSHERI Soto 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 Ot Z17.0 08/01/2015 WAHLSHERI Soto 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 Ot Z79.899 08/01/2015 Ot V76.12 08/01/2015 PENGKASSIDY PROCESS LABORATORY SPECIALIST Ot 611.72 08/01/2015 PENGKASSIDY PROCESS LABORATORY SPECIALIST Ot 174.9 08/01/2015 KHOA BENITO, MILADYS Ot 174.9 08/01/2015 KHOA BENITO, STROUDKadieETTA Ot 174.9 08/01/2015 [facility] Ot 174.9 08/01/2015 [facility] Ot V72.83 08/01/2015 [facility] V74.8 08/01/2015 VISHSHERI 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 Ot 174.1 08/01/2015 VISH SHERI Soto 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 Ot V86.0 08/01/2015 KHOA BENITO, LUANNEKadieETTA Ot 174.9 08/01/2015 KHOA BENITO, MILADYS Ot V58.69 08/01/2015 KHOA BENITO, MILADYS Ot V58.83 08/01/2015 KHOA BENITO, MILADYS Ot 174.9 08/01/2015 KHOA BENITO, MILADYS Ot 174.9 08/01/2015 KHOA BENITO, STROUD-ETTA Ot V58.69 08/01/2015 KHOA BENITO, MILADYS Ot V58.83 08/01/2015 [facility] Ot 174.9 08/01/2015 [facility] Ot V72.84 08/01/2015 KHOA BENITO, MILADYS Ot C50.119 08/01/2015 KHOA BENITO, MILADYS Ot E66.9 08/01/2015 KHOA BENITO, MILADYS Ot E78.5 08/01/2015 KHOA BENITO, MILADYS Ot F32.9 08/01/2015 KHOA BENITO, MILADYS Ot I10 08/01/2015 KHOA BENITO, MILADYS Ot Z17.0 08/01/2015 KHOA BENITO, MILADYS Ot Z51.0 08/01/2015 KHOA BENITO, MILADYS Ot Z51.11 08/01/2015 KHOA BENITO, MILADYS Ot Z68.41 08/01/2015 SHERI WAHL 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 Ot C50.911 08/01/2015 SHERI WAHL 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 Ot C77.3 08/01/2015 SHERI WAHL 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 Ot I48.91 08/01/2015 SHERI WAHL 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 Ot Z17.0 08/01/2015 SHERI WAHL 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 Ot Z79.899 08/02/2015 ERICH MORA DOTTY K Ot C50.911 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 08/02/2015 ERICH MORA DOTYT K Ot D64.81 ANEMIA DUE TO ANTINEOPLASTIC CHEMOTHERAP 08/02/2015 ERICH MORA DOTTY K Ot E66.9 OBESITY, UNSPECIFIED 08/02/2015 ERICH MORA DOTTY K Ot E78.5 HYPERLIPIDEMIA, UNSPECIFIED 08/02/2015 ERICH MORA DOTTY K Ot F32.9 MAJOR DEPRESSIVE DISORDER, SINGLE EPISOD 08/02/2015 ERICH MORA DOTTY K Ot F41.9 ANXIETY DISORDER, UNSPECIFIED 08/02/2015 ERICH MORA DOTTY K Ot I10 ESSENTIAL (PRIMARY) HYPERTENSION 08/02/2015 ERICH MORA DOTTY K Ot I48.91 UNSPECIFIED ATRIAL FIBRILLATION 08/02/2015 ERICH MORA DOTTY K Ot K21.9 GASTRO-ESOPHAGEAL REFLUX DISEASE WITHOUT 08/02/2015 ERICH MORA DOTTY K Ot R73.09 OTHER ABNORMAL GLUCOSE 08/02/2015 ERICH MORA DOTTY K Ot Z68.42 BODY MASS INDEX (BMI) 45.0-49.9, ADULT 08/02/2015 DEAN JUNG DOA K Ot Z79.899 OTHER LONGTERM (CURRENT) DRUG THERAPY 08/02/2015 ERICH MORA DOTTY K Ot Z87.891 PERSONAL HISTORY OF NICOTINE DEPENDENCE 08/04/2015 SHERI WAHL 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 Ot C50.911 08/04/2015 SHERI WAHL 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 Ot C77.3 08/04/2015 SHERI WAHL 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 Ot I48.91 08/04/2015 SHERI WAHL 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 Ot Z17.0 08/04/2015 SHERI WAHL 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 Ot Z79.899 08/19/2015 KHOA BENITO, MILADYS Ot C50.119 08/19/2015 KHOA BENITO, MILADYS Ot E66.9 08/19/2015 MILADYS COUCH MD Ot E78.5 08/19/2015 KHOA BENITO, MILADYS Ot F32.9 08/19/2015 MILADYS COUCH MD Ot I10 08/19/2015 KHOA BENITO, MILADYS Ot Z17.0 08/19/2015 KHOA BENITO, MILADYS Ot Z51.0 08/19/2015 KHOA BENITO, MILADYS Ot Z51.11 08/19/2015 MILADYS COUCH MD Ot Z68.41 08/27/2015 GINGER MORA MD Ot [...] 08/27/2015 GINGER MORA MD Ot Z79.899 OTHER SURFACING TECHNICIAN (CURRENT) DRUG THERAPY 08/27/2015 GINGER MORA MD Ot Z87.891 PERSONAL HISTORY OF NICOTINE DEPENDENCE 09/22/2015 Ot V76.12 09/22/2015 KASSIDY KHOURY APRN Ot 611.72 09/22/2015 KASSDIY KHOURY APRN Ot 174.9 09/22/2015 MILADYS COUCH MD Ot 174.9 09/22/2015 MILADYS COUCH MD Ot 174.9 09/22/2015 LAVONNE HURTADO DO Ot 174.9 09/22/2015 LAVONNE HURTADO DO Ot V72.83 09/22/2015 LAVONNE HURTADO DO Ot V74.8 09/22/2015 SHERI WAHL 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 Ot 174.1 09/22/2015 SHERI WAHL 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 Ot V86.0 09/22/2015 KHOA BENITO, MILADYS Ot 174.9 09/22/2015 KHOA BENITO, MILADYS Ot V58.69 09/22/2015 KHOA BENITO, MILADYS Ot V58.83 09/22/2015 KHOA BENITO, MILADYS Ot 174.9 09/22/2015 KHOA BENITO, MILADYS Ot 174.9 09/22/2015 KHOA BENITO, MILADYS Ot V58.69 09/22/2015 KHOA BENITO, MILADYS Ot V58.83 09/22/2015 GENESIS DO, LAVONNE Ot 174.9 09/22/2015 LAVONNE HURTADO DO Ot V72.84 09/22/2015 KHOA BENITO, MILADYS Ot C50.119 09/22/2015 KHOA BENITO, MILADYS Ot E66.9 09/22/2015 KHAO BENITO, MILADYS Ot E78.5 09/22/2015 KHOA BENITO, MILADYS Ot F32.9 09/22/2015 KOHA BENITO, MILADYS Ot I10 09/22/2015 KHOA BENITO, MILADYS Ot Z17.0 09/22/2015 KHOA BENITO, MILADYS Ot Z51.0 09/22/2015 KHOA BENITO, MILADYS Ot Z51.11 09/22/2015 KHOA BENITO, MILADYS Ot Z68.41 09/22/2015 SHERI WAHLP Ot C50.911 09/22/2015 SHERI WAHLP Ot C77.3 09/22/2015 SHERI WAHL 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 Ot I48.91 09/22/2015 SHERI WAHL 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 Ot Z17.0 09/22/2015 SHERI WAHLP Ot Z79.899 09/24/2015 KHOA BENITO, MILADYS Ot C50.119 MALIGNANT NEOPLASM OF CENTRAL PORTION OF 09/24/2015 MILADYS COUCH MD Ot C50.411 MALIG NEOPLM OF UPPER-OUTER QUADRANT OF 09/24/2015 MILADYS COUCH MD Ot E66.9 OBESITY, UNSPECIFIED 09/24/2015 XUMILADYS Allred MD, Ot E78.5 HYPERLIPIDEMIA, UNSPECIFIED 09/24/2015 MILADYS COUCH MD Ot F32.9 MAJOR DEPRESSIVE DISORDER, SINGLE EPISOD 09/24/2015 MILADYS COUCH MD, Ot I10 ESSENTIAL (PRIMARY) HYPERTENSION 09/24/2015 MILADYS COUCH MD, Ot Z17.0 ESTROGEN RECEPTOR POSITIVE STATUS [ER+] 09/24/2015 MILADYS COUCH MD, Ot Z51.0 ENCOUNTER FOR ANTINEOPLASTIC RADIATION T 09/24/2015 MILADYS COUCH MD, Ot Z51.11 ENCOUNTER FOR ANTINEOPLASTIC CHEMOTHERAP 09/24/2015 MILADYS COUCH MD, Ot Z68.41 BODY MASS INDEX (BMI) 40.0-44.9, ADULT 10/16/2015 HUGO PEACE Ot E78.5 10/16/2015 HUGO PEACE Ot I10 10/16/2015 HUGO PEACE Ot I48.91 10/16/2015 HUGO PEACE Ot R06.00 10/16/2015 GINGER MORA MD, Ot C50.911 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 10/16/2015 GINGER MORA MD Ot E66.9 OBESITY, UNSPECIFIED 10/16/2015 GINGER MORA MD, Ot E78.5 HYPERLIPIDEMIA, UNSPECIFIED 10/16/2015 GINGER MORA MD, Ot I10 ESSENTIAL (PRIMARY) HYPERTENSION 10/16/2015 GINGER MORA MD Ot I25.10 ATHSCL HEART DISEASE OF [place] CORONARY 10/16/2015 GINGER MORA MD, Ot I25.84 CORONARY ATHEROSCLEROSIS DUE TO CALCIFIE 10/16/2015 GINGER MORA MD Ot I48.0 PAROXYSMAL ATRIAL FIBRILLATION 10/16/2015 GINGER MORA MD Ot R94.39 ABNORMAL RESULT OF OTHER CARDIOVASCULAR 10/16/2015 GINGER MORA MD, Ot Z68.42 BODY MASS INDEX (BMI) 45.0-49.9, ADULT 10/16/2015 GINGER MORA MD Ot Z79.01 LONGTERM (CURRENT) USE OF ANTICOAGULANT 10/16/2015 GINGER MORA MD, Ot Z79.899 OTHER SURFACING TECHNICIAN (CURRENT) DRUG THERAPY 10/16/2015 ABBY BENITO, GINGER Gandara Ot Z87.891 PERSONAL HISTORY OF NICOTINE DEPENDENCE 10/16/2015 ABBY BENITO, GINGER Gandara Ot Z92.3 PERSONAL HISTORY OF IRRADIATION 10/22/2015 KHOA BENITO, MILADYS Ot C50.119 10/22/2015 KHOA BENITO, MILADYS Ot E66.9 10/22/2015 KHOA BENITO, MILADYS Ot E78.5 10/22/2015 KHOA BENITO, MILADYS Ot F32.9 10/22/2015 KHOA BENITO, MILADYS Ot I10 10/22/2015 KHOA BENITO, MILADYS Ot Z17.0 10/22/2015 KHOA BENITO, MILADYS Ot Z51.0 10/22/2015 KHOA BENITO, MILADYS Ot Z68.41 10/27/2015 HUGO PEACE Ot E78.5 10/27/2015 HUGO PEACE Ot I10 10/27/2015 HUGO PEACE Ot I48.91 10/27/2015 HUGO PEACE Ot R06.00 10/29/2015 Ot C50.911 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 10/29/2015 Ot R00.2 PALPITATIONS 10/29/2015 Ot Z79.02 LONGTERM ( CURRENT) USE OF ANTITHROMBOTI 10/29/2015 Ot Z79.82 LONGTERM ( CURRENT) USE OF ASPIRIN 10/29/2015 Ot Z79.899 OTHER LONGTERM (CURRENT) DRUG THERAPY 11/07/2015 KHOA BENITO, MILADYS Ot C50.119 11/07/2015 KHOA BENITO, MILADYS Ot E66.9 11/07/2015 KHOA BENITO, MILADYS Ot E78.5 11/07/2015 KHOA BENITO, MILADYS Ot F32.9 11/07/2015 KHOA BENITO, MILADYS Ot I10 11/07/2015 KHOA BENITO, MILADYS Ot Z17.0 11/07/2015 KHOA BENITO, MILADYS Ot Z51.0 11/07/2015 KHOA BENITO, MILADYS Ot Z68.41 11/18/2015 KHOA BENITO, MILADYS Ot C50.119 11/18/2015 KHOA BENITO, MILADYS Ot E66.9 11/18/2015 KHOA BENITO, MILADYS Ot E78.5 11/18/2015 KHOA BENITO, MILADYS Ot F32.9 11/18/2015 KHOA BENITO, MILADYS Ot I10 11/18/2015 KHOA BENITO, MILADYS Ot Z17.0 11/18/2015 KHOA BENITO, MILADYS Ot Z51.0 11/18/2015 KHOA BENITO, MILADYS Ot Z68.41 11/18/2015 KHOA BENITO, LUANNE-ETTA Ot C50.119 11/18/2015 KHOA BENITO, MARYLUETTA Ot E66.9 11/18/2015 KHOA BENITO, MARYLUETTA Ot E78.5 11/18/2015 KHOA BENITO, MILADYS Ot F32.9 11/18/2015 KHOA BENITO, MILADYS Ot I10 11/18/2015 KHOA BENITO, MARYLUETTA Ot Z17.0 11/18/2015 KHOA BENITO, MILADYS Ot Z51.0 11/18/2015 KHOA BENITO, MILADYS Ot Z68.41 11/24/2015 Ot V76.12 11/24/2015 KASSIDY KHOURY APRN Ot 611.72 11/24/2015 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 Ot 174.9 11/24/2015 KHOA BENITO, MARYLUETTA Ot 174.9 11/24/2015 KHOA BENITO, STROUDKadieETTA Ot 174.9 11/24/2015 LAVONNE HURTADO DO Ot 174.9 11/24/2015 LAVONNE HURTADO DO Ot V72.83 11/24/2015 GENESISLAVONNE FLOREZ DO Ot V74.8 11/24/2015 SHERI WAHL 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 Ot 174.1 11/24/2015 SHERI WAHL Ot V86.0 11/24/2015 KHOA BENITO, MILADYS Ot 174.9 11/24/2015 KHOA BENITO, STROUDMOHSEN Ot V58.69 11/24/2015 KHOA BENITO, MILADYS Ot V58.83 11/24/2015 KHOA BENITO, MILADYS Ot 174.9 11/24/2015 KHOA BENITO, STROUDMOHSEN Ot 174.9 11/24/2015 KHOA BENITO, MILADYS Ot V58.69 11/24/2015 KHOA BENITO, MILADYS Ot V58.83 11/24/2015 LAVONNE HURTADO DO Ot 174.9 11/24/2015 GENESIS MORA, BRYCETIE Ot V72.84 11/24/2015 VISHSHERI 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 Ot C50.911 11/24/2015 VISH SHERI Soto 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 Ot C77.3 11/24/2015 VISH SHERI Soto 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 Ot I48.91 11/24/2015 VISHSHERI 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 Ot Z17.0 11/24/2015 VISH SHERI Soto 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 Ot Z79.899 11/24/2015 JOSÉ PUGA, HUGO Milan Ot E78.5 11/24/2015 JOSÉ PUGA, HUGO K Ot I10 11/24/2015 JOSÉ PUGA, HUGO K Ot I48.91 11/24/2015 JOSÉ PUGA, HUGO K Ot R06.00 11/24/2015 KHOA BENITO, MILADYS Ot C50.111 11/24/2015 KHOA BENITO, MILADYS Ot E66.9 11/24/2015 KHOA BENITO, MARYLUETTA Ot E78.5 11/24/2015 KHOA BENITO, MILADYS Ot F32.9 11/24/2015 KHOA BENITO, MILADYS Ot I10 11/24/2015 KHOA BENITO, MILADYS Ot Z17.0 11/24/2015 KHOA BENITO, MILADYS Ot Z51.0 11/24/2015 KHOA BENITO, MILADYS Ot Z68.41 11/27/2015 Ot V76.12 11/27/2015 KASSIDY KHOURY APRN Ot 611.72 11/27/2015 KASSIDY KHOURY APRN Ot 174.9 11/27/2015 KHOA BENITO, MARYLUETTA Ot 174.9 11/27/2015 KHOA BENITO, MILADYS Ot 174.9 11/27/2015 LAVONNE HURTADO DO Ot 174.9 11/27/2015 LAVONNE HURTADO DO Ot V72.83 11/27/2015 LASHAWN HURTADO DOROUTIE Ot V74.8 11/27/2015 MARNIE WAHLSUZIE Charles 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 Ot 174.1 11/27/2015 VISH SHERI Charles 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 Ot V86.0 11/27/2015 KHOA BENITO, MILADYS Ot 174.9 11/27/2015 KHOA BENITO, MILADYS Ot V58.69 11/27/2015 KHOA BENITO, MILADYS Ot V58.83 11/27/2015 KHOA BENITO, MILADYS Ot 174.9 11/27/2015 KHOA BENITO, MILADYS Ot 174.9 11/27/2015 KHOA BENITO, MILADYS Ot V58.69 11/27/2015 KHOA BENITO, MILADYS Ot V58.83 11/27/2015 GENESISLAVONNE FLOREZ DO Ot 174.9 11/27/2015 GENESISLAVONNE FLOREZ DO Ot V72.84 11/27/2015 MARNIE WAHLSUZIE Charles 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 Ot C50.911 11/27/2015 SHERI WAHLP Ot C77.3 11/27/2015 SHERI WAHL 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 Ot I48.91 11/27/2015 MARNIE WAHLSUZIE Soot 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 Ot Z17.0 11/27/2015 MARNIE WAHLSUZIE Charles 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 Ot Z79.899 11/27/2015 HUGO PEACE Ot E78.5 11/27/2015 JOSÉ PUGA, HUGO Milan Ot I10 11/27/2015 HUGO PEACE Ot I48.91 11/27/2015 HUGO PEACE Ot R06.00 11/27/2015 KHOA BENITO, MILADYS Ot C50.111 11/27/2015 KHOA BENITO, MARYLUETTA Ot E66.9 11/27/2015 KHOA BENITO, MARYLUETTA Ot E78.5 11/27/2015 KHOA BENITO, LUANNE-ETTA Ot F32.9 11/27/2015 KHOA BENITO, MARYLUETTA Ot I10 11/27/2015 KHOA BENITO, STROUD-ETTA Ot Z17.0 11/27/2015 KHOA BENITO, STROUD-ETTA Ot Z51.0 11/27/2015 KHOA BENITO, STROUD-ETTA Ot Z68.41 11/27/2015 ABBY BENITO, GINGER Gandara Ot Z48.812 11/27/2015 ABBY BENITO, MISSYCONNIE J Ot Z95.5 12/08/2015 Ot V76.12 12/08/2015 PENG KASSIDY A PROCESS LABORATORY SPECIALIST Ot 611.72 12/08/2015 PENG KASSIDY Palacios PROCESS LABORATORY SPECIALIST Ot 174.9 12/08/2015 KHOA BENITO, LUANNEETTA Ot 174.9 12/08/2015 KHOA BENITO, STROUDETTA Ot 174.9 12/08/2015 [facility] Ot 174.9 12/08/2015 [facility] Ot V72.83 12/08/2015 [facility] Ot V74.8 12/08/2015 SHERI WAHL 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 Ot 174.1 12/08/2015 SHERI WAHL 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 Ot V86.0 12/08/2015 KHOA BENITO, LUANNEETTA Ot 174.9 12/08/2015 KHOA BENITO, STROUDETTA Ot V58.69 12/08/2015 KHOA BENITO, STROUDETTA Ot V58.83 12/08/2015 KHOA BENITO, STROUDETTA Ot 174.9 12/08/2015 KHOA BENITO, STROUDETTA Ot 174.9 12/08/2015 KHOA BENITO, STROUDETTA Ot V58.69 12/08/2015 KHOA BENITO, STROUDETTA Ot V58.83 12/08/2015 [facility] Ot 174.9 12/08/2015 [facility] Ot V72.84 12/08/2015 SHERI WAHLP Ot C50.911 12/08/2015 SHERI WAHL 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 Ot C77.3 12/08/2015 SHERI WAHLP Ot I48.91 12/08/2015 SHERI WAHLP Ot Z17.0 12/08/2015 SHERI WAHLP Ot Z79.899 12/08/2015 HUGO PEACE Ot E78.5 12/08/2015 HUGO PEACE Ot I10 12/08/2015 HUGO PEACE Ot I48.91 12/08/2015 HUGO PEACE Ot R06.00 12/08/2015 KHOA BENITO, MILADYS Ot C50.111 12/08/2015 KHOA BENITO, MILADYS Ot E66.9 12/08/2015 KHOA BENITO, MILADYS Ot E78.5 12/08/2015 KHOA BENITO, MILADYS Ot F32.9 12/08/2015 KHOA BENITO, MILADYS Ot I10 12/08/2015 KHOA BENITO, MILADYS Ot Z17.0 12/08/2015 KHOA BENITO, MILADYS Ot Z51.0 12/08/2015 KHOA BENITO, MILADYS Ot Z68.41 12/08/2015 ABBY BENITO, GINGER Gandara Ot Z48.812 12/08/2015 ABBY BENITO, BASCONNIE J Ot Z95.5 12/14/2015 KHOA BENITO, MILADYS Ot C50.311 12/22/2015 ABBY BENITO, GINGER J Ot Z48.812 12/22/2015 ABBY BENITO, BASHAR J Ot Z95.5 12/24/2015 KHOA BENITO, MILADYS Ot [...] Z51.0 ENCOUNTER FOR ANTINEOPLASTIC RADIATION T 12/24/2015 KHOA BENITO, MILADYS Ot Z68.41 BODY MASS INDEX (BMI) 40.0-44.9, ADULT 12/29/2015 Ot V76.12 12/29/2015 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 Ot 611.72 12/29/2015 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 Ot 174.9 12/29/2015 KHOA BENITO, MILADYS Ot 174.9 12/29/2015 KHOA BENITO, STROUD-ETTA Ot 174.9 12/29/2015 [facility] DO, CHANDROUTIE Ot 174.9 12/29/2015 [facility] DO, CHANDROUTIE Ot V72.83 12/29/2015 [facility], LASHAWNROUTIE Ot V74.8 12/29/2015 VISH SHERI Soto 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 Ot 174.1 12/29/2015 VISH SHERI Soto 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 Ot V86.0 12/29/2015 KHOA BENITO, LUANNE-ETTA Ot 174.9 12/29/2015 KHOA BENITO, LUANNE-ETTA Ot V58.69 12/29/2015 KHOA BENITO, LUANNE-ETTA Ot V58.83 12/29/2015 KHOA BENITO, LUANNE-ETTA Ot 174.9 12/29/2015 KHOA BENITO, LUANNE-ETTA Ot 174.9 12/29/2015 KHOA BENITO, MILADYS Ot V58.69 12/29/2015 KHOA BENITO, MILADYS Ot V58.83 12/29/2015 [facility], BRYCETIE Ot 174.9 12/29/2015 [facility], LASHAWNROUTIE Ot V72.84 12/29/2015 VISH SHERI Soto 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 Ot C50.911 12/29/2015 MARNIE WAHLSUZIE Soto 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 Ot C77.3 12/29/2015 VISH SHERI Soto 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 Ot I48.91 12/29/2015 VISH SHERI Soto 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 Ot Z17.0 12/29/2015 VISH SHERI Soto 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 Ot Z79.899 12/29/2015 HUGO PEACE Ot E78.5 12/29/2015 JOSÉ PUGA, HUGO [place] Ot I10 12/29/2015 HUGO PEACE Ot I48.91 12/29/2015 JOSÉ PUGA, HUGO [place] Ot R06.00 12/29/2015 ABBY BENITO, GINGER Gandara Ot Z48.812 12/29/2015 ABBY BENITO, GINGER Gandara Ot Z95.5 12/29/2015 KHOA BENITO, MILADYS Ot C50.311 12/29/2015 KHOA BENITO, MARYLUETTA Ot C50.111 12/29/2015 KHOA BENITO, MILADYS Ot E66.9 12/29/2015 KHOA BENITO, MILADYS Ot E78.5 12/29/2015 KHOA BENITO, MILADYS Ot F32.9 12/29/2015 KHOA BENITO, MILADYS Ot I10 12/29/2015 KHOA BENITO, MILADYS Ot Z17.0 12/29/2015 KHOA BENITO, MILADYS Ot Z51.0 12/29/2015 KHOA BENITO, MILADYS Ot Z68.41 12/29/2015 ABBY BENITO, GINGER Gandara Ot Z48.812 12/29/2015 ABBY BENITO, GINGER Gandara Ot Z95.5 12/30/2015 KHOA BENITO, MILADYS Ot C50.311 01/07/2016 KHOA BENITO, MILADYS Ot C50.311 02/18/2016 KHOA BENITO, MILADYS Ot C50.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 02/18/2016 KHOA BENITO, MILADYS Ot E66.9 OBESITY, UNSPECIFIED 02/18/2016 KHOA BENITO, MILADYS Ot E78.5 HYPERLIPIDEMIA, UNSPECIFIED 02/18/2016 KHOA BENITO, MILADYS Ot F32.9 MAJOR DEPRESSIVE DISORDER, SINGLE EPISOD 02/18/2016 KHOA BENITO, MILADYS Ot I10 ESSENTIAL (PRIMARY) HYPERTENSION 02/18/2016 MILADYS [...] MAMMO-MALIGN NEOPLASM OF INGRID 02/25/2016 KASSIDY KHOURY Suzanne PORTER Ot 611.72 LUMP OR MASS IN BREAST 02/25/2016 BARBARA KHOURYSERA Palacios APRN Ot 174.9 MALIGN NEOPL BREAST NOS 02/25/2016 MILADYS COUCH MD Ot 174.9 MALIGN NEOPL BREAST NOS 02/25/2016 MILADYS COUCH MD Ot 174.9 MALIGN NEOPL BREAST NOS 02/25/2016 LAVONNE HURTADO DO Ot 174.9 MALIGN NEOPL BREAST NOS 02/25/2016 LAVONNE HURTADO DO Ot V72.83 EXAM PRE-OPERATIVE NEC 02/25/2016 LAVONNE HURTADO DO Ot V74.8 SCREEN-BACTERIAL DIS NEC 02/25/2016 SHERI WAHL Ot 174.1 MAL JOSE L BREAST-CENTRAL 02/25/2016 SHERI WAHL Ot V86.0 ESTROGEN RECEPTOR POSITIVE STATUS [ER+] 02/25/2016 MILADYS COUCH MD Ot 174.9 MALIGN NEOPL BREAST NOS 02/25/2016 MILADYS COUCH MD Ot V58.69 OTH MED,LT,CURRENT USE 02/25/2016 MILADYS COUCH MD Ot V58.83 ENCOUNTER FOR THERAPEUTIC DRUG MONITORIN 02/25/2016 MILADYS COUCH MD Ot 174.9 MALIGN NEOPL BREAST NOS 02/25/2016 MILADYS COUCH MD Ot 174.9 MALIGN NEOPL BREAST NOS 02/25/2016 MILADYS COUCH MD, Ot V58.69 OTH MED,LT,CURRENT USE 02/25/2016 MILADYS COUCH MD Ot V58.83 ENCOUNTER FOR THERAPEUTIC DRUG MONITORIN 02/25/2016 LAVONNE HURTADO DO Ot 174.9 MALIGN NEOPL BREAST NOS 02/25/2016 LAVONNE HURTADO DO Ot V72.84 EXAM PRE-OPERATIVE NOS 02/25/2016 SHERI WAHL 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 Ot C50.911 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 02/25/2016 SHERI WAHL Ot C77.3 SEC AND UNSP MALIG NEOPLASM OF AXILLA AN 02/25/2016 SHERI WAHL Ot I48.91 UNSPECIFIED ATRIAL FIBRILLATION 02/25/2016 SHERI WAHL 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 Ot Z17.0 ESTROGEN RECEPTOR POSITIVE STATUS [ER+] 02/25/2016 SHERI WAHL 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 Ot Z79.899 OTHER LONGTERM (CURRENT) DRUG THERAPY 02/25/2016 HUGO PEACE Ot E78.5 HYPERLIPIDEMIA, UNSPECIFIED 02/25/2016 HUGO PEACE Ot I10 ESSENTIAL (PRIMARY) HYPERTENSION 02/25/2016 HUGO PEACE Ot I48.91 UNSPECIFIED ATRIAL FIBRILLATION 02/25/2016 HUGO PEACE Ot R06.00 DYSPNEA, UNSPECIFIED 02/25/2016 MILADYS COUCH MD Ot 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 02/25/2016 MILADYS COUCH MD, Ot C50.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 02/25/2016 MILADYS COUCH MD Ot E66.9 OBESITY, UNSPECIFIED 02/25/2016 MILADYS COUCH MD, Ot E78.5 HYPERLIPIDEMIA, UNSPECIFIED 02/25/2016 MILADYS COUCH MD Ot F32.9 MAJOR DEPRESSIVE DISORDER, SINGLE EPISOD 02/25/2016 MILADYS COUCH MD Ot I10 ESSENTIAL (PRIMARY) HYPERTENSION 02/25/2016 MILADYS COUCH MD Ot Z17.0 ESTROGEN RECEPTOR POSITIVE STATUS [ER+] 02/25/2016 MILADYS COUCH MD Ot Z45.2 ENCOUNTER FOR ADJUSTMENT AND MANAGEMENT 02/25/2016 MILADYS COUCH MD Ot Z68.41 BODY MASS [...] ENCNTR FOR SURGICAL AFTCR FOLLOWING SURG 02/25/2016 ABBY BENITO, GINGER Gandara Ot Z95.5 PRESENCE OF CORONARY ANGIOPLASTY IMPLANT 02/26/2016 JEAN DO, NIRAV K Ot S92.222A DISP FX OF LATERAL CUNEIFORM OF LEFT BENNETT 02/26/2016 JEAN DO, NIRAV K Ot S92.242A DISP FX OF MEDIAL CUNEIFORM OF LEFT FOOT 02/26/2016 JEAN DO, NIRAV K Ot S93.325A DISLOCATION OF TARSOMETATARSAL JOINT OF 02/26/2016 JEAN DO, NIRAV K Ot X58.XXXA EXPOSURE TO OTHER SPECIFIED FACTORS, INI 02/26/2016 JEAN DO, NIRAV K Ot Y93.K1 ACTIVITY, WALKING AN ANIMAL 02/26/2016 JEAN DO, NIRAV K Ot Y99.8 OTHER EXTERNAL CAUSE STATUS 02/27/2016 JEAN DO, NIRAV K Ot S92.222A DISP FX OF LATERAL CUNEIFORM OF LEFT BENNETT 02/27/2016 JEAN DO, NIRAV K Ot S92.242A DISP FX OF MEDIAL CUNEIFORM OF LEFT FOOT 02/27/2016 JEAN DO, NIRAV K Ot S93.325A DISLOCATION OF TARSOMETATARSAL JOINT OF 02/27/2016 JEAN DO, NIRAV K Ot X58.XXXA EXPOSURE TO OTHER SPECIFIED FACTORS, INI 02/27/2016 JEAN MORA, NIRAV K Ot Y93.K1 ACTIVITY, WALKING AN ANIMAL 02/27/2016 JEAN DO, NIRAV K Ot Y99.8 OTHER EXTERNAL CAUSE STATUS 03/03/2016 BLANCHO DPM, KEN Velasquez Ot S92.902A UNSP FRACTURE OF LEFT FOOT, INIT ENCNTR 03/03/2016 BLANCHO DPM, KEN Velasquez Ot X58.XXXA EXPOSURE TO OTHER SPECIFIED FACTORS, INI 03/03/2016 BLANCHO DPM, KEN Velasquez Ot Y99.8 OTHER EXTERNAL CAUSE STATUS 03/03/2016 BLANCHO DPM, KEN Velasquez Ot Z01.818 ENCOUNTER FOR [...] BODY MASS INDEX (BMI) 40.0-44.9, ADULT 03/06/2016 BLANCHO DPM, KEN Velasquez Ot S92.222A DISP FX OF LATERAL CUNEIFORM OF LEFT BENNETT 03/06/2016 BLANCHO DPM, KEN Ron Ot S92.242A DISP FX OF MEDIAL CUNEIFORM OF LEFT FOOT 03/06/2016 BLANCHO DPM, KEN Velasquez Ot S93.325A DISLOCATION OF TARSOMETATARSAL JOINT OF 03/06/2016 BLANCHO DPM, KEN Velasquez Ot X58.XXXA EXPOSURE TO OTHER SPECIFIED FACTORS, INI 03/06/2016 BLANCHO DPM, KEN Velasquez Ot Y93.K1 ACTIVITY, WALKING AN ANIMAL 03/06/2016 BLANCHO DPM, KEN Velasquez Ot Y99.8 OTHER EXTERNAL CAUSE STATUS 03/09/2016 BLANCHO DPM, KEN Velasquez Ot S92.902A UNSP FRACTURE OF LEFT FOOT, INIT ENCNTR 03/09/2016 BLANCHO DPM, KEN Velasquez Ot X58.XXXA EXPOSURE TO OTHER SPECIFIED FACTORS, INI 03/09/2016 BLANCHO DPM, KEN Velasquez Ot Y99.8 OTHER EXTERNAL CAUSE STATUS 03/09/2016 BLANCHO DPM, KEN Velasquez Ot Z01.818 ENCOUNTER FOR [...] RECEPTOR POSITIVE STATUS [ER+] 03/15/2016 MILADYS COUCH MD, Ot Z45.2 ENCOUNTER FOR ADJUSTMENT AND MANAGEMENT 03/15/2016 MILADYS COUCH MD, Ot Z68.41 BODY MASS INDEX (BMI) 40.0-44.9, ADULT 03/24/2016 BLANCHO DPM, KEN G Ot S92.222A DISP FX OF LATERAL CUNEIFORM OF LEFT BENNETT 03/24/2016 BLANCHO DPM, KEN G Ot S92.242A DISP FX OF MEDIAL CUNEIFORM OF LEFT FOOT 03/24/2016 BLANCHO DPM, KEN G Ot S93.325A DISLOCATION OF TARSOMETATARSAL JOINT OF 03/24/2016 BLANCHO DPM, KEN G Ot X58.XXXA EXPOSURE TO OTHER SPECIFIED FACTORS, INI 03/24/2016 BLANCHO DPM, KEN G Ot Y93.K1 ACTIVITY, WALKING AN ANIMAL 03/24/2016 BLANCHO DPM, KEN G Ot Y99.8 OTHER EXTERNAL CAUSE STATUS 03/24/2016 BLANCHO DPM, KEN G Ot S92.222A DISP FX OF LATERAL CUNEIFORM OF LEFT BENNETT 03/24/2016 BLANCHO DPM, KEN Velasquez Ot S92.242A DISP FX OF MEDIAL CUNEIFORM OF LEFT FOOT 03/24/2016 BLANCHO DPM, KEN G Ot S93.325A DISLOCATION OF TARSOMETATARSAL JOINT OF 03/24/2016 BLANCHO DPM, KEN Velasquez Ot X58.XXXA EXPOSURE TO OTHER SPECIFIED FACTORS, INI 03/24/2016 BLANCHO DPM, KEN G Ot Y93.K1 ACTIVITY, WALKING AN ANIMAL 03/24/2016 BLANCHO DPM, KEN G Ot Y99.8 OTHER EXTERNAL CAUSE STATUS 04/04/2016 MILADYS COUCH MD Ot C50.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 04/04/2016 MILADYS COUCH MD, Ot E66.9 OBESITY, UNSPECIFIED 04/04/2016 MILADYS COUCH MD, Ot E78.5 HYPERLIPIDEMIA, UNSPECIFIED 04/04/2016 MILADYS COUCH MD, Ot F32.9 MAJOR DEPRESSIVE DISORDER, SINGLE EPISOD 04/04/2016 MILADYS COUCH MD Ot I10 ESSENTIAL (PRIMARY) HYPERTENSION 04/04/2016 MILADYS COUCH MD Ot Z17.0 ESTROGEN RECEPTOR POSITIVE STATUS [ER+] 04/04/2016 MILADYS COUCH MD, Ot Z45.2 ENCOUNTER FOR ADJUSTMENT AND MANAGEMENT 04/04/2016 MILADYS COUCH MD, Ot Z68.41 BODY MASS INDEX (BMI) 40.0-44.9, ADULT 04/08/2016 MILADYS COUCH MD, Ot C50.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 04/08/2016 MILADYS COUCH MD Ot E66.9 OBESITY, UNSPECIFIED 04/08/2016 MILADYS COUCH MD Ot E78.5 HYPERLIPIDEMIA, UNSPECIFIED 04/08/2016 MILADYS COUCH MD, Ot F32.9 MAJOR DEPRESSIVE DISORDER, SINGLE EPISOD 04/08/2016 MILADYS COUCH MD, Ot I10 ESSENTIAL (PRIMARY) HYPERTENSION 04/08/2016 MILADYS COUCH MD, Ot Z17.0 ESTROGEN RECEPTOR POSITIVE STATUS [ER+] 04/08/2016 MILADYS COUCH MD, Ot Z45.2 ENCOUNTER FOR ADJUSTMENT AND MANAGEMENT 04/08/2016 MILADYS COUCH MD, Ot Z68.41 BODY MASS INDEX (BMI) 40.0-44.9, ADULT 05/19/2016 GINGER MORA MD Ot E78.2 MIXED HYPERLIPIDEMIA 05/19/2016 GINGER MORA MD Ot G47.33 OBSTRUCTIVE SLEEP APNEA (ADULT) (PEDIATR 05/19/2016 GINGER MORA MD Ot I10 ESSENTIAL (PRIMARY) HYPERTENSION 05/19/2016 GINGER MORA MD Ot I48.0 PAROXYSMAL ATRIAL FIBRILLATION 05/21/2016 MILADYS COUCH MD, Ot C50.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 05/21/2016 MILADYS COUCH MD Ot E66.9 OBESITY, UNSPECIFIED 05/21/2016 MILADYS COUCH MD, Ot E78.5 HYPERLIPIDEMIA, UNSPECIFIED 05/21/2016 MILADYS COUCH MD, Ot F32.9 MAJOR DEPRESSIVE DISORDER, SINGLE EPISOD 05/21/2016 MILADYS COUCH MD Ot I10 ESSENTIAL (PRIMARY) HYPERTENSION 05/21/2016 MILADYS COUCH MD Ot Z17.0 ESTROGEN RECEPTOR POSITIVE STATUS [ER+] 05/21/2016 MILADYS COUCH MD, Ot Z68.41 BODY MASS INDEX (BMI) 40.0-44.9, ADULT 05/25/2016 ABBY BENITO, GINGER Gandara Ot E78.2 MIXED HYPERLIPIDEMIA 05/25/2016 ABBY BENITO, GINGER J Ot G47.33 OBSTRUCTIVE SLEEP APNEA (ADULT) (PEDIATR 05/25/2016 ABBY BENITO, GINGER J Ot I10 ESSENTIAL (PRIMARY) HYPERTENSION 05/25/2016 ABBY BENITO, GINGER J Ot I48.0 PAROXYSMAL ATRIAL FIBRILLATION 05/25/2016 ABBY BENITO, GINGER J Ot E78.2 MIXED HYPERLIPIDEMIA 05/25/2016 ABBY BENITO, GINGER J Ot G47.33 OBSTRUCTIVE SLEEP APNEA (ADULT) (PEDIATR 05/25/2016 GINGER MORA MD J Ot I10 ESSENTIAL (PRIMARY) HYPERTENSION 05/25/2016 ABBY BENITO, GINGER J Ot I48.0 PAROXYSMAL ATRIAL FIBRILLATION 05/25/2016 ABBY BENITO, GINGER J Ot E78.2 MIXED HYPERLIPIDEMIA 05/25/2016 ABBY BENITO, GINGER J Ot G47.33 OBSTRUCTIVE SLEEP APNEA (ADULT) (PEDIATR 05/25/2016 ABBY BENITO, GINGER J Ot I10 ESSENTIAL (PRIMARY) HYPERTENSION 05/25/2016 ABBY BENITO, GINGER J Ot I48.0 PAROXYSMAL ATRIAL FIBRILLATION 05/25/2016 ABBY BENITO, GINGER J Ot E78.2 MIXED HYPERLIPIDEMIA 05/25/2016 ABBY BENITO, GINGER J Ot G47.33 OBSTRUCTIVE SLEEP APNEA (ADULT) (PEDIATR 05/25/2016 GINGER MORA MD J Ot I10 ESSENTIAL (PRIMARY) HYPERTENSION 05/25/2016 ABBY BENITO, GINGER J Ot I48.0 PAROXYSMAL ATRIAL FIBRILLATION 05/25/2016 ABBY BENITO, GINGER J Ot E78.2 MIXED HYPERLIPIDEMIA 05/25/2016 ABBY BENITO, GINGER J Ot G47.33 OBSTRUCTIVE SLEEP APNEA (ADULT) (PEDIATR 05/25/2016 GINGER MORA MD J Ot I10 ESSENTIAL (PRIMARY) HYPERTENSION 05/25/2016 ABBY BENITO, GINGER J Ot I48.0 PAROXYSMAL ATRIAL FIBRILLATION 06/02/2016 MILADYS COUCH MD Ot C50.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 06/02/2016 MILADYS COUCH MD Ot E66.9 OBESITY, UNSPECIFIED 06/02/2016 MILADYS COUCH MD Ot E78.5 HYPERLIPIDEMIA, UNSPECIFIED 06/02/2016 KHOA BENITO, MILADYS Ot F32.9 MAJOR DEPRESSIVE DISORDER, SINGLE EPISOD 06/02/2016 MILADYS COUCH MD Ot I10 ESSENTIAL (PRIMARY) HYPERTENSION 06/02/2016 MILADYS COUCH MD Ot Z17.0 ESTROGEN RECEPTOR POSITIVE STATUS [ER+] 06/02/2016 KHOA BENITO, MILADYS Ot Z68.41 BODY MASS INDEX (BMI) 40.0-44.9, ADULT 06/11/2016 ABBY BENITO, GINGER J Ot E78.2 MIXED HYPERLIPIDEMIA 06/11/2016 ABBY BENITO, GINGER J Ot G47.33 OBSTRUCTIVE SLEEP APNEA (ADULT) (PEDIATR 06/11/2016 ABBY BENITO, GINGER J Ot I10 ESSENTIAL (PRIMARY) HYPERTENSION 06/11/2016 ABBY BENITO, MISSYHAR J Ot I48.0 PAROXYSMAL ATRIAL FIBRILLATION 06/15/2016 MILADYS COUCH MD Ot 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 06/15/2016 MILADYS COUCH MD Ot 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 06/17/2016 ABBY BENITO, GINGER J Ot E78.2 MIXED HYPERLIPIDEMIA 06/17/2016 ABBY BENITO, GINGER J Ot G47.33 OBSTRUCTIVE SLEEP APNEA (ADULT) (PEDIATR 06/17/2016 ABBY BENITO, GINGER J Ot I10 ESSENTIAL (PRIMARY) HYPERTENSION 06/17/2016 ABBY BENITO, GINGER J Ot I48.0 PAROXYSMAL ATRIAL FIBRILLATION 06/24/2016 MILADYS COUCH MD Ot 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 07/05/2016 MILADYS COUCH MD Ot C50.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 07/05/2016 MILADYS COUCH MD Ot E66.9 OBESITY, UNSPECIFIED 07/05/2016 MILADYS COUCH MD Ot E78.5 HYPERLIPIDEMIA, UNSPECIFIED 07/05/2016 KHOA BENITO, MILADYS Ot F32.9 MAJOR DEPRESSIVE [...] COUCH MD Ot E66.9 OBESITY, UNSPECIFIED 07/15/2016 KHOA BENITO, MILADYS Ot E78.5 HYPERLIPIDEMIA, UNSPECIFIED 07/15/2016 KHOA BENITO, MILADYS Ot F32.9 MAJOR DEPRESSIVE DISORDER, SINGLE EPISOD 07/15/2016 MILADYS COUCH MD Ot I10 ESSENTIAL (PRIMARY) HYPERTENSION 07/15/2016 MILADYS COUCH MD Ot Z17.0 ESTROGEN RECEPTOR POSITIVE STATUS [ER+] 07/15/2016 MILADYS COUCH MD Ot Z51.0 ENCOUNTER FOR ANTINEOPLASTIC RADIATION T 07/15/2016 MILADYS COUCH MD, Ot Z51.11 ENCOUNTER FOR ANTINEOPLASTIC CHEMOTHERAP 07/15/2016 MILADYS COUCH MD Ot Z68.41 BODY MASS INDEX (BMI) 40.0-44.9, ADULT 09/09/2016 MILADYS COUCH MD, Ot 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 09/23/2016 MILADYS COUCH MD, Ot C50.111 MALIGNANT [...] FOR ADJUSTMENT AND MANAGEMENT 09/23/2016 MILADYS COUCH MD, Ot Z68.41 BODY MASS INDEX (BMI) 40.0-44.9, ADULT 09/23/2016 MILADYS COUCH MD, Ot C50.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 09/23/2016 MILADYS COUCH MD, Ot E66.9 OBESITY, UNSPECIFIED 09/23/2016 MILADYS COUCH [...] INDEX (BMI) 40.0-44.9, ADULT 10/25/2016 MILADYS COUCH MD Ot C50.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 10/25/2016 MILADYS COUCH MD Ot E66.9 OBESITY, UNSPECIFIED 10/25/2016 MILADYS COUCH MD Ot E78.5 HYPERLIPIDEMIA, UNSPECIFIED 10/25/2016 MILADYS COUCH MD, Ot F32.9 MAJOR DEPRESSIVE DISORDER, SINGLE EPISOD 10/25/2016 MILADYS COUCH MD Ot I10 ESSENTIAL (PRIMARY) HYPERTENSION 10/25/2016 MILADYS COUCH MD Ot Z17.0 ESTROGEN RECEPTOR POSITIVE STATUS [ER+] 10/25/2016 MILADYS COUCH MD Ot Z45.2 ENCOUNTER FOR ADJUSTMENT AND MANAGEMENT 10/25/2016 MILADYS COUCH MD Ot Z68.41 BODY MASS INDEX (BMI) 40.0-44.9, ADULT 11/15/2016 ABBY BENITO, GINGER Gandara Ot E78.2 MIXED HYPERLIPIDEMIA 11/15/2016 ABBY BENITO, GINGER Gandara Ot E78.2 MIXED HYPERLIPIDEMIA 11/15/2016 ABBY BENITO, GINGER Gandara Ot E78.2 MIXED HYPERLIPIDEMIA 11/15/2016 ABBY BENITO, GINGER Gandara Ot E78.2 MIXED HYPERLIPIDEMIA 11/16/2016 MILADYS COUCH MD Ot C50.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 11/16/2016 MILADYS COUCH MD Ot E66.9 OBESITY, UNSPECIFIED 11/16/2016 MILADYS COUCH MD Ot E78.5 HYPERLIPIDEMIA, UNSPECIFIED 11/16/2016 MILADYS COUCH MD Ot F32.9 MAJOR DEPRESSIVE DISORDER, SINGLE EPISOD 11/16/2016 MILADYS COUCH MD Ot I10 ESSENTIAL (PRIMARY) HYPERTENSION 11/16/2016 MILADYS COUCH MD Ot Z17.0 ESTROGEN RECEPTOR POSITIVE STATUS [ER+] 11/16/2016 MILADYS COUCH MD Ot Z45.2 ENCOUNTER FOR ADJUSTMENT AND MANAGEMENT 11/16/2016 MILADYS COUCH MD Ot Z68.41 BODY MASS INDEX (BMI) 40.0-44.9, ADULT 11/23/2016 MARICEL RODRIGEZ Ot G47.33 OBSTRUCTIVE SLEEP APNEA (ADULT) (PEDIATR 11/23/2016 Ot V76.12 OTH SCREEN MAMMO-MALIGN NEOPLASM OF INGRID 11/23/2016 KASSIDY KHOURY APRN Ot 611.72 LUMP OR MASS IN BREAST 11/23/2016 KASSIDY KHOURY GERMAN Ot 174.9 MALIGN NEOPL BREAST NOS 11/23/2016 MILADYS COUCH MD Ot 174.9 MALIGN NEOPL BREAST NOS 11/23/2016 MILADYS COUCH MD Ot 174.9 MALIGN NEOPL BREAST NOS 11/23/2016 LAVONNE HURTADO DO Ot 174.9 MALIGN NEOPL BREAST NOS 11/23/2016 LAVONNE HURTADO DO Ot V72.83 EXAM PRE-OPERATIVE NEC 11/23/2016 LAVONNE HURTADO DO Ot V74.8 SCREEN-BACTERIAL DIS NEC 11/23/2016 SHERI WAHL Ot 174.1 MAL JOSE L BREAST-CENTRAL 11/23/2016 SHERI WAHL Ot V86.0 ESTROGEN RECEPTOR POSITIVE STATUS [ER+] 11/23/2016 MILADYS COUCH MD Ot 174.9 MALIGN NEOPL BREAST NOS 11/23/2016 MILADYS COUCH MD Ot V58.69 OTH MED,LT,CURRENT USE 11/23/2016 MILADYS [...] OF UNSP SITE OF RIGHT 11/23/2016 SHERI WAHL Ot C77.3 SEC AND UNSP MALIG NEOPLASM OF AXILLA AN 11/23/2016 SHERI WAHL Ot I48.91 UNSPECIFIED ATRIAL FIBRILLATION 11/23/2016 SHERI WAHL Ot Z17.0 ESTROGEN RECEPTOR POSITIVE STATUS [ER+] 11/23/2016 SHERI WAHL [facility] Ot Z79.899 OTHER LONGTERM (CURRENT) DRUG THERAPY 11/23/2016 HUGO PEACE Ot E78.5 HYPERLIPIDEMIA, UNSPECIFIED 11/23/2016 HUGO PEACE Ot I10 ESSENTIAL (PRIMARY) HYPERTENSION 11/23/2016 HUGO PEACE Ot I48.91 UNSPECIFIED ATRIAL FIBRILLATION 11/23/2016 HUGO PEACE Ot R06.00 DYSPNEA, UNSPECIFIED 11/23/2016 MILADYS COUCH MD, Ot 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 11/23/2016 MILADYS COUCH MD, Ot 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 11/23/2016 GINGER MORA MD Ot E78.2 MIXED HYPERLIPIDEMIA 11/23/2016 GINGER MORA MD Ot G47.33 OBSTRUCTIVE SLEEP APNEA (ADULT) (PEDIATR 11/23/2016 GINGER MORA MD Ot I10 ESSENTIAL (PRIMARY) HYPERTENSION 11/23/2016 GINGER MORA MD Ot I48.0 PAROXYSMAL ATRIAL FIBRILLATION 11/23/2016 MILADYS COUCH MD Ot C50.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 11/23/2016 MILADYS COUCH MD Ot E66.9 OBESITY, UNSPECIFIED 11/23/2016 MILADYS COUCH MD Ot E78.5 HYPERLIPIDEMIA, UNSPECIFIED 11/23/2016 MILADYS COUCH MD Ot F32.9 MAJOR DEPRESSIVE DISORDER, SINGLE EPISOD 11/23/2016 MILADYS COUCH MD, Ot I10 ESSENTIAL (PRIMARY) HYPERTENSION 11/23/2016 MILADYS COUCH MD Ot Z17.0 ESTROGEN RECEPTOR POSITIVE STATUS [ER+] 11/23/2016 MILADYS COUCH MD Ot Z45.2 ENCOUNTER FOR ADJUSTMENT AND MANAGEMENT 11/23/2016 MILADYS COUCH MD Ot Z68.41 BODY MASS INDEX (BMI) 40.0-44.9, ADULT 11/23/2016 GINGER MORA MD Ot E78.2 MIXED HYPERLIPIDEMIA 11/23/2016 GINGER MORA MD Ot I10 ESSENTIAL (PRIMARY) HYPERTENSION 11/23/2016 GINGER MORA MD Ot I48.0 PAROXYSMAL ATRIAL FIBRILLATION 11/24/2016 MARICEL RODRIGEZ Ot G47.33 OBSTRUCTIVE SLEEP APNEA (ADULT) (PEDIATR 11/29/2016 MARICEL RODRIGEZ Ot G47.33 OBSTRUCTIVE SLEEP APNEA (ADULT) (PEDIATR 12/07/2016 GINGER MORA MD Ot E78.2 MIXED HYPERLIPIDEMIA 12/07/2016 GINGER MORA MD, Ot I10 ESSENTIAL (PRIMARY) HYPERTENSION 12/07/2016 GINGER MORA MD Ot I48.0 PAROXYSMAL ATRIAL FIBRILLATION 12/08/2016 MILADYS COUCH MD, Ot 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 12/09/2016 MILADYS COUCH MD, Ot 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 12/09/2016 MILADYS COUCH MD, Ot 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 12/29/2016 MILADYS COUCH MD, Ot 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 01/05/2017 JAZMIN WHITING DO Ot I48.91 UNSPECIFIED ATRIAL FIBRILLATION 01/05/2017 JAZMIN WHITING DO Ot Z01.818 ENCOUNTER FOR OTHER PREPROCEDURAL EXAMIN 01/05/2017 JAZMIN WHITING DO Ot Z85.3 PERSONAL HISTORY OF MALIGNANT NEOPLASM O 01/06/2017 MILADYS COUCH MD, Ot C50.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 01/06/2017 MILADYS COUCH MD Ot E66.9 OBESITY, UNSPECIFIED 01/06/2017 MILADYS COUCH [...] MAMMO-MALIGN NEOPLASM OF INGRID 01/07/2017 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 Ot 611.72 LUMP OR MASS IN BREAST 01/07/2017 KASSIDY KHOURY GERMAN Ot 174.9 MALIGN NEOPL BREAST NOS 01/07/2017 [...] NOS 01/07/2017 MILADYS COUCH MD Ot V58.69 OTH MED,LT,CURRENT USE 01/07/2017 MILADYS [...] Ot V72.84 EXAM PRE-OPERATIVE NOS 01/07/2017 SHERI WAHL Ot C50.911 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 01/07/2017 SHERI WAHL Ot C77.3 SEC AND UNSP MALIG NEOPLASM OF AXILLA AN 01/07/2017 SHERI WAHLP Ot I48.91 UNSPECIFIED ATRIAL FIBRILLATION 01/07/2017 SHERI WAHL Ot Z17.0 ESTROGEN RECEPTOR POSITIVE STATUS [ER+] 01/07/2017 SHERI WAHL Ot Z79.899 OTHER LONGTERM (CURRENT) DRUG THERAPY 01/07/2017 HUGO PEACE Ot E78.5 HYPERLIPIDEMIA, UNSPECIFIED 01/07/2017 HUGO PEACE Ot I10 ESSENTIAL (PRIMARY) HYPERTENSION 01/07/2017 HUGO PEACE Ot I48.91 UNSPECIFIED ATRIAL FIBRILLATION 01/07/2017 HUGO PEACE Ot R06.00 DYSPNEA, UNSPECIFIED 01/07/2017 MILADYS COUCH MD Ot 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 01/07/2017 MILADYS COUCH MD, Ot 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 01/07/2017 GINGER MORA MD Ot E78.2 MIXED HYPERLIPIDEMIA 01/07/2017 GINGER MORA MD Ot G47.33 OBSTRUCTIVE SLEEP APNEA (ADULT) (PEDIATR 01/07/2017 GINGER MORA MD Ot I10 ESSENTIAL (PRIMARY) HYPERTENSION 01/07/2017 GINGER MORA MD Ot I48.0 PAROXYSMAL ATRIAL FIBRILLATION 01/07/2017 MILADYS COUCH MD, Ot C50.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 01/07/2017 MILADYS COUCH MD Ot E66.9 OBESITY, UNSPECIFIED 01/07/2017 MILADYS COUCH MD, Ot E78.5 HYPERLIPIDEMIA, UNSPECIFIED 01/07/2017 MILADYS COUCH MD Ot F32.9 MAJOR DEPRESSIVE DISORDER, SINGLE EPISOD 01/07/2017 MILADYS COUCH MD Ot I10 ESSENTIAL (PRIMARY) HYPERTENSION 01/07/2017 MILADYS COUCH MD Ot Z17.0 ESTROGEN RECEPTOR POSITIVE STATUS [ER+] 01/07/2017 MILADYS COUCH MD, Ot Z45.2 ENCOUNTER FOR ADJUSTMENT AND MANAGEMENT 01/07/2017 MILADYS COUCH MD Ot Z68.41 BODY MASS INDEX (BMI) 40.0-44.9, ADULT 01/07/2017 GINGER MORA MD Ot E78.2 MIXED HYPERLIPIDEMIA 01/07/2017 GINGER MORA MD Ot I10 ESSENTIAL (PRIMARY) HYPERTENSION 01/07/2017 GINGER MORA MD Ot I48.0 PAROXYSMAL ATRIAL FIBRILLATION 01/07/2017 MILADYS COUCH MD, Ot 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 01/07/2017 WHITING DO, JAZMIN D Ot I48.91 UNSPECIFIED ATRIAL FIBRILLATION 01/07/2017 WHITING DO, JAZMIN D Ot Z08 ENCNTR FOR FOLLOW-UP EXAM AFTER TRTMT FO 01/07/2017 WHITING DO, JAZMIN D Ot Z85.3 PERSONAL HISTORY OF MALIGNANT NEOPLASM O 01/11/2017 WHITING DO, JAZMIN D Ot I48.91 UNSPECIFIED ATRIAL FIBRILLATION 01/11/2017 WHITING DO, JAZMIN D Ot Z08 ENCNTR FOR FOLLOW-UP EXAM AFTER TRTMT FO 01/11/2017 WHITING DO, JAZMIN D Ot Z85.3 PERSONAL HISTORY OF MALIGNANT NEOPLASM O 01/13/2017 MILADYS COUCH MD Ot 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 01/13/2017 MILADYS COUCH MD, Ot 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 01/21/2017 MILADYS COUCH MD, Ot C50.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 01/21/2017 MILADYS COUCH MD, Ot E66.9 OBESITY, UNSPECIFIED 01/21/2017 MILADYS COUCH MD, Ot E78.5 HYPERLIPIDEMIA, UNSPECIFIED 01/21/2017 MILADYS COUCH MD, Ot F32.9 MAJOR DEPRESSIVE DISORDER, SINGLE EPISOD 01/21/2017 MILADYS COUCH MD, Ot I10 ESSENTIAL (PRIMARY) HYPERTENSION 01/21/2017 MILADYS COUCH MD, Ot Z17.0 ESTROGEN RECEPTOR POSITIVE STATUS [ER+] 01/21/2017 MILADYS COUCH MD, Ot Z45.2 ENCOUNTER FOR ADJUSTMENT AND MANAGEMENT 01/21/2017 MILADYS COUCH MD, Ot Z68.41 BODY MASS INDEX (BMI) 40.0-44.9, ADULT 02/13/2017 MILADYS COUCH MD, Ot C50.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 02/13/2017 MILADYS COUCH MD, Ot E66.9 OBESITY, UNSPECIFIED 02/13/2017 MILADYS COUCH MD Ot E78.5 HYPERLIPIDEMIA, UNSPECIFIED 02/13/2017 MILADYS COUCH MD, Ot F32.9 MAJOR DEPRESSIVE DISORDER, SINGLE EPISOD 02/13/2017 MILADYS COUCH MD, Ot I10 ESSENTIAL (PRIMARY) HYPERTENSION 02/13/2017 MILADYS COUCH MD Ot Z17.0 ESTROGEN RECEPTOR POSITIVE STATUS [ER+] 02/13/2017 MILADYS COUCH MD, Ot Z45.2 ENCOUNTER FOR ADJUSTMENT AND MANAGEMENT 02/13/2017 MILADYS COUCH MD, Ot Z68.41 BODY MASS INDEX (BMI) 40.0-44.9, ADULT 03/18/2017 MILADYS COUCH MD, Ot C50.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 03/18/2017 MILADYS COUCH MD, Ot E66.9 OBESITY, UNSPECIFIED 03/18/2017 MILADYS COUCH MD Ot E78.5 HYPERLIPIDEMIA, UNSPECIFIED 03/18/2017 MILADYS COUCH MD, Ot F32.9 MAJOR DEPRESSIVE DISORDER, SINGLE EPISOD 03/18/2017 MILADYS COUCH MD Ot I10 ESSENTIAL (PRIMARY) HYPERTENSION 03/18/2017 MILADYS COUCH MD, Ot Z17.0 ESTROGEN RECEPTOR [...] Ot E66.9 OBESITY, UNSPECIFIED 03/22/2017 MILADYS COUCH MD, Ot E78.5 HYPERLIPIDEMIA, UNSPECIFIED 03/22/2017 MILADYS COUCH MD, Ot F32.9 MAJOR DEPRESSIVE DISORDER, SINGLE EPISOD 03/22/2017 MILADYS COUCH MD Ot I10 ESSENTIAL (PRIMARY) HYPERTENSION 03/22/2017 MILADYS COUCH MD, Ot Z17.0 ESTROGEN RECEPTOR POSITIVE STATUS [ER+] 03/22/2017 MILADYS COCUH MD, Ot Z45.2 ENCOUNTER FOR ADJUSTMENT AND MANAGEMENT 03/22/2017 MILADYS COUCH MD, Ot Z68.41 BODY MASS INDEX (BMI) 40.0-44.9, ADULT 03/24/2017 GINGER MORA MD Ot E78.2 MIXED HYPERLIPIDEMIA 03/24/2017 GINGER MORA MD J Ot I10 ESSENTIAL (PRIMARY) HYPERTENSION 03/24/2017 GINGER MORA MD J Ot I48.0 PAROXYSMAL ATRIAL FIBRILLATION 04/01/2017 MILADYS COUCH MD, Ot C50.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 04/01/2017 MILADSY CUOCH MD, Ot E66.9 OBESITY, UNSPECIFIED 04/01/2017 MILADYS COUCH MD, Ot E78.5 HYPERLIPIDEMIA, UNSPECIFIED 04/01/2017 MILADYS COUCH MD, Ot F32.9 MAJOR DEPRESSIVE DISORDER, SINGLE EPISOD 04/01/2017 MILADYS COUHC MD, Ot I10 ESSENTIAL (PRIMARY) HYPERTENSION 04/01/2017 MILADYS COUCH MD, Ot Z17.0 ESTROGEN RECEPTOR POSITIVE STATUS [ER+] 04/01/2017 MILADYS COUCH MD, Ot Z68.41 BODY MASS INDEX (BMI) 40.0-44.9, ADULT 04/01/2017 MILADYS COUCH MD, Ot Z79.899 OTHER LONGTERM (CURRENT) DRUG THERAPY 04/22/2017 MILADYS COUCH MD, Ot C50.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 04/22/2017 MILADYS COUCH MD, Ot E66.9 OBESITY, UNSPECIFIED 04/22/2017 MILADYS COUCH MD Ot E78.5 HYPERLIPIDEMIA, UNSPECIFIED 04/22/2017 MILADYS COUCH MD Ot F32.9 MAJOR DEPRESSIVE DISORDER, SINGLE EPISOD 04/22/2017 MILADYS COUCH MD Ot I10 ESSENTIAL (PRIMARY) HYPERTENSION 04/22/2017 MILADYS COUCH MD Ot Z17.0 ESTROGEN RECEPTOR POSITIVE STATUS [ER+] 04/22/2017 MILADYS COUCH MD Ot Z68.41 BODY MASS INDEX (BMI) 40.0-44.9, ADULT 04/22/2017 MILADYS COUCH MD Ot Z79.899 OTHER LONGTERM (CURRENT) DRUG THERAPY 04/30/2017 TOR BOLDEN MD, Ot E66.9 OBESITY, UNSPECIFIED 04/30/2017 TOR BOLDEN MD Ot E78.5 HYPERLIPIDEMIA, UNSPECIFIED 04/30/2017 TOR BOLDEN MD Ot F32.9 MAJOR DEPRESSIVE DISORDER, SINGLE EPISOD 04/30/2017 TOR BOLDEN MD Ot F41.9 ANXIETY DISORDER, UNSPECIFIED 04/30/2017 TOR BOLDEN MD Ot G47.30 SLEEP APNEA, UNSPECIFIED 04/30/2017 TOR BOLDEN MD Ot I10 ESSENTIAL (PRIMARY) HYPERTENSION 04/30/2017 TOR BOLDEN MD Ot I25.10 ATHSCL HEART DISEASE OF [place] CORONARY 04/30/2017 TOR BOLDEN MD Ot I48.0 PAROXYSMAL ATRIAL FIBRILLATION 04/30/2017 TOR BOLDEN MD Ot K21.9 GASTRO-ESOPHAGEAL REFLUX DISEASE WITHOUT 04/30/2017 TOR BOLDEN MD Ot Z68.39 BODY MASS INDEX (BMI) 39.0-39.9, ADULT 04/30/2017 TOR BOLDEN MD Ot Z85.3 PERSONAL HISTORY OF MALIGNANT NEOPLASM O 04/30/2017 TOR BOLDEN MD Ot Z87.891 PERSONAL HISTORY OF NICOTINE DEPENDENCE 04/30/2017 TOR BOLDEN MD Ot Z95.5 PRESENCE OF CORONARY ANGIOPLASTY IMPLANT 05/02/2017 MILADYS COUCH MD Ot C50.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 05/02/2017 MILADYS COUCH MD Ot E66.9 OBESITY, UNSPECIFIED 05/02/2017 MILADYS COUCH MD Ot E78.5 HYPERLIPIDEMIA, UNSPECIFIED 05/02/2017 MILADYS COUCH MD Ot F32.9 MAJOR DEPRESSIVE DISORDER, SINGLE EPISOD 05/02/2017 MILADYS COUCH MD Ot I10 ESSENTIAL (PRIMARY) HYPERTENSION 05/02/2017 MILADYS COUCH MD Ot Z17.0 ESTROGEN RECEPTOR POSITIVE STATUS [ER+] 05/02/2017 MILADYS COUCH MD Ot Z68.41 BODY MASS INDEX (BMI) 40.0-44.9, ADULT 05/02/2017 MILADYS COUCH MD Ot Z79.899 OTHER SURFACING TECHNICIAN (CURRENT) DRUG THERAPY 05/02/2017 MILADYS COUCH MD, Ot C50.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 05/02/2017 MILADYS COUCH MD Ot E66.9 OBESITY, UNSPECIFIED 05/02/2017 MILADYS COUCH MD Ot E78.5 HYPERLIPIDEMIA, UNSPECIFIED 05/02/2017 MILADYS COUCH MD, Ot F32.9 MAJOR DEPRESSIVE DISORDER, SINGLE EPISOD 05/02/2017 MILADYS COUCH MD Ot I10 ESSENTIAL (PRIMARY) HYPERTENSION 05/02/2017 MILADYS COUCH MD Ot Z17.0 ESTROGEN RECEPTOR POSITIVE STATUS [ER+] 05/02/2017 MILADYS COUCH MD Ot Z68.41 BODY MASS INDEX (BMI) 40.0-44.9, ADULT 05/02/2017 MILADYS COUCH MD Ot Z79.899 OTHER SURFACING TECHNICIAN (CURRENT) DRUG THERAPY 05/23/2017 MILADYS COUCH MD, Ot C50.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 05/23/2017 MILADYS COUCH MD Ot E66.9 OBESITY, UNSPECIFIED 05/23/2017 MILADYS COUCH MD Ot E78.5 HYPERLIPIDEMIA, UNSPECIFIED 05/23/2017 MILADYS COUCH MD Ot F32.9 MAJOR DEPRESSIVE DISORDER, SINGLE EPISOD 05/23/2017 MILADYS COUCH MD Ot I10 ESSENTIAL (PRIMARY) HYPERTENSION 05/23/2017 MILADYS COUCH MD Ot Z17.0 ESTROGEN RECEPTOR POSITIVE STATUS [ER+] 05/23/2017 MILADYS COUCH MD, Ot Z68.41 BODY MASS INDEX (BMI) 40.0-44.9, ADULT 05/23/2017 MILADYS COUCH MD Ot Z79.899 OTHER SURFACING TECHNICIAN (CURRENT) DRUG THERAPY 06/10/2017 HUGO PEACE Ot E78.2 MIXED HYPERLIPIDEMIA 06/19/2017 MILADYS COUCH MD Ot C50.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 06/19/2017 MILADYS COUCH MD Ot E66.9 OBESITY, UNSPECIFIED 06/19/2017 MILADYS COUCH MD Ot E78.5 HYPERLIPIDEMIA, UNSPECIFIED 06/19/2017 KHOA BENITO, MILADYS Ot F32.9 MAJOR DEPRESSIVE DISORDER, SINGLE EPISOD 06/19/2017 MILADYS COUCH MD Ot I10 ESSENTIAL (PRIMARY) HYPERTENSION 06/19/2017 MILADYS COUCH MD Ot Z17.0 ESTROGEN RECEPTOR POSITIVE STATUS [ER+] 06/19/2017 MILADYS COUCH MD Ot Z68.41 BODY MASS INDEX (BMI) 40.0-44.9, ADULT 06/19/2017 MILADYS COUCH MD Ot Z79.899 OTHER SURFACING TECHNICIAN (CURRENT) DRUG THERAPY 06/20/2017 HUGO PEACE Ot E78.2 MIXED HYPERLIPIDEMIA 06/20/2017 MILADYS COUCH MD Ot C50.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 06/20/2017 MILADYS COUCH MD Ot E66.9 OBESITY, UNSPECIFIED 06/20/2017 KHOA BENITO, MILADYS Ot E78.5 HYPERLIPIDEMIA, UNSPECIFIED 06/20/2017 MILADYS COUCH MD Ot F32.9 MAJOR DEPRESSIVE DISORDER, SINGLE EPISOD 06/20/2017 MILADYS COUCH MD Ot I10 ESSENTIAL (PRIMARY) HYPERTENSION 06/20/2017 MILADYS CUOCH MD Ot Z17.0 ESTROGEN RECEPTOR POSITIVE STATUS [ER+] 06/20/2017 MILADYS COUCH MD Ot Z68.41 BODY MASS INDEX (BMI) 40.0-44.9, ADULT 06/20/2017 MILADYS COUCH MD Ot Z79.899 OTHER SURFACING TECHNICIAN (CURRENT) DRUG THERAPY 08/26/2017 HUGO PEACE Ot E78.2 MIXED HYPERLIPIDEMIA 08/26/2017 HUGO PEACE Ot I10 ESSENTIAL (PRIMARY) HYPERTENSION 08/26/2017 HUGO PEACE Ot I25.10 ATHSCL HEART DISEASE OF [place] CORONARY 08/26/2017 HUGO PEACE Ot I48.0 PAROXYSMAL [...] MD Ot I25.10 ATHSCL HEART DISEASE OF [place] CORONARY 08/31/2017 GINGER MORA MD Ot I48.0 PAROXYSMAL ATRIAL FIBRILLATION 08/31/2017 GINGER MORA MD Ot 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 08/31/2017 GINGER MORA MD Ot Z68.41 BODY MASS INDEX (BMI) 40.0-44.9, ADULT 08/31/2017 GINGER MORA MD Ot Z79.01 SURFACING TECHNICIAN (CURRENT) USE OF ANTICOAGULANT 08/31/2017 GINGER MORA MD Ot Z79.82 SURFACING TECHNICIAN (CURRENT) USE OF ASPIRIN 08/31/2017 GINGER MORA MD Ot Z79.899 OTHER SURFACING TECHNICIAN (CURRENT) DRUG THERAPY 08/31/2017 GINGER MORA MD [...] I10 ESSENTIAL (PRIMARY) HYPERTENSION 09/05/2017 GINGER MORA MD, Ot I25.10 ATHSCL HEART DISEASE OF [place] CORONARY 09/05/2017 GINGER MORA MD, Ot I48.0 PAROXYSMAL ATRIAL FIBRILLATION 09/05/2017 GINGER MORA MD, Ot 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 09/05/2017 GINGER MORA MD, Ot Z68.41 BODY MASS INDEX (BMI) 40.0-44.9, ADULT 09/05/2017 GINGER MORA MD, Ot Z79.01 LONGTERM (CURRENT) USE OF ANTICOAGULANT 09/05/2017 GINGER MORA MD, Ot Z79.82 SURFACING TECHNICIAN (CURRENT) USE OF ASPIRIN 09/05/2017 GINGER MORA MD, Ot Z79.899 OTHER LONGTERM (CURRENT) DRUG THERAPY 09/05/2017 GINGER MORA MD, Ot Z85.3 PERSONAL HISTORY OF MALIGNANT NEOPLASM O 09/05/2017 GINGER MORA MD, Ot Z87.891 PERSONAL HISTORY OF NICOTINE DEPENDENCE 09/08/2017 MILADYS COUCH MD Ot C50.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 09/08/2017 MILADYS COUCH MD, Ot E66.9 OBESITY, UNSPECIFIED 09/08/2017 MILADYS COUCH MD, Ot E78.5 HYPERLIPIDEMIA, UNSPECIFIED 09/08/2017 MILADYS COUCH MD, Ot F32.9 MAJOR DEPRESSIVE DISORDER, SINGLE EPISOD 09/08/2017 MILADYS COUCH MD Ot I10 ESSENTIAL (PRIMARY) HYPERTENSION 09/08/2017 MILADYS COUCH MD Ot Z17.0 ESTROGEN RECEPTOR POSITIVE STATUS [ER+] 09/08/2017 MILADYS COUCH MD, Ot Z68.41 BODY MASS INDEX (BMI) 40.0-44.9, ADULT 09/08/2017 MILADYS COUCH MD, Ot Z79.899 OTHER SURFACING TECHNICIAN (CURRENT) DRUG THERAPY 09/13/2017 HUGO PEACE Ot E78.2 MIXED HYPERLIPIDEMIA 09/13/2017 HUGO PEACE Ot I10 ESSENTIAL (PRIMARY) HYPERTENSION 09/13/2017 HUGO PEACE Ot I25.10 ATHSCL HEART DISEASE OF [place] CORONARY 09/13/2017 CASTANON-BRANDY PA, HUGO K Ot I48.0 PAROXYSMAL ATRIAL FIBRILLATION 09/14/2017 JOSÉ PUGA, HUGO K Ot E78.2 MIXED HYPERLIPIDEMIA 09/14/2017 JOSÉ PUGA, HUGO K Ot I10 ESSENTIAL (PRIMARY) HYPERTENSION 09/14/2017 JOSÉ PUGA, HUGO K Ot I25.10 ATHSCL HEART DISEASE OF [place] CORONARY 09/14/2017 CASTANONKYLAH PUGA, HUGO K Ot I48.0 PAROXYSMAL ATRIAL FIBRILLATION 09/23/2017 CASTANONKYLAH PUGA, HUGO K Ot E78.2 MIXED HYPERLIPIDEMIA 09/23/2017 CASTANONKYLAH PUGA, HUGO K Ot I10 ESSENTIAL (PRIMARY) HYPERTENSION 09/23/2017 CASTANONKYLAH PUGA, HUGO K Ot I25.10 ATHSCL HEART DISEASE OF [place] CORONARY 09/23/2017 JOSÉ PUGA, HUGO K Ot I48.0 PAROXYSMAL ATRIAL FIBRILLATION 09/23/2017 CASTANONKYLAH PUGA HUGO K Ot E78.2 MIXED HYPERLIPIDEMIA 09/23/2017 CASTANONKYLAH PUGA, HUGO K Ot I10 ESSENTIAL (PRIMARY) HYPERTENSION 09/23/2017 JOSÉ PUGA, HUGO K Ot I25.10 ATHSCL HEART DISEASE OF [place] CORONARY 09/23/2017 JOSÉ PUGA HUGO K Ot I48.0 PAROXYSMAL ATRIAL FIBRILLATION 09/30/2017 GINGER MORA MD Ot D64.9 ANEMIA, UNSPECIFIED 09/30/2017 GINGER MORA MD Ot E66.01 MORBID (SEVERE) OBESITY DUE TO EXCESS CA 09/30/2017 GINGER MORA MD Ot E78.5 HYPERLIPIDEMIA, UNSPECIFIED 09/30/2017 GINGER MORA MD Ot G47.30 SLEEP APNEA, UNSPECIFIED 09/30/2017 GINGER MORA MD Ot I10 ESSENTIAL (PRIMARY) HYPERTENSION 09/30/2017 GINGER MORA MD Ot I25.10 ATHSCL HEART DISEASE OF [place] CORONARY 09/30/2017 GINGER MORA MD Ot I48.0 PAROXYSMAL ATRIAL FIBRILLATION 09/30/2017 GINGER MORA MD Ot 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 09/30/2017 GINGER MORA MD Ot Z68.41 BODY MASS INDEX (BMI) 40.0-44.9, ADULT 09/30/2017 GINGER MORA MD, Ot Z79.01 LONGTERM (CURRENT) USE OF ANTICOAGULANT 09/30/2017 GINGER MORA MD, Ot Z79.82 LONGTERM (CURRENT) USE OF ASPIRIN 09/30/2017 GINGER MORA MD, Ot Z79.899 OTHER SURFACING TECHNICIAN (CURRENT) DRUG THERAPY 09/30/2017 GINGER MORA MD, Ot Z85.3 PERSONAL HISTORY OF MALIGNANT NEOPLASM O 09/30/2017 GINGER MORA MD, Ot Z87.891 PERSONAL HISTORY OF NICOTINE DEPENDENCE 10/03/2017 MOLLY DUBOSE APRN Ot E78.00 PURE HYPERCHOLESTEROLEMIA, UNSPECIFIED 10/03/2017 MOLLY DUBOSE APRN Ot F32.9 MAJOR DEPRESSIVE DISORDER, SINGLE EPISOD 10/03/2017 MOLLY DUBOSE APRN Ot F41.9 ANXIETY DISORDER, UNSPECIFIED 10/03/2017 MOLLY DUBOSE APRN Ot G47.30 SLEEP APNEA, UNSPECIFIED 10/03/2017 MOLLY DUBOSE APRN Ot I10 ESSENTIAL (PRIMARY) HYPERTENSION 10/03/2017 MOLLY DUBOSE APRN Ot I25.10 ATHSCL HEART DISEASE OF [place] CORONARY 10/03/2017 MOLLY DUBOSE APRN Ot I48.0 PAROXYSMAL ATRIAL FIBRILLATION 10/03/2017 MOLLY DUBOSE APRN Ot I48.91 UNSPECIFIED ATRIAL FIBRILLATION 10/03/2017 MOLLY DUBOSE APRN Ot K21.9 GASTRO-ESOPHAGEAL REFLUX DISEASE WITHOUT 10/03/2017 MOLLY DUBOSE APRN Ot Z79.01 LONGTERM (CURRENT) USE OF ANTICOAGULANT 10/03/2017 MOLLY DUBOSE APRN Ot Z79.82 LONGTERM (CURRENT) USE OF ASPIRIN 10/03/2017 MOLLY DUBOSE APRN Ot Z82.49 FAMILY HX OF ISCHEM HEART DIS AND OTH DI 10/03/2017 MOLLY DUBOSE APRN Ot Z87.891 PERSONAL HISTORY OF NICOTINE DEPENDENCE 10/03/2017 MOLLY DUBOSE APRN Ot Z90.11 ACQUIRED ABSENCE OF RIGHT BREAST AND NIP 10/03/2017 MOLLY DUBOSE APRN Ot Z90.710 ACQUIRED ABSENCE OF BOTH CERVIX AND UTER 10/03/2017 MOLLY DUBOSE APRN Ot Z92.21 PERSONAL HISTORY OF ANTINEOPLASTIC CHEMO 10/03/2017 MOLLY DUBOSE APRN Ot Z95.5 PRESENCE OF CORONARY ANGIOPLASTY IMPLANT 10/09/2017 MOLLY DUBOSE APRN Ot E78.00 PURE HYPERCHOLESTEROLEMIA, UNSPECIFIED 10/09/2017 MOLLY DUBOSE APRN Ot F32.9 MAJOR DEPRESSIVE DISORDER, SINGLE EPISOD 10/09/2017 MOLLY DUBOSE APRN Ot F41.9 ANXIETY DISORDER, UNSPECIFIED 10/09/2017 MOLLY DUBOSE APRN Ot G47.30 SLEEP APNEA, UNSPECIFIED 10/09/2017 MOLLY DUBOSE APRN Ot I10 ESSENTIAL (PRIMARY) HYPERTENSION 10/09/2017 MOLLY DUBOSE APRN Ot I25.10 ATHSCL HEART DISEASE OF [place] CORONARY 10/09/2017 MOLLY DUBOSE APRN Ot I48.0 PAROXYSMAL ATRIAL FIBRILLATION 10/09/2017 MOLLY DUBOSE APRN Ot I48.91 UNSPECIFIED ATRIAL FIBRILLATION 10/09/2017 MOLLY DUBOSE APRN Ot K21.9 GASTRO-ESOPHAGEAL REFLUX DISEASE WITHOUT 10/09/2017 MOLLY DUBOSE APRN Ot Z79.01 LONGTERM (CURRENT) USE OF ANTICOAGULANT 10/09/2017 MOLLY DUBOSE APRN Ot Z79.82 SURFACING TECHNICIAN (CURRENT) USE OF ASPIRIN 10/09/2017 MOLLY DUBOSE APRN Ot Z82.49 FAMILY HX OF ISCHEM HEART DIS AND OTH DI 10/09/2017 MOLLY DUBOSE APRN Ot Z87.891 PERSONAL HISTORY OF NICOTINE DEPENDENCE 10/09/2017 MOLLY DUBOSE APRN Ot Z90.11 ACQUIRED ABSENCE OF RIGHT BREAST AND NIP 10/09/2017 MOLLY DUBOSE APRN Ot Z90.710 ACQUIRED ABSENCE OF BOTH CERVIX AND UTER 10/09/2017 MOLLY DUBOSE APRN Ot Z92.21 PERSONAL HISTORY OF ANTINEOPLASTIC CHEMO 10/09/2017 MOLLY DUBOSE APRN Ot Z95.5 PRESENCE OF CORONARY ANGIOPLASTY IMPLANT 10/18/2017 MILADYS COUCH MD Ot C50.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 10/18/2017 MILADYS COUCH MD Ot E66.9 OBESITY, UNSPECIFIED 10/18/2017 MILADYS COUCH MD Ot E78.5 HYPERLIPIDEMIA, UNSPECIFIED 10/18/2017 MILADYS COUCH MD Ot F32.9 MAJOR DEPRESSIVE DISORDER, SINGLE EPISOD 10/18/2017 MILADYS COUCH MD Ot I10 ESSENTIAL (PRIMARY) HYPERTENSION 10/18/2017 MILADYS COUCH MD Ot Z17.0 ESTROGEN RECEPTOR POSITIVE STATUS [ER+] 10/18/2017 MILADYS COUCH MD Ot Z68.41 BODY MASS INDEX (BMI) 40.0-44.9, ADULT 10/18/2017 MILADYS COUCH MD Ot Z79.899 OTHER SURFACING TECHNICIAN (CURRENT) DRUG THERAPY 10/31/2017 MILADYS COUCH MD Ot C50.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 10/31/2017 MILADYS COUCH MD Ot E66.9 OBESITY, UNSPECIFIED 10/31/2017 KHOA BENITO, MILADYS Ot E78.5 HYPERLIPIDEMIA, UNSPECIFIED 10/31/2017 KHOA BENITO, MILADYS Ot F32.9 MAJOR DEPRESSIVE DISORDER, SINGLE EPISOD 10/31/2017 MILADYS COUCH MD Ot I10 ESSENTIAL (PRIMARY) HYPERTENSION 10/31/2017 MILADYS COUCH MD Ot Z17.0 ESTROGEN RECEPTOR POSITIVE STATUS [ER+] 10/31/2017 MILADYS COUCH MD Ot Z68.41 BODY MASS INDEX (BMI) 40.0-44.9, ADULT 10/31/2017 MILADYS COUCH MD Ot Z79.899 OTHER LONGTERM (CURRENT) DRUG THERAPY 12/05/2017 MILADYS COUCH MD Ot C50.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 12/05/2017 MILADYS COUCH MD Ot E66.9 OBESITY, UNSPECIFIED 12/05/2017 KHOA BENITO, MILADYS Ot E78.5 HYPERLIPIDEMIA, UNSPECIFIED 12/05/2017 KHOA BENITO, MILADYS Ot F32.9 MAJOR DEPRESSIVE DISORDER, SINGLE EPISOD 12/05/2017 MILADYS COUCH MD Ot I10 ESSENTIAL (PRIMARY) HYPERTENSION 12/05/2017 MILADYS COUCH MD Ot Z17.0 ESTROGEN RECEPTOR POSITIVE STATUS [ER+] 12/05/2017 MILADYS COUCH MD Ot Z68.41 BODY MASS INDEX (BMI) 40.0-44.9, ADULT 12/05/2017 MILADYS COUCH MD Ot Z79.899 OTHER SURFACING TECHNICIAN (CURRENT) DRUG THERAPY 12/06/2017 MILADYS COUCH MD, Ot C50.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 12/06/2017 MILADYS COUCH MD Ot E66.9 OBESITY, UNSPECIFIED 12/06/2017 MILADYS COUCH MD, Ot E78.5 HYPERLIPIDEMIA, UNSPECIFIED 12/06/2017 MILADYS COUCH MD, Ot F32.9 MAJOR DEPRESSIVE DISORDER, SINGLE EPISOD 12/06/2017 MILADYS COUCH MD Ot I10 ESSENTIAL (PRIMARY) HYPERTENSION 12/06/2017 MILADYS COUCH MD, Ot Z17.0 ESTROGEN RECEPTOR POSITIVE STATUS [ER+] 12/06/2017 MILADYS COUCH MD, Ot Z68.41 BODY MASS INDEX (BMI) 40.0-44.9, ADULT 12/06/2017 MILADYS COUCH MD, Ot Z79.899 OTHER LONGTERM (CURRENT) DRUG THERAPY 01/10/2018 KASSIDY KHOURY APRN Ot 611.72 [place] OR MASS IN BREAST 01/10/2018 KASSIDY KHOURY APRN Ot 174.9 MALIGN NEOPL BREAST NOS 01/10/2018 MILADYS COUCH MD Ot 174.9 MALIGN NEOPL BREAST NOS 01/10/2018 MILADYS COUCH MD Ot 174.9 MALIGN NEOPL BREAST NOS 01/10/2018 LAVONNE HURTADO DO Ot 174.9 MALIGN NEOPL BREAST NOS 01/10/2018 LAVONNE HURTADO DO Ot V72.83 EXAM PRE-OPERATIVE NEC 01/10/2018 LAVONNE HURTADO DO Ot V74.8 SCREEN-BACTERIAL DIS NEC 01/10/2018 SHERI WAHL 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 Ot 174.1 MAL JOSE L BREAST-CENTRAL 01/10/2018 SHERI WAHL Ot V86.0 ESTROGEN RECEPTOR POSITIVE STATUS [ER+] 01/10/2018 MILADYS COUCH MD Ot 174.9 MALIGN NEOPL BREAST NOS 01/10/2018 MILADYS COUCH MD, Ot V58.69 OTH MED,LT,CURRENT USE 01/10/2018 MILADYS COUCH MD, Ot V58.83 ENCOUNTER FOR THERAPEUTIC DRUG MONITORIN 01/10/2018 MILADYS COUCH MD Ot 174.9 MALIGN NEOPL BREAST NOS 01/10/2018 MILADYS COUCH MD Ot 174.9 MALIGN NEOPL BREAST NOS 01/10/2018 MILADYS COUCH MD Ot V58.69 OT MED,LT,CURRENT USE 01/10/2018 MILADYS COUCH MD Ot V58.83 ENCOUNTER FOR THERAPEUTIC DRUG MONITORIN 01/10/2018 GENESIS MORA LASHAWNMANUELITO Ot 174.9 MALIGN NEOPL BREAST NOS 01/10/2018 GENESIS MORA BRYCELINDA Ot V72.84 EXAM PRE-OPERATIVE NOS 01/10/2018 SHERI WAHLP Ot C50.911 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 01/10/2018 SHERI WAHLP Ot C77.3 SEC AND UNSP MALIG NEOPLASM OF [place] AN 01/10/2018 SHERI WAHLP Ot I48.91 UNSPECIFIED ATRIAL FIBRILLATION 01/10/2018 SHERI WAHL 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 Ot Z17.0 ESTROGEN RECEPTOR POSITIVE STATUS [ER+] 01/10/2018 SHERI WAHL 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 Ot Z79.899 OTHER LONGTERM (CURRENT) DRUG THERAPY 01/10/2018 HUGO PEACE Ot E78.5 HYPERLIPIDEMIA, UNSPECIFIED 01/10/2018 HUGO PEACE Ot I10 ESSENTIAL (PRIMARY) HYPERTENSION 01/10/2018 HUGO PEACE Ot I48.91 UNSPECIFIED ATRIAL FIBRILLATION 01/10/2018 HUGO PEACE Ot R06.00 DYSPNEA, UNSPECIFIED 01/10/2018 MILADYS COUCH MD Ot 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 01/10/2018 MILADYS COUCH MD Ot 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 01/10/2018 GINGER MORA MD Ot E78.2 MIXED HYPERLIPIDEMIA 01/10/2018 GINGER MORA MD Ot G47.33 OBSTRUCTIVE SLEEP APNEA (ADULT) (PEDIATR 01/10/2018 GINGER MORA MD Ot I10 ESSENTIAL (PRIMARY) HYPERTENSION 01/10/2018 GINGER MORA MD Ot I48.0 PAROXYSMAL ATRIAL FIBRILLATION 01/10/2018 GINGER MORA MD Ot E78.2 MIXED HYPERLIPIDEMIA 01/10/2018 GINGER MORA MD Ot I10 ESSENTIAL (PRIMARY) HYPERTENSION 01/10/2018 ABBY BENITO, GINGER Gandara Ot I48.0 PAROXYSMAL ATRIAL FIBRILLATION 01/10/2018 MILADYS COUCH MD Ot 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 01/10/2018 JOSÉ PUGA, HUGO K Ot E78.2 MIXED HYPERLIPIDEMIA 01/10/2018 JOSÉ PUGA, HUGO K Ot E78.2 MIXED HYPERLIPIDEMIA 01/10/2018 JOSÉ PUGA, HUGO K Ot I10 ESSENTIAL (PRIMARY) HYPERTENSION 01/10/2018 JOSÉ PUGA, HUGO K Ot I25.10 ATHSCL HEART DISEASE OF [place] CORONARY 01/10/2018 JOSÉ PUGA, HUGO K Ot I48.0 PAROXYSMAL ATRIAL FIBRILLATION 01/10/2018 JOSÉ PUGA, HUGO K Ot E78.2 MIXED HYPERLIPIDEMIA 01/10/2018 JOSÉ PUGA, HUGO K Ot I10 ESSENTIAL (PRIMARY) HYPERTENSION 01/10/2018 JOSÉ PUGA, HUGO K Ot I25.10 ATHSCL HEART DISEASE OF [place] CORONARY 01/10/2018 JOSÉ PUGA, HUGO K Ot I48.0 PAROXYSMAL ATRIAL FIBRILLATION 01/10/2018 MILADYS COUCH MD Ot Z85.3 PERSONAL HISTORY OF MALIGNANT NEOPLASM O 01/10/2018 MILADYS COUCH MD, Ot Z90.12 ACQUIRED ABSENCE OF LEFT BREAST AND NIPP 01/10/2018 MILADYS COUCH MD Ot C50.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 01/10/2018 MILADYS COUCH MD Ot E66.9 OBESITY, UNSPECIFIED 01/10/2018 MILADYS COUCH MD Ot E78.5 HYPERLIPIDEMIA, UNSPECIFIED 01/10/2018 MILADYS COUCH MD Ot F32.9 MAJOR DEPRESSIVE DISORDER, SINGLE EPISOD 01/10/2018 MILADYS COUCH MD Ot I10 ESSENTIAL (PRIMARY) HYPERTENSION 01/10/2018 MILADYS COUCH MD Ot Z17.0 ESTROGEN RECEPTOR POSITIVE STATUS [ER+] 01/10/2018 MILADYS COUCH MD Ot Z68.41 BODY MASS INDEX (BMI) 40.0-44.9, ADULT 01/10/2018 MILADYS COUCH MD, Ot Z79.899 OTHER LONGTERM (CURRENT) DRUG THERAPY 01/13/2018 MILADYS COUCH MD Ot Z85.3 PERSONAL HISTORY OF MALIGNANT NEOPLASM O 01/13/2018 MILADYS OCUCH MD Ot Z90.12 ACQUIRED ABSENCE OF LEFT BREAST AND NIPP 02/22/2018 MILADYS COUCH MD Ot R06.02 SHORTNESS OF BREATH 03/08/2018 MILADYS COUCH MD Ot C50.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 03/08/2018 MILADYS COUCH MD, Ot E66.9 OBESITY, UNSPECIFIED 03/08/2018 MILADYS COUCH MD Ot E78.5 HYPERLIPIDEMIA, UNSPECIFIED 03/08/2018 MILADYS COUCH MD Ot F32.9 MAJOR DEPRESSIVE DISORDER, SINGLE EPISOD 03/08/2018 MILADYS COUCH MD Ot I10 ESSENTIAL (PRIMARY) HYPERTENSION 03/08/2018 MILADYS COUCH MD Ot Z17.0 ESTROGEN RECEPTOR POSITIVE STATUS [ER+] 03/08/2018 MILADYS COUCH MD Ot Z68.41 BODY MASS INDEX (BMI) 40.0-44.9, ADULT 03/08/2018 MILADYS COUCH MD Ot Z79.899 OTHER LONGTERM (CURRENT) DRUG THERAPY 03/14/2018 MILADYS COUCH MD Ot R06.02 SHORTNESS OF BREATH 03/24/2018 MILADYS COUCH MD Ot R06.02 SHORTNESS OF BREATH 03/28/2018 MILADYS COUCH MD Ot C50.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 03/28/2018 MILADYS COUCH MD, Ot E66.9 OBESITY, UNSPECIFIED 03/28/2018 MILADYS COUCH MD Ot E78.5 HYPERLIPIDEMIA, UNSPECIFIED 03/28/2018 MILADYS COUCH MD Ot F32.9 MAJOR DEPRESSIVE DISORDER, SINGLE EPISOD 03/28/2018 MILADYS COUCH MD Ot I10 ESSENTIAL (PRIMARY) HYPERTENSION 03/28/2018 MILADYS COUCH MD Ot Z17.0 ESTROGEN RECEPTOR POSITIVE STATUS [ER+] 03/28/2018 MILADYS COUCH MD Ot Z68.41 BODY MASS INDEX (BMI) 40.0-44.9, ADULT 03/28/2018 MILADYS COUCH MD Ot Z79.899 OTHER LONGTERM (CURRENT) DRUG THERAPY 03/31/2018 MILADYS COUCH MD Ot C50.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 03/31/2018 MILADYS COUCH MD Ot E66.9 OBESITY, UNSPECIFIED 03/31/2018 MILADYS COUCH MD Ot E78.5 HYPERLIPIDEMIA, UNSPECIFIED 03/31/2018 KHOA BENITO, MILADYS Ot F32.9 MAJOR DEPRESSIVE DISORDER, SINGLE EPISOD 03/31/2018 MILADYS COUCH MD Ot I10 ESSENTIAL (PRIMARY) HYPERTENSION 03/31/2018 MILADYS COUCH MD Ot Z17.0 ESTROGEN RECEPTOR POSITIVE STATUS [ER+] 03/31/2018 MILADYS COUCH MD Ot Z68.41 BODY MASS INDEX (BMI) 40.0-44.9, ADULT 03/31/2018 MILADYS COUCH MD Ot Z79.899 OTHER SURFACING TECHNICIAN (CURRENT) DRUG THERAPY 05/09/2018 MILADYS COUCH MD, Ot C50.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 05/09/2018 MILADYS COUCH MD Ot E66.9 OBESITY, UNSPECIFIED 05/09/2018 MILADYS COUCH MD Ot E78.5 HYPERLIPIDEMIA, UNSPECIFIED 05/09/2018 KHOA BENITO, MILADYS Ot F32.9 MAJOR DEPRESSIVE DISORDER, SINGLE EPISOD 05/09/2018 MILADYS COUCH MD Ot I10 ESSENTIAL (PRIMARY) HYPERTENSION 05/09/2018 MILADYS COUCH MD Ot Z17.0 ESTROGEN RECEPTOR POSITIVE STATUS [ER+] 05/09/2018 MILADYS COUCH MD Ot Z68.41 BODY MASS INDEX (BMI) 40.0-44.9, ADULT 05/09/2018 MILADYS COUCH MD Ot Z79.899 OTHER SURFACING TECHNICIAN (CURRENT) DRUG THERAPY 05/16/2018 Ot E78.2 MIXED HYPERLIPIDEMIA 05/16/2018 Ot I10 ESSENTIAL ( PRIMARY) HYPERTENSION 05/26/2018 MILADYS COUCH MD Ot C50.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 05/26/2018 MILADYS COUCH MD Ot E66.9 OBESITY, UNSPECIFIED 05/26/2018 KHOA BENITO, MILADYS Ot E78.5 HYPERLIPIDEMIA, UNSPECIFIED 05/26/2018 KHOA BENITO, MILADYS Ot F32.9 MAJOR DEPRESSIVE DISORDER, SINGLE EPISOD 05/26/2018 MILADYS COUCH MD Ot I10 ESSENTIAL (PRIMARY) HYPERTENSION 05/26/2018 MILADYS COUCH MD Ot Z17.0 ESTROGEN RECEPTOR POSITIVE STATUS [ER+] 05/26/2018 MILADYS COUCH MD Ot Z68.41 BODY MASS INDEX (BMI) 40.0-44.9, ADULT 05/26/2018 MILADYS COUCH MD Ot Z79.899 OTHER SURFACING TECHNICIAN (CURRENT) DRUG THERAPY 05/26/2018 Ot E78.2 MIXED HYPERLIPIDEMIA 05/26/2018 Ot I10 ESSENTIAL ( PRIMARY) HYPERTENSION 06/23/2018 MILADYS COUCH MD Ot C50.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 06/23/2018 MILADYS COUCH MD Ot E66.9 OBESITY, UNSPECIFIED 06/23/2018 KHOA BENITO, MILADYS Ot E78.5 HYPERLIPIDEMIA, UNSPECIFIED 06/23/2018 KHOA BENITO, MILADYS Ot F32.9 MAJOR DEPRESSIVE DISORDER, SINGLE EPISOD 06/23/2018 MILADYS COUCH MD Ot I10 ESSENTIAL (PRIMARY) HYPERTENSION 06/23/2018 MILADYS COUCH MD Ot Z17.0 ESTROGEN RECEPTOR POSITIVE STATUS [ER+] 06/23/2018 MILADYS COUCH MD Ot Z68.41 BODY MASS INDEX (BMI) 40.0-44.9, ADULT 06/23/2018 MILADYS COUCH MD Ot Z79.899 OTHER SURFACING TECHNICIAN (CURRENT) DRUG THERAPY 06/26/2018 MILADYS COUCH MD Ot C50.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 06/26/2018 MILADYS COUCH MD Ot E66.9 OBESITY, UNSPECIFIED 06/26/2018 KHOA BENITO, MILADYS Ot E78.5 HYPERLIPIDEMIA, UNSPECIFIED 06/26/2018 KHOA BENITO, MILADYS Ot F32.9 MAJOR DEPRESSIVE DISORDER, SINGLE EPISOD 06/26/2018 MILADYS COUCH MD Ot I10 ESSENTIAL (PRIMARY) HYPERTENSION 06/26/2018 MILADYS COUCH MD Ot Z17.0 ESTROGEN RECEPTOR POSITIVE STATUS [ER+] 06/26/2018 MILADYS COUCH MD Ot Z68.41 BODY MASS INDEX (BMI) 40.0-44.9, ADULT 06/26/2018 MILADYS COUCH MD Ot Z79.899 OTHER LONGTERM (CURRENT) DRUG THERAPY 07/19/2018 KASSIDY KHOURY Suzanne PROCESS LABORATORY SPECIALIST Ot 611.72 LUMP OR MASS IN BREAST 07/19/2018 BARBARA KHOURYSERA Palacios APRN Ot 174.9 MALIGN NEOPL BREAST NOS 07/19/2018 MILADYS COUCH MD Ot 174.9 MALIGN NEOPL BREAST NOS 07/19/2018 MILADYS COUCH MD Ot 174.9 MALIGN NEOPL BREAST NOS 07/19/2018 GENESISLAVONNE FLOREZ DO Ot 174.9 MALIGN NEOPL BREAST NOS 07/19/2018 [facility] LAVONNE MORA Ot V72.83 EXAM PRE-OPERATIVE NEC 07/19/2018 LAVONNE HURTADO DO Ot V74.8 SCREEN-BACTERIAL DIS NEC 07/19/2018 SHERI WAHL Ot 174.1 MAL JOSE L BREAST-CENTRAL 07/19/2018 SHERI WAHL Ot V86.0 ESTROGEN RECEPTOR POSITIVE STATUS [ER+] 07/19/2018 MILADYS COUCH MD Ot 174.9 MALIGN NEOPL BREAST NOS 07/19/2018 MILADYS COUCH MD Ot V58.69 OTH MED,LT,CURRENT USE 07/19/2018 MILADYS COUCH MD Ot V58.83 ENCOUNTER FOR THERAPEUTIC DRUG MONITORIN 07/19/2018 MILADYS COUCH MD Ot 174.9 MALIGN NEOPL BREAST NOS 07/19/2018 MILADYS COUCH MD Ot 174.9 MALIGN NEOPL BREAST NOS 07/19/2018 MILADYS COUCH MD Ot V58.69 OTH MED,LT,CURRENT USE 07/19/2018 MILADYS COUCH MD Ot V58.83 ENCOUNTER FOR THERAPEUTIC DRUG MONITORIN 07/19/2018 LAVONNE HURTADO DO Ot 174.9 MALIGN NEOPL BREAST NOS 07/19/2018 LAVONNE HURTADO DO Ot V72.84 EXAM PRE-OPERATIVE NOS 07/19/2018 SHERI WAHL Ot C50.911 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 07/19/2018 SHERI WAHL Ot C77.3 SEC AND UNSP MALIG NEOPLASM OF AXILLA AN 07/19/2018 SHERI WAHL Ot I48.91 UNSPECIFIED ATRIAL FIBRILLATION 07/19/2018 SHERI WAHL Ot Z17.0 ESTROGEN RECEPTOR POSITIVE STATUS [ER+] 07/19/2018 SHERI WAHL 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 Ot Z79.899 OTHER LONGTERM (CURRENT) DRUG THERAPY 07/19/2018 HUGO PEACE Ot E78.5 HYPERLIPIDEMIA, UNSPECIFIED 07/19/2018 HUGO PEACE Ot I10 ESSENTIAL (PRIMARY) HYPERTENSION 07/19/2018 HUGO PEACE Ot I48.91 UNSPECIFIED ATRIAL FIBRILLATION 07/19/2018 HUGO PEACE Ot R06.00 DYSPNEA, UNSPECIFIED 07/19/2018 MILADYS COUCH MD Ot 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 07/19/2018 MILADYS COUCH MD Ot 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 07/19/2018 GINGER MORA MD Ot E78.2 MIXED HYPERLIPIDEMIA 07/19/2018 GINGER MORA MD Ot G47.33 OBSTRUCTIVE SLEEP APNEA (ADULT) (PEDIATR 07/19/2018 GINGER MORA MD J Ot I10 ESSENTIAL (PRIMARY) HYPERTENSION 07/19/2018 GINGER MORA MD Ot I48.0 PAROXYSMAL ATRIAL FIBRILLATION 07/19/2018 GINGER MORA MD Ot E78.2 MIXED HYPERLIPIDEMIA 07/19/2018 GINGER MORA MD J Ot I10 ESSENTIAL (PRIMARY) HYPERTENSION 07/19/2018 GINGER MORA MD J Ot I48.0 PAROXYSMAL ATRIAL FIBRILLATION 07/19/2018 MILADYS COUCH MD Ot 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 07/19/2018 HUGO PEACE Ot E78.2 MIXED HYPERLIPIDEMIA 07/19/2018 HUGO PEACE Ot E78.2 MIXED HYPERLIPIDEMIA 07/19/2018 HUGO PEACE Ot I10 ESSENTIAL (PRIMARY) HYPERTENSION 07/19/2018 HUGO PEACE Ot I25.10 ATHSCL HEART DISEASE OF [place] CORONARY 07/19/2018 HUGO PEACE Ot I48.0 PAROXYSMAL ATRIAL FIBRILLATION 07/19/2018 HUGO PEACE Ot E78.2 MIXED HYPERLIPIDEMIA 07/19/2018 HUGO PEACE Ot I10 ESSENTIAL (PRIMARY) HYPERTENSION 07/19/2018 HUGO PEACE Ot I25.10 ATHSCL HEART DISEASE OF [place] CORONARY 07/19/2018 HUGO PEACE Ot I48.0 PAROXYSMAL ATRIAL FIBRILLATION 07/19/2018 MILADYS COUCH MD, Ot Z85.3 PERSONAL HISTORY OF MALIGNANT NEOPLASM O 07/19/2018 MILADYS COUCH MD, Ot Z90.12 ACQUIRED ABSENCE OF LEFT BREAST AND NIPP 07/19/2018 MILADYS COUCH MD Ot R06.02 SHORTNESS OF BREATH 07/19/2018 Ot E78.2 MIXED HYPERLIPIDEMIA 07/19/2018 Ot I10 ESSENTIAL ( PRIMARY) HYPERTENSION 07/19/2018 MILADYS COUCH MD, Ot C50.411 MALIG NEOPLM OF UPPER-OUTER QUADRANT OF 07/19/2018 MILADYS COUCH MD Ot C50.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 07/19/2018 MILADYS COUCH MD Ot E66.9 OBESITY, UNSPECIFIED 07/19/2018 MILADYS COUCH MD Ot E78.5 HYPERLIPIDEMIA, UNSPECIFIED 07/19/2018 MILADYS COUCH MD Ot F32.9 MAJOR DEPRESSIVE DISORDER, SINGLE EPISOD 07/19/2018 MILADYS COUCH MD Ot I10 ESSENTIAL (PRIMARY) HYPERTENSION 07/19/2018 MILADYS COUCH MD Ot Z17.0 ESTROGEN RECEPTOR POSITIVE STATUS [ER+] 07/19/2018 MILADYS COUCH MD, Ot Z68.41 BODY MASS INDEX (BMI) 40.0-44.9, ADULT 07/19/2018 MILADYS COUCH MD, Ot Z79.899 OTHER LONGTERM (CURRENT) DRUG THERAPY 07/19/2018 MILADYS COUCH MD Ot C50.411 MALIG NEOPLM OF UPPER-OUTER QUADRANT OF 07/24/2018 MILADYS COUCH MD Ot C50.411 MALIG NEOPLM OF UPPER-OUTER QUADRANT OF 07/24/2018 MILADYS COUCH MD Ot Z90.11 ACQUIRED ABSENCE OF RIGHT BREAST AND NIP 07/26/2018 MILADYS COUCH MD, Ot C50.411 MALIG NEOPLM OF UPPER-OUTER QUADRANT OF 07/26/2018 MILADYS COUCH MD Ot Z90.11 ACQUIRED ABSENCE OF RIGHT BREAST AND NIP 08/21/2018 MILADYS COUCH MD, Ot C50.411 MALIG NEOPLM OF UPPER-OUTER QUADRANT OF 08/21/2018 MILADYS COUCH MD Ot Z90.11 ACQUIRED ABSENCE OF RIGHT BREAST AND NIP 08/25/2018 MILADYS COUCH MD, Ot C50.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 08/25/2018 MILADYS COUCH MD Ot E66.9 OBESITY, UNSPECIFIED 08/25/2018 MILADYS COUCH MD Ot E78.5 HYPERLIPIDEMIA, UNSPECIFIED 08/25/2018 MILADYS COUCH MD Ot F32.9 MAJOR DEPRESSIVE DISORDER, SINGLE EPISOD 08/25/2018 MILADYS COUCH MD Ot I10 ESSENTIAL (PRIMARY) HYPERTENSION 08/25/2018 MILADYS COUCH MD Ot Z17.0 ESTROGEN RECEPTOR POSITIVE STATUS [ER+] 08/25/2018 MILADYS COUCH MD Ot Z68.41 BODY MASS INDEX (BMI) 40.0-44.9, ADULT 08/25/2018 MILADYS COUCH MD Ot Z79.899 OTHER LONGTERM (CURRENT) DRUG THERAPY 10/19/2018 MILADYS COUCH MD Ot C50.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 10/19/2018 MILADYS COUCH MD Ot E66.9 OBESITY, UNSPECIFIED 10/19/2018 MILADYS COUCH MD Ot E78.5 HYPERLIPIDEMIA, UNSPECIFIED 10/19/2018 MILADYS COUCH MD Ot F32.9 MAJOR DEPRESSIVE DISORDER, SINGLE EPISOD 10/19/2018 MILADYS COUCH MD Ot I10 ESSENTIAL (PRIMARY) HYPERTENSION 10/19/2018 MILADYS COUCH MD Ot Z17.0 ESTROGEN RECEPTOR POSITIVE STATUS [ER+] 10/19/2018 MILADYS COUCH MD Ot Z68.41 BODY MASS INDEX (BMI) 40.0-44.9, ADULT 10/19/2018 MILADYS COUCH MD Ot Z79.899 OTHER SURFACING TECHNICIAN (CURRENT) DRUG THERAPY 10/25/2018 MILADYS COUCH MD Ot C50.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 10/25/2018 MILADYS COUCH MD Ot E66.9 OBESITY, UNSPECIFIED 10/25/2018 MILADYS COUCH MD Ot E78.5 HYPERLIPIDEMIA, UNSPECIFIED 10/25/2018 MILADYS COUCH MD Ot F32.9 MAJOR DEPRESSIVE DISORDER, SINGLE EPISOD 10/25/2018 MILADYS COUCH MD Ot I10 ESSENTIAL (PRIMARY) HYPERTENSION 10/25/2018 MILADYS COUCH MD Ot Z17.0 ESTROGEN RECEPTOR POSITIVE STATUS [ER+] 10/25/2018 MILADYS COUCH MD Ot Z68.41 BODY MASS INDEX (BMI) 40.0-44.9, ADULT 10/25/2018 MILADYS COUCH MD Ot Z79.899 OTHER SURFACING TECHNICIAN (CURRENT) DRUG THERAPY 12/01/2018 HUGO PEACE Ot E78.5 HYPERLIPIDEMIA, UNSPECIFIED 12/01/2018 HUGO PEACE 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 12/01/2018 HUGO PEACE Ot I10 ESSENTIAL (PRIMARY) HYPERTENSION 12/01/2018 PAUL PEACETH K Ot I25.10 ATHSCL HEART DISEASE OF [place] CORONARY 12/01/2018 HUGO PEACE Ot I48.0 PAROXYSMAL ATRIAL FIBRILLATION 12/13/2018 HUGO PEACE K Ot E78.2 MIXED HYPERLIPIDEMIA 12/14/2018 HUGO PEACE K Ot E78.5 HYPERLIPIDEMIA, UNSPECIFIED 12/14/2018 HUGO PEACE K Ot I10 ESSENTIAL (PRIMARY) HYPERTENSION 12/14/2018 PAUL PEACETH K Ot I25.10 ATHSCL HEART DISEASE OF [place] CORONARY 12/15/2018 MILADYS COUCH MD Ot C50.411 MALIG NEOPLM OF UPPER-OUTER QUADRANT OF 12/15/2018 MILADYS COUCH MD Ot Z98.890 OTHER SPECIFIED POSTPROCEDURAL STATES 12/19/2018 HUGO PEACE Ot E78.5 HYPERLIPIDEMIA, UNSPECIFIED 12/19/2018 PAUL PEACETH K Ot I10 ESSENTIAL (PRIMARY) HYPERTENSION 12/19/2018 JOAO PEACEDITH K Ot I25.10 ATHSCL HEART DISEASE OF [place] CORONARY 12/20/2018 HUGO PEACE Ot E78.5 HYPERLIPIDEMIA, UNSPECIFIED 12/20/2018 HUGO PEACE 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 12/20/2018 HUGO PEACE Ot I10 ESSENTIAL (PRIMARY) HYPERTENSION 12/20/2018 HUGO PEACE Ot I25.10 ATHSCL HEART DISEASE OF [place] CORONARY 12/20/2018 HUGO PEACE Ot I48.0 PAROXYSMAL ATRIAL FIBRILLATION Procedures Code [place] [address] H PYLORI (IN-HOUSE) 10/02/2012 32165 ROUTINE VENIPUNCTURE 11/13/2012 46721 CBC 11/13/2012 64197 LIPID PANEL 11/13/2012 84117 CMP 11/13/2012 3869081 GFR CALC (RESULT ONLY) 11/13/2012 50632 TSH 11/13/2012 02243 CERUMEN REMOVAL 01/23/2013 54309 STREP A (IN-HOUSE) 03/01/2013 65041 ROUTINE VENIPUNCTURE 03/14/2013 00993 A1C (IN-HOUSE) 03/14/2013 59908 CBC 03/14/2013 95434 CMP 03/14/2013 59528 LIPID PANEL 03/14/2013 51887 VITAMIN D 25-HYDROXY (D2,D3 , TOTAL) 03/14/2013 21809 TSH 03/14/2013 13713 ROUTINE VENIPUNCTURE 07/16/2013 71729 A1C (IN-HOUSE) 07/16/2013 96823 ROUTINE VENIPUNCTURE 04/15/2014 21172 VITAMIN D 25-HYDROXY (D2,D3 , TOTAL) 04/15/2014 06297 TSH 04/15/2014 81138 CBC 04/15/2014 75522 CMP 04/15/2014 35732 LIPID PANEL 04/15/2014 8989503 GFR CALC (RESULT ONLY) 04/15/2014 43596 ROUTINE VENIPUNCTURE 10/07/2014 55076 CPK 10/07/2014 84674 A1C (RML) 10/07/2014 50219 MYOGLOBIN 10/07/2014 45252 TSH 10/07/2014 24165 CRP 10/07/2014 46792 CBC 10/07/2014 2839579 GFR CALC (RESULT ONLY) 10/07/2014 19586 CMP 10/07/2014 21676 LIPID PANEL 10/07/2014 62852 US GUIDE FOR BIOPSY 12/18/2014 MEDICAL O VIA [facility], 12/26/2014 Results Test Result Range Liver [...] indirect bilirubin measurement (mass/volume) 0.2 mg/ dL [facility] [place] Lipid 1996 panel - 05/18/16 10:10 Serum [...] resistant Staphylococcus aureus (MRSA) screening culture NEG [facility] [place] Complete blood count (CBC) with automated white [...] Staphylococcus aureus (MRSA) screening culture NEG [facility] Complete blood count (CBC) with automated white blood cell (WBC) differential - 10/03/17 13:45 Blood leukocytes automated count (number/volume) 5.2 10*3/uL 4.3-11.0 Blood erythrocytes automated count (number/volume) 4.14 10*6/uL 4.35-5.85 Venous blood hemoglobin measurement (mass/volume) 11.2 g/dL 11.5-16.0 Blood hematocrit (volume fraction) 38 % 35-52 Automated erythrocyte mean corpuscular volume 92 [foz_us] 80-99 Automated erythrocyte mean corpuscular hemoglobin (mass per erythrocyte) 27 pg 25-34 Automated erythrocyte mean corpuscular hemoglobin concentration measurement ( mass/volume) 30 g/dL 32-36 Automated erythrocyte distribution width ratio 14.5 % 10.0-14.5 Automated blood platelet count (count/volume) 170 10*3/uL 130-400 Automated blood platelet mean volume measurement 11.4 [foz_us] 7.4-10.4 Automated blood neutrophils/100 leukocytes 71 % 42-75 Automated blood lymphocytes/100 leukocytes 18 % 12-44 Blood monocytes/100 leukocytes 8 % 0-12 Automated blood eosinophils/100 leukocytes 3 % 0-10 Automated blood basophils/100 leukocytes 1 % 0-10 Blood neutrophils automated count (number/volume) 3.7 10*3 1.8-7.8 Blood lymphocytes automated count (number/volume) 0.9 10*3 1.0-4.0 Blood monocytes automated count (number/volume) 0.4 10*3 0.0-1.0 Automated eosinophil count 0.1 10*3/uL 0.0-0.3 Automated blood basophil count (count/volume) 0.0 10*3/uL 0.0-0.1 Comprehensive metabolic panel - 10/03/17 13:45 Serum or plasma sodium measurement (moles/volume) 141 mmol/L 135-145 Serum or plasma potassium measurement (moles/volume) 4.0 mmol/L 3.6-5.0 Serum or plasma chloride measurement (moles/volume) 102 mmol/L 98-107 Carbon dioxide 24 mmol/L 21-32 Serum or plasma anion gap determination (moles/volume) 15 mmol/L 5-14 Serum or plasma urea nitrogen measurement (mass/volume) 33 mg/dL 7-18 Serum or plasma creatinine measurement (mass/volume) 0.80 mg/dL 0.60-1.30 Serum or plasma urea nitrogen/creatinine mass ratio 41 NRG Serum or plasma creatinine measurement with calculation of estimated glomerular filtration rate > NRG Serum or plasma glucose measurement (mass/volume) 99 mg/dL 70-105 Serum or plasma calcium measurement (mass/volume) 9.9 mg/dL 8.5-10.1 Serum or plasma total bilirubin measurement (mass/volume) 0.3 mg/dL 0.1-1.0 Serum or plasma alkaline phosphatase measurement (enzymatic activity/volume) 96 U/L 40-136 Serum or plasma aspartate aminotransferase measurement (enzymatic activity/ volume) 18 U/L 5-34 Serum or plasma alanine aminotransferase measurement (enzymatic activity/volume ) 20 U/L 0-55 Serum or plasma protein measurement (mass/volume) 7.3 g/dL 6.4-8.2 Serum or plasma albumin measurement (mass/volume) 4.1 g/dL 3.2-4.5 Magnesium - 10/03/17 13:45 Magnesium 1.6 mg/dL 1.8-2.4 Serum or plasma troponin i.cardiac measurement (mass/volume) - 10/03/17 13:45 Serum or plasma troponin i.cardiac measurement (mass/volume) < ng/ mL <0.30 THYROID STIMULATING HORMONE - 10/03/17 13:45 THYROID STIMULATING HORMONE 4.15 u[iU]/mL 0.35-4.94 Encounters ACCT No. Visit Date/Time Discharge Status Pt. Type Provider Facility Loc./Unit Complaint [id number] 01/10/2015 09:44:00 01/10/2015 23:59:59 CLS Outpatient NAZANIN PONCE APRN [id number] 01/02/2015 10:35:00 01/02/2015 23:59:59 CLS Outpatient KEN KUNZ MD [id number] 12/26/2014 10:38:00 12/26/2014 23:59:59 CLS Outpatient KASSIDY KHOURY APRN [id number] 12/10/2014 10:16:00 12/10/2014 23:59:59 CLS Outpatient KASSIDY KHOURY APRN [id number] 10/07/2014 08:48:00 10/07/2014 23:59:59 CLS Outpatient NAZANIN PONCE APRN [id number] 08/26/2014 08:28:00 08/26/2014 23:59:59 CLS Outpatient NAZANIN PONCE APRN [id number] 04/19/2014 12:21:00 04/19/2014 23:59:59 CLS Outpatient NAZANIN PONCE APRN [id number] 04/15/2014 08:06:00 04/15/2014 23:59:59 CLS Outpatient JALEELAdelaide KAVON PORTER [id number] 02/11/2014 09:04:00 02/11/2014 23:59:59 CLS Outpatient ERICH MORA DOTTY K [id number] 12/03/2013 11:11:00 12/03/2013 23:59:59 CLS Outpatient NAZANIN PONCE APRN [id number] 11/05/2013 08:47:00 11/05/2013 23:59:59 CLS Outpatient KEN KUNZ MD [id number] 10/08/2013 14:39:00 10/08/2013 23:59:59 CLS Outpatient NAZANIN PONCE APRN [id number] 07/20/2013 09:05:00 07/20/2013 23:59:59 CLS Outpatient NAZANIN PONCE APRN [id number] 07/16/2013 08:19:00 07/16/2013 23:59:59 CLS Outpatient KEN KUNZ MD [id number] 11/15/2012 14:39:00 11/15/2012 23:59:59 CLS Outpatient [id number] 11/13/2012 09:19:00 11/13/2012 23:59:59 CLS Outpatient [id number] 10/02/2012 11:09:00 10/02/2012 23:59:59 CLS Outpatient [id number] 08/02/2012 12:58:00 08/02/2012 23:59:59 CLS Outpatient ARNAUD OBRIEN DDS [id number] 03/20/2013 15:34:00 Document Registration [id number] 03/14/2013 08:34:00 Document Registration [id number] 03/01/2013 09:37:00 Document Registration [id number] 01/23/2013 15:38:00 Document Registration [id number] 12/13/2018 08:50:00 12/13/2018 23:59:59 CLS Outpatient HUGO PEACE [facility] CARD CAD, HYPERLIPIDEMIA, HYPERTENSION [id number] 12/13/2018 08:48:00 12/13/2018 23:59:59 CLS Outpatient MILADYS COUCH MD [facility] RAD BREAST CANCER [id number] 11/30/2018 11:48:00 11/30/2018 23:59:59 CLS Outpatient HUGO PEACE [facility] CARD CAD, HYPERLIPIDEMIA, HYPERTENSION [id number] 10/20/2018 00:09:00 10/20/2018 23:59:59 CLS Preadmit MILADYS COUCH MD [facility] ONC [id number] 07/21/2018 10:07:00 10/19/2018 00:01:00 DIS Outpatient MILADYS COUCH MD [facility] ONC [id number] 07/19/2018 08:33:00 07/19/2018 23:59:59 CLS Outpatient MILADYS COUCH MD [facility] RAD LUMP OF RIGHT BREAST [id number] 05/09/2018 10:23:00 05/26/2018 00:01:00 DIS Outpatient MILADYS COUCH MD [facility] ONC [id number] 02/21/2018 08:47:00 02/21/2018 23:59:59 CLS Outpatient MILADYS COUCH MD [facility] RAD R06.02 [id number] 02/14/2018 10:39:00 02/14/2018 23:59:59 CLS Outpatient MILADYS COUCH MD [facility] ONC [id number] 12/12/2017 08:24:00 12/12/2017 23:59:59 CLS Outpatient MILADYS COUCH MD [facility] RAD BREAST CANCER [id number] 09/06/2017 08:51:00 12/05/2017 00:01:00 DIS Outpatient MILADYS COUCH MD [facility] ONC [id number] 10/03/2017 13:16:00 10/03/2017 15:33:00 DIS Emergency MOLLY DUBOSE APRN [facility] ER A-FIB [id number] 08/31/2017 07:29:00 08/31/2017 15:20:00 DIS Outpatient GINGER MORA MD [facility] CATH ABNORMAL STRESS TEST, DYSPNEA,CAD,HTN [id number] 08/24/2017 07:41:00 08/24/2017 23:59:59 CLS Outpatient HUGO PEACE [facility] CARD PAF [id number] 08/23/2017 13:41:00 08/23/2017 23:59:59 CLS Outpatient HUGO PEACE [facility] CARD PAF [id number] 03/21/2017 08:23:00 06/19/2017 00:01:00 DIS Outpatient MILADYS COUCH MD [facility] ONC [id number] 05/19/2017 10:13:00 05/19/2017 23:59:59 CLS Outpatient HUGO PEACE [facility] LAB [id number] 04/29/2017 14:15:00 04/30/2017 12:50:00 DIS Inpatient TOR BOLDEN MD [facility] ICU A-FIB W RVR [id number] 02/07/2017 10:55:00 02/13/2017 00:01:00 DIS Outpatient MILADYS COUCH MD [facility] ONC [id number] 01/07/2017 07:30:00 01/07/2017 12:25:00 DIS Outpatient JAZMIN WHITING DO [facility] SDC HISTORY OF BREAST CARCINOMA [id number] 01/05/2017 14:15:00 01/05/2017 16:00:00 DIS Outpatient JAZMIN WHITING DO [facility] PREOP HX BREAST CA [id number] 01/05/2017 09:30:00 01/05/2017 09:30:00 CAN Preadmit GINGER MORA MD [facility] CATH PRE SURGICAL REMOVAL, HTN,HLP [id number] 12/08/2016 12:51:00 12/08/2016 23:59:59 CLS Outpatient MILADYS COUCH MD [facility] RAD BREAST CA [id number] 11/23/2016 09:20:00 11/23/2016 10:00:00 DIS Outpatient MARICEL RODRIGEZ [employer] [facility] SLEEP DEDE [id number] 11/15/2016 10:20:00 11/15/2016 23:59:59 CLS Outpatient GINGER MORA MD [facility] LAB [id number] 10/04/2016 10:08:00 10/25/2016 00:01:00 DIS Outpatient MILADYS COUCH MD [facility] ONC [id number] 06/18/2016 09:41:00 07/05/2016 00:01:00 DIS Outpatient MILADYS COUCH MD [facility] ONC [id number] 06/14/2016 09:19:00 06/14/2016 23:59:59 CLS Outpatient MILADYS COUCH MD [facility] RAD BREAST CA [id number] 05/18/2016 10:04:00 05/18/2016 23:59:59 CLS Outpatient GINGER MORA MD [facility] LAB [id number] 02/24/2016 08:46:00 04/04/2016 00:01:00 DIS Outpatient MILADYS COUCH MD [facility] ONC [id number] 03/05/2016 10:33:00 03/06/2016 11:37:00 DIS Outpatient BLAKEN JONES DPM [facility] SDC LEFT FOOT FX [id number] 03/03/2016 10:27:00 03/03/2016 10:56:00 DIS Outpatient BLAKEN JONES DPM [facility] PREOP LEFT FOOT FX [id number] 02/26/2016 13:16:00 02/26/2016 17:40:00 DIS Emergency NIRAV PENA DO [facility] ER FALL/LEFT FOOT INJURY [id number] 02/25/2016 07:17:00 02/25/2016 14:31:00 DIS Outpatient GINGER MORA MD [facility] CR PTCA [id number] 02/20/2016 11:57:00 02/22/2016 00:01:00 DIS Outpatient GINGER MORA MD [facility] CR PTCA [id number] 11/24/2015 09:15:00 12/24/2015 00:01:00 DIS Outpatient MILADYS COUCH MD [facility] ONC [id number] 12/08/2015 13:49:00 12/08/2015 23:59:59 CLS Outpatient MILADYS COUCH MD [facility] RAD BREAST CA [id number] 10/15/2015 06:45:00 10/15/2015 23:59:59 CLS Outpatient GINGER MORA MD [facility] CATH ABNORMAL STRESS TEST,HTN ,HLP,AFIB [id number] 09/24/2015 08:24:00 09/24/2015 00:01:00 DIS Outpatient MILADYS COUCH MD [facility] ONC [id number] 09/22/2015 08:00:00 09/22/2015 23:59:59 CLS Outpatient HUGO PEACE [facility] CARD A-FIB [id number] 08/27/2015 07:54:00 08/27/2015 10:15:00 DIS Outpatient GINGER MORA MD [facility] CATH PAF [id number] 08/01/2015 19:30:00 08/02/2015 16:15:00 DIS Inpatient DOTTY JUNG DO [facility] ICU PAROXYSMAL ATRIAL FIBRILLATION [id number] 07/15/2015 14:10:00 07/15/2015 23:59:59 CLS Outpatient SHERI WAHL [facility] ONC [id number] 06/24/2015 10:43:00 06/25/2015 00:01:00 DIS Outpatient MILADYS COUCH MD [facility] ONC [id number] 05/14/2015 06:40:00 05/15/2015 13:20:00 DIS Outpatient LAVONNE HURTADO DO [facility] RAD RIGHT BREAST CANCER [id number] 05/12/2015 13:59:00 05/12/2015 23:59:59 CLS Outpatient LAVONNE HURTADO DO [facility] PREOP RIGHT BREAST CANCER [id number] 04/27/2015 09:42:00 04/27/2015 12:18:00 DIS Emergency SURAJ ANG MD [facility] ER IRR HEART RATE [id number] 04/10/2015 14:00:00 04/10/2015 23:59:59 CLS Outpatient MILADYS COUCH MD [facility] CARD BREAST CA, MONITORING CARDIOTOXIC CHEMO [id number] 04/02/2015 13:26:00 04/03/2015 00:01:00 DIS Outpatient MILADYS COUCH MD [facility] ONC [id number] 03/11/2015 13:55:00 03/11/2015 23:59:59 CLS Outpatient MILADYS COUCH MD [facility] RAD BREAST CANCER [id number] 03/10/2015 12:51:00 03/10/2015 23:59:59 CLS Outpatient MILADYS COUCH MD [facility] CARD BREAST CANCER CARDIOTOXIC CHEMO [id number] 01/16/2015 10:06:00 01/16/2015 23:59:59 CLS Outpatient SHERI WAHL [facility] ONC [id number] 01/14/2015 11:00:00 01/14/2015 16:07:00 DIS Outpatient LAVONNE HURTADO DO [facility] SDC BREAST CANCER [id number] 01/10/2015 12:08:00 01/10/2015 23:59:59 CLS Outpatient LAVONNE HURTADO DO [facility] PREOP BREAST CANCER [id number] 01/08/2015 12:34:00 01/08/2015 23:59:59 CLS Outpatient MILADYS COUCH MD [facility] CARD BREAST CANCER [id number] 01/07/2015 11:36:00 01/07/2015 23:59:59 CLS Outpatient MILADYS COUCH MD [facility] RAD BREAST CANCER [id number] 12/18/2014 08:41:00 12/18/2014 23:59:59 CLS Outpatient KASSIDY KHOURY APRN [facility] RAD RT BREAST [id number] 12/17/2014 12:29:00 12/17/2014 23:59:59 CLS Outpatient KASSIDY KHOURY APRN [facility] RAD RIGHT BREAST LUMP [id number] 10/15/2014 14:51:00 10/15/2014 16:39:00 DIS Emergency NANCY BAZAN [facility] ER DIZZINESS/HEADACHE [id number] 12/27/2018 09:00:00 GINGER Weeks MD [facility] CATH ABN STRESS TEST, CAD, PAF, HTN, HLP [id number] 04/26/2018 09:06:00 Document Registration [id number] 10/29/2015 21:53:00 Document Registration [id number] 04/19/2012 10:02:00 Document Registration [id number] 03/28/2012 15:17:00 Document Registration [id number] 08/29/2011 12:23:00 Document Registration [id number] 03/08/2018 10:40:00 03/08/2018 23:59:59 CLS Outpatient NAZANIN PONCE APRN [facility]
[2018-12-27 07:24] LABS: BILIRUBIN,URINE NEGATIVE (NEGATIVE); CLARITY,URINE CLEAR; COLOR,URINE YELLOW; GLUCOSE, URINE (UA) NEGATIVE (NEGATIVE); KETONES,URINE NEGATIVE (NEGATIVE); LEUKOCYTE ESTERASE ,URINE 1+ (NEGATIVE); NITRITE,URINE NEGATIVE (NEGATIVE); PH,URINE 6 (5-9); PROTEIN,URINE NEGATIVE (NEGATIVE); UROBILINOGEN,URINE NORMAL (NORMAL)
[2018-12-27 07:25] LABS: HEMOGLOBIN 11.3 G/DL (11.5-16.0); MEAN PLATELET VOLUME 10.7 FL (7.4-10.4); RED CELL DISTRIBUTION WIDTH 14.6 % (10.0-14.5); WHITE BLOOD COUNT 6.2 10^3/uL (4.3-11.0)
--- NOTE | 2018-12-27 07:31 | Diagnostic Imaging Report ---
INDICATION: Preop heart catheter. Comparison with 02/21/2018. FINDINGS: The lungs are well aerated. No infiltrates have developed. Heart is not enlarged. No pulmonary edema. No pneumothorax or pleural effusion. IMPRESSION: Normal portable chest unchanged. Dictated by: Dictated on workstation # [id number]
[2018-12-27 07:46] LABS: INR 0.9 (0.8-1.4); PROTHROMBIN TIME PATIENT 12.6 SEC (12.2-14.7)
[2018-12-27 07:50] LABS: BACTERIA,URINE TRACE /HPF; GRANULAR CASTS,URINE RARE /LPF; SQUAMOUS EPITHELIAL CELL,UR RARE /HPF; WBC,URINE RARE /HPF
[2018-12-27 07:51] LABS: ALANINE AMINOTRANSFERASE 17 U/L (0-55); ALBUMIN 4.4 GM/DL (3.2-4.5); ALKALINE PHOSPHATASE 107 U/L (40-136); BILIRUBIN,TOTAL 0.3 MG/DL (0.1-1.0); BUN/CREATININE RATIO 23; CALCIUM 10.1 MG/DL (8.5-10.1); CARBON DIOXIDE 26 MMOL/L (21-32); CHLORIDE 102 MMOL/L (98-107); CREATININE SERUM 0.83 MG/DL (0.60-1.30); GFR ESTIMATED > 60; GLUCOSE 123 MG/DL (70-105); SODIUM 139 MMOL/L (135-145); TOTAL PROTEIN 7.5 GM/DL (6.4-8.2)
--- NOTE | 2018-12-27 07:56 | Cardiac Procedure Note-CS/ASA ---
Pre-Procedure Note Pre-Op Procedure Note H&P Reviewed The H&P was reviewed, patient examined and no changes noted. Date H&P Reviewed: Dec 27, 2018 Time H&P Reviewed: 07:55 Conscious Sedation Pre-Proced Time 07:55 ASA Score 3 For ASA 3 and 4: Consider anesthesia and medical clearance. Also, for patients with a history of failed moderate sedation consider anesthesia. Airway Lungs Heart ASA score ASA 1: a normal healthy patient ASA 2: a patient with a mild systemic disease (mid diabetes, controlled hypertension, obesity x ASA 3: a patient with a severe systemic disease that limits activity (angina , COPD, prior Myocardial infarction) ASA 4: a patient with an incapacitating disease that is a constant threat to life (CHF, renal failure) ASA 5: a moribund patient not expected to survive 24 hrs. (ruptured aneurysm) ASA 6: a declared brain- patient whose organs are being harvested. For emergent operations, add the letter E after the classification Mallampati Classification Grade 3 Sedation Plan Analgesia, Amnesia, Plan communicated to team members, Discussed options with patient/fam, Discussed risks with patient/fam The patient is an appropriate candidate to undergo the planned procedure, sedation, and anesthesia. The patient immediately re-assessed prior to indication. GINGER MORA MD Dec 27, 2018 07:56
[2018-12-27] MEDS ORDERED: DILT300T9 PO (08:53)
[2018-12-27] MEDS ORDERED: MIDAZOLAM 5 MG/5 ML (VERSED) VIAL ONE (08:53)
[2018-12-27] MEDS ORDERED: DILT300C49 PO (08:53)
[2018-12-27] MEDS ORDERED: fentaNYL INJECTION 100 MCG/2 ML AMP ONE (08:54)
[2018-12-27] MEDS ORDERED: GINK60TA2 PO (08:54)
[2018-12-27] MEDS ORDERED: GLUC100016 PO (08:57)
--- NOTE | 2018-12-27 08:58 | NUR ---
Patient brought medication bottles in. Stated her otc medications.
[2018-12-27] MEDS ORDERED: PATIENT MAY USE OWN MEDS, ALL PO SCH (10:00)
--- NOTE | 2018-12-27 10:02 | Cardiac Cath Report ---
Cardiac Cath Report Physician (s)/Manager Database (s) Physician GINGER MORA MD Pre-Procedure Diagnosis Pre-Procedure Diagnosis: coronary artery disease Post-Procedure Note Procedure Start Date: Dec 27, 2018 Name of Procedure: left heart catheterization Findings/Procedure Note PROCEDURE NOTE: 68 years old lady with history of coronary artery disease, hypertension hyperlipidemia, had an abnormal stress test, scheduled for cardiac catheterization possible PTCA. After explaining the procedure to the patient, all pros and cons were explained , all questions were answered. The patient signed the consent and then she was placed on the cardiac catheterization laboratory. Groin was prepped SL fashion local anesthesia was used. Sheath placed in the right femoral artery. Mercedes right and left catheter were used to access the coronary system. JR catheter advanced to the left ventricular cavity, pressure was measured no left ventriculogram was done, pullback LV to aorta was done. At the end of the procedure the sheath was removed. Closure device was used FINDINGS: Hemodynamics LV 166/19, end-diastolic pressure of 19 Aorta 159/64 mean of 10 ANATOMY: Left Main is free of obstructive disease Left Anterior Descending has a patent stent proximally with mild disease distally nonobstructive disease Left Circumflex has mild disease nonobstructive disease Right Coronory Artery has mild disease nonobstructive disease LV Gram was not done, pressure was measured CONCLUSION: 1. Patent stent in the proximal LAD otherwise mild coronary artery disease nonobstructive disease 2. Normal left ventricular end-diastolic pressure DISCUSSION AND RECOMMENDATION: continue to maximize medical therapy, no intervention is needed Anesthesia Type: Conscious Sedation Estimated blood loss (mL): 15 ml Contrast Amount: 35 ml Total Radiation Dose: 323 mGy Post-Procedure Diagnosis Post-operative diagnosis: Chest pain Coronary artery disease Hypertension Hyperlipidemia GINGER MORA MD Dec 27, 2018 10:01
== END 2018-12-27 14:35 | disposition home or self-care (01) ==
LOC: CATH 06:39 → SDC 10:12 → CATH 14:35
PROVIDERS: ATTEND Internal Medicine Cardiovascular Disease
DX: I25.10 Atherosclerotic heart disease of native coronary artery without angina pectoris (principal); I10 Essential (primary) hypertension; E78.5 Hyperlipidemia, unspecified; R94.39 Abnormal result of other cardiovascular function study; I48.0 Paroxysmal atrial fibrillation; Z79.01 Long term (current) use of anticoagulants; Z79.899 Other long term (current) drug therapy; Z85.3 Personal history of malignant neoplasm of breast; E66.9 Obesity, unspecified; Z68.41 Body mass index [BMI] 40.0-44.9, adult
CPT/HCPCS: 36415; 71045; 80053; 81000; 85027; 85610; 85730; 87081; 93458

== ENCOUNTER 2018-12-28 10:45 | Outpatient (RCR) | payer MEDICARE, MEDICAID ==
[~2018-12-28 10:45] MED LIST changes: +DILT300C49 PO; +DILT300T9 PO; +GINK60TA2 PO; +GLUC100016 PO
== END 2019-03-28 | disposition home or self-care (01) ==
LOC: ONC 10:45
PROVIDERS: ATTEND Internal Medicine Hematology & Oncology
DX: C50.111 Malignant neoplasm of central portion of right female breast (principal); Z17.0 Estrogen receptor positive status [ER+]; I10 Essential (primary) hypertension; E78.5 Hyperlipidemia, unspecified; F32.9 Major depressive disorder, single episode, unspecified; E66.9 Obesity, unspecified; Z68.41 Body mass index [BMI] 40.0-44.9, adult; Z79.899 Other long term (current) drug therapy
CPT/HCPCS: 99213